=== PATIENT | male | born 1960 | race Hispanic/Latino ===

== ENCOUNTER 2019-07-26 11:45 | Inpatient (IN) | payer OTHER ==
[2019-07-26] MEDS ORDERED: ASPIRIN 81 MG CHEWABLE TABLET ONE (12:29)
[2019-07-26] MEDS ORDERED: LABETALOL 20 MG/4ML SYRINGE IV ONE (12:29)
[2019-07-26] MEDS ORDERED: NITROGLYCERIN 0.4 MG/TAB SL ONE (12:29)
--- NOTE | 2019-07-26 12:37 | EKG ---
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
[2019-07-26] MEDS ORDERED: NA CHLORIDE 0.9% 1,000 ML ONE (12:47)
--- NOTE | 2019-07-26 12:57 | RAD REPORT ---
EXAM DESCRIPTION: RAD - Chest Single View - 07/26/2019 12:47 pm CLINICAL HISTORY: weakness Chest pain. COMPARISON: Chest Single View dated 11/25/2017; Chest Single View dated 11/22/2017; Chest Single View dated 07/31/2017; Chest Single View dated 12/26/2015 FINDINGS: Portable technique limits examination quality. Rounded density is seen in the right lung base medially likely representing a pneumonia. The lungs ar e otherwise clear. The heart is upper limit normal in size. No displaced fractures. IMPRESSION: Right lung base pneumonia suspected. Suggest follow-up imaging until clearance.
[2019-07-26 13:01] LABS: Protime INR 1.49
[2019-07-26 13:02] LABS: Absolute Lymphocytes (CBC) 0.5 K/uL (0.7-4.9); Basophils % 0.1 % (0-1.3); Hematocrit 30.1 % (39.6-49.0); Lymphocytes % 2.5 % (15.3-44.8); MPV 9.2 fL (7.6-11.3); RBC Red Blood Cell Count 3.42 M/uL (4.33-5.43)
[2019-07-26] MEDS ORDERED: NA CHLORIDE 0.9% 250 ML ONE ×2 (13:25→22:00)
[2019-07-26] MEDS ORDERED: NA CHLORIDE 0.9% 100 ML IV ONE (13:25)
[2019-07-26] MEDS ORDERED: AZITHROMYCIN 500 MG INJ IVPB ONE ×2 (13:25→21:47)
[2019-07-26] MEDS ORDERED: CEFTRIAXONE/SWI 1gm 2 GM/20 ML SYR ONE (13:25)
[2019-07-26 13:51] LABS: Albumin 2.5 g/dL (3.4-5.0); Bilirubin Direct 0.3 mg/dL (0-0.2); Bilirubin Total 0.6 mg/dL (0.2-1.0); Magnesium 2.2 mg/dL (1.8-2.4); Protein, Total 10.5 g/dL (6.4-8.2); Troponin (Emerg Dept Use Only) 0.07 ng/mL (0.0-0.045)
[2019-07-26 13:55] LABS: Potassium 5.8 mmol/L (3.5-5.1)
[2019-07-26 14:02] LABS: Blood Morphology Comment NOT SEEN (NOT SEEN); Platelet Estimate INCR; Toxic Granulation 1+; Urine White Blood Cell Casts OK
--- NOTE | 2019-07-26 15:56 | EDPHYS ---
Physician Documentation [facility] Name: Constantino Skelton Jr Age: 58 yrs Sex: Male : 1960 Arrival Date: 07/26/2019 Time: 11:46 Bed 24 Private MD: ED Physician Enrico Castillo HPI: 07/26 13:12 This 58 yrs old Male presents to ER via Wheelchair with complaints of Weakness.wa 13:12 The patient has shortness of breath at rest, that occurred at home, and the patient has wa a history of HTN, DM . The patient has shortness of breath c/o SOB, cough, weakness x 4 days. admits to chest tightness. denies fever. loss of appetite. last meal 2 days ago. . Onset: The symptoms/episode began/occurred 4 day(s) ago. Duration: The symptoms are continuous, and are steadily getting worse. The patient's shortness of breath has no apparent modifying factors. Associated signs and symptoms: Pertinent positives: chest pain, productive cough, dizziness, Pertinent negatives: fever, loss of consciousness, vomiting. Severity of symptoms: At their worst the symptoms were moderate in the emergency department the symptoms are worse moderately. The patient has experienced similar episodes in the past, a few times. The patient has not recently seen a physician. per pt's sister, pt has h/o kidney disease as well. lives by self. . Historical: - Allergies: 16:05 No Known Allergies; mg2 - Home Meds: 13:45 labetalol 200 mg Oral tab 1 tab 2 times per day [Active]; pravastatin 20 mg Oral tab 1 mg2 tab once daily [Active]; 16:05 hydralazine 100 mg Oral tab 1 tab 3 times per day [Active]; amlodipine 10 mg tab 1 tab mg2 once daily [Active]; - PMHx: 11:51 Diabetes - NIDDM; Hyperlipidemia; Hypertension; sv - Immunization history:: Flu vaccine is up to date. - Social history:: Smoking status: Patient/guardian denies using tobacco, never smoked, The patient lives alone. - Family history:: not pertinent. - Ebola Screening: : No symptoms or risks identified at this time. - Hospitalizations: : No recent hospitalization is reported. ROS: 13:20 Eyes: Negative for injury, pain, redness, and discharge, ENT: Negative for injury, wa pain, and discharge, Neck: Negative for injury, pain, and swelling, Abdomen/GI: Negative for abdominal pain, nausea, vomiting, diarrhea, and constipation, Back: Negative for injury and pain, : Negative for injury, bleeding, discharge, and swelling, MS/Extremity: Negative for injury and deformity, Skin: Negative for injury, rash, and discoloration, Neuro: Negative for headache, weakness, numbness, tingling, and seizure, Psych: Negative for depression, anxiety, suicide ideation, homicidal ideation, and hallucinations. 13:20 Constitutional: Positive for fatigue, malaise, poor PO intake, weakness. 13:20 Cardiovascular: Positive for chest pain, with cough, Negative for edema, orthopnea, palpitations. 13:20 Respiratory: Positive for cough, "sounds productive", shortness of breath, on exertion. Negative for hemoptysis. Exam: 13:21 Head/Face: Normocephalic, atraumatic. Eyes: Pupils equal round and reactive to light, wa extra-ocular motions intact. Lids and lashes normal. Conjunctiva and sclera are non-icteric and not injected. Cornea within normal limits. Periorbital areas with no swelling, redness, or edema. Neck: Trachea midline, no thyromegaly or masses palpated, and no cervical lymphadenopathy. Supple, full range of motion without nuchal rigidity, or vertebral point tenderness. No Meningismus. Chest/axilla: Normal chest wall appearance and motion. Nontender with no deformity. No lesions are appreciated. Abdomen/GI: Soft, non-tender, with normal bowel sounds. No distension or tympany. No guarding or rebound. No evidence of tenderness throughout. Back: No spinal tenderness. No costovertebral tenderness. Full range of motion. Skin: Warm, dry with normal turgor. Normal color with no rashes, no lesions, and no evidence of cellulitis. MS/ Extremity: Pulses equal, no cyanosis. Neurovascular intact. Full, normal range of motion. Neuro: Awake and alert, GCS 15, oriented to person, place, time, and situation. Cranial nerves II-XII grossly intact. Motor strength 5/5 in all extremities. Sensory grossly intact. Cerebellar exam normal. Normal gait. Psych: Awake, alert, with orientation to person, place and time. Behavior, mood, and affect are within normal limits. 13:21 Constitutional: The patient appears unkempt, ill-appearing. frail 13:21 Cardiovascular: Rate: tachycardic, Rhythm: regular, Pulses: no pulse deficits are appreciated, Heart sounds: normal, Edema: is not appreciated, JVD: is not appreciated. 13:21 Respiratory: the patient does not display signs of respiratory distress, Respirations: tachypnea, that is moderate, Breath sounds: coarse BS bilaterally. Vital Signs: 11:50 BP 188 / 92; Pulse 113; Resp 28; Temp 97.7; Pulse Ox 99% ; Height 5 ft. 6 in. (167.64 sv cm); 12:45 BP 105 / 67; Pulse 78; Resp 26; Pulse Ox 100% on 2 lpm NC; mg2 13:39 BP 186 / 84; Pulse 86; Resp 22; Temp 97.8; Pulse Ox 99% on 2 lpm NC; mg2 15:18 BP 175 / 84; Pulse 82; Resp 22; Pulse Ox 100% on 2 lpm NC; mg2 17:52 BP 206 / 90; Pulse 80; Resp 18; Pulse Ox 100% on R/A; mg2 18:40 BP 212 / 88; Pulse 90; Resp 20; Pulse Ox 100% on 2 lpm NC; mg2 19:24 BP 195 / 89; Pulse 88; Resp 19; Temp 98.7; Pulse Ox 100% on 2 lpm NC; mg2 MDM: 11:58 Patient medically screened. wa 13:22 Differential diagnosis: CHF exacerbation, Chronic Obstructive Pulmonary Disease wa Myocardial Infarction pneumonia, pulmonary edema, Pulmonary Embolism reactive airway disease, Sepsis Unstable Angina. 15:21 Data reviewed: vital signs, nurses notes, lab test result(s), EKG, radiologic studies. wa Test interpretation: by ED physician or midlevel provider: EKG: HR 106. sinus tach. nml axis. LVH with strain or lateral wall ischemia. noted hyperacute T waves, consider hyperkalemia. 15:26 Test interpretation: by ED physician or midlevel provider: labs: hyperK at 5.8. GFR of wa 4 (BUN/Cr 221/14.1). hyperglycemia at 171. Cl 111. CO2 10. alk phos 152. BNP 9865. troponin 0.07. CXR R lung base pneumonia.. 15:38 Physician consultation: Erma Prasad MD. Admission orders: after a detailed discussion wa of the patient's condition and case, the admit orders are written by me. Other consultation: Dr. Clayton - renal . 15:49 Test interpretation: by ED physician or midlevel provider:. ED course: problem list: wa pna - Rocephin/zithro. IV. renal failure: fluid challenges. avendaño to eval output. consulted renal doc Forrest. bilateral renal US. pt improved for arrival status. will admit. pt very ill at this time. 07/26 11:59 Order name: Basic Metabolic Panel; Complete Time: 15:18 mg2 07/26 11:59 Order name: CBC with Diff; Complete Time: 15:18 mg2 07/26 11:59 Order name: LFT's; Complete Time: 15:19 mg2 07/26 11:59 Order name: Magnesium; Complete Time: 15:20 mg2 07/26 11:59 Order name: NT PRO-BNP; Complete Time: 15:19 mg2 07/26 11:59 Order name: PT-INR; Complete Time: 13:07 mg2 07/26 11:59 Order name: Troponin (emerg Dept Use Only); Complete Time: 15:19 mg2 07/26 11:59 Order name: XRAY Chest (1 view); Complete Time: 13:07 mg2 07/26 12:16 Order name: Urine Microscopic Only oh 07/26 12:16 Order name: Blood Culture Adult (2) oh 07/26 14:03 Order name: CBC Smear Scan; Complete Time: 15:18 EDMS 07/26 15:33 Order name: US Rp Exam Complete oh 07/26 16:00 Order name: Urine Dipstick--Ancillary (enter results) 07/26 11:59 Order name: EKG; Complete Time: 12:01 mg2 07/26 11:59 Order name: Cardiac monitoring; Complete Time: 12:12 mg2 07/26 11:59 Order name: EKG - Nurse/Tech; Complete Time: 12:43 mg2 07/26 11:59 Order name: IV Saline Lock; Complete Time: 12:43 mg2 07/26 16:49 Order name: US; Complete Time: 17:49 EDMS 07/26 11:59 Order name: Labs collected and sent; Complete Time: 12:43 mg2 07/26 11:59 Order name: O2 Per Protocol; Complete Time: 12:12 mg2 07/26 11:59 Order name: O2 Sat Monitoring; Complete Time: 12:12 mg2 07/26 12:16 Order name: Urine Dipstick-Ancillary (obtain specimen); Complete Time: 15:58 wa 07/26 15:21 Order name: Mt; Complete Time: 15:58 oh Administered Medications: 12:42 Drug: Labetalol 20 mg Route: IVP; Infused Over: 2 mins; Site: right antecubital; mg2 16:02 Follow up: Response: No adverse reaction; Marked relief of symptoms mg2 12:42 Drug: Nitroglycerin 0.4 mg Route: Sublingual; mg2 16:01 Follow up: Response: No adverse reaction mg2 12:42 Drug: Aspirin Chewable Tablet 324 mg Route: PO; mg2 16:01 Follow up: Response: No adverse reaction mg2 12:42 Drug: NS 0.9% 500 ml Route: IV; Rate: bolus; Site: right antecubital; mg2 16:01 Follow up: Response: No adverse reaction; IV Status: Completed infusion; IV Intake: mg2 500ml 13:39 Drug: Rocephin - (cefTRIAXone) 2 grams Route: IVPB; Infused Over: 30 mins; Site: right mg2 antecubital; 16:00 Follow up: Response: No adverse reaction; IV Status: Completed infusion; IV Intake: mg2 100ml 13:39 Drug: NS 0.9% 500 ml Route: IV; Rate: bolus; Site: right antecubital; mg2 15:59 Follow up: Response: No adverse reaction; IV Status: Completed infusion; IV Intake: mg2 500ml 13:56 Drug: Zithromax 500 mg Route: IVPB; Infused Over: 1 hrs; Site: right antecubital; mg2 16:00 Follow up: Response: No adverse reaction; IV Status: Completed infusion mg2 17:06 Drug: NS 0.9% 500 ml Route: IV; Rate: bolus; Site: right antecubital; mg2 18:39 Follow up: Response: No adverse reaction; IV Status: Completed infusion; IV Intake: mg2 500ml 17:52 Drug: HydrALAZINE 50 mg Route: PO; mg2 19:32 Follow up: Response: No adverse reaction mg2 17:52 Drug: amLODIPine 10 mg Route: PO; mg2 19:32 Follow up: Response: No adverse reaction mg2 19:26 Drug: hydrALAZINE 10 mg Route: IV; Rate: bolus; Site: right antecubital; mg2 19:32 Follow up: Response: No adverse reaction; IV Status: Completed infusion mg2 Disposition: 15:52 Critical Care:. oh Disposition: 07/26/19 15:55 Hospitalization ordered by Erma Prasad for Inpatient Admission. Preliminary diagnosis are Acute Weakness, acute on chronic renal failure, hyperkalemia, right lower lobe pneumonia, shortness of breath. - Bed requested for Telemetry/MedSurg (Inpatient). - Status is Inpatient Admission. mg2 - Condition is Guarded. - Problem is new. - Symptoms have improved. UTI on Admission? No Critical care time excluding procedures: 15:52 Critical care time: Bedside Care: 20 minutes, Consultation: 10 minutes, Family wa Intervention: 10 minutes. Total time: 40 minutes Signatures: Dispatcher [employer] EDSera Ni RN RN Cherri Cervantes RN RN ss Appiah, William, MD MD wa Gardose, Michele, RN RN mg2 Corrections: (The following items were deleted from the chart) 15:38 15:33 Abdomen Limited+US.RAD.BRZ ordered. EDNV EDMS 16:05 11:51 Allergies: No Known Allergies; mg2 17:23 15:55 Hospitalization Ordered by Erma Prasad MD for Inpatient Admission. Preliminary ss diagnosis is Acute Weakness; acute on chronic renal failure; hyperkalemia; right lower lobe pneumonia; shortness of breath. Bed requested for Telemetry/MedSurg (Inpatient). Status is Inpatient Admission. Condition is Guarded. Problem is new. Symptoms have improved. UTI on Admission? No. oh 19:35 17:23 07/26/2019 15:55 Hospitalization Ordered by Erma Prasad MD for Inpatient mg2 Admission. Preliminary diagnosis is Acute Weakness; acute on chronic renal failure; hyperkalemia; right lower lobe pneumonia; shortness of breath. Bed requested for Telemetry/MedSurg (Inpatient). Status is Inpatient Admission. Condition is Guarded. Problem is new. Symptoms have improved. UTI on Admission? No. ss
--- NOTE | 2019-07-26 15:56 | ER ---
Nurse's Notes [facility] Name: Constantino Skelton Jr Age: 58 yrs Sex: Male : 1960 Arrival Date: 07/26/2019 Time: 11:46 Bed 24 Private MD: Diagnosis: Acute Weakness;acute on chronic renal failure;hyperkalemia;right lower lobe pneumonia;shortness of breath Presentation: 07/26 11:48 Presenting complaint: Patient states: SOB, gen weakness x 3 days, sister states pt is sv normally able to do everything for himself. Transition of care: patient was not received from another setting of care. Risk Assessment: Do you want to hurt yourself or someone else?. Initial Sepsis Screen: Does the patient meet any 2 criteria? RR > 20 per min. HR > 90 bpm. Yes Does the patient have a suspected source of infection? No. Patient's initial sepsis screen is negative. 11:48 Method Of Arrival: Wheelchair sv 11:48 Acuity: LORRAINE 2 sv 11:48 No acute neurological deficit is noted. Onset of symptoms was July 22, 2019. Care sv prior to arrival: None. Triage Assessment: 11:48 The onset of the patients symptoms was more than six hours ago. General: Appears in no sv apparent distress. uncomfortable, ill, slender, malnourished, Behavior is calm, cooperative. Neuro: Level of Consciousness is awake, alert, obeys commands, confused, Oriented to person, place, Speech is normal, Reports dizziness, weakness. Respiratory: Respiratory effort is even, shallow, Respiratory pattern is tachypnea. Stroke Activation: Symptom onset > 6 hours Physician: Stroke Attending; Name: ; Notified At: ; Arrived At: Physician: Chief Stroke Resident; Name: ; Notified At: ; Arrived At: Physician: Stroke Resident; Name: ; Notified At: ; Arrived At: Physician: ED Attending; Name: ; Notified At: ; Arrived At: Physician: ED Resident; Name: ; Notified At: ; Arrived At: Historical: - Allergies: 16:05 No Known Allergies; mg2 - Home Meds: 13:45 labetalol 200 mg Oral tab 1 tab 2 times per day [Active]; pravastatin 20 mg Oral tab 1 mg2 tab once daily [Active]; 16:05 hydralazine 100 mg Oral tab 1 tab 3 times per day [Active]; amlodipine 10 mg tab 1 tab mg2 once daily [Active]; - PMHx: 11:51 Diabetes - NIDDM; Hyperlipidemia; Hypertension; sv - Immunization history:: Flu vaccine is up to date. - Social history:: Smoking status: Patient/guardian denies using tobacco, never smoked, The patient lives alone. - Family history:: not pertinent. - Ebola Screening: : No symptoms or risks identified at this time. - Hospitalizations: : No recent hospitalization is reported. Screenin:50 VAN Screening: Arm Drift: Patient shows no arm weakness. Patient is VAN negative. sv 13:44 Abuse screen: Denies threats or abuse. Denies injuries from another. Nutritional mg2 screening: No deficits noted. Tuberculosis screening: No symptoms or risk factors identified. Fall Risk IV access (20 points). Gait- Weak (10 pts.). Assessment: 12:20 General: Appears comfortable, ill, malnourished, Behavior is calm, cooperative. Pain: mg2 Denies pain. Neuro: Level of Consciousness is awake, alert, obeys commands, Oriented to person, place, time, situation. Cardiovascular: Capillary refill < 3 seconds Patient's skin is warm and dry. Respiratory: Airway is patent Respiratory effort is even, Respiratory pattern is regular, symmetrical, tachypnea Breath sounds are clear bilaterally. in mediastinum, right upper lobe and left upper lobe. GI: No signs and/or symptoms were reported involving the gastrointestinal system. : No signs and/or symptoms were reported regarding the genitourinary system. EENT: tongue is dry. Derm: Skin is intact, is healthy with good turgor, Skin is pink, warm \T\ dry. normal, looks dry. Musculoskeletal: Circulation, motion, and sensation intact. Capillary refill < 3 seconds. 13:30 Reassessment: Patient appears in no apparent distress at this time. Patient and/or mg2 family updated on plan of care and expected duration. Pain level reassessed. Patient is alert, oriented x 3, equal unlabored respirations, skin warm/dry/pink. 15:00 Reassessment: Patient appears in no apparent distress at this time. Patient and/or mg2 family updated on plan of care and expected duration. Pain level reassessed. Patient is alert, oriented x 3, equal unlabored respirations, skin warm/dry/pink. 16:02 Reassessment: Patient appears in no apparent distress at this time. Patient and/or mg2 family updated on plan of care and expected duration. Pain level reassessed. Patient is alert, oriented x 3, equal unlabored respirations, skin warm/dry/pink. patient sent to ultrasound via wheelchair with Oxygen on. 18:50 Reassessment: informed the provider about the blood pressure and he said he needs mg2 dialysis and the janitor and cleaner is coming to see him in ED. Patient and family informed. 19:00 Reassessment: dr Chavarria, janitor and cleaner came and assessed the patient and ordered meds for mg2 blood pressure and instructed the patient to be NPO post MN for possible dialysis tomorrow. Vital Signs: 11:50 BP 188 / 92; Pulse 113; Resp 28; Temp 97.7; Pulse Ox 99% ; Height 5 ft. 6 in. (167.64 sv cm); 12:45 BP 105 / 67; Pulse 78; Resp 26; Pulse Ox 100% on 2 lpm NC; mg2 13:39 BP 186 / 84; Pulse 86; Resp 22; Temp 97.8; Pulse Ox 99% on 2 lpm NC; mg2 15:18 BP 175 / 84; Pulse 82; Resp 22; Pulse Ox 100% on 2 lpm NC; mg2 17:52 BP 206 / 90; Pulse 80; Resp 18; Pulse Ox 100% on R/A; mg2 18:40 BP 212 / 88; Pulse 90; Resp 20; Pulse Ox 100% on 2 lpm NC; mg2 19:24 BP 195 / 89; Pulse 88; Resp 19; Temp 98.7; Pulse Ox 100% on 2 lpm NC; mg2 ED Course: 11:46 Patient arrived in ED. as 11:50 Triage completed. sv 11:51 Arm band placed on. sv 11:58 Enrico Castillo MD is Attending Physician. wa 11:58 Andrés Momin, SRIKANTH is Primary Nurse. mg2 12:02 Patient has correct armband on for positive identification. Bed in low position. Call light in reach. desk monitor on. Pulse ox on. NIBP on. 12:20 First set of blood cultures drawn. First set of blood cultures drawn by me. Inserted mg2 saline lock: 20 gauge in right antecubital area, using aseptic technique. Blood collected. 12:45 XRAY Chest (1 view) In Process Unspecified. EDMS 13:40 No provider procedures requiring assistance completed. mg2 15:40 Urine collected: Amor catheter specimen, clear, estelita colored, Amount Returned: 250mL. jp3 15:40 Wound care: to abrasion, located on base of the head of penis was cleaned with soap and jp3 water, debrided using Betadine scrub, dressed with Neosporin, Patient tolerated well. While inserting Amor cath. Noticed a small abrasion at the base of the head of the penis. Area was clean and Neosporin was applied to the area. 15:50 patient placed in adult Diaper. jp3 15:53 Erma Prasad MD is Hospitalizing Provider. wa 15:58 Urine Microscopic Only Sent. jp3 18:41 Patient admitted, IV remains in place. mg2 Administered Medications: 12:42 Drug: Labetalol 20 mg Route: IVP; Infused Over: 2 mins; Site: right antecubital; mg2 16:02 Follow up: Response: No adverse reaction; Marked relief of symptoms mg2 12:42 Drug: Nitroglycerin 0.4 mg Route: Sublingual; mg2 16:01 Follow up: Response: No adverse reaction mg2 12:42 Drug: Aspirin Chewable Tablet 324 mg Route: PO; mg2 16:01 Follow up: Response: No adverse reaction mg2 12:42 Drug: NS 0.9% 500 ml Route: IV; Rate: bolus; Site: right antecubital; mg2 16:01 Follow up: Response: No adverse reaction; IV Status: Completed infusion; IV Intake: mg2 500ml 13:39 Drug: Rocephin - (cefTRIAXone) 2 grams Route: IVPB; Infused Over: 30 mins; Site: right mg2 antecubital; 16:00 Follow up: Response: No adverse reaction; IV Status: Completed infusion; IV Intake: mg2 100ml 13:39 Drug: NS 0.9% 500 ml Route: IV; Rate: bolus; Site: right antecubital; mg2 15:59 Follow up: Response: No adverse reaction; IV Status: Completed infusion; IV Intake: mg2 500ml 13:56 Drug: Zithromax 500 mg Route: IVPB; Infused Over: 1 hrs; Site: right antecubital; mg2 16:00 Follow up: Response: No adverse reaction; IV Status: Completed infusion mg2 17:06 Drug: NS 0.9% 500 ml Route: IV; Rate: bolus; Site: right antecubital; mg2 18:39 Follow up: Response: No adverse reaction; IV Status: Completed infusion; IV Intake: mg2 500ml 17:52 Drug: HydrALAZINE 50 mg Route: PO; mg2 19:32 Follow up: Response: No adverse reaction mg2 17:52 Drug: amLODIPine 10 mg Route: PO; mg2 19:32 Follow up: Response: No adverse reaction mg2 19:26 Drug: hydrALAZINE 10 mg Route: IV; Rate: bolus; Site: right antecubital; mg2 19:32 Follow up: Response: No adverse reaction; IV Status: Completed infusion mg2 Intake: 15:59 IV: 500ml; Total: 500ml. mg2 16:00 IV: 100ml; Total: 600ml. mg2 16:01 IV: 500ml; Total: 1100ml. mg2 18:39 IV: 500ml; Total: 1600ml. mg2 Outcome: 15:55 Decision to Hospitalize by Provider. wa 18:24 Admitted to Tele accompanied by tech, via wheelchair, room 419, with oxygen, with mg2 chart, Report called to SRIKANTH Mariscal 18:24 Condition: stable 18:24 Instructed on the need for admit, Demonstrated understanding of instructions. mg2 19:35 Patient left the ED. mg2 Signatures: Dispatcher [employer] Sera Anderson RN RN sv Martinez, Amelia as Smirch, Shelby, RN RN Enrico Castillo MD MD wa Gardose, Michele, RN RN mg2 Delon Wan jp3 Corrections: (The following items were deleted from the chart) 12:00 11:48 Initial Sepsis Screen: Does the patient meet any 2 criteria? No. Patient's sv initial sepsis screen is negative. Does the patient have a suspected source of infection? No. Patient's initial sepsis screen is negative. sv 16:05 11:51 Allergies: No Known Allergies; sv mg2 16:07 15:40 Urine collected: Amor catheter specimen, clear, estelita colored, Amount Returned: jp3 250mL jp3
[2019-07-26 16:03] LABS: Urine Blood 3+ (NEG); Urine Glucose TRACE (NEG); Urine Protein 3+ (NEG); Urine Specific Gravity 1.015 (1.005-1.030); Urine pH 5.5 (5.0-7.0)
[2019-07-26 16:07] LABS: Urine RBC >50 /HPF (NONE SEEN)
[2019-07-26 16:08] LABS: Urine Amorphous Sediment 2+ /HPF (NONE SEEN); Urine Bacteria <20 /HPF (NONE SEEN); Urine Culture Reflex Order NOT NEEDED
[2019-07-26] MEDS ORDERED: NA CHLORIDE 0.9% 500 ML ONE (16:38)
--- NOTE | 2019-07-26 16:47 | RAD REPORT ---
EXAM DESCRIPTION: US - Renal Ultrasound-Complete - 07/26/2019 4:36 pm CLINICAL HISTORY: renal failure Flank pain COMPARISON: ABD PELVIC VASCULAR SCAN dated 08/19/2015 FINDINGS: Both kidneys appear mildly echogenic. The right kidney measures 8.4 x 4.8 x 3.7 cm. Mild right hydronephrosis. The left kidney measures 9.4 x 6.0 x 4.0 cm. No hydronephrosis, focal mass or perinephric fluid. The urinary bladder is incompletely distended due to a Amor catheter. IMPRESSION: Echogenic kidneys bilaterally compatible with medical renal disease. Mild right hydronephrosis.
[2019-07-26] MEDS ORDERED: SOD POLYSTYREN SUL 15 GM/60 ML UCUP PO ONE (17:00)
[2019-07-26] MEDS ORDERED: AMLODIPINE 5 MG TAB ONE (17:35)
[2019-07-26] MEDS ORDERED: HYDRALAZINE HCL 25 MG TABLET PO ONE (18:00)
[2019-07-26] MEDS ORDERED: HYDRALAZINE HCL 20 MG/ML VIAL ONE (19:19)
[2019-07-26] MEDS ORDERED: ONDANSETRON 4 MG/2 ML VIAL IV PRN (19:56)
[2019-07-26] MEDS ORDERED: ACETAMINOPHEN 500 MG TAB PO PRN (19:56)
[2019-07-26] MEDS: INSULIN -REGULAR HUMAN 50 UNIT/0.5 ML ML SQ SCH ×2 (19:56→21:00)
[2019-07-26] MEDS ORDERED: D5W 1,000 ML IV ONE (20:46)
[2019-07-26] MEDS ORDERED: SODIUM BICARB 50 MEQ/50ML VIAL ONE (20:47)
[2019-07-26] MEDS ORDERED: CEFTRIAXONE 1 GM/NS 50 ML 1 GM/50 ML BAG IV SCH (21:00)
[2019-07-26] MEDS: D5W 1,000 ML with NA BICARB 8.4% 100 MEQ IV SCH ×2 (21:18)
[2019-07-26] MEDS: NYSTATIN 500,000 UNIT/5 ML UDC PO SCH (21:18)
[2019-07-26] MEDS ORDERED: CEFTRIAXONE/SWI 1gm 1 GM/10 ML SYR ONE (21:23)
[2019-07-26] MEDS: AZITHROMYCIN IV 500 MG in NA CHLORIDE 0.9% 250 ML IVPB SCH (21:30)
--- NOTE | 2019-07-27 03:53 | HP ---
Date of Admission: 07/26/2019 Primary Care Physician: Dr. Wright. County Nurse: Dr. Duff with Nephrology. Chief Complaint: Generalized weakness, generalized malaise. History Of Present Illness: Patient is a 58-year-old male with past medical history of hypertension, congestive heart failure, cardiomyopathy, chronic kidney disease stage 2 with a baseline creatinine of 1.7, and diabetes, which is diet controlled and hyperlipidemia, who was in his usual state of health until the past couple of weeks when the patient has been having worsening generalized weakness, decreased p.o. intake, not taking his medications according to the sister. Patient does live alone. States he just does not feel like taking his medications. Patient's symptoms are constant, moderate, progressively worsening. Does have a dry cough. No fevers. No chest pain. Patient does have some shortness of breath. He also has some nausea, but no vomiting. Patient's workup revealed a potassium of 5.8. Creatinine was severely elevated at 14.1. WBC count is 19,000. His chest x-ray showed a right lower lobe pneumonia. Patient was given IV fluids, IV antibiotics, and then referred for admission. Amor catheter was placed and patient did produce some urine. Patient was very tachycardic and tachypneic in the ER. Past Medical History: Hypertension; congestive heart failure; cardiomyopathy; chronic kidney disease stage 2; diabetes mellitus type 2, diet controlled; hyperlipidemia. Surgical History: None. Allergies: NO KNOWN DRUG ALLERGIES. Medications: Patient is not taking any medications at this time. Social History: Patient denies any tobacco use, alcohol use, or illicit drug use. Lives alone, independent in his activities of daily living, currently is . Family History: Father and brother both have coronary artery disease. Review of Systems: 10-point system reviewed, negative except as per HPI. Physical Examination: Vital Signs: Blood pressure 188/92, pulse 113, respirations 28, temperature 97.7, O2 99% on 2 L via nasal cannula. General: Awake, alert, oriented x3, ill-appearing, older than stated age male. HEENT: Normocephalic, atraumatic. PERRLA. EOMI. Dry mucous membranes. Patient has some thrush on his tongue. Poor dentition. Conjunctivae anicteric. Neck: Supple. Patient has jugular venous distention. Trachea midline. CV: S1, S2. Regular rate and rhythm. Peripheral pulses present. Patient is tachycardic. Respiratory: Patient is tachypneic with use of accessory muscles. Diminished breath sounds, worse on the right. Rales heard. Gastrointestinal: Abdomen is soft, nontender, nondistended. Positive bowel sounds. No guarding or rigidity. Extremities: No clubbing, cyanosis. Patient has pedal edema. Neuro: Cranial nerves 2 through 12 intact grossly. No focal neurological deficit. Speech is normal. Skin: No rashes. Normal skin turgor. PSYCH: Mood is depressed. Affect is flat. Insight and judgment are poor. Laboratory Data: Sodium 141, potassium 5.8, chloride 111, CO2 10, BUN 221, creatinine 14.1, glucose 171, calcium 8.9. Magnesium 2.2. Alkaline phosphatase 152. Troponin 0.07. BNP 9865. Albumin 2.5. INR 1.49. WBC 19.5, H and H 9.9 and 30.1, platelets 490, neutrophils 95%. UA; negative nitrite, negative leukocyte esterase, greater than 50 rbc's, less than 20 bacteria, less than 5 wbc's, 3+ protein. Imaging Studies: Chest x-ray shows right lung base pneumonia suspected. Renal ultrasound shows echogenic kidneys bilaterally compatible with medical renal disease, mild right hydronephrosis. EKG shows sinus tachycardia, rate of 106, possible left atrial enlargement, T-wave abnormality, possible lateral ischemia. Assessment: 58-year-old male with: 1. Acute on chronic kidney injury. Creatinine markedly elevated at 14.1. Baseline was around 1.5 in November 2018. Unclear etiology. May be related to hydronephrosis. Patient denies any NSAID use. Patient is noncompliant with his medications. We will continue on IV fluids and monitor creatinine level. Nephrology has been consulted. Patient may end up needing dialysis. Family was updated. We will place Amor catheter for strict I's and O's and to monitor urinary output closely. 2. Generalized weakness, likely secondary to above. 3. Hyperkalemia. Potassium is at 5.8. We will give Kayexalate and monitor levels. Repeat potassium 4 hours post Kayexalate. 4. Elevated troponin level, likely related to kidney dysfunction and demand mismatch. EKG shows some T-wave abnormality. No ST elevation. We will continue to monitor. Patient denies any chest pain. 5. Right lower lobe pneumonia. We will continue on azithromycin and Rocephin. Blood cultures have been obtained in the ER. We will obtain sputum cultures. We will repeat chest x-ray as clinically indicated. Admission has elevated white blood cell count of 19,000. 6. Moderate protein-calorie malnutrition. Albumin is 2.5. Patient has had decreased p.o. intake, has lost significant amount of weight in these past 6-7 months. 7. Diabetes mellitus type 2, diet controlled, not on any medications. 8. Essential hypertension, not well controlled. We will resume home medications as appropriate. 9. Congestive heart failure, diastolic dysfunction, currently compensated. 10. Cardiomyopathy. 11. Hyperlipidemia. Continue on statin. 12. Deep vein thrombosis prophylaxis with Lovenox. 13. Noncompliance. Plan: Admit patient to Med-Surg, place as inpatient. Length of stay greater than 2 midnights. Overall poor prognosis. PEDRO Voice ID: [id number] [facility] CENTERCesar
[2019-07-27] MEDS: HYDRALAZINE HCL 25 MG TABLET PO SCH ×3 (04:35→21:28)
[2019-07-27] MEDS: AMLODIPINE 10 MG TAB PO SCH (04:35)
[2019-07-27 05:16] LABS: Absolute Lymphocytes (CBC) 0.5 K/uL (0.7-4.9); Basophils % 0.2 % (0-1.3); Hematocrit 24.1 % (39.6-49.0); MPV 9.4 fL (7.6-11.3)
[2019-07-27 05:30] LABS: Albumin 2.1 g/dL (3.4-5.0); Bilirubin Total 0.4 mg/dL (0.2-1.0); Potassium 4.5 mmol/L (3.5-5.1); Protein, Total 8.4 g/dL (6.4-8.2)
[2019-07-27 05:33] LABS: Phosphorus 8.9 mg/dL (2.5-4.9)
[2019-07-27] MEDS: D5W 1,000 ML with NA BICARB 8.4% 100 MEQ IV SCH ×6 (06:56→21:31)
[2019-07-27] MEDS: INSULIN -REGULAR HUMAN 50 UNIT/0.5 ML ML SQ SCH ×4 (07:30→21:27)
[2019-07-27] MEDS: NYSTATIN 500,000 UNIT/5 ML UDC PO SCH ×4 (08:49→21:28)
[2019-07-27] MEDS: CEFTRIAXONE/SWI 1gm 1 GM/10 ML SYR IV SCH ×2 (08:49→21:29)
[2019-07-27] MEDS: LABETALOL HCL 100 MG TAB PO SCH ×2 (08:52→21:28)
[2019-07-27] MEDS ORDERED: DESMOPRESSIN 20 MCG in NA CHLORIDE 0.9% 50 ML IV SCH ×2 (09:00→10:00)
--- NOTE | 2019-07-27 09:04 | RAD REPORT ---
EXAM DESCRIPTION: RAD - Chest Single View - 07/27/2019 8:45 am CLINICAL HISTORY: SOB, PULMONARY EDEMA Chest pain. COMPARISON: Chest Single View dated 07/26/2019; Chest Single View dated 11/25/2017; Chest Single View dated 11/22/2017; Chest Single View dated 07/31/2017 FINDINGS: Portable technique limits examination quality. Medial right basilar lung opacity shows fractional improvement since comparative study. The heart is mildly enlarged in size. No displaced fractures. IMPRESSION: Fractional improvement in medial right lung base opacity since comparative study.
[2019-07-27 09:27] LABS: Urine Appearance CLOUDY; Urine Bilirubin NEGATIVE (NEG); Urine Blood 3+ (NEG); Urine Color YELLOW; Urine Glucose TRACE (NEG); Urine Protein 2+ (NEG); Urine Specific Gravity 1.015 (1.005-1.030); Urine Urobilinogen 0.2 mg/dL (0.2-1.0)
[2019-07-27 09:44] LABS: Urine Amorphous Sediment 1+ /HPF (NONE SEEN); Urine Bacteria <20 /HPF (NONE SEEN); Urine Culture Reflex Order REFLEXED; Urine RBC 20-50 /HPF (NONE SEEN)
[2019-07-27 10:43] LABS: Urine Protein/Creatinine Ratio 4.74 ratio (<0.15)
--- NOTE | 2019-07-27 11:50 | CON ---
Date of Consultation: 07/26/2019 Reason For Consultation: Acute kidney injury. History Of Present Illness: Mr. Skelton is a 58-year-old male with a history of hypertension, diabe tomer, who presented to the hospital with dyspnea and fatigue. The patient lives at home alone. He is accompanied today by his sister. His sister usually check in on him and when they had come to see arnulfo im yesterday, they had seen that he was acutely short of breath and brought him for evaluation. He w as diagnosed with a right lower lobe pneumonia and consultation was requested for acute kidney injury . The patient does have a history of chronic kidney disease on the background of hypertension and di abetes. He has had a creatinine throughout 2018 with a baseline from 1.4 to 1.7. He has seen my par tner, Dr. Mendoza in the past; however, he has not followed up with him formally in some time. He wa s having his outpatient labs monitored by his primary care provider whom he sees every 4-6 months. R ecently, he states that since becoming ill several days ago, he has had decreased p.o. intake, only d rinking water. He denies use of any NSAIDs and there have been no contrast studies. Since admission here in the ED, he has had a ultrasound. He had not yet received IV fluids. He has rece ived antibiotics for his pneumonia. He is currently seen at the bedside. He denies any fevers, chills, chest pain. He does have cough. He has no nausea, vomiting, or diarrhea. Past Medical History: Hypertension and diabetes. Family History: The patient had a sister who was on hemodialysis. Physical Examination: Vital Signs: Blood pressure was 200/90, pulse 97, temperature 97.2. General: Thin, cachetic. Heart: Regular rate and rhythm. No murmurs, rubs, or gallops. Lungs: Decreased breath sounds at the right base. Abdomen: Soft, nontender, nondistended. Extremities: No significant edema. Laboratory Data: Sodium 144, potassium 4.5, chloride 114, CO2 of 12, BUN 229, creatinine 13, glucose 207, calcium 7.9, phosphorus 8.9, magnesium 2. Hepatic panel: AST and ALT within normal limits. A lbumin is 2.1, globulin 6.3. UA, 3+ blood, over 50 rbc's, 2+ amorphous evident, 3+ protein. CBC: W BC 19.5, hemoglobin 9.9, hematocrit 30.1, platelets 490. Diagnostic Imaging: Chest x-ray, right lung base pneumonia suspected, suggest followup imaging until clearance. Renal ultrasound, echogenic kidney bilaterally compatible with medical renal disease. M ild right hydronephrosis. Current Medications: Patient in the ED at the time of my interview had received amlodipine 10 mg, hy dralazine 100 mg, as well as labetalol 200 mg. Impression: 1.Acute kidney injury on chronic kidney disease, possibly from sepsis as well as volume depletion le ading to acute tubular necrosis. Other etiologies glomerulonephritis are considered. 2. in the setting of acute renal failure. 3.Metabolic acidosis in the setting of acute renal failure. 4.Right lower lobe pneumonia. 5.Uncontrolled hypertension. 6.Reported weight loss. Plan: Mr. Skelton has acute kidney injury, which he has several electrolyte abnormalities. His mos t overwhelming concern is his severe azotemia. However, despite the azotemia, the patient is not exh ibiting any uremic symptoms. He is any uremic symptoms, which would include nausea, vomit ing, somnolence, tremors. He also appears nonoliguric with approximately 300 mL of urine output in t he Amor bag. We will initiate a trial of IV fluids and monitor patient's response. If patient alfredo ins nonoliguric and renal parameters continue to improve, then he may not need renal replacement ther apy. I have discussed the option with the patient and his family members at length and had informed them that if renal parameters continue to worsen that we will need to perform dialysis until this acu te episode of illness had resolved. Further workup may be needed. I will order urinalysis as well a s serum studies to further assess the etiology of the renal disease. Patient should have no NSAIDs a nd no contrast. Patient should be n.p.o. after midnight to ensure for a possible dialysis catheter p lacement. Renal dose all medications to creatinine clearance of less than 10. Hydralazine 10 mg IV q.6 p.r.n. will be added for blood pressure control. Dr. Prasad, thank you for the consultation. We will continue to follow. SE/MODL Voice ID: [id number] Report ID: [id number]
--- NOTE | 2019-07-27 14:44 | PN ---
Date of Progress Note: 07/27/2019 Subjective: Patient is seen at the bedside. [facility] Patient has been on IV fluids overnight and has also received his antihypertension regimen. The patient cur rently seen at bedside with his sister. He feels well. He denies any fevers, chills, chest pain, sh ortness of breath, nausea, vomiting, or diarrhea. He does have hiccups. With IV fluids and management of hyperkalemia, potassium is reduced to 4.5. There has been a modest improvement in his acidosis. However, his azotemia has worsened and there has not been a significant improvement in his creatinine level. Physical Examination: Vital Signs: Blood pressure is 173/79, pulse 106, afebrile. General: No acute distress. Heart: Regular rate and rhythm. No murmurs, rubs, or gallops. No friction rub noted. Lungs: Crepitations over the right base. Abdomen: Soft, nontender, nondistended. Extremities: No significant edema. Laboratory Data: Sodium 144, potassium 4.5, chloride 114, CO2 of 12, BUN 229, creatinine 13, glucose 207, calcium 7.9, phosphorus 8.9, albumin 2.1. UA from yesterday was reviewed. Immunology and sero logy panels are pending at this time. Impression: 1.Acute kidney injury of unknown etiology, possibly acute tubular necrosis in the setting of precedi ng sepsis and volume depletion versus underlying glomerulonephritis. 2.Azotemia without uremic symptoms. 3.Hypertension, improving. 4.Anemia. 5.Diabetes mellitus. Plan: At this point, renal function not showing any significant recovery despite IV fluids. This wa rrants renal replacement therapy and we will initiate hemodialysis today. Problem at this point, the patient is end-stage or this is only an acute need for renal replacement therapy. We will assess th is further after the patient's dialysis treatments and response to treatment of his pneumonia. If hi s part of his glomerulonephritis workup, I have ordered hepatitis panels. I have also ordered serolo gies including AZEEM, anti-double stranded DNA, C3, C4, as well as ANCA panels. The patient will have a Edgard catheter placed today by the surgical service. To avoid uremic bleed ing, I will administer DDAVP 15-30 minutes as a 10 minute IV infusion prior to the procedure. This h as been communicated to the bedside nurse. Although the patient's azotemia is worsened, he is still not displaying aurora uremic symptoms. I will order an echocardiogram of the heart to assess whether there is any pericardial/uremic effusions in the pericardial sac. This is more for ongoing dialysis need. If there is an effusion present, which could be presumed from uremia and the patient will need several dialysis sessions in order to resolve it. That has yet to be seen. Blood pressure is improving. Continue hydralazine. The patient is n.p.o. for Edgard catheter, but allow the patient to receive antihypertensive medications to avoid excessive hypertension during his procedure. For the patient's anemia, it is stable at this time. We will transfuse as needed. The p atient will benefit from the JOHNNIE moving forward. We will hold until the patient's blood pressure con trol is improved. The patient does have mild hyperglycemia on the bicarbonate infusion which has D5. The patient is on fingersticks every 4 hours and the patient can be managed on his insulin scale on that regard. Once the patient's n.p.o. was left, the patient can be switched over to a non-dextrose base solution. Av oid all NSAIDs. Avoid all contrast. Ensure that all medications are renally dosed. The patient did give me a history of profound weight loss, and a weight loss workup may need to be un dertaken in the hospital. I will add a hepatitis C panel. Consideration should be given to adding H IV panel based on the patient's. Plan of care communicated to the patient, patient's sister at the bedside as well as bedside nursing staff. I will also communicate the need for dialysis today to the dialysis nurse. /ARLENE Voice ID: [id number] Report ID: [id number]
--- NOTE | 2019-07-27 17:11 | PN ---
Date of Progress Note: 07/27/2019 Subjective: Patient seen and examined. Chart reviewed and case discussed with RN and Dr. Brasher. Basilio ahhn did respond somewhat to fluids, has urinary output. However, kidney function still not improvi ng significantly. Medications: List reviewed. Physical Examination: Vital Signs: Temperature 97.1, heart rate 106, blood pressure 173/79, respirations 16, O2 98% on 2 L via nasal cannula. General: Awake, alert and oriented x3. Ill-appearing male, frail, cachectic, appears older than sta missael age. CV: S1 and S2. Sinus tachycardia. Peripheral pulses weak. Respiratory: Diminished breath sounds. No wheezing. Some crackles present. Gastrointestinal: Abdomen is soft, nontender, nondistended. Positive bowel sounds. Extremities: No clubbing, cyanosis. Trace pedal edema. Neuro: Cranial nerves 2 through 12 intact grossly. No focal neurological deficit. Speech is normal . Laboratory Data: Sodium 144, potassium 4.5, chloride 114, CO2 12, BUN 229, creatinine 13, glucose 20 7, lactate 0.7, calcium 7.9, phosphorus 8.9, magnesium 2, alkaline phosphatase 137, albumin is 2.1. WBC 17.1, hemoglobin and hematocrit 8.2 and 24.1, platelets 379. Neutrophils 93%. Blood cultures, a nd sputum cultures pending. Chest x-ray shows fractional improvement in the medial right lung base o pacities since comparative study, personally reviewed. Assessment And Plan: A 58-year-old male with: 1.Acute on chronic kidney injury, likely due to acute tubular necrosis, volume depletion. The patie nt has multiple electrolyte abnormalities. Potassium has been corrected. Patient is still producing urine, however, creatinine has not responded much. We will need to start on dialysis. Dr. Chew has been consulted for catheter placement. We will continue to monitor. Continue IV fluids. Avoid NSAIDs and other nephrotoxins. We will continue to monitor closely. 2.Generalized weakness secondary to above. 3.Hyperkalemia, corrected. 4.Hyperphosphatemia. We will need dialysis. We will continue to monitor. 5.Elevated troponin level likely due to demand mismatch. Appreciate Cardiology input. 6.Right lower lobe pneumonia. We will continue with IV antibiotics. WBC count is slightly improved . We will continue to monitor cultures. Repeat chest x-ray shows slight improvement. 7.Moderate protein-calorie malnutrition. Albumin is 2.5. Encourage p.o. intake. 8.Diabetes mellitus type 2, diet controlled. Not on any medications. Continue sliding scale insuli n and monitor Accu-Cheks. 9.Thrush. We will continue nystatin swish and swallow. 10.Essential hypertension, not well controlled. Continue medications at p.r.n. 11.Congestive heart failure, diastolic dysfunction, compensated. 12.Cardiomyopathy. 13.Mixed hyperlipidemia. Continue statin. 14.Deep venous thrombosis prophylaxis. Lovenox renally dose. 15.Noncompliance. /ARLENE Voice ID: [id number] Report ID: [id number]
--- NOTE | 2019-07-27 17:29 | CON ---
Reason For Consult: Preop evaluation before going through dialysis access catheter placement. History Of Present Illness: Mr. Skelton has longstanding hypertension. He is known to have renal i nsufficiency, but came to our hospital with pneumonia and creatinine above 10. Apparently, he had no t been seen by any physician for a year. He had been eating poorly and he seems to live a rather rec lusive life and does not have much followup with other people. His sister was visiting him and disco oscar him in severely ill condition with pneumonia, renal failure and sepsis, and brought him to the hospital. He has a history of poor medical compliance. He has never had myocardial infarction or st roke or heart catheterization or stents. He has underlying diabetes, hypertension, and congestive he art failure. He had an echocardiogram here in October 2017. I do not know if he has had any since then. It was a normal echocardiogram showing just a trace amount of tricuspid regurgitation with nor mal right ventricular pressure. Medications: His medications at home were reported to be pravastatin, amlodipine, hydralazine, and l abetalol that we suspect he has not been taking those for some time. Laboratory Data: Reveals a creatinine of 13 today. His potassium is 4.5, it was up to 6.0 recently. Phosphate level is very high at 8.9. He has N-terminal proBNP [place] 9865, a troponin level of 0 .07. The patient does not have any chest pains that sound anything like angina and his electrocardio gram shows sinus tachycardia, left atrial enlargement, T-wave abnormality. Impression: The patient is not in a situation where he could not undergo the dialysis access placeme nt that should be done forthwith and dialysis should be started. I think he probably should have a r epeat echocardiogram and stress test, but I do not consider these necessary to be done or that surgic al clearance is contingent on him. I think, it should be done over the next few days. We will try and relay this to Dr. Chew face-t o-face. KRISTI/ARLENE Voice ID: [id number] Report ID: [id number]
--- NOTE | 2019-07-27 19:50 | CON ---
Date of Consultation: 07/27/2019 Diagnoses: Renal insufficiency, heart disease, need for hemodialysis catheter. History Of Present Illness: This is the case of a 58-year-old patient who came to the hospital compl aining of weakness. During the workup, patient has been found to have renal insufficiency. Today th zoila asked us for evaluation for a hemodialysis catheter. Patient really states that he just live by h imself. He does not take medications as often, he knows he is supposed to. He was advised against t hat. He has been feeling weak for about a week. He denies any dysuria, hematuria, hematochezia, or melena. No fever. He has been in the hospital before with the same complaint, apparently he was adv ised in the past about the need for being compliant with treatment, but he does not have any local do ctor over the area. Allergies: NONE. Medical Problems: Diabetes, non-insulin dependent; hypertension; hyperlipidemia. Medications: Labetalol, hydralazine, amlodipine. Social History: He does not smoke. He does not drink alcohol. Family History: Noncontributory. Review of Systems: Otherwise unremarkable. Physical Examination: GENERAL: The patient is awake and alert. HEENT: Pupils anicteric. NECK: Supple. CHEST: Clear. ABDOMEN: Soft and depressible. No guarding or rebound. EXTREMITIES: Good capillary refill. Laboratory Data: Blood work shows sodium 144, potassium 4.5, creatinine is 12. Phosphorus 8.9. AST 31, ALT 28, alkaline phosphate 137. INR 1.49. UA: Rbc's 20 to 50, wbc's 5 to 10. Imaging Studies: Chest x-ray: Fracture and improvement in medial right lung base opacity per __ . Assessment And Plan: This is a 58-year-old patient with multiple medical problems including heart di sease, kidney disease, noncompliant with treatment, diabetes, hypertension. Hemodialysis . I discussed the case with Anesthesia and they recommended a Cardiology evaluation. Patient will be started to be n.p.o. I discussed the case with the renal doctor and they will require DDAVP before the procedure is done. I explained to him and the family in Syriac and Beninese the risk he has put himself to, even the risk of this procedure which include, but not limited to infection, bleeding, da mage to adjacent structures, and heart attacks, stroke, MD, even . He understands al so the chance of pneumothorax, hemothorax, PE. He understands the importance of keeping this cathete r clean. This have to be done under anesthesia. This will not be done in the floor sedat ion since he is anxious, also will be done under fluoroscopy guidance. ROMINA/ARLENE Voice ID: [id number] Report ID: [id number]
[2019-07-27] MEDS: ENSURE HIGH PROTEIN 237 ML CAN PO SCH (21:00)
[2019-07-27] MEDS: ATORVASTATIN 10 MG TAB PO SCH (21:28)
[2019-07-27] MEDS: LORAZEPAM 0.5 MG TABLET PO PRN (23:00)
[2019-07-28] MEDS: HYDRALAZINE HCL 20 MG/ML VIAL IV PRN (00:30)
[2019-07-28 04:43] LABS: Absolute Lymphocytes (CBC) 0.6 K/uL (0.7-4.9); Basophils % 0.3 % (0-1.3); Hematocrit 24.5 % (39.6-49.0); Lymphocytes % 4.6 % (15.3-44.8); MPV 9.6 fL (7.6-11.3); RBC Red Blood Cell Count 2.88 M/uL (4.33-5.43)
[2019-07-28 05:19] LABS: Albumin 1.8 g/dL (3.4-5.0); Bilirubin Total 0.4 mg/dL (0.2-1.0); Potassium 3.9 mmol/L (3.5-5.1); Protein, Total 7.8 g/dL (6.4-8.2)
[2019-07-28] MEDS: LIDOCAINE 4% PATCH TOP SCH ×2 (05:59→08:40)
[2019-07-28 06:30] LABS: Hematocrit 22.8 % (39.6-49.0)
[2019-07-28] MEDS: D5W 1,000 ML with NA BICARB 8.4% 100 MEQ IV SCH ×4 (08:41→17:00)
[2019-07-28] MEDS: HYDRALAZINE HCL 25 MG TABLET PO SCH ×3 (08:41→21:00)
[2019-07-28] MEDS: LABETALOL HCL 100 MG TAB PO SCH ×2 (08:42→21:40)
[2019-07-28] MEDS: CEFTRIAXONE/SWI 1gm 1 GM/10 ML SYR IV SCH ×2 (08:42→21:41)
[2019-07-28] MEDS: ENSURE HIGH PROTEIN 237 ML CAN PO SCH ×2 (08:44→21:00)
[2019-07-28] MEDS: INSULIN -REGULAR HUMAN 50 UNIT/0.5 ML ML SQ SCH ×4 (08:45→21:00)
[2019-07-28] MEDS: NYSTATIN 500,000 UNIT/5 ML UDC PO SCH ×4 (08:46→21:40)
[2019-07-28] MEDS: AMLODIPINE 10 MG TAB PO SCH (08:48)
--- NOTE | 2019-07-28 09:03 | RAD REPORT ---
EXAM DESCRIPTION: Tabitha Single View07/28/2019 6:39 am CLINICAL HISTORY: Chest pain COMPARISON: July 27 FINDINGS: No significant change in the right lung opacities Left lung appears clear of acute Infiltrate. The heart is normal size IMPRESSION: No significant change in the right pneumonia
[2019-07-28] MEDS ORDERED: NA CHLORIDE 0.9% 500 ML ONE (10:30)
[2019-07-28] MEDS ORDERED: DESMOPRESSIN 20 MCG in NA CHLORIDE 0.9% 50 ML IV ONE (10:30)
[2019-07-28] MEDS ORDERED: NS 0.9% VIAL 10 ML ONE (10:43)
[2019-07-28] MEDS ORDERED: LIDOCAINE 1% MPF 30 ML VIAL ONE (10:43)
[2019-07-28] MEDS ORDERED: PROPOFOL 200 MG/20 ML VIAL IV ONE (10:44)
[2019-07-28] MEDS ORDERED: NA CHLORIDE 0.9% 100 ML IV ONE (10:44)
[2019-07-28] MEDS ORDERED: MIDAZOLAM HCL 2 MG/2 ML INJ ONE (10:44)
[2019-07-28] MEDS ORDERED: LIDOCAINE 2% MPF 5 ML VIAL ONE (10:45)
[2019-07-28] MEDS ORDERED: FENTANYL CITR 100 MCG/2 ML ONE (10:45)
[2019-07-28] MEDS ORDERED: ONDANSETRON 4 MG/2 ML VIAL ONE (10:48)
[2019-07-28] MEDS ORDERED: CALCIUM GLUC 10% INJ 4.65 MEQ in NA CHLORIDE 0.9% 100 ML IV ONE (10:52)
[2019-07-28] MEDS ORDERED: EPHEDRINE SULF 50 MG/ML VIAL ONE (11:26)
[2019-07-28] MEDS: HEPARIN 5000 UNIT/ML 1 ML VIAL ONE ×2 (11:47→11:49)
[2019-07-28] MEDS ORDERED: Phenylephrine HCl 10 MG/ML 1 ML VIAL ONE (11:57)
[2019-07-28] MEDS ORDERED: CODEINE 30MG/APAP 300MG TAB PO PRN (12:15)
--- NOTE | 2019-07-28 12:15 | P.BOP ---
Preoperative diagnosis: acute renal insufficiency Postoperative diagnosis: same Primary procedure: 1. Placement of tunneled cuffed hemodialysis catheter Secondary procedure: 2. Interpretation of fluoroscopy Other procedure(s): 3. Right neck ultrasound Estimated blood loss: <10cc Specimen: none Findings: viable IJV Anesthesia: General Transferred to: Recovery Room Condition: Good
--- NOTE | 2019-07-28 12:24 | RAD REPORT ---
EXAM DESCRIPTION: RAD - Fluoroscopy <1 Hour - 07/28/2019 12:14 pm CLINICAL HISTORY: Device placement central venous catheter placement FINDINGS: A central venous catheter was placed into the superior vena cava. Eight fluoroscopic spot images are submitted. The examination was performed by Dr. Chew Fluoroscopy time 0.6 minutes
--- NOTE | 2019-07-28 12:45 | RAD REPORT ---
EXAM DESCRIPTION: Tabitha Single View07/28/2019 12:38 pm CLINICAL HISTORY: Device placement/central venous catheter placement COMPARISON: July 28, 2019 FINDINGS: The limbs of a central venous catheter lie within the superior vena cava. A pneumothorax i s not present.
[2019-07-28] MEDS ORDERED: NA CHLORIDE 0.9% 250 ML ONE (14:05)
--- NOTE | 2019-07-28 14:59 | ECHO ---
HEIGHT: 5 ft 5 in WEIGHT: 130 lb 4.8 oz DATE OF STUDY: 07/28/[address]: Tone Brasher MD 2-DIMENSIONAL: YES M.MODE: YES DOPPLER: YES COLOR FLOW: YES TDS: NO PORTABLE: NO DEFINITY: NO BUBBLE STUDY: NO DIAGNOSIS: EVALUATE FOR PERICARDIAL EFFUSION CARDIAC HISTORY: CATHERIZATION: NO SURGERY: NO PROSTHETIC VALVE: NO PACEMAKER: NO MEASUREMENTS (cm) DIASTOLIC (NORMALS) SYSTOLIC (NORMALS) IVSd 1.6 (0.6-1.2) LA Diam 3.3 (1.9-4.0) LVEF 63% LVIDd 4.2 (3.5-5.7) LVIDs 2.7 (2.0-3.5) %FS 34% LVPWd 1.7 (0.6-1.2) Ao Diam 2.7 (2.0-3.7) 2 DIMENSIONAL ASSESSMENT: RIGHT ATRIUM: NORMAL LEFT ATRIUM: NORMAL RIGHT VENTRICLE: NORMAL LEFT VENTRICLE: LEFT VENTRICULAR HYPERTROPHY TRICUSPID VALVE: NORMAL MITRAL VALVE: NORMAL PULMONIC VALVE: NORMAL AORTIC VALVE: NORMAL PERICARDIAL EFFUSION: NONE AORTIC ROOT: NORMAL LEFT VENTRICULAR WALL MOTION: NORMAL. DOPPLER/COLOR FLOW: NORMAL. COMMENTS: LEFT VENTRICULAR HYPERTROPHY SEVERE NO GRADIENT. NORMAL EJECTION FRACTION. NO WALL MOTION ABNORMALITY. NO EFFUSION. TECHNOLOGIST: BULMARO TORIBIO
[2019-07-28] MEDS ORDERED: NA CHLORIDE 0.9% 1,000 ML IV PRN (15:26)
[2019-07-28] MEDS ORDERED: ALBUMIN HUMAN 25% 50 ML IV SCH (16:00)
--- NOTE | 2019-07-28 17:36 | PN ---
Date of Progress Note: 07/28/2019 Subjective: Patient seen and examined. Chart reviewed and case discussed with RN. Patient seems to be in good spirits. Despite everything going on, does seem to have some rigidity and tetany. Scheduled for tunneled catheter placement today. Medications: List reviewed. Physical Examination: Vital Signs: Temperature 97, heart rate 79, blood pressure 152/79, respirations 20, O2 99% on 1 L via nasal cannula. General: Awake, alert, oriented x3, in some mild distress, appears older than stated age, ill-appearing frail male. CV: S1, S2. Regular rate and rhythm. Peripheral pulses present. Respiratory: Diminished breath sounds. No wheezing or stridor. Gastrointestinal: Abdomen is soft, nontender, nondistended. Positive bowel sounds. No guarding or rigidity. Extremities: No clubbing, cyanosis. No edema. Neurologic: Nonfocal. Musculoskeletal: Patient seems to have some rigidity and tremor. Laboratory Data: Sodium 140, potassium 3.9, chloride 104, CO2 of 18, BUN 214, creatinine 12.5, glucose 271, calcium 6.9. Iron 28, TIBC 106, transferrin 76, ferritin 1319. AST 44, ALT 33, alkaline phosphatase 129, albumin 1.8, vitamin B12 1322. Immunology panel is pending. WBCs 12.2, H and H 7.8 and 24.5, platelets 311. Repeat H and H are 7.2 and 22.8. Urine culture shows no growth to date. Blood cultures, no growth to date. Sputum cultures pending. Chest x- ray shows no significant change in the right pneumonia. Assessment And Plan: 58-year-old male with; 1. Acute on chronic kidney injury, likely due to acute tubular necrosis and volume depletion. Patient will need dialysis, going for a tunneled catheter placement today. Appreciate Nephrology input. Patient cleared by Cardiology standpoint. Dr. Chew to place the catheter today. We will continue to monitor creatinine closely. Minimal improvement with IV fluids. Patient has multiple electrolyte abnormalities, needs dialysis. 2. Acute on chronic anemia, likely due to chronic disease. We will continue to monitor. Patient will likely need transfusion if falls below 7. We will give with dialysis once the catheter is in. We will continue to monitor H and H. We will obtain stool occult blood. 3. Hypermagnesemia. 4. Hypocalcemia. Corrected calcium is 8.5. We will start on IV calcium and then Rocaltrol. 5. Generalized weakness secondary to above, likely improve once the patient has been dialyzed. 6. Hyperkalemia, corrected. 7. Elevated troponin level likely due to demand mismatch. No further intervention recommended by Cardiology. 8. Right lower lobe pneumonia. We will continue with IV antibiotics. WBC count trending down at 12.2. We will continue to monitor. Blood cultures are negative to date. Sputum cultures are pending. 9. Severe protein-calorie malnutrition. Albumin is less than 2. Encourage p.o. intake. 10. Hyperphosphatemia. 11. Diabetes mellitus type 2, diet controlled. Not on any medications. We will continue sliding scale insulin and monitor Accu-Cheks. 12. Thrush. Continue nystatin. 13. Essential hypertension, poorly controlled. We will continue with medications, hydralazine p.r.n. 14. Congestive heart failure, diastolic dysfunction, compensated. 15. Cardiomyopathy. 16. Mixed hyperlipidemia. We will continue statin. 17. Noncompliance. 18. Deep venous thrombosis prophylaxis, renally dosed. Plan: As above. Likely discharge in the next 48 to 72 hours depending on clinical response. Depending on his kidney function recovery, may need to be set up with dialysis as outpatient. /ARLENE Voice ID: [id number] Report ID: [id number] ANGELA
--- NOTE | 2019-07-28 19:58 | PN ---
Date of Progress Note: 07/28/2019 Subjective: Patient is 58 years old was admitted by Dr. Prasad on 07/26/2019 for renal failure with c reatinine of 12.5. His hemoglobin now is 7.8. He came in with pneumonia, Pepcid, had a normal echoc ardiogram in 2018, has a history of hypertension, diabetes. Has an echocardiogram pending today. He is feeling well overall except for fatigue and slight shortness of breath. A dialysis catheter is p kranthi for today by Dr. Chew. We will continue to follow him. XIANG/ARLENE Voice ID: [id number] Report ID: [id number]
[2019-07-28] MEDS: LORAZEPAM 0.5 MG TABLET PO PRN (21:40)
[2019-07-28] MEDS: ATORVASTATIN 10 MG TAB PO SCH (21:40)
[2019-07-28] MEDS: AZITHROMYCIN IV 500 MG in NA CHLORIDE 0.9% 250 ML IVPB SCH (21:41)
--- NOTE | 2019-07-28 23:53 | OP ---
Date of Procedure: 07/28/2019 Surgeon: Jake Chew MD Preoperative Diagnosis: Acute renal insufficiency. Postoperative Diagnosis: Acute renal insufficiency. Procedures: 1.Placement of hemodialysis catheter in the right internal jugular vein. 2.Interpretation of fluoroscopy. 3.Right neck ultrasound. Estimated Blood Loss: Less than 10 cc. Anesthesia: General plus local. Findings: Viable internal jugular vein on the right side. Indications: This is the case of a male, who comes to us with above diagnosis. Fully explained bene fits and risks of placement of a hemodialysis catheter, which include, but not limited to infection, bleeding, damage to adjacent structures, anesthesia complication, PE, DVT, pneumothorax, hemothorax, sepsis, pericardiac tamponade, pericarditis, MS, even . He also understands this may not reliev e any symptoms. He might need more than one surgical intervention. He was consulted. Once again th e importance of following up instructions by his doctors and being compliant with it. Description Of Procedure: The patient was brought to the operating room, placed in supine position. Anesthesia was done without complication. The right neck was and chest were prepped and draped in a sterile fashion. A time-out was called. Ultrasound of the neck was done, finding a viable internal jugular vein and using that as an junior sales assistant, we proceeded to place an 18-gauge needle in the interna l jugular vein at the first attempt. A guidewire was passed through, got into superior vena cava usi ng fluoroscopy. A small incision was made in the right upper chest and a hemodialysis cuffed cathete r was tunneled underneath the skin to meet the incision on the right neck area. Sequential dilators were placed through the guidewire under fluoroscopy guidance and we have an introducer and the cathet er was placed through and introducer was peeled off. The catheter seems to be in good position using fluoroscopy guidance. Excellent backflow and inflow and the catheter was flushed with a heparinized solution and secured in place with 3-0 nylon. The patient tolerated the procedure well. Patient wa s brought back from Trendelenburg position to normal position. The patient was sent to recovery in s table condition and chest x-ray was ordered stat. Sponge count and instrument counts were correct. ROMINA/ARLENE Voice ID: [id number] Report ID: [id number]
[2019-07-29] MEDS: D5W 1,000 ML with NA BICARB 8.4% 100 MEQ IV SCH ×2 (04:49)
[2019-07-29 05:14] LABS: Absolute Lymphocytes (CBC) 0.6 K/uL (0.7-4.9); Basophils % 0.1 % (0-1.3); Lymphocytes % 5.5 % (15.3-44.8); MPV 9.5 fL (7.6-11.3); RBC Red Blood Cell Count 2.27 M/uL (4.33-5.43)
[2019-07-29 05:20] LABS: Hematocrit 19.3 % (39.6-49.0)
[2019-07-29 05:43] LABS: Albumin 1.6 g/dL (3.4-5.0); Bilirubin Total 0.4 mg/dL (0.2-1.0); Potassium 3.2 mmol/L (3.5-5.1); Protein, Total 6.7 g/dL (6.4-8.2)
[2019-07-29] MEDS ORDERED: NA CHLORIDE 0.9% 250 ML IV SCH (07:00)
[2019-07-29] MEDS: INSULIN -REGULAR HUMAN 50 UNIT/0.5 ML ML SQ SCH ×4 (08:55→21:00)
[2019-07-29] MEDS: HYDRALAZINE HCL 25 MG TABLET PO SCH ×3 (08:56→20:57)
[2019-07-29] MEDS: CEFTRIAXONE/SWI 1gm 1 GM/10 ML SYR IV SCH ×2 (08:56→20:57)
[2019-07-29] MEDS: NYSTATIN 500,000 UNIT/5 ML UDC PO SCH ×4 (08:56→20:58)
[2019-07-29] MEDS: LABETALOL HCL 100 MG TAB PO SCH ×2 (08:57→20:59)
[2019-07-29] MEDS: LIDOCAINE 4% PATCH TOP SCH (08:59)
[2019-07-29] MEDS ORDERED: CALCITROL 0.25 MCG CAP PO SCH ×2 (09:00)
[2019-07-29] MEDS: ENSURE HIGH PROTEIN 237 ML CAN PO SCH (09:03)
[2019-07-29] MEDS: AMLODIPINE 10 MG TAB PO SCH (09:41)
[2019-07-29 11:37] LABS: HIV AG/AB 4TH GEN Non-reactive (Non-reactive)
[2019-07-29] MEDS: HYDRALAZINE HCL 20 MG/ML VIAL IV PRN (15:44)
--- NOTE | 2019-07-29 16:06 | RAD REPORT ---
EXAM DESCRIPTION: RAD - Chest Single View - 07/29/2019 3:57 pm CLINICAL HISTORY: sob Chest pain. COMPARISON: Chest Single View dated 07/28/2019; Chest Single View dated 07/28/2019; Chest Single Vie w dated 07/27/2019; Chest Single View dated 07/26/2019 FINDINGS: Portable technique limits examination quality. The lungs are underinflated with elevated right hemidiaphragm and ill-defined opacity in the right rubens ng base, unchanged. This likely represents a combination of pneumonia and atelectasis. The heart is m ildly enlarged in size. Right-sided venous catheter tip in the SVC. IMPRESSION: Stable chest since 07/28/2019 study.
--- NOTE | 2019-07-29 17:16 | PN ---
Date of Progress Note: 07/29/2019 Subjective: Patient is seen and examined in dialysis unit. He is able to tolerate dialysis okay. Physical Examination: Vital Signs: Have been reviewed and are seems to be stable. General: He appears weak and cachectic. HEENT: Atraumatic head. Lungs: Auscultation of lungs revealed bilateral equal air entry with diminished breath sounds at bas es. Abdomen: Soft and nontender. Auscultation of heart revealed regular rate and rhythm. He has a righ t-sided tunneled dialysis catheter in place in his right chest. Extremities: No evidence of edema. Distal pulses were palpable. Laboratory Data: Have been reviewed. Hemoglobin is down to 6.4, hematocrit of 19.3. Current Medications: Have been reviewed in detail. Impression: 1.End-stage renal disease, on dialysis. 2.Severe anemia. 3.Hypertension. 4.Possible underlying pneumonia, currently started on Epogen and also getting IV fluids. 5.Severe hypocalcemia. Patient is being dialyzed with a 3 calcium bath and also started on calcitri ol. 6.Underlying pneumonia. Patient is on azithromycin. Plan: Patient is overall doing okay at this time. We have requested a social work consult for miguel yao at [facility]. We will continue to monitor closely for anemia and also continue a ntibiotics and monitor his labs closely. We will plan for third dialysis treatment tomorrow. Continue all other medications and plan of care. LINK/ARLENE Voice ID: [id number] Report ID: [id number]
[2019-07-29 18:52] LABS: HBsAG Nonreactive (Nonreactive)
[2019-07-29] MEDS: AZITHROMYCIN IV 500 MG in NA CHLORIDE 0.9% 250 ML IVPB SCH (20:56)
[2019-07-29] MEDS: ATORVASTATIN 10 MG TAB PO SCH (20:57)
[2019-07-29] MEDS: NEPRO SHAKE 237 ML CAN PO SCH (21:01)
--- NOTE | 2019-07-29 22:25 | PN ---
Date of Progress Note: 07/29/2019 Subjective: Patient is seen and examined. Chart reviewed and case discussed with RN and Dr. Christina quinonez. Patient was doing well this morning, however, this afternoon did have some shortness of breath af ter dialysis. Denies any fluid taken off, did receive calcium bath. Medications: List reviewed. Physical Examination: Vital Signs: Temperature 97.2, heart rate 78, blood pressure 134/63, respirations 18, O2 at 96% on r oom air. General: Awake, alert, oriented x3, not in any acute distress, ill-appearing, older than stated age, frail, cachectic male. CV: S1, S2. Regular rate and rhythm. Peripheral pulses present. Respiratory: Diminished breath sounds. Patient is somewhat tachypneic. No use of accessory muscles . Gastrointestinal: Abdomen is soft, nontender, nondistended. Positive bowel sounds. Extremities: No clubbing, cyanosis, or edema. Neurologic: Nonfocal. Laboratory Data: Sodium 140, potassium 3.2, chloride 105, CO2 of 21, BUN 136, creatinine 8.42, gluco se 214, calcium 6.6, albumin 1.6. WBC 11.5, H and H 6.4 and 19.3, platelets 228, neutrophils 89%. H IV is nonreactive. Immune panel is pending. Blood cultures, no growth to date. Urine culture, no g rowth, final. Echocardiogram shows EF of 63%, left ventricular hypertrophy, severe. No gradient. Normal ejection fraction. No wall motion abnormality. No effusion. Assessment And Plan: A 58-year-old male with: 1.Acute on chronic kidney injury secondary to acute tubular necrosis and volume depletion. Continue with dialysis per Nephrology. Appreciate Dr. Duff's input. Tunneled catheter was placed yester day by Surgery. Creatinine is improving. Continue to monitor closely. 2.Hypokalemia. Replace and monitor. 3.Hypocalcemia. Corrected calcium is around 8 with low albumin. Patient is on Rocaltrol. 4.Generalized weakness secondary to above. 5.Elevated troponin level likely due to demand mismatch. Echocardiogram shows EF of 63%, has severe left ventricular hypertrophy, but no gradient. 6.Hypertensive heart disease. 7.Right lower lobe pneumonia. We will continue with antibiotics. WBC count is trending down. We w ill continue to monitor. 8.Acute on chronic anemia, likely anemia of chronic disease. No apparent source of bleeding. Hemog lobin is dropped again today. We will give another unit with dialysis. We will continue to monitor H and H. Stool occult blood is still pending. 9.Diabetes mellitus type 2, diet controlled. Continue sliding scale insulin. Monitor blood glucose levels. 10.Thrush. Continue nystatin. 11.Essential hypertension, not well controlled. We will continue home medications, p.r.n. hydralazi ne. 12.Congestive heart failure diastolic dysfunction, acute on chronic. 13.Cardiomyopathy. 14.Mixed hyperlipidemia. Continue statin. 15.Noncompliance. 16.Deep venous thrombosis prophylaxis, renally dosed. Patient is on heparin. SA/MODL Voice ID: [id number] Report ID: [id number]
--- NOTE | 2019-07-30 07:05 | EKG ---
Test Date: 2019-07-29 Test Time: 15:48:30 Customer Support Technician: BRITNI MEASUREMENT RESULTS: Intervals: Rate: 97 DC: 150 QRSD: 94 QT: 364 QTc: 462 [place]: P: 54 DC: 150 QRS: 19 T: 87 INTERPRETIVE STATEMENTS: Normal sinus rhythm Minimal voltage criteria for LVH, may be normal variant Possible Anterior infarct, cited previously T wave abnormality, non specific Abnormal ECG Compared to ECG 07/26/2019 12:03:59 no significant change from previous ECG Electronically Signed On 07-30-19 07:04:21 CDT by Giuseppe Perry
[2019-07-30 07:07] LABS: Absolute Lymphocytes (CBC) 0.6 K/uL (0.7-4.9); Basophils % 0.1 % (0-1.3); Hematocrit 24.7 % (39.6-49.0); Lymphocytes % 5.3 % (15.3-44.8); MPV 9.3 fL (7.6-11.3); RBC Red Blood Cell Count 2.87 M/uL (4.33-5.43)
[2019-07-30 07:11] LABS: Albumin 1.6 g/dL (3.4-5.0); Bilirubin Total 0.4 mg/dL (0.2-1.0); Potassium 3.3 mmol/L (3.5-5.1); Protein, Total 6.8 g/dL (6.4-8.2)
[2019-07-30] MEDS: INSULIN -REGULAR HUMAN 50 UNIT/0.5 ML ML SQ SCH ×4 (07:30→20:28)
[2019-07-30] MEDS: CEFTRIAXONE/SWI 1gm 1 GM/10 ML SYR IV SCH ×2 (08:05→20:27)
[2019-07-30] MEDS: NYSTATIN 500,000 UNIT/5 ML UDC PO SCH ×4 (08:05→20:27)
[2019-07-30] MEDS: LABETALOL HCL 100 MG TAB PO SCH ×2 (08:05→20:27)
[2019-07-30] MEDS: AMLODIPINE 10 MG TAB PO SCH (08:06)
[2019-07-30] MEDS: HYDRALAZINE HCL 25 MG TABLET PO SCH ×3 (08:06→20:28)
[2019-07-30] MEDS: LIDOCAINE 4% PATCH TOP SCH (08:07)
[2019-07-30] MEDS: NEPRO SHAKE 237 ML CAN PO SCH ×2 (08:08→20:28)
[2019-07-30 10:22] LABS: Platelet Estimate ADEQ; Urine White Blood Cell Casts OK
[2019-07-30 10:23] LABS: Anisocytosis 2+; Blood Morphology Comment NOTED (NOT SEEN); Burr Cells 2+; Hypochromasia 2+; Platelets, Giant FEW
[2019-07-30] MEDS: EPOETIN ALFA 10,000 UNIT/ML VIAL IV SCH (14:12)
--- NOTE | 2019-07-30 16:48 | PN ---
Subjective: Patient is seen and examined. Chart reviewed and case discussed with RN. No further respiratory distress, did have some episodes yesterday. Patient does feel depressed. Medications: List reviewed. Physical Examination: Vital Signs: Temperature 97.6, heart rate 74, blood pressure 133/62, respirations 16, O2 96% on room air. General: Awake, alert, oriented x3. Does not appear to be in any acute distress. Ill-appearing, frail male. CV: S1, S2. Regular rate and rhythm. Respiratory: Diminished breath sounds. No wheezing or stridor. No use of accessory muscles. Gastrointestinal: Abdomen is soft, nontender, nondistended. Positive bowel sounds. Extremities: No clubbing, cyanosis, or edema. Neurologic: Nonfocal. Laboratory Data: Sodium 141, potassium 3.3, chloride 109, CO2 of 21, BUN 73, creatinine 5.32, glucose 135, calcium 7.4, albumin 1.6. WBC 12.1, H and H 8.1, 24.7, platelets 214. Hepatitis B surface antibody is reactive. Antigen is nonreactive. HIV is nonreactive. Hepatitis B surface antibody quantitative test pending. Assessment And Plan: A 58-year-old male with: 1. Acute on chronic kidney injury secondary to acute tubular necrosis, volume depletion, improving with dialysis. Continue as scheduled. Appreciate Nephrology input. 2. Hypokalemia. We will replace and monitor. 3. Hypocalcemia. Corrected calcium is satisfactory, is above 8.5. We will continue with Rocaltrol. 4. Generalized weakness secondary to above. 5. Elevated troponin level due to demand mismatch, stable. No chest pain. No ST-elevation on EKG. Appreciate Cardiology input. Echocardiogram shows a normal ejection fraction. 6. Hypertensive heart disease. 7. Right lower lobe pneumonia. Continue with antibiotics. We will follow up on cultures and blood cultures no growth to date. Sputum culture pending. 8. Acute on chronic anemia, status post 3 units of PRBCs. We will continue to monitor. Stool sample for occult blood is still pending. 9. Diabetes mellitus type 2, diet controlled. Continue sliding scale insulin. Monitor blood glucose levels. 10. Thrush. Continue nystatin. 11. Essential hypertension, better controlled, especially now with dialysis. Continue medications. 12. Congestive heart failure, diastolic dysfunction, acute on chronic. Continue with diuretics. Monitor In's and Out's. Fluid restriction. 13. Cardiomyopathy. 14. Hyperlipidemia. Continue statin. 15. Noncompliance. 16. Deep venous thrombosis prophylaxis, heparin. 17. Adjustment disorder with depressed mood. We will start on Remeron. 18. Severe protein-calorie malnutrition. Albumin is 1.6. Patient is cachectic with significant weight loss. Continue with protein supplementation. Plan: 1. Continue monitoring as above. Set up dialysis outpatient and discharge once clinically stable. /ARLENE Voice ID: [id number] Report ID: [id number] MTDCesar
--- NOTE | 2019-07-30 18:27 | PN ---
Date of Progress Note: 07/30/2019 Subjective: Patient was seen and examined at bedside. He was doing okay. His hemoglobin has improv ed today. Objective: Vital Signs: Have been reviewed and are stable. Laboratory Data: Labs have been reviewed and are stable. Plan: Continue Thursday, , Thursday dialysis. Social Work is pending placement at dialysis [facility]. In the meanwhile, continue all other medications and plan of care. Hypocalcemia is otherwise s table and all the labs are being monitored closely. We will plan for dialysis again on Thursday. VV/MODL Voice ID: [id number] Report ID: [id number]
[2019-07-30] MEDS: AZITHROMYCIN IV 500 MG in NA CHLORIDE 0.9% 250 ML IVPB SCH (20:26)
[2019-07-30] MEDS: MIRTAZAPINE 15 MG TAB PO SCH (20:27)
[2019-07-30] MEDS: ATORVASTATIN 10 MG TAB PO SCH (20:27)
[2019-07-31 06:38] LABS: Absolute Lymphocytes (CBC) 0.7 K/uL (0.7-4.9); Basophils % 0.1 % (0-1.3); Hematocrit 24.7 % (39.6-49.0); Lymphocytes % 5.7 % (15.3-44.8); RBC Red Blood Cell Count 2.85 M/uL (4.33-5.43)
[2019-07-31 06:56] LABS: Albumin 1.6 g/dL (3.4-5.0); Bilirubin Total 0.4 mg/dL (0.2-1.0); Potassium 3.7 mmol/L (3.5-5.1); Protein, Total 6.8 g/dL (6.4-8.2)
[2019-07-31] MEDS: INSULIN -REGULAR HUMAN 50 UNIT/0.5 ML ML SQ SCH ×4 (07:30→20:47)
[2019-07-31] MEDS: CEFTRIAXONE/SWI 1gm 1 GM/10 ML SYR IV SCH ×2 (08:08→20:35)
[2019-07-31] MEDS: LABETALOL HCL 100 MG TAB PO SCH ×2 (08:09→20:35)
[2019-07-31] MEDS: NYSTATIN 500,000 UNIT/5 ML UDC PO SCH ×4 (08:09→20:37)
[2019-07-31] MEDS: LIDOCAINE 4% PATCH TOP SCH (08:09)
[2019-07-31] MEDS: HYDRALAZINE HCL 25 MG TABLET PO SCH ×3 (08:10→20:35)
[2019-07-31] MEDS: AMLODIPINE 10 MG TAB PO SCH (08:10)
[2019-07-31] MEDS: NEPRO SHAKE 237 ML CAN PO SCH ×2 (08:10→20:46)
--- NOTE | 2019-07-31 16:10 | PN ---
Date of Progress Note: 07/31/2019 Subjective: Patient is seen and examined. Chart reviewed and case discussed with RN. The patient seems to be in better spirits today. States his appetite is somewhat improved. Medications: List reviewed. Physical Examination: Vital Signs: Temperature 98.7, heart rate 87, blood pressure 159/71, respirations 20, O2 of 95% on room air. General: Awake, alert, oriented x3, in some mild distress, ill-appearing male. CVS: S1, S2. Regular rate and rhythm. Peripheral pulses present. Respiratory: Diminished breath sounds at the bases. No wheezing or stridor. Gastrointestinal: Abdomen is soft, nontender, nondistended. Positive bowel sounds. Extremities: No clubbing, cyanosis, or edema. Neurologic: Nonfocal. Laboratory Data: WBC 11.7, H and H of 8.2 and 24.7, platelets 247, neutrophils 89%. Sodium 141, potassium 3.7, chloride 110, CO2 of 20, BUN 50, creatinine 3.82, glucose 109, calcium 7.6, albumin 1.6. Blood cultures, no growth to date. Sputum cultures pending. Assessment And Plan: A 58-year-old male with: 1. Acute on chronic kidney injury secondary to acute tubular necrosis and volume depletion, doing well on dialysis. Creatinine is improved. Appreciate Nephrology input. Patient is being set up with outpatient dialysis. 2. Hyperkalemia, replaced. 3. Hypocalcemia. Corrected calcium is normal. Continue with Rocaltrol. 4. Generalized weakness secondary to above. Continue with PT. 5. Elevated troponin level due to demand mismatch. No further cardiac workup. The echo shows normal EF. 6. Hypertensive heart disease. 7. Right lower lobe pneumonia. Continue with antibiotics. Cultures were negative. WBC count is trending down. 8. Acute on chronic anemia, status post 3 units of PRBCs. H and H are now stable. Stool occult is still pending. No signs of bleeding. 9. Diabetes mellitus type 2, diet controlled. Continue sliding scale insulin. Monitor blood glucose levels. 10. Thrush, improved significantly. We will continue nystatin 48 hours after symptoms have resolved. 11. Essential hypertension, improved. We will continue with medications. 12. Congestive heart failure, diastolic dysfunction, acute on chronic. Continue diuretics, fluid restriction. Monitor I's and O's, currently on room air. 13. Cardiomyopathy. 14. Hyperlipidemia. Continue statin. 15. Noncompliance, counseled. 16. Deep venous thrombosis prophylaxis with heparin. 17. Severe protein-calorie malnutrition. Albumin is 1.6. Continue with protein supplementation. 18. Adjustment disorder with depressed mood. Continue Remeron. His appetite seems to have picked up. /ARLENE Voice ID: [id number] Report ID: [id number] ANGELA
[2019-07-31] MEDS: AZITHROMYCIN IV 500 MG in NA CHLORIDE 0.9% 250 ML IVPB SCH (20:34)
[2019-07-31] MEDS: ATORVASTATIN 10 MG TAB PO SCH (20:37)
[2019-07-31] MEDS: MIRTAZAPINE 15 MG TAB PO SCH (20:41)
[2019-07-31] MEDS ORDERED: BISACODYL E.C. 5 MG TAB PO ONE (22:39)
[2019-08-01 04:16] LABS: Absolute Lymphocytes (CBC) 0.6 K/uL (0.7-4.9); Basophils % 0.2 % (0-1.3); Hematocrit 25.3 % (39.6-49.0); Lymphocytes % 4.6 % (15.3-44.8); MPV 8.7 fL (7.6-11.3); RBC Red Blood Cell Count 2.93 M/uL (4.33-5.43)
[2019-08-01 04:42] LABS: Albumin 1.6 g/dL (3.4-5.0); Bilirubin Total 0.4 mg/dL (0.2-1.0); Potassium 3.8 mmol/L (3.5-5.1); Protein, Total 6.9 g/dL (6.4-8.2)
[2019-08-01 06:09] VITALS: BMI 23.8
[2019-08-01] MEDS: INSULIN -REGULAR HUMAN 50 UNIT/0.5 ML ML SQ SCH ×4 (07:30→21:00)
[2019-08-01] MEDS: LIDOCAINE 4% PATCH TOP SCH (09:00)
[2019-08-01] MEDS: HYDRALAZINE HCL 25 MG TABLET PO SCH ×3 (09:52→21:03)
[2019-08-01] MEDS: LABETALOL HCL 100 MG TAB PO SCH ×2 (09:53→21:00)
[2019-08-01] MEDS: CEFTRIAXONE/SWI 1gm 1 GM/10 ML SYR IV SCH ×2 (09:53→21:02)
[2019-08-01] MEDS: NYSTATIN 500,000 UNIT/5 ML UDC PO SCH ×4 (09:53→21:03)
[2019-08-01] MEDS: AMLODIPINE 10 MG TAB PO SCH (09:53)
[2019-08-01] MEDS: NEPRO SHAKE 237 ML CAN PO SCH ×2 (09:54→21:09)
[2019-08-01] MEDS ORDERED: MAGNESIUM CITRATE 300 ML BOT PO SCH (11:00)
[2019-08-01] MEDS ORDERED: POTASSIUM CL SA 10 MEQ TAB PO ONE ×2 (14:27→15:00)
--- NOTE | 2019-08-01 16:39 | PN ---
Date of Progress Note: 08/01/2019 Subjective: Patient is seen and examined. Chart reviewed and case discussed with RN. The patient s till has not have much of an appetite. No bowel movements since he has been here. Family at the bed side. Address concerns regarding setting up dialysis as well as the possibility of fdc plac ement. They are concerned regarding the patient's generalized weakness and inability of him to take care of himself at home. Medications: List reviewed. Physical Examination: Vital Signs: Temperature 97.5, heart rate 86, blood pressure 161/77, respirations 20, O2 of 97% on r oom air. General: Awake, alert, oriented x3. Some mild distress. Ill-appearing cachectic male. CV: S1, S2. Regular rate and rhythm. Respiratory: Moving air well bilaterally. Minimal bleed. Diminished breath sounds at the bases. N o wheezing or stridor. Gastrointestinal: Abdomen is soft, nontender, nondistended. Positive bowel sounds. No guarding or rigidity. Extremities: No clubbing, cyanosis, or edema. Neurologic: Nonfocal. Laboratory Data: Sodium 139, potassium 3.8, chloride 110, CO2 of 19, BUN 71, creatinine 4.99, glucos e 143. Hemoglobin A1c is 5.4%. Calcium 7.4, AST 59, ALT 48, albumin is 1.6. WBC 12.4, H and H 8.5 and 25.3, platelets 255, neutrophils 91%. Blood cultures, no growth to date. Final sputum culture i s pending. Assessment: A 58-year-old male with: 1.Acute on chronic kidney injury secondary to acute tubular necrosis and volume depletion, improved with dialysis. Continue dialysis Thursday, , Thursday. Appreciate Nephrology input. Social workers and case management setting of dialysis as outpatient. 2.Hyperkalemia, replaced. 3.Hypocalcemia. Corrected calcium is normal. Continue Rocaltrol. 4.Generalized weakness secondary to above. Continue with PT. 5.Elevated troponin level due to demand mismatch. Normal ejection fraction. No further workup. 6.Hypertensive heart disease. 7.Right lower lobe pneumonia. Cultures are negative. WBC count slightly elevated today. No signif icant sputum production. Continue with antibiotics. 8.Acute on chronic anemia, anemia of chronic disease due to chronic kidney disease, status post 3 un its of PRBCs. H and H are stable. Continue to monitor. 9.Diabetes mellitus type 2, diet controlled. Continue with sliding scale insulin and monitor blood glucose levels. A1c is 5.4% with the patient has significant weight loss over the past couple of mon ths, likely no longer diabetic. 10.Thrush. We will likely discontinue nystatin in a.m. Symptoms have improved. 11.Essential hypertension, stable. 12.Congestive heart failure, diastolic dysfunction, acute on chronic. Continue with diuretics, flui d restriction, weight daily, not requiring supplemental oxygen. Monitor I's and O's. 13.Cardiomyopathy. 14.Mixed hyperlipidemia. Continue statin. 15.Noncompliance. 16.Severe protein-calorie malnutrition. Albumin is 1.6. Continue with protein supplementation. 17.Adjustment disorder with depressed mood. Continue Remeron. His appetite has still not improved significantly. 18.Deep venous thrombosis prophylaxis. Continue heparin. Plan: Discharge once dialysis has been set up and cleared from nephrology standpoint. /ARLENE Voice ID: [id number] Report ID: [id number]
--- NOTE | 2019-08-01 19:07 | P.PN ---
Date of Service: 08/01/19 Vital Signs Temp Pulse Resp BP Pulse Ox 98.0 F 74 20 134/64 96 08/01/19 16:00 08/01/19 16:00 08/01/19 16:00 08/01/19 16:00 08/01/19 16:00 Medications Acetaminophen (Tylenol -Extra Strength) 500 mg PO Q4HP PRN PRN Reason: TEMP > 100' F Stop: 08/25/19 19:57 Last Admin: 07/28/19 00:02 Dose: 500 mg Acetaminophen/Codeine Phosphate (Tylenol W/Codeine #3 Tab) 1 tab PO Q4H PRN PRN Reason: Pain scale 5-7 (Moderate) Stop: 08/27/19 12:16 Last Admin: 07/29/19 02:24 Dose: 1 tab Amlodipine Besylate (Norvasc) 10 mg PO DAILY [facility] Stop: 08/26/19 09:01 Last Admin: 08/01/19 09:53 Dose: 10 mg Atorvastatin Calcium (Lipitor) 10 mg PO BEDTIME [facility] Stop: 08/26/19 21:01 Last Admin: 07/31/19 20:37 Dose: 10 mg Enteral Nutritional Formula (Nepro Shake) 237 ml PO BID [facility] Stop: 08/28/19 21:01 Last Admin: 08/01/19 09:54 Dose: 237 ml Epoetin Eleazar (Retacrit) 10,000 unit IV EVERY HD [facility] Stop: 08/28/19 07:01 Last Admin: 07/30/19 14:12 Dose: 10,000 unit Heparin Sodium (Porcine) (Heparin 1,000 Units/Ml) 4,000 unit IV EVERY HD PRN PRN Reason: FLUSH AFTER EACH USE Stop: 08/27/19 15:27 Heparin Sodium (Porcine) (Heparin 1,000 Units/Ml) 6,000 unit IV EVERY HD PRN PRN Reason: FLUSH AFTER EACH USE Last Admin: 07/30/19 14:13 Dose: 6,000 unit Hydralazine HCl (Apresoline) 100 mg PO TID [facility] Stop: 08/26/19 09:01 Last Admin: 08/01/19 13:14 Dose: 100 mg Hydralazine HCl (Apresoline) 10 mg IV Q6HP PRN PRN Reason: Titrate to SBP (MUST DEFINE) Stop: 08/26/19 06:33 Last Admin: 07/29/19 15:44 Dose: 10 mg Azithromycin 500 mg/ Sodium (Chloride) 250 mls @ 250 mls/hr IVPB DAILY@2100 [facility] ; Protocol Stop: 08/26/19 21:01 Last Admin: 07/31/19 20:34 Dose: 250 mls Ceftriaxone Sodium/Sodium Chloride (Rocephin 1 Gm/10 Ml Swi Ivp) 1 gm in 10 mls @ 600 mls/hr IV Q12HR [facility]; Protocol Stop: 08/26/19 09:01 Last Admin: 08/01/19 09:53 Dose: 10 mls Albumin Human (Albumin 25%) 50 mls @ 100 mls/hr IV EVERY HD [facility] Stop: 08/27/19 16:01 Sodium Chloride (Sodium Chloride) 250 mls @ 0 mls/hr IV .Q0M [facility] Stop: 08/28/19 07:01 Insulin Human Regular (Novolin -R) 0 unit SQ ACHS [facility]; Protocol Stop: 08/25/19 19:57 Last Admin: 08/01/19 16:30 Dose: Not Given Labetalol HCl (Trandate) 200 mg PO Q12HR [facility] Stop: 08/26/19 09:01 Last Admin: 08/01/19 09:53 Dose: 200 mg Lidocaine (Aspercreme 4% Patch) 1 patch TOP DAILY [facility] Stop: 08/27/19 04:38 Last Admin: 08/01/19 09:00 Dose: Not Given Lorazepam (Ativan) 0.25 mg PO BEDTIME PRN PRN Reason: INSOMNIA Stop: 08/27/19 21:01 Last Admin: 07/28/19 21:40 Dose: 0.25 mg Mirtazapine (Remeron) 15 mg PO BEDTIME [facility] Stop: 08/29/19 21:01 Last Admin: 07/31/19 20:41 Dose: 15 mg Nystatin (Mycostatin Susp) 500,000 unit PO QID [facility] Stop: 08/25/19 21:01 Last Admin: 08/01/19 16:38 Dose: 500,000 unit Ondansetron HCl (Zofran) 4 mg IV Q4H PRN PRN Reason: NAUSEA / VOMITING Stop: 08/25/19 19:57 Sodium Chloride (Normal Saline Flush) 10 ml IV BID [facility] Stop: 08/25/19 21:01 Last Admin: 08/01/19 09:54 Dose: 10 ml Microbiology Results 07/26/19 12:35 Blood - Blood Aerobic Blood Culture - Final No growth in 5 days. 07/26/19 12:35 Blood - Blood Anaerobic Blood Culture - Final No growth in 5 days. 07/26/19 12:20 Blood - Blood Aerobic Blood Culture - Final No growth in 5 days. 07/26/19 12:20 Blood - Blood Anaerobic Blood Culture - Final No growth in 5 days. Assessment/ Plan: Nephrology. CPS stable without CP or SOB. Diffuse weakness. No acute events overnight. Vitals, medications, blood work and imaging reviewed in the chart. NAD. MMM. Neck supple. CTA. RRR. Soft Abd. No C/C/E. AAO. Normal speech. EXAM DESCRIPTION: RAD - Chest Single View - 07/29/2019 3:57 pm CLINICAL HISTORY: sob Chest pain. COMPARISON: Chest Single View dated 07/28/2019; Chest Single View dated 2018; Chest Single View dated 07/27/2019; Chest Single View dated 07/26/2019 FINDINGS: Portable technique limits examination quality. The lungs are underinflated with elevated right hemidiaphragm and ill-defined opacity in the right lung base, unchanged. This likely represents a combination of pneumonia and atelectasis. The heart is mildly enlarged in size. Right-sided venous catheter tip in the SVC. IMPRESSION: Stable chest since 07/28/2019 study EXAM DESCRIPTION: US - Renal Ultrasound-Complete - 07/26/2019 4:36 pm CLINICAL HISTORY: renal failure Flank pain COMPARISON: ABD PELVIC VASCULAR SCAN dated 08/19/2015 FINDINGS: Both kidneys appear mildly echogenic. The right kidney measures 8.4 x 4.8 x 3.7 cm. Mild right hydronephrosis. The left kidney measures 9.4 x 6.0 x 4.0 cm. No hydronephrosis, focal mass or perinephric fluid. The urinary bladder is incompletely distended due to a Amor catheter. IMPRESSION: Echogenic kidneys bilaterally compatible with medical renal disease. Mild right hydronephrosis. A/ ESRD recently initiated on HD. CKD V with proteinuria. Acidosis. Diastolic CHF, chronic. Severe LVH. HTN with CKD/ CHF. Anemia in CKD. Hgb 8.5 HypoAlbuminemia. Alb 1.6 MEDINA/ Secondary HyperPTH. P/ Continue current POC and Medications. Next HD tomorrow. Give Albumin with HD. Give Procrit. Start Renvela and Vitamin D. No NSAIDs. AM labs. Daily weight. Dialysis and SNF placement pending.
[2019-08-01] MEDS ORDERED: EPOETIN ALFA 10,000 UNIT/ML VIAL SQ SCH (20:00)
[2019-08-01] MEDS: AZITHROMYCIN IV 500 MG in NA CHLORIDE 0.9% 250 ML IVPB SCH (21:01)
[2019-08-01] MEDS: MIRTAZAPINE 15 MG TAB PO SCH (21:04)
[2019-08-01] MEDS: ATORVASTATIN 10 MG TAB PO SCH (21:04)
[2019-08-02] MEDS: LORAZEPAM 0.5 MG TABLET PO PRN (00:41)
[2019-08-02 04:34] LABS: Absolute Lymphocytes (CBC) 0.7 K/uL (0.7-4.9); Basophils % 0.3 % (0-1.3); Hematocrit 25.7 % (39.6-49.0); Lymphocytes % 5.4 % (15.3-44.8); MPV 8.5 fL (7.6-11.3); RBC Red Blood Cell Count 2.92 M/uL (4.33-5.43)
[2019-08-02 04:42] LABS: Albumin 1.6 g/dL (3.4-5.0); Bilirubin Total 0.3 mg/dL (0.2-1.0); Potassium 4.6 mmol/L (3.5-5.1); Protein, Total 6.9 g/dL (6.4-8.2)
[2019-08-02] MEDS: INSULIN -REGULAR HUMAN 50 UNIT/0.5 ML ML SQ SCH ×4 (07:30→21:00)
[2019-08-02] MEDS: NEPRO SHAKE 237 ML CAN PO SCH ×2 (07:59→22:29)
[2019-08-02] MEDS: CEFTRIAXONE/SWI 1gm 1 GM/10 ML SYR IV SCH ×2 (08:00→22:25)
[2019-08-02] MEDS: LIDOCAINE 4% PATCH TOP SCH (08:00)
[2019-08-02] MEDS: VITAMIN D 5,000 UNIT CAP PO SCH (08:00)
[2019-08-02] MEDS: HYDRALAZINE HCL 25 MG TABLET PO SCH ×3 (08:01→22:25)
[2019-08-02] MEDS: SEVELAMER CARBONATE 800 MG TABLET PO SCH ×3 (08:01→16:48)
[2019-08-02] MEDS: AMLODIPINE 10 MG TAB PO SCH (08:01)
[2019-08-02] MEDS: CALCITROL 0.25 MCG CAP PO SCH (08:02)
[2019-08-02] MEDS: NYSTATIN 500,000 UNIT/5 ML UDC PO SCH ×4 (08:02→22:25)
[2019-08-02] MEDS: LABETALOL HCL 100 MG TAB PO SCH ×3 (09:00→22:28)
[2019-08-02] MEDS: EPOETIN ALFA 10,000 UNIT/ML VIAL IV SCH (10:27)
--- NOTE | 2019-08-02 15:40 | PN ---
Mr. Skelton has been in the hospital since 07/26/2019. He has hypertension, diastolic congestive he art failure, dyslipidemia, diabetes, and pneumonia. He was cleared for catheter placement for end-st age renal disease and acute kidney injury. He has normal EF, left ventricular hypertrophy, diastolic dysfunction. skilled nursing placement is being arranged. Dialysis is being planned. I will sign off his case. JERMAINE Voice ID: [id number] Report ID: [id number]
--- NOTE | 2019-08-02 18:13 | P.PN ---
Subjective Date of Service: 08/02/19 Patient is complaining of coughing and inability to clear secretions from his throat. Status post hemodialysis today. He has been afebrile. He denies any chest pain. Physical Examination - Vital Signs Temperature: 98.1 F Blood Pressure: 149/73 Pulse: 96 Respirations: 18 Pulse Ox (%): 97 - Physical Exam General: Oriented x3, Cachectic HEENT: Mucous membr. moist/pink Neck: Supple, JVD not distended Respiratory: Other (Bilateral upper airway transmitted sounds) Cardiovascular: No edema, Regular rate/rhythm, Normal S1 S2, No murmurs Gastrointestinal: Normal bowel sounds, Soft and benign, Non-distended, No tenderness Musculoskeletal: No swelling, No erythema Integumentary: No rashes Neurological: Other (Globally weak) Assessment And Plan - Current Problems (Diagnosis) (1) Acute worsening of stage 3 chronic kidney disease Current Visit: Yes Status: Acute (2) Severe protein-calorie malnutrition Current Visit: Yes Status: Acute (3) Right lower lobe pneumonia Current Visit: Yes Status: Acute (4) Acute on chronic anemia Current Visit: Yes Status: Acute (5) Diabetes mellitus Current Visit: Yes Status: Acute (6) Acute on chronic diastolic heart failure Current Visit: Yes Status: Acute - Plan Patient currently receiving dialysis on Thursday, and Saturdays. He is being followed by nephrology. Continue antibiotics for pneumonia. Chest physiotherapy Monitor CBC Diabetes is diet controlled. He is on sliding scale for glucose management. Continue with diuretics and fluid restriction for CHF. PT and OT Protein and calories supplementation. Continue nystatin for oral candidiasis Patient is waiting for placement in a SNF rehab. [employer] farmworker is assisting with disposition.
[2019-08-02] MEDS: MIRTAZAPINE 15 MG TAB PO SCH (22:25)
[2019-08-02] MEDS: ATORVASTATIN 10 MG TAB PO SCH (22:27)
[2019-08-02] MEDS: GUAIFENESIN 600 MG SA TAB PO SCH (22:27)
[2019-08-02] MEDS: AZITHROMYCIN IV 500 MG in NA CHLORIDE 0.9% 250 ML IVPB SCH (22:31)
[2019-08-03 04:22] LABS: Absolute Lymphocytes (CBC) 0.9 K/uL (0.7-4.9); Basophils % 0.4 % (0-1.3); Lymphocytes % 8.1 % (15.3-44.8); MPV 8.7 fL (7.6-11.3); RBC Red Blood Cell Count 2.75 M/uL (4.33-5.43)
[2019-08-03 04:26] LABS: Potassium 3.6 mmol/L (3.5-5.1)
[2019-08-03] MEDS: INSULIN -REGULAR HUMAN 50 UNIT/0.5 ML ML SQ SCH ×4 (07:30→21:00)
[2019-08-03] MEDS: GUAIFENESIN 600 MG SA TAB PO SCH ×2 (08:20→21:44)
[2019-08-03] MEDS: VITAMIN D 5,000 UNIT CAP PO SCH (08:20)
[2019-08-03] MEDS: CEFTRIAXONE/SWI 1gm 1 GM/10 ML SYR IV SCH (08:20)
[2019-08-03] MEDS: LIDOCAINE 4% PATCH TOP SCH (08:20)
[2019-08-03] MEDS: SEVELAMER CARBONATE 800 MG TABLET PO SCH ×3 (08:21→17:13)
[2019-08-03] MEDS: NYSTATIN 500,000 UNIT/5 ML UDC PO SCH ×4 (08:21→21:44)
[2019-08-03] MEDS: HYDRALAZINE HCL 25 MG TABLET PO SCH ×3 (08:21→21:45)
[2019-08-03] MEDS: NEPRO SHAKE 237 ML CAN PO SCH ×2 (08:22→21:46)
[2019-08-03] MEDS: CALCITROL 0.25 MCG CAP PO SCH (08:22)
[2019-08-03] MEDS: AMLODIPINE 10 MG TAB PO SCH (08:23)
[2019-08-03] MEDS: LABETALOL HCL 100 MG TAB PO SCH ×2 (08:24→21:44)
--- NOTE | 2019-08-03 15:39 | P.PN ---
Subjective Date of Service: 08/03/19 Chief Complaint: Generalize weakness and failure to thrive. Patient states he feels much better today. He states the cough has improved. He ambulated with physical therapy today He has been afebrile. Physical Examination - Vital Signs Temperature: 96.9 F Blood Pressure: 96/55 Pulse: 65 Respirations: 18 Pulse Ox (%): 99 - Physical Exam General: Alert, Oriented x3 HEENT: Mucous membr. moist/pink Neck: Supple Respiratory: Clear to auscultation bilaterally, Normal air movement Cardiovascular: No edema, Regular rate/rhythm, Normal S1 S2 Gastrointestinal: Normal bowel sounds, Soft and benign, Non-distended, No ascites, No tenderness Musculoskeletal: No swelling, No erythema Integumentary: No rashes Neurological: Normal speech, Normal strength at 5/5 x4 extr Assessment And Plan - Current Problems (Diagnosis) (1) Acute worsening of stage 3 chronic kidney disease Current Visit: Yes Status: Acute (2) Severe protein-calorie malnutrition Current Visit: Yes Status: Acute (3) Right lower lobe pneumonia Current Visit: Yes Status: Acute (4) Acute on chronic anemia Current Visit: Yes Status: Acute (5) Diabetes mellitus Current Visit: Yes Status: Acute (6) Acute on chronic diastolic heart failure Current Visit: Yes Status: Acute - Plan Patient currently receiving dialysis on Thursday, and Saturdays. Nephrology is following. Continue antibiotics for pneumonia. Transition to IV antibiotic to oral Zithromax and complete 10 days of treatment. Chest physiotherapy. Drop in hemoglobin noted Continue to monitor CBC, transfuse p.r.n. for hemoglobin less than 7. Diabetes is diet controlled. He is on sliding scale for glucose management. Continue with diuretics and fluid restriction for CHF. PT and OT Protein and calories supplementation. Continue nystatin for oral candidiasis Patient is waiting for placement in a SNF rehab. hospital social worker is assisting with disposition.
[2019-08-03] MEDS: ATORVASTATIN 10 MG TAB PO SCH (21:44)
[2019-08-03] MEDS: AZITHROMYCIN 250 MG TAB PO SCH (21:44)
[2019-08-03] MEDS: MIRTAZAPINE 15 MG TAB PO SCH (21:49)
--- NOTE | 2019-08-03 23:09 | P.PN ---
Date of Service: 08/03/19 Vital Signs Temp Pulse Resp BP Pulse Ox 97.1 F 79 18 149/65 H 100 08/03/19 16:00 08/03/19 21:44 08/03/19 16:00 08/03/19 21:44 08/03/19 16:00 Medications Acetaminophen (Tylenol -Extra Strength) 500 mg PO Q4HP PRN PRN Reason: TEMP > 100' F Stop: 08/25/19 19:57 Last Admin: 07/28/19 00:02 Dose: 500 mg Amlodipine Besylate (Norvasc) 10 mg PO DAILY [facility] Stop: 08/26/19 09:01 Last Admin: 08/03/19 08:23 Dose: 10 mg Atorvastatin Calcium (Lipitor) 10 mg PO BEDTIME [facility] Stop: 08/26/19 21:01 Last Admin: 08/03/19 21:44 Dose: 10 mg Azithromycin (Zithromax -Tab) 500 mg PO 2100 [facility] Stop: 08/05/19 21:01 Last Admin: 08/03/19 21:44 Dose: 500 mg Calcitriol (Rocaltrol) 0.5 mcg PO DAILY [facility] Stop: 09/01/19 09:01 Last Admin: 08/03/19 08:22 Dose: 0.5 mcg Cholecalciferol (Vitamin D 5,000 Iu Cap) 5,000 unit PO DAILY [facility] Stop: 09/01/19 09:01 Last Admin: 08/03/19 08:20 Dose: 5,000 unit Enteral Nutritional Formula (Nepro Shake) 237 ml PO BID [facility] Stop: 08/28/19 21:01 Last Admin: 08/03/19 21:46 Dose: 237 ml Epoetin Eleazar (Retacrit) 10,000 unit IV EVERY HD [facility] Stop: 08/28/19 07:01 Last Admin: 08/02/19 10:27 Dose: 10,000 unit Guaifenesin (Mucinex 600mg) 600 mg PO BID [facility] Stop: 09/01/19 21:01 Last Admin: 08/03/19 21:44 Dose: 600 mg Heparin Sodium (Porcine) (Heparin 1,000 Units/Ml) 4,000 unit IV EVERY HD PRN PRN Reason: FLUSH AFTER EACH USE Stop: 08/27/19 15:27 Heparin Sodium (Porcine) (Heparin 1,000 Units/Ml) 6,000 unit IV EVERY HD PRN PRN Reason: FLUSH AFTER EACH USE Last Admin: 08/02/19 10:59 Dose: 6,000 unit Hydralazine HCl (Apresoline) 100 mg PO TID [facility] Stop: 08/26/19 09:01 Last Admin: 08/03/19 21:45 Dose: 100 mg Hydralazine HCl (Apresoline) 10 mg IV Q6HP PRN PRN Reason: Titrate to SBP (MUST DEFINE) Stop: 08/26/19 06:33 Last Admin: 07/29/19 15:44 Dose: 10 mg Albumin Human (Albumin 25%) 50 mls @ 100 mls/hr IV EVERY HD [facility] Stop: 08/27/19 16:01 Last Admin: 08/02/19 10:24 Dose: 50 mls Sodium Chloride (Sodium Chloride) 250 mls @ 0 mls/hr IV .Q0M [facility] Stop: 08/28/19 07:01 Insulin Human Regular (Novolin -R) 0 unit SQ ACHS [facility]; Protocol Stop: 08/25/19 19:57 Last Admin: 08/03/19 21:00 Dose: Not Given Labetalol HCl (Trandate) 200 mg PO Q12HR [facility] Stop: 08/26/19 09:01 Last Admin: 08/03/19 21:44 Dose: 200 mg Lidocaine (Aspercreme 4% Patch) 1 patch TOP DAILY [facility] Stop: 08/27/19 04:38 Last Admin: 08/03/19 08:20 Dose: 1 patch Mirtazapine (Remeron) 15 mg PO BEDTIME [facility] Stop: 08/29/19 21:01 Last Admin: 08/03/19 21:49 Dose: 15 mg Nystatin (Mycostatin Susp) 500,000 unit PO QID [facility] Stop: 08/25/19 21:01 Last Admin: 08/03/19 21:44 Dose: 500,000 unit Ondansetron HCl (Zofran) 4 mg IV Q4H PRN PRN Reason: NAUSEA / VOMITING Stop: 08/25/19 19:57 Sevelamer Carbonate (Renvela) 800 mg PO TIDWM [facility] Stop: 09/01/19 08:01 Last Admin: 08/03/19 17:13 Dose: 800 mg Sodium Chloride (Normal Saline Flush) 10 ml IV BID [facility] Stop: 08/25/19 21:01 Last Admin: 08/03/19 21:46 Dose: 10 ml Microbiology Results 07/26/19 12:35 Blood - Blood Aerobic Blood Culture - Final No growth in 5 days. 07/26/19 12:35 Blood - Blood Anaerobic Blood Culture - Final No growth in 5 days. 07/26/19 12:20 Blood - Blood Aerobic Blood Culture - Final No growth in 5 days. 07/26/19 12:20 Blood - Blood Anaerobic Blood Culture - Final No growth in 5 days. Assessment/ Plan: Nephrology. CPS stable without CP or SOB. Diffuse weakness. No acute events overnight. Vitals, medications, blood work and imaging reviewed in the chart. NAD. MMM. Neck supple. CTA. RRR. Soft Abd. No C/C/E. AAO. Normal speech. EXAM DESCRIPTION: RAD - Chest Single View - 07/29/2019 3:57 pm CLINICAL HISTORY: sob Chest pain. COMPARISON: Chest Single View dated 07/28/2019; Chest Single View dated 2018; Chest Single View dated 07/27/2019; Chest Single View dated 07/26/2019 FINDINGS: Portable technique limits examination quality. The lungs are underinflated with elevated right hemidiaphragm and ill-defined opacity in the right lung base, unchanged. This likely represents a combination of pneumonia and atelectasis. The heart is mildly enlarged in size. Right-sided venous catheter tip in the SVC. IMPRESSION: Stable chest since 07/28/2019 study EXAM DESCRIPTION: US - Renal Ultrasound-Complete - 07/26/2019 4:36 pm CLINICAL HISTORY: renal failure Flank pain COMPARISON: ABD PELVIC VASCULAR SCAN dated 08/19/2015 FINDINGS: Both kidneys appear mildly echogenic. The right kidney measures 8.4 x 4.8 x 3.7 cm. Mild right hydronephrosis. The left kidney measures 9.4 x 6.0 x 4.0 cm. No hydronephrosis, focal mass or perinephric fluid. The urinary bladder is incompletely distended due to a Amor catheter. IMPRESSION: Echogenic kidneys bilaterally compatible with medical renal disease. Mild right hydronephrosis. 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 ESRD recently initiated on HD. CKD V with proteinuria. Acidosis. Diastolic CHF, chronic. Severe LVH. HTN with CKD/ CHF. Anemia in CKD. Hgb 8.5 HypoAlbuminemia. Alb 1.6 MEDINA/ Secondary HyperPTH. P/ Continue current POC and Medications. Next HD Thursday. Consider induction therapy soon. Complete immunology still pending. No NSAIDs. AM labs. Daily weight. Dialysis and SNF placement pending.
[2019-08-04 04:35] LABS: Absolute Lymphocytes (CBC) 0.8 K/uL (0.7-4.9); Basophils % 0.6 % (0-1.3); Hematocrit 25.3 % (39.6-49.0); Lymphocytes % 5.7 % (15.3-44.8); MPV 8.7 fL (7.6-11.3); RBC Red Blood Cell Count 2.85 M/uL (4.33-5.43)
[2019-08-04 04:40] LABS: Phosphorus 3.5 mg/dL (2.5-4.9); Potassium 3.5 mmol/L (3.5-5.1); Uric Acid 5.3 mg/dL (3.5-7.2)
[2019-08-04 05:44] LABS: Blood Morphology Comment NOTED (NOT SEEN); Hypochromasia 1+; Platelet Estimate ADEQ
[2019-08-04 07:29] LABS: Urine Appearance TURBID; Urine Bilirubin NEGATIVE (NEG); Urine Blood 3+ (NEG); Urine Color YELLOW; Urine Glucose TRACE (NEG); Urine Protein 2+ (NEG); Urine Urobilinogen 0.2 mg/dL (0.2-1.0); Urine pH 6.5 (5.0-7.0)
[2019-08-04] MEDS: INSULIN -REGULAR HUMAN 50 UNIT/0.5 ML ML SQ SCH ×4 (07:30→20:40)
[2019-08-04 07:56] LABS: Urine Bacteria 20-50 /HPF (NONE SEEN); Urine Culture Reflex Order REFLEXED; Urine RBC >50 /HPF (NONE SEEN)
[2019-08-04] MEDS: SEVELAMER CARBONATE 800 MG TABLET PO SCH (08:00)
[2019-08-04] MEDS ORDERED: METHYLPREDNISOLONE 125 MG INJ IV ONE (08:13)
[2019-08-04] MEDS ORDERED: METHYLPRED NA SUC 1,000 MG in NA CHLORIDE 0.9% 100 ML IV ONE (08:30)
[2019-08-04] MEDS: LIDOCAINE 4% PATCH TOP SCH (08:58)
[2019-08-04] MEDS: GUAIFENESIN 600 MG SA TAB PO SCH ×2 (08:58→20:39)
[2019-08-04] MEDS: AMLODIPINE 10 MG TAB PO SCH (08:58)
[2019-08-04] MEDS: VITAMIN D 5,000 UNIT CAP PO SCH (08:59)
[2019-08-04] MEDS: CALCITROL 0.25 MCG CAP PO SCH (09:00)
[2019-08-04] MEDS: NYSTATIN 500,000 UNIT/5 ML UDC PO SCH ×4 (09:00→20:39)
[2019-08-04] MEDS: NEPRO SHAKE 237 ML CAN PO SCH ×2 (09:00→21:00)
[2019-08-04] MEDS: LABETALOL HCL 100 MG TAB PO SCH ×2 (09:00→20:40)
[2019-08-04] MEDS: HYDRALAZINE HCL 25 MG TABLET PO SCH ×3 (09:00→20:40)
[2019-08-04] MEDS ORDERED: RITUXIMAB IV ONE (09:00)
--- NOTE | 2019-08-04 11:41 | P.PN ---
Subjective Date of Service: 08/04/19 Chief Complaint: Generalize weakness and failure to thrive. Subjective: No new changes Patient reports intermittent nausea but no vomiting. He states the cough has improved. He has been afebrile. Physical Examination - Vital Signs Temperature: 98.0 F Blood Pressure: 141/65 Pulse: 72 Respirations: 19 Pulse Ox (%): 100 - Physical Exam General: Alert, In no apparent distress, Oriented x3 HEENT: Mucous membr. moist/pink Neck: Supple, JVD not distended Respiratory: Other (Diminished breath sounds bilaterally, mild crackles in the right lower lobe) Cardiovascular: No edema, Regular rate/rhythm, Normal S1 S2 Capillary refill: <2 Seconds Gastrointestinal: Normal bowel sounds, Soft and benign, Non-distended, No tenderness Musculoskeletal: No swelling, No erythema Integumentary: No rashes Neurological: Normal strength at 5/5 x4 extr Assessment And Plan - Current Problems (Diagnosis) (1) Acute worsening of stage 3 chronic kidney disease Current Visit: Yes Status: Acute (2) Severe protein-calorie malnutrition Current Visit: Yes Status: Acute (3) Right lower lobe pneumonia Current Visit: Yes Status: Acute (4) Acute on chronic anemia Current Visit: Yes Status: Acute (5) Diabetes mellitus Current Visit: Yes Status: Acute (6) Acute on chronic diastolic heart failure Current Visit: Yes Status: Acute - Plan Case discussed with Dr. Weems. He recommend high-dose methylprednisolone and Rituximab Patient started on IV methylprednisolone. Continue hemodialysis per nephrology Nephrology is following. Continue oral Zithromax and complete 10 days of treatment. Chest physiotherapy. Drop in hemoglobin noted Continue to monitor CBC, transfuse p.r.n. for hemoglobin less than 7. Diabetes is diet controlled. He is on sliding scale for glucose management. Discontinue Amor catheter. PT and OT Protein and calories supplementation. Continue nystatin for oral candidiasis Patient is waiting for placement in a SNF rehab. connection worker is assisting with disposition.
[2019-08-04] MEDS: EPOETIN ALFA 10,000 UNIT/ML VIAL IV SCH (12:57)
[2019-08-04] MEDS: ATORVASTATIN 10 MG TAB PO SCH (20:39)
[2019-08-04] MEDS: AZITHROMYCIN 250 MG TAB PO SCH (20:39)
[2019-08-04] MEDS: MIRTAZAPINE 15 MG TAB PO SCH (20:40)
--- NOTE | 2019-08-04 20:56 | P.PN ---
Date of Service: 08/04/19 Vital Signs Temp Pulse Resp BP Pulse Ox 99.0 F 85 19 153/74 H 93 08/04/19 19:57 08/04/19 20:40 08/04/19 19:57 08/04/19 20:40 08/04/19 19:57 Medications Acetaminophen (Tylenol -Extra Strength) 500 mg PO Q4HP PRN PRN Reason: TEMP > 100' F Stop: 08/25/19 19:57 Last Admin: 07/28/19 00:02 Dose: 500 mg Amlodipine Besylate (Norvasc) 10 mg PO DAILY [facility] Stop: 08/26/19 09:01 Last Admin: 08/04/19 08:58 Dose: 10 mg Atorvastatin Calcium (Lipitor) 10 mg PO BEDTIME [facility] Stop: 08/26/19 21:01 Last Admin: 08/04/19 20:39 Dose: 10 mg Azithromycin (Zithromax -Tab) 500 mg PO 2100 [facility] Stop: 08/05/19 21:01 Last Admin: 08/04/19 20:39 Dose: 500 mg Calcitriol (Rocaltrol) 0.5 mcg PO DAILY [facility] Stop: 09/01/19 09:01 Last Admin: 08/04/19 09:00 Dose: 0.5 mcg Cholecalciferol (Vitamin D 5,000 Iu Cap) 5,000 unit PO DAILY [facility] Stop: 09/01/19 09:01 Last Admin: 08/04/19 08:59 Dose: 5,000 unit Enteral Nutritional Formula (Nepro Shake) 237 ml PO BID [facility] Stop: 08/28/19 21:01 Last Admin: 08/04/19 09:00 Dose: Not Given Epoetin Eleazar (Retacrit) 10,000 unit IV EVERY HD [facility] Stop: 08/28/19 07:01 Last Admin: 08/04/19 12:57 Dose: 10,000 unit Guaifenesin (Mucinex 600mg) 600 mg PO BID [facility] Stop: 09/01/19 21:01 Last Admin: 08/04/19 20:39 Dose: 600 mg Heparin Sodium (Porcine) (Heparin 1,000 Units/Ml) 4,000 unit IV EVERY HD PRN PRN Reason: FLUSH AFTER EACH USE Stop: 08/27/19 15:27 Heparin Sodium (Porcine) (Heparin 1,000 Units/Ml) 6,000 unit IV EVERY HD PRN PRN Reason: FLUSH AFTER EACH USE Last Admin: 08/04/19 12:56 Dose: 6,000 unit Home Med (Rituximab) 1 g IV ONCE ONE Stop: 08/04/19 09:01 Hydralazine HCl (Apresoline) 100 mg PO TID [facility] Stop: 08/26/19 09:01 Last Admin: 08/04/19 20:40 Dose: 100 mg Hydralazine HCl (Apresoline) 10 mg IV Q6HP PRN PRN Reason: Titrate to SBP (MUST DEFINE) Stop: 08/26/19 06:33 Last Admin: 07/29/19 15:44 Dose: 10 mg Albumin Human (Albumin 25%) 50 mls @ 100 mls/hr IV EVERY HD [facility] Stop: 08/27/19 16:01 Last Admin: 08/02/19 10:24 Dose: 50 mls Insulin Human Regular (Novolin -R) 0 unit SQ ACHS [facility]; Protocol Stop: 08/25/19 19:57 Last Admin: 08/04/19 20:40 Dose: 6 unit Labetalol HCl (Trandate) 200 mg PO Q12HR [facility] Stop: 08/26/19 09:01 Last Admin: 08/04/19 20:40 Dose: 200 mg Lidocaine (Aspercreme 4% Patch) 1 patch TOP DAILY [facility] Stop: 08/27/19 04:38 Last Admin: 08/04/19 08:58 Dose: 1 patch Mirtazapine (Remeron) 15 mg PO BEDTIME [facility] Stop: 08/29/19 21:01 Last Admin: 08/04/19 20:40 Dose: 15 mg Nystatin (Mycostatin Susp) 500,000 unit PO QID [facility] Stop: 08/25/19 21:01 Last Admin: 08/04/19 20:39 Dose: 500,000 unit Ondansetron HCl (Zofran) 4 mg IV Q4H PRN PRN Reason: NAUSEA / VOMITING Stop: 08/25/19 19:57 Sodium Chloride (Normal Saline Flush) 10 ml IV BID [facility] Stop: 08/25/19 21:01 Last Admin: 08/04/19 08:58 Dose: 10 ml Microbiology Results 07/26/19 12:35 Blood - Blood Aerobic Blood Culture - Final No growth in 5 days. 07/26/19 12:35 Blood - Blood Anaerobic Blood Culture - Final No growth in 5 days. 07/26/19 12:20 Blood - Blood Aerobic Blood Culture - Final No growth in 5 days. 07/26/19 12:20 Blood - Blood Anaerobic Blood Culture - Final No growth in 5 days. Assessment/ Plan: Nephrology. CPS stable without CP or SOB. Diffuse weakness. Appetite fair. No acute events overnight. Vitals, medications, blood work and imaging reviewed in the chart. NAD. MMM. Neck supple. CTA. RRR. Soft Abd. No C/C/E. AAO. Normal speech. EXAM DESCRIPTION: RAD - Chest Single View - 07/29/2019 3:57 pm CLINICAL HISTORY: sob Chest pain. COMPARISON: Chest Single View dated 07/28/2019; Chest Single View dated 2018; Chest Single View dated 07/27/2019; Chest Single View dated 07/26/2019 FINDINGS: Portable technique limits examination quality. The lungs are underinflated with elevated right hemidiaphragm and ill-defined opacity in the right lung base, unchanged. This likely represents a combination of pneumonia and atelectasis. The heart is mildly enlarged in size. Right-sided venous catheter tip in the SVC. IMPRESSION: Stable chest since 07/28/2019 study EXAM DESCRIPTION: US - Renal Ultrasound-Complete - 07/26/2019 4:36 pm CLINICAL HISTORY: renal failure Flank pain COMPARISON: ABD PELVIC VASCULAR SCAN dated 08/19/2015 FINDINGS: Both kidneys appear mildly echogenic. The right kidney measures 8.4 x 4.8 x 3.7 cm. Mild right hydronephrosis. The left kidney measures 9.4 x 6.0 x 4.0 cm. No hydronephrosis, focal mass or perinephric fluid. The urinary bladder is incompletely distended due to a Amor catheter. IMPRESSION: Echogenic kidneys bilaterally compatible with medical renal disease. Mild right hydronephrosis. 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 Proteinuria and Hematuria. ESRD recently initiated on HD. Acidosis. Diastolic CHF, chronic. Severe LVH. HTN with CKD/ CHF. Anemia in CKD. Hgb 8.5 HypoAlbuminemia. Alb 1.6 MEDINA/ Secondary HyperPTH. P/ Continue current POC and Medications. Start Solumedrol 1000mg IV Daily X3 and then start high dose prednisone. Give Rituximab 1g IV X1 dose and then a second dose in 14 days. Next HD Thursday. No NSAIDs. AM labs. Daily weight. Dialysis and SNF placement pending. Case reviewed with Dr. Saldana and Dr. Vincent.
[2019-08-05 04:25] LABS: Absolute Lymphocytes (CBC) 0.6 K/uL (0.7-4.9); Basophils % 0.2 % (0-1.3); Hematocrit 27.3 % (39.6-49.0); Lymphocytes % 5.6 % (15.3-44.8)
[2019-08-05 04:33] LABS: Potassium 4.7 mmol/L (3.5-5.1)
[2019-08-05] MEDS: NYSTATIN 500,000 UNIT/5 ML UDC PO SCH ×4 (08:33→21:53)
[2019-08-05] MEDS: INSULIN -REGULAR HUMAN 50 UNIT/0.5 ML ML SQ SCH ×4 (08:34→21:52)
[2019-08-05] MEDS: HYDRALAZINE HCL 25 MG TABLET PO SCH ×3 (08:34→21:53)
[2019-08-05] MEDS: LABETALOL HCL 100 MG TAB PO SCH ×2 (08:34→21:53)
[2019-08-05] MEDS: VITAMIN D 5,000 UNIT CAP PO SCH (08:35)
[2019-08-05] MEDS: AMLODIPINE 10 MG TAB PO SCH (08:35)
[2019-08-05] MEDS: CALCITROL 0.25 MCG CAP PO SCH (08:35)
[2019-08-05] MEDS: GUAIFENESIN 600 MG SA TAB PO SCH ×2 (08:35→21:53)
[2019-08-05] MEDS: LIDOCAINE 4% PATCH TOP SCH (08:35)
[2019-08-05] MEDS: NEPRO SHAKE 237 ML CAN PO SCH ×2 (08:36→21:52)
[2019-08-05] MEDS ORDERED: METHYLPREDNISOLONE 125 MG INJ IV SCH (09:00)
[2019-08-05] MEDS: METHYLPRED NA SUC 1,000 MG in NA CHLORIDE 0.9% 100 ML IV SCH (09:44)
[2019-08-05] MEDS ORDERED: RITUXIMAB IV ONE (12:00)
[2019-08-05] MEDS ORDERED: NA CHLORIDE 0.9% IV ONE (12:00)
--- NOTE | 2019-08-05 13:21 | P.PN ---
Subjective Date of Service: 08/05/19 Chief Complaint: Generalize weakness and failure to thrive. Subjective: No new changes Patient reports improved appetite. States he is eating more. He is afebrile. No issues overnight. Physical Examination - Vital Signs Temperature: 97.6 F Blood Pressure: 179/85 Pulse: 75 Respirations: 18 Pulse Ox (%): 96 - Physical Exam General: Alert, In no apparent distress, Oriented x3 HEENT: Mucous membr. moist/pink Neck: Supple Respiratory: Clear to auscultation bilaterally, Normal air movement Cardiovascular: No edema, Regular rate/rhythm, Normal S1 S2 Gastrointestinal: Normal bowel sounds, Soft and benign, Non-distended, No tenderness Musculoskeletal: No swelling Integumentary: No rashes Neurological: Normal speech, Normal strength at 5/5 x4 extr Assessment And Plan - Current Problems (Diagnosis) (1) Acute worsening of stage 3 chronic kidney disease Current Visit: Yes Status: Acute (2) Severe protein-calorie malnutrition Current Visit: Yes Status: Acute (3) Right lower lobe pneumonia Current Visit: Yes Status: Acute (4) Acute on chronic anemia Current Visit: Yes Status: Acute (5) Diabetes mellitus Current Visit: Yes Status: Acute (6) Acute on chronic diastolic heart failure Current Visit: Yes Status: Acute - Plan Case discussed with Dr. Weems. He recommend high-dose methylprednisolone and Rituximab Patient started on IV methylprednisolone. Supposed to get a dose of Rituximab today and another dose within 2 weeks. Continue hemodialysis per nephrology. His serum creatinine level has overall significantly improved. Nephrology is following. Continue oral Zithromax and complete 10 days of treatment. Chest physiotherapy. Continue to monitor CBC, transfuse p.r.n. for hemoglobin less than 7. Diabetes is diet controlled. He is on sliding scale for glucose management. Discontinue Amor catheter. PT and OT Protein and calories supplementation. Continue nystatin for oral candidiasis Patient is waiting for placement in a SNF rehab. antichecking iron worker is assisting with disposition.
--- NOTE | 2019-08-05 21:50 | P.PN ---
Date of Service: 08/05/19 Vital Signs Temp Pulse Resp BP Pulse Ox 98.5 F 76 19 144/67 H 94 08/05/19 20:00 08/05/19 20:00 08/05/19 20:00 08/05/19 20:00 08/05/19 20:00 Medications Acetaminophen (Tylenol -Extra Strength) 500 mg PO Q4HP PRN PRN Reason: TEMP > 100' F Stop: 08/25/19 19:57 Last Admin: 07/28/19 00:02 Dose: 500 mg Amlodipine Besylate (Norvasc) 10 mg PO DAILY [facility] Stop: 08/26/19 09:01 Last Admin: 08/05/19 08:35 Dose: 10 mg Atorvastatin Calcium (Lipitor) 10 mg PO BEDTIME [facility] Stop: 08/26/19 21:01 Last Admin: 08/04/19 20:39 Dose: 10 mg Calcitriol (Rocaltrol) 0.5 mcg PO DAILY [facility] Stop: 09/01/19 09:01 Last Admin: 08/05/19 08:35 Dose: 0.5 mcg Cholecalciferol (Vitamin D 5,000 Iu Cap) 5,000 unit PO DAILY [facility] Stop: 09/01/19 09:01 Last Admin: 08/05/19 08:35 Dose: 5,000 unit Enteral Nutritional Formula (Nepro Shake) 237 ml PO BID [facility] Stop: 08/28/19 21:01 Last Admin: 08/05/19 08:36 Dose: Not Given Epoetin Eleazar (Retacrit) 10,000 unit IV EVERY HD [facility] Stop: 08/28/19 07:01 Last Admin: 08/04/19 12:57 Dose: 10,000 unit Guaifenesin (Mucinex 600mg) 600 mg PO BID [facility] Stop: 09/01/19 21:01 Last Admin: 08/05/19 08:35 Dose: 600 mg Heparin Sodium (Porcine) (Heparin 1,000 Units/Ml) 4,000 unit IV EVERY HD PRN PRN Reason: FLUSH AFTER EACH USE Stop: 08/27/19 15:27 Heparin Sodium (Porcine) (Heparin 1,000 Units/Ml) 6,000 unit IV EVERY HD PRN PRN Reason: FLUSH AFTER EACH USE Last Admin: 08/04/19 12:56 Dose: 6,000 unit Hydralazine HCl (Apresoline) 100 mg PO TID [facility] Stop: 08/26/19 09:01 Last Admin: 08/05/19 13:54 Dose: 100 mg Hydralazine HCl (Apresoline) 10 mg IV Q6HP PRN PRN Reason: Titrate to SBP (MUST DEFINE) Stop: 08/26/19 06:33 Last Admin: 07/29/19 15:44 Dose: 10 mg Albumin Human (Albumin 25%) 50 mls @ 100 mls/hr IV EVERY HD [facility] Stop: 08/27/19 16:01 Last Admin: 08/02/19 10:24 Dose: 50 mls Methylprednisolone Sodium Succinate 1,000 mg/ Sodium Chloride 100 mls @ 100 mls /hr IV DAILY [facility] Stop: 08/06/19 09:59 Last Admin: 08/05/19 09:44 Dose: 100 mls Rituximab 1,000 mg/ Sodium (Chloride) 1,000 mls @ 100 mls/hr IV 1X ONE Stop: 08/05/19 21:59 Last Admin: 08/05/19 11:52 Dose: 1,000 mls Insulin Human Regular (Novolin -R) 0 unit SQ ACHS [facility]; Protocol Stop: 08/25/19 19:57 Last Admin: 08/05/19 16:19 Dose: 6 unit Labetalol HCl (Trandate) 200 mg PO Q12HR [facility] Stop: 08/26/19 09:01 Last Admin: 08/05/19 08:34 Dose: 200 mg Lidocaine (Aspercreme 4% Patch) 1 patch TOP DAILY [facility] Stop: 08/27/19 04:38 Last Admin: 08/05/19 08:35 Dose: 1 patch Mirtazapine (Remeron) 15 mg PO BEDTIME [facility] Stop: 08/29/19 21:01 Last Admin: 08/04/19 20:40 Dose: 15 mg Nystatin (Mycostatin Susp) 500,000 unit PO QID [facility] Stop: 08/25/19 21:01 Last Admin: 08/05/19 16:08 Dose: 500,000 unit Ondansetron HCl (Zofran) 4 mg IV Q4H PRN PRN Reason: NAUSEA / VOMITING Stop: 08/25/19 19:57 Sodium Chloride (Normal Saline Flush) 10 ml IV BID [facility] Stop: 08/25/19 21:01 Last Admin: 08/05/19 08:36 Dose: 10 ml Microbiology Results 07/26/19 12:35 Blood - Blood Aerobic Blood Culture - Final No growth in 5 days. 07/26/19 12:35 Blood - Blood Anaerobic Blood Culture - Final No growth in 5 days. 07/26/19 12:20 Blood - Blood Aerobic Blood Culture - Final No growth in 5 days. 07/26/19 12:20 Blood - Blood Anaerobic Blood Culture - Final No growth in 5 days. Assessment/ Plan: Nephrology. CPS stable without CP or SOB. Diffuse weakness. Appetite fair. No acute events overnight. Vitals, medications, blood work and imaging reviewed in the chart. NAD. MMM. Neck supple. CTA. RRR. Soft Abd. No C/C/E. AAO. Normal speech. EXAM DESCRIPTION: RAD - Chest Single View - 07/29/2019 3:57 pm CLINICAL HISTORY: sob Chest pain. COMPARISON: Chest Single View dated 07/28/2019; Chest Single View dated 2018; Chest Single View dated 07/27/2019; Chest Single View dated 07/26/2019 FINDINGS: Portable technique limits examination quality. The lungs are underinflated with elevated right hemidiaphragm and ill-defined opacity in the right lung base, unchanged. This likely represents a combination of pneumonia and atelectasis. The heart is mildly enlarged in size. Right-sided venous catheter tip in the SVC. IMPRESSION: Stable chest since 07/28/2019 study EXAM DESCRIPTION: US - Renal Ultrasound-Complete - 07/26/2019 4:36 pm CLINICAL HISTORY: renal failure Flank pain COMPARISON: ABD PELVIC VASCULAR SCAN dated 08/19/2015 FINDINGS: Both kidneys appear mildly echogenic. The right kidney measures 8.4 x 4.8 x 3.7 cm. Mild right hydronephrosis. The left kidney measures 9.4 x 6.0 x 4.0 cm. No hydronephrosis, focal mass or perinephric fluid. The urinary bladder is incompletely distended due to a Amor catheter. IMPRESSION: Echogenic kidneys bilaterally compatible with medical renal disease. Mild right hydronephrosis. 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 Proteinuria and Hematuria. ESRD recently initiated on HD. Acidosis. Diastolic CHF, chronic. Severe LVH. HTN with CKD/ CHF. Anemia in CKD. Hgb 8.5 HypoAlbuminemia. Alb 1.6 MEDINA/ Secondary HyperPTH. P/ Continue current POC and Medications. Solumedrol 1000mg IV Daily X3 and then start high dose prednisone. Give Rituximab 1g IV X1 dose and then a second dose in 14 days. Next HD Thursday. No NSAIDs. AM labs. Daily weight. Dialysis and SNF placement pending.
[2019-08-05] MEDS: MIRTAZAPINE 15 MG TAB PO SCH (21:53)
[2019-08-05] MEDS: ATORVASTATIN 10 MG TAB PO SCH (21:53)
[2019-08-05] MEDS: AZITHROMYCIN 250 MG TAB PO SCH (21:54)
[2019-08-06 05:52] LABS: Absolute Lymphocytes (CBC) 0.3 K/uL (0.7-4.9); Basophils % 0.1 % (0-1.3); Hematocrit 26.9 % (39.6-49.0); Lymphocytes % 2.2 % (15.3-44.8); RBC Red Blood Cell Count 3.04 M/uL (4.33-5.43)
[2019-08-06 06:03] LABS: Potassium 4.7 mmol/L (3.5-5.1)
[2019-08-06] MEDS: METHYLPRED NA SUC 1,000 MG in NA CHLORIDE 0.9% 100 ML IV SCH (08:24)
[2019-08-06] MEDS: INSULIN -REGULAR HUMAN 50 UNIT/0.5 ML ML SQ SCH ×4 (08:25→20:58)
[2019-08-06] MEDS: LIDOCAINE 4% PATCH TOP SCH (08:25)
[2019-08-06] MEDS: VITAMIN D 5,000 UNIT CAP PO SCH (08:26)
[2019-08-06] MEDS: CALCITROL 0.25 MCG CAP PO SCH (08:26)
[2019-08-06] MEDS: NYSTATIN 500,000 UNIT/5 ML UDC PO SCH ×4 (08:26→20:56)
[2019-08-06] MEDS: HYDRALAZINE HCL 25 MG TABLET PO SCH ×3 (08:26→20:57)
[2019-08-06] MEDS: AMLODIPINE 10 MG TAB PO SCH (08:26)
[2019-08-06] MEDS: GUAIFENESIN 600 MG SA TAB PO SCH ×2 (08:26→20:57)
[2019-08-06] MEDS: NEPRO SHAKE 237 ML CAN PO SCH ×2 (08:27→20:59)
[2019-08-06] MEDS: LABETALOL HCL 100 MG TAB PO SCH ×2 (08:27→20:56)
[2019-08-06] MEDS ORDERED: GLUCAGON 1 MG/VIAL IM PRN ×2 (08:46→12:24)
[2019-08-06] MEDS ORDERED: D50W 25 GM/50 ML SYRINGE IV PRN ×2 (08:46→12:24)
[2019-08-06] MEDS: INSULIN GLARGINE 100 UNITS/ML SQ SCH (10:28)
--- NOTE | 2019-08-06 11:26 | P.PN ---
Subjective Date of Service: 08/06/19 Chief Complaint: Generalize weakness and failure to thrive. Patient reports improved appetite. He finished his breakfast. He is afebrile. No issues overnight. Physical Examination - Vital Signs Temperature: 97 F Blood Pressure: 140/67 Pulse: 73 Respirations: 20 Pulse Ox (%): 97 - Physical Exam General: Alert, In no apparent distress, Oriented x3 HEENT: Mucous membr. moist/pink Respiratory: Clear to auscultation bilaterally, Normal air movement Cardiovascular: No edema, Regular rate/rhythm, Normal S1 S2 Gastrointestinal: Normal bowel sounds, Soft and benign, Non-distended, No tenderness Musculoskeletal: No swelling Integumentary: No rashes Assessment And Plan - Current Problems (Diagnosis) (1) Acute worsening of stage 3 chronic kidney disease Current Visit: Yes Status: Acute (2) Severe protein-calorie malnutrition Current Visit: Yes Status: Chronic (3) Right lower lobe pneumonia Current Visit: Yes Status: Acute (4) Acute on chronic anemia Current Visit: Yes Status: Acute (5) Diabetes mellitus Current Visit: Yes Status: Chronic (6) Acute on chronic diastolic heart failure Current Visit: Yes Status: Acute - Plan Patient started on high-dose methylprednisolone to transition to oral prednisone , and Rituximab for vasculitic kidney injury Supposed to get another dose of Rituximab dose within 2 weeks. Continue hemodialysis per nephrology. Nephrology is following. Discontinue Azithromycin. Patient completed antibiotic therapy His hemoglobin has been stable. Diabetes is diet controlled. He is on sliding scale for glucose management. PT and OT Protein and calories supplementation. Continue nystatin for oral candidiasis Patient is waiting for placement in a SNF rehab. cloth printing utility worker is assisting with disposition.
[2019-08-06] MEDS ORDERED: INSULIN GLARGINE 100 UNITS/ML SQ ONE (13:00)
[2019-08-06] MEDS: EPOETIN ALFA 10,000 UNIT/ML VIAL IV SCH (17:00)
[2019-08-06] MEDS: MIRTAZAPINE 15 MG TAB PO SCH (20:57)
[2019-08-06] MEDS: ATORVASTATIN 10 MG TAB PO SCH (20:57)
[2019-08-07] MEDS: LIDOCAINE 4% PATCH TOP SCH (08:07)
[2019-08-07] MEDS: HYDRALAZINE HCL 25 MG TABLET PO SCH ×3 (08:07→21:07)
[2019-08-07] MEDS: LABETALOL HCL 100 MG TAB PO SCH ×2 (08:08→21:07)
[2019-08-07] MEDS: AMLODIPINE 10 MG TAB PO SCH (08:08)
[2019-08-07] MEDS: GUAIFENESIN 600 MG SA TAB PO SCH ×2 (08:08→21:07)
[2019-08-07] MEDS: CALCITROL 0.25 MCG CAP PO SCH (08:08)
[2019-08-07] MEDS: VITAMIN D 5,000 UNIT CAP PO SCH (08:08)
[2019-08-07] MEDS: INSULIN -REGULAR HUMAN 50 UNIT/0.5 ML ML SQ SCH ×4 (08:09→21:08)
[2019-08-07] MEDS: INSULIN GLARGINE 100 UNITS/ML SQ SCH ×2 (08:09→21:08)
[2019-08-07] MEDS: NEPRO SHAKE 237 ML CAN PO SCH ×2 (08:10→21:10)
--- NOTE | 2019-08-07 12:26 | P.PN ---
Subjective Date of Service: 08/07/19 Chief Complaint: Generalize weakness and failure to thrive. Subjective: No new changes Patient is eating well He is afebrile. No issues overnight. Noted his blood sugars readings are severely elevated Physical Examination - Vital Signs Temperature: 97.2 F Blood Pressure: 142/68 Pulse: 72 Respirations: 18 Pulse Ox (%): 96 - Physical Exam General: Alert, In no apparent distress, Oriented x3 HEENT: Mucous membr. moist/pink Neck: Supple, JVD not distended Respiratory: Clear to auscultation bilaterally, Normal air movement Cardiovascular: No edema, Regular rate/rhythm, Normal S1 S2 Gastrointestinal: Normal bowel sounds, Soft and benign, Non-distended, No tenderness Musculoskeletal: No swelling Integumentary: No rashes Assessment And Plan - Current Problems (Diagnosis) (1) Acute worsening of stage 3 chronic kidney disease Current Visit: Yes Status: Acute (2) Severe protein-calorie malnutrition Current Visit: Yes Status: Chronic (3) Right lower lobe pneumonia Current Visit: Yes Status: Acute (4) Acute on chronic anemia Current Visit: Yes Status: Acute (5) Diabetes mellitus Current Visit: Yes Status: Chronic (6) Acute on chronic diastolic heart failure Current Visit: Yes Status: Acute - Plan Continue methylprednisolone. She also received Rituximab. He is supposed to get another dose of Rituximab dose within 2 weeks. Continue hemodialysis per nephrology. Nephrology is following. Patient completed antibiotic therapy for pneumonia His hemoglobin has been stable. Blood sugar readings are severely elevated. This is likely steroid induced. Blood sugars being managed with Lantus insulin and insulin sliding scale. Lantus insulin increased to 10 units today. Continue PT and OT Protein and calories supplementation. Patient is waiting for placement in a SNF rehab. call worker is assisting with disposition.
--- OUTSIDE RECORDS SUMMARY | 2019-08-07 15:14 | XMS REPORT | Summary of Care ---
:1960 Author Organization [facility] - Health Address [address] [place] [id number] Care Team Providers Name Role Phone Justin Wright Primary Care Provider Encounter Details Date Type Department Care Team Description 06/01/2019 Orders Only [facility] Doctor Unassigned, No [address] [facility] [place] [address] [address] [place] [address] Allergies No Known Allergiesdocumented as of this encounter (statuses as of 06/17/2019) Medications Medication Sig Dispensed Refills Start Date End Date Status pravastatin 20 mg Take 20 mg by 0 Active tablet mouth at bedtime. pantoprazole 40 mg EC Take 40 mg by 0 Active tablet mouth daily. IRON FUM/FOLIC Take by mouth 0 Active ACID/MV,MIN 15 daily. (HEMOCYTE-PLUS ORAL) hydralAZINE 100 mg Take 1 tablet by 270 tablet 1 10/25/2018 Active tabletIndications: mouth 3 (three) Essential hypertension times daily. labetalol 200 mg Take 1 tablet by 180 tablet 1 10/25/2018 Active tabletIndications: mouth every 12 Essential hypertension (twelve) hours. amLODIPine 10 mg Take 1 tablet by 30 tablet 3 10/25/2018 Active tabletIndications: mouth daily. Essential hypertension documented as of this encounter (statuses as of 06/17/2019) Active Problems Not on filedocumented as of this encounter (statuses as of 06/17/2019) Social History Tobacco Use Types Packs/Day Years Used Date Never Smoker Smokeless Tobacco: Never Used Alcohol Use Drinks/Week oz/Week Comments No 0 Standard drinks or equivalent 0.0 Sex Assigned at Date Recorded Not on file Job Start Date Occupation Industry Not on file Not on file Not on file Travel History Travel Start Travel End No recent travel history available. documented as of this encounter Last Filed Vital Signs Not on filedocumented in this encounter Plan of Treatment Health Maintenance Due Date Last Done Comments HEPATITIS C (HCV) SCREEN 1960 HgA1C 1961 PNEUMOCOCCAL 0-64 YEARS COMBINED SERIES (1 of 1 - 1966 PPSV23) CREATININE (SERUM) 1970 EYE EXAM 1970 LDL-C 1970 URINE MICROALBUMIN 1970 FOOT EXAM 1978 DTaP,Tdap,and Td Vaccines (1 - Tdap) 1979 COLONOSCOPY 2010 Zoster Recombinant Vaccine (SHINGRIX) (1 of 2) 2010 INFLUENZA VACCINE (Retired version) 05/29/2019 documented as of this encounter Procedures Procedure Name Priority Date/Time Associated Diagnosis Comments AUTHORIZATION FOR RELEASE Routine 06/01/2019 12:01 AM OF PHI CDT documented in this encounter Results Not on filedocumented in this encounter Insurance Payer Benefit Plan / Subscriber ID Effective Dates Phone Address Type Group HIM [id number] 2018-Present PPO [id number] ACTED RACTED documented as of this encounter
--- OUTSIDE RECORDS SUMMARY | 2019-08-07 15:14 | XMS REPORT ---
:1960 [facility] Address [facility] [place] [address] Care Team Providers Name Role Phone Unavailable Unavailable Unavailable Problems This patient has no known problems. Allergies, Adverse Reactions, Alerts This patient has no known allergies or adverse reactions. Medications This patient has no known medications.
[2019-08-07] MEDS: ATORVASTATIN 10 MG TAB PO SCH (21:07)
[2019-08-07] MEDS: MIRTAZAPINE 15 MG TAB PO SCH (21:07)
--- NOTE | 2019-08-08 01:13 | PN ---
Subjective: or diarrhea. Objective: Vital Signs: Blood pressure 142/68, pulse 72, afebrile. Input and output, 1600 mL in, o utput inadequately measured. General: No acute distress. Heart: Regular rate and rhythm. No murmurs, rubs, gallops. Lungs: Grossly clear to auscultation. Abdomen: Soft, nontender, nondistended. Extremities: No significant edema. Laboratory Data: Serum chemistry from 11/07 showed BUN and creatinine of 82/4.82, calcium 7.6. Viviana ent has developed hyperglycemia. Current Medications: Reviewed. Impression: 1.Acute kidney injury secondary to presumed ANCA vasculitis. 2.Renal insufficiency requiring dependence on hemodialysis, acute versus chronic. 3.Acidosis. 4.Hypertension. Plan: Patient did receive Solu-Medrol 1 g IV daily as well as rituximab. The patient will need to c ontinue with high-dose steroids. Patient will be started on prednisone 60 mg p.o. daily. Patient wi ll also be initiated on PPI for ulcer prophylaxis. Patient will need vitamin D. We will continue vitamin D for osteoporosis prophylaxis or prevention. Patient will need PJP prophylaxis as well. /ARLENE Voice ID: [id number] Report ID: [id number]
[2019-08-08 03:45] LABS: HBsAG Nonreactive (Nonreactive)
[2019-08-08 04:33] LABS: Absolute Lymphocytes (CBC) 0.6 K/uL (0.7-4.9); Basophils % 0.1 % (0-1.3); Hematocrit 26.8 % (39.6-49.0); Lymphocytes % 5.7 % (15.3-44.8); RBC Red Blood Cell Count 2.92 M/uL (4.33-5.43)
[2019-08-08 04:39] LABS: Potassium 4.3 mmol/L (3.5-5.1)
[2019-08-08 05:20] LABS: Blood Morphology Comment NOT SEEN (NOT SEEN); Platelet Estimate ADEQ
[2019-08-08] MEDS: PANTOPRAZOLE 40MG TABLET PO SCH (06:02)
[2019-08-08] MEDS: INSULIN -REGULAR HUMAN 50 UNIT/0.5 ML ML SQ SCH ×4 (07:30→21:00)
[2019-08-08] MEDS: LIDOCAINE 4% PATCH TOP SCH (08:05)
[2019-08-08] MEDS: VITAMIN D 5,000 UNIT CAP PO SCH (08:05)
[2019-08-08] MEDS: LABETALOL HCL 100 MG TAB PO SCH (08:05)
[2019-08-08] MEDS: CALCITROL 0.25 MCG CAP PO SCH (08:06)
[2019-08-08] MEDS: AMLODIPINE 10 MG TAB PO SCH (08:06)
[2019-08-08] MEDS: GUAIFENESIN 600 MG SA TAB PO SCH ×2 (08:06→20:59)
[2019-08-08] MEDS: HYDRALAZINE HCL 25 MG TABLET PO SCH ×3 (08:06→20:52)
[2019-08-08] MEDS: NEPRO SHAKE 237 ML CAN PO SCH ×2 (08:07→21:00)
[2019-08-08] MEDS: predniSONE 20 MG TAB PO SCH (08:09)
[2019-08-08] MEDS: EPOETIN ALFA 10,000 UNIT/ML VIAL IV SCH (11:23)
--- NOTE | 2019-08-08 20:29 | P.PN ---
Date of Service: 08/08/19 Vital Signs Temp Pulse Resp BP Pulse Ox 98.3 F 68 16 155/73 H 97 08/08/19 16:00 08/08/19 16:00 08/08/19 16:00 08/08/19 16:00 08/08/19 16:00 Medications Acetaminophen (Tylenol -Extra Strength) 500 mg PO Q4HP PRN PRN Reason: TEMP > 100' F Stop: 08/25/19 19:57 Last Admin: 07/28/19 00:02 Dose: 500 mg Amlodipine Besylate (Norvasc) 10 mg PO DAILY [facility] Stop: 08/26/19 09:01 Last Admin: 08/08/19 08:06 Dose: 10 mg Atorvastatin Calcium (Lipitor) 10 mg PO BEDTIME [facility] Stop: 08/26/19 21:01 Last Admin: 08/07/19 21:07 Dose: 10 mg Calcitriol (Rocaltrol) 0.5 mcg PO DAILY [facility] Stop: 09/01/19 09:01 Last Admin: 08/08/19 08:06 Dose: 0.5 mcg Cholecalciferol (Vitamin D 5,000 Iu Cap) 5,000 unit PO DAILY [facility] Stop: 09/01/19 09:01 Last Admin: 08/08/19 08:05 Dose: 5,000 unit Dextrose (Dextrose 50% Syringe) 12.5 gm IV PRN PRN; Protocol PRN Reason: HYPOGLYCEMIA Stop: 09/05/19 12:25 Enteral Nutritional Formula (Nepro Shake) 237 ml PO BID [facility] Stop: 08/28/19 21:01 Last Admin: 08/08/19 08:07 Dose: 237 ml Epoetin Eleazar (Retacrit) 10,000 unit IV EVERY HD [facility]U Stop: 08/28/19 07:01 Last Admin: 08/08/19 11:23 Dose: 10,000 unit Glucagon (Glucagen) 1 mg IM 1X PRN; Protocol PRN Reason: HYPOGLYCEMIA Stop: 09/05/19 12:25 Guaifenesin (Mucinex 600mg) 600 mg PO BID [facility] Stop: 09/01/19 21:01 Last Admin: 08/08/19 08:06 Dose: 600 mg Heparin Sodium (Porcine) (Heparin 1,000 Units/Ml) 4,000 unit IV EVERY HD PRN PRN Reason: FLUSH AFTER EACH USE Stop: 08/27/19 15:27 Heparin Sodium (Porcine) (Heparin 1,000 Units/Ml) 6,000 unit IV EVERY HD PRN PRN Reason: FLUSH AFTER EACH USE Last Admin: 08/08/19 11:23 Dose: 6,000 unit Hydralazine HCl (Apresoline) 100 mg PO TID [facility] Stop: 08/26/19 09:01 Last Admin: 08/08/19 13:48 Dose: 100 mg Hydralazine HCl (Apresoline) 10 mg IV Q6HP PRN PRN Reason: Titrate to SBP (MUST DEFINE) Stop: 08/26/19 06:33 Last Admin: 07/29/19 15:44 Dose: 10 mg Albumin Human (Albumin 25%) 50 mls @ 100 mls/hr IV EVERY HD [facility] Stop: 08/27/19 16:01 Last Admin: 08/02/19 10:24 Dose: 50 mls Insulin Glargine (Lantus) 10 units SQ BEDTIME [facility] Stop: 09/06/19 21:01 Last Admin: 08/07/19 21:08 Dose: 10 units Insulin Human Regular (Novolin -R) 0 unit SQ ACHS [facility]; Protocol Stop: 08/25/19 19:57 Last Admin: 08/08/19 16:49 Dose: 6 unit Labetalol HCl (Trandate) 200 mg PO Q12HR [facility] Stop: 08/26/19 09:01 Last Admin: 08/08/19 08:05 Dose: 200 mg Lidocaine (Aspercreme 4% Patch) 1 patch TOP DAILY [facility] Stop: 08/27/19 04:38 Last Admin: 08/08/19 08:05 Dose: 1 patch Mirtazapine (Remeron) 15 mg PO BEDTIME [facility] Stop: 08/29/19 21:01 Last Admin: 08/07/19 21:07 Dose: 15 mg Ondansetron HCl (Zofran) 4 mg IV Q4H PRN PRN Reason: NAUSEA / VOMITING Stop: 08/25/19 19:57 Pantoprazole Sodium (Protonix Tab) 40 mg PO DAILYAC [facility]; Protocol Stop: 09/07/19 06:31 Last Admin: 08/08/19 06:02 Dose: 40 mg Prednisone (Deltasone) 60 mg PO DAILY [facility] Stop: 09/07/19 09:01 Last Admin: 08/08/19 08:09 Dose: 60 mg Sodium Chloride (Normal Saline Flush) 10 ml IV BID [facility] Stop: 08/25/19 21:01 Last Admin: 08/08/19 08:06 Dose: 10 ml Trimethoprim/Sulfamethoxazole (Bactrim Ds 800 Mg/160 Mg) 1 tab PO M,W,F [facility]; Protocol Stop: 09/09/19 17:01 Microbiology Results 07/26/19 12:35 Blood - Blood Aerobic Blood Culture - Final No growth in 5 days. 07/26/19 12:35 Blood - Blood Anaerobic Blood Culture - Final No growth in 5 days. 07/26/19 12:20 Blood - Blood Aerobic Blood Culture - Final No growth in 5 days. 07/26/19 12:20 Blood - Blood Anaerobic Blood Culture - Final No growth in 5 days. Assessment/ Plan: Nephrology. CPS stable without CP or SOB. Diffuse weakness. Appetite fair. No acute events overnight. Vitals, medications, blood work and imaging reviewed in the chart. NAD. MMM. Neck supple. CTA. RRR. Soft Abd. No C/C/E. AAO. Normal speech. EXAM DESCRIPTION: RAD - Chest Single View - 07/29/2019 3:57 pm CLINICAL HISTORY: sob Chest pain. COMPARISON: Chest Single View dated 07/28/2019; Chest Single View dated 2018; Chest Single View dated 07/27/2019; Chest Single View dated 07/26/2019 FINDINGS: Portable technique limits examination quality. The lungs are underinflated with elevated right hemidiaphragm and ill-defined opacity in the right lung base, unchanged. This likely represents a combination of pneumonia and atelectasis. The heart is mildly enlarged in size. Right-sided venous catheter tip in the SVC. IMPRESSION: Stable chest since 07/28/2019 study EXAM DESCRIPTION: US - Renal Ultrasound-Complete - 07/26/2019 4:36 pm CLINICAL HISTORY: renal failure Flank pain COMPARISON: ABD PELVIC VASCULAR SCAN dated 08/19/2015 FINDINGS: Both kidneys appear mildly echogenic. The right kidney measures 8.4 x 4.8 x 3.7 cm. Mild right hydronephrosis. The left kidney measures 9.4 x 6.0 x 4.0 cm. No hydronephrosis, focal mass or perinephric fluid. The urinary bladder is incompletely distended due to a Amor catheter. IMPRESSION: Echogenic kidneys bilaterally compatible with medical renal disease. Mild right hydronephrosis. 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 Proteinuria and Hematuria. ESRD recently initiated on HD. Acidosis. Diastolic CHF, chronic. Severe LVH. HTN with CKD/ CHF. Anemia in CKD. Hgb 8.5 HypoAlbuminemia. Alb 1.6 MEDINA/ Secondary HyperPTH. P/ Continue current POC and Medications. Acute HD today. Prednisone 60mg daily. Will change to EOD at discharge. Rituximab 1g IV X1 dose given and then a second dose in 14 days. Start Bactrim SS MWF for prophylaxis. No NSAIDs. AM labs. Daily weight. Dialysis and SNF placement pending.
--- NOTE | 2019-08-08 20:46 | PN ---
Date of Progress Note: 08/08/2019 Subjective: Patient seen and examined. Chart reviewed and case discussed with RN. Sister at the be ide. Treatment plan explained. All questions answered. No significant events overnight. No comp laints from the patient. Medications reviewed. Objective: Vital Signs: Temperature 97.7, heart rate 64, blood pressure 140/67, respirations 16, O2 of 97% on room air. GENERAL: Awake, alert, oriented x3, in some mild distress, ill-appearing male, frail, cachectic. CV: S1, S2. Regular rate and rhythm. Peripheral pulses present. RESPIRATORY: Diminished breath sounds at the bases. No wheezing or stridor. GASTROINTESTINAL: Abdomen is soft, nontender, nondistended. Positive bowel sounds. EXTREMITIES: No clubbing, cyanosis, or edema. NEUROLOGIC: Nonfocal. Laboratory Data: Sodium 137, potassium 4.3, chloride 103, CO2 of 24, BUN 93, creatinine 4.22, glucos e 227, calcium 7.5. WBC 11.2, H and H 8.7 and 26.8, platelets 267, neutrophils 86%. Blood cultures, no growth to date. Urine culture, no growth. Assessment: A 58-year-old male with. 1.Ubhtk-ea-doiempt kidney injury secondary to ANCA vasculitis. Patient is on dialysis. Appreciate Nephrology input. Patient received first dose of rituximab on high-dose steroids. Still awaiting di alysis setup as an outpatient in [place]. 2.Right lower lobe pneumonia. Cultures negative. Patient has completed IV antibiotic course. 3.Acidosis secondary to above. 4.Essential hypertension. We will continue medications. 5.Acute on chronic anemia due to anemia of chronic disease, status post 3 units of PRBCs. Continue to monitor H and H. 6.Hypertensive heart disease. 7.Elevated troponin level likely due to demand mismatch. 8.Diabetes mellitus type 2, diet controlled. Blood glucose levels elevated due to steroids. We jennifer l adjust sliding scale insulin. Continue Lantus. 9.Thrush, resolved. 10.Congestive heart failure, diastolic dysfunction, acute on chronic. We will continue with fluid r estriction and monitor I's and O's. 11.Cardiomyopathy. 12.Mixed hyperlipidemia. We will continue with statin. 13.Severe protein-calorie malnutrition. 14.Adjustment disorder with depressed mood. Patient continues to have a flat affect, was started on Remeron. 15.Deep venous thrombosis prophylaxis with heparin. Plan: Patient will need to be set up with dialysis and with second dose of rituximab back at this fa cility. Continue with oral antibiotics. Patient is started on GI prophylaxis. /ARLENE Voice ID: [id number] Report ID: [id number]
[2019-08-08] MEDS: MIRTAZAPINE 15 MG TAB PO SCH (20:59)
[2019-08-08] MEDS: ATORVASTATIN 10 MG TAB PO SCH (20:59)
[2019-08-08] MEDS: INSULIN GLARGINE 100 UNITS/ML SQ SCH (21:00)
[2019-08-08] MEDS: carvediloL 12.5 MG TAB PO SCH (22:27)
[2019-08-08] MEDS: RAMIPRIL 2.5 MG CAP PO SCH (22:28)
[2019-08-09] MEDS: PANTOPRAZOLE 40MG TABLET PO SCH (05:39)
[2019-08-09 05:43] LABS: Absolute Lymphocytes (CBC) 0.6 K/uL (0.7-4.9); Basophils % 0.2 % (0-1.3); Hematocrit 28.1 % (39.6-49.0); Lymphocytes % 5.2 % (15.3-44.8); MPV 9.1 fL (7.6-11.3); RBC Red Blood Cell Count 3.09 M/uL (4.33-5.43)
[2019-08-09 06:03] LABS: Bilirubin Total 0.5 mg/dL (0.2-1.0); Phosphorus 3.4 mg/dL (2.5-4.9); Potassium 4.3 mmol/L (3.5-5.1); Protein, Total 6.1 g/dL (6.4-8.2)
[2019-08-09 08:14] LABS: Platelet Estimate ADEQ
[2019-08-09 08:15] LABS: Blood Morphology Comment NOT SEEN (NOT SEEN)
[2019-08-09] MEDS: INSULIN -REGULAR HUMAN 50 UNIT/0.5 ML ML SQ SCH ×3 (08:49→20:11)
[2019-08-09] MEDS: VITAMIN D 5,000 UNIT CAP PO SCH (08:50)
[2019-08-09] MEDS: CALCITROL 0.25 MCG CAP PO SCH (08:50)
[2019-08-09] MEDS: predniSONE 20 MG TAB PO SCH (08:50)
[2019-08-09] MEDS: carvediloL 12.5 MG TAB PO SCH ×3 (08:51→21:00)
[2019-08-09] MEDS: HYDRALAZINE HCL 25 MG TABLET PO SCH ×3 (08:51→20:20)
[2019-08-09] MEDS: AMLODIPINE 10 MG TAB PO SCH (08:52)
[2019-08-09] MEDS: GUAIFENESIN 600 MG SA TAB PO SCH ×2 (09:34→20:12)
[2019-08-09] MEDS: LIDOCAINE 4% PATCH TOP SCH (09:34)
[2019-08-09] MEDS: NEPRO SHAKE 237 ML CAN PO SCH ×2 (09:35→20:13)
[2019-08-09] MEDS ORDERED: INSULIN -REGULAR HUMAN 50 UNIT/0.5 ML ML SQ SCH (12:36)
--- NOTE | 2019-08-09 17:29 | PN ---
Date of Progress Note: 08/09/2019 Subjective: Patient seen and examined. Chart reviewed and case discussed with RN. Family at the [facility], treatment plan explained, all questions answered. Patient still awaiting chair time at [place]. Medications: List reviewed. Physical Examination: Vital Signs: Temperature 97.1, heart rate 71, blood pressure 181/81, respirations 17, O2 95% on room air. General: Awake, alert, oriented x3, not in any acute distress. CV: S1, S2. Regular rate and rhythm. Peripheral pulses present. Respiratory: Moving air well bilaterally. No wheezing or stridor at the apices. Some diminished br eath sounds at the bases. Gastrointestinal: Abdomen is soft, nontender, nondistended. Positive bowel sounds. No guarding or rigidity. Extremities: No clubbing, cyanosis, or edema. Neurologic: Nonfocal. Laboratory Data: Sodium 138, potassium 4.3, chloride 104, CO2 of 26, BUN 74, creatinine 3.9, glucose 283, calcium 7.6, phosphorus 3.4, albumin 2. WBC 11.3, H and H 9 and 28.1, platelets 255, neutrophi ls 72%. 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 Kidney functi ons improved. Patient is now on high-dose steroids, status post 1 dose of rituximab, will receive se cond dose as an outpatient in couple of weeks. Awaiting dialysis chair time at [place]. 2.Right lower lobe pneumonia. Patient completed IV antibiotic course. Cultures are negative. Anti biotics have been discontinued. 3.Acidosis, improving. 4.Essential hypertension, not well optimized. We will adjust medications as necessary. 5.Acute on chronic anemia due to anemia of chronic disease, status post 3 units of PRBCs. We will c ontinue to monitor H and H and transfuse as needed. 6.Hypertensive heart disease. 7.Elevated troponin level, likely due to demand mismatch. No intervention from Cardiology. 8.Diabetes mellitus type 2, diet controlled, is on sliding scale insulin due to steroids. We will a djust sliding scale insulin due to elevated blood sugar levels from high-dose steroids necessary due to his vasculitis. 9.Congestive heart failure, diastolic dysfunction, acute on chronic, improved. Continue monitoring I's and O's. Fluid restriction. 10.Cardiomyopathy. 11.Mixed hyperlipidemia. Continue statin. 12.Severe protein-calorie malnutrition. Albumin is 2. 13.Adjustment disorder with depressed mood. Continue Remeron. 14.Deep venous thrombosis prophylaxis with heparin. Plan: Discharge once cleared by Nephrology and chair time set up. /ARLENE Voice ID: [id number] Report ID: [id number]
[2019-08-09] MEDS ORDERED: INSULIN -REGULAR HUMAN 50 UNIT/0.5 ML ML SQ ONE (17:35)
[2019-08-09] MEDS: INSULIN GLARGINE 100 UNITS/ML SQ SCH (20:11)
[2019-08-09] MEDS: MIRTAZAPINE 15 MG TAB PO SCH (20:12)
[2019-08-09] MEDS: ATORVASTATIN 10 MG TAB PO SCH (20:12)
[2019-08-09] MEDS: RAMIPRIL 2.5 MG CAP PO SCH ×2 (20:20→21:00)
--- NOTE | 2019-08-09 20:59 | P.PN ---
Date of Service: 08/09/19 Vital Signs Temp Pulse Resp BP Pulse Ox 97.0 F 77 17 163/76 H 100 08/09/19 16:00 08/09/19 20:20 08/09/19 16:00 08/09/19 20:20 08/09/19 16:00 Medications Acetaminophen (Tylenol -Extra Strength) 500 mg PO Q4HP PRN PRN Reason: TEMP > 100' F Stop: 08/25/19 19:57 Last Admin: 07/28/19 00:02 Dose: 500 mg Amlodipine Besylate (Norvasc) 10 mg PO DAILY RADU Stop: 08/26/19 09:01 Last Admin: 08/09/19 08:52 Dose: 10 mg Atorvastatin Calcium (Lipitor) 10 mg PO BEDTIME RADU Stop: 08/26/19 21:01 Last Admin: 08/09/19 20:12 Dose: 10 mg Calcitriol (Rocaltrol) 0.5 mcg PO DAILY RADU Stop: 09/01/19 09:01 Last Admin: 08/09/19 08:50 Dose: 0.5 mcg Carvedilol (Coreg) 12.5 mg PO BID RADU Stop: 09/08/19 21:01 Cholecalciferol (Vitamin D 5,000 Iu Cap) 5,000 unit PO DAILY RADU Stop: 09/01/19 09:01 Last Admin: 08/09/19 08:50 Dose: 5,000 unit Dextrose (Dextrose 50% Syringe) 12.5 gm IV PRN PRN; Protocol PRN Reason: HYPOGLYCEMIA Stop: 09/05/19 12:25 Enteral Nutritional Formula (Nepro Shake) 237 ml PO BID RADU Stop: 08/28/19 21:01 Last Admin: 08/09/19 20:13 Dose: 237 ml Epoetin Eleazar (Retacrit) 10,000 unit IV EVERY HD RADU Stop: 08/28/19 07:01 Last Admin: 08/08/19 11:23 Dose: 10,000 unit Glucagon (Glucagen) 1 mg IM 1X PRN; Protocol PRN Reason: HYPOGLYCEMIA Stop: 09/05/19 12:25 Guaifenesin (Mucinex 600mg) 600 mg PO BID RADU Stop: 09/01/19 21:01 Last Admin: 08/09/19 20:12 Dose: 600 mg Heparin Sodium (Porcine) (Heparin 1,000 Units/Ml) 4,000 unit IV EVERY HD PRN PRN Reason: FLUSH AFTER EACH USE Stop: 08/27/19 15:27 Heparin Sodium (Porcine) (Heparin 1,000 Units/Ml) 6,000 unit IV EVERY HD PRN PRN Reason: FLUSH AFTER EACH USE Last Admin: 08/08/19 11:23 Dose: 6,000 unit Home Med (Rituximab) 1 g IV ONCE ONE Stop: 08/22/19 07:01 Hydralazine HCl (Apresoline) 100 mg PO TID RADU Stop: 08/26/19 09:01 Last Admin: 08/09/19 20:20 Dose: 100 mg Hydralazine HCl (Apresoline) 10 mg IV Q6HP PRN PRN Reason: Titrate to SBP (MUST DEFINE) Stop: 08/26/19 06:33 Last Admin: 07/29/19 15:44 Dose: 10 mg Albumin Human (Albumin 25%) 50 mls @ 100 mls/hr IV EVERY HD RADU Stop: 08/27/19 16:01 Last Admin: 08/02/19 10:24 Dose: 50 mls Insulin Glargine (Lantus) 20 units SQ BEDTIME RADU Stop: 09/08/19 21:01 Last Admin: 08/09/19 20:11 Dose: 20 units Insulin Human Regular (Novolin -R) 0 unit SQ ACHS RADU; Protocol Stop: 08/25/19 19:57 Last Admin: 08/09/19 20:11 Dose: 12 unit Lidocaine (Aspercreme 4% Patch) 1 patch TOP DAILY RADU Stop: 08/27/19 04:38 Last Admin: 08/09/19 09:34 Dose: 1 patch Mirtazapine (Remeron) 15 mg PO BEDTIME RADU Stop: 08/29/19 21:01 Last Admin: 08/09/19 20:12 Dose: 15 mg Ondansetron HCl (Zofran) 4 mg IV Q4H PRN PRN Reason: NAUSEA / VOMITING Stop: 08/25/19 19:57 Pantoprazole Sodium (Protonix Tab) 40 mg PO DAILYAC RADU; Protocol Stop: 09/07/19 06:31 Last Admin: 08/09/19 05:39 Dose: 40 mg Prednisone (Deltasone) 60 mg PO DAILY RADU Stop: 09/07/19 09:01 Last Admin: 08/09/19 08:50 Dose: 60 mg Ramipril (Altace) 5 mg PO BEDTIME [facility] Stop: 09/08/19 21:01 Sodium Chloride (Normal Saline Flush) 10 ml IV BID [facility] Stop: 08/25/19 21:01 Last Admin: 08/09/19 20:12 Dose: 10 ml Trimethoprim/Sulfamethoxazole (Bactrim Ds 800 Mg/160 Mg) 1 tab PO MoWeFr@0900 [facility]; Protocol Stop: 09/09/19 09:01 Microbiology Results 07/26/19 12:35 Blood - Blood Aerobic Blood Culture - Final No growth in 5 days. 07/26/19 12:35 Blood - Blood Anaerobic Blood Culture - Final No growth in 5 days. 07/26/19 12:20 Blood - Blood Aerobic Blood Culture - Final No growth in 5 days. 07/26/19 12:20 Blood - Blood Anaerobic Blood Culture - Final No growth in 5 days. Assessment/ Plan: Nephrology. CPS stable without CP or SOB. Diffuse weakness, improving. Appetite good. No acute events overnight. Vitals, medications, blood work and imaging reviewed in the chart. NAD. MMM. Neck supple. CTA. RRR. Soft Abd. No C/C/E. AAO. Normal speech. EXAM DESCRIPTION: RAD - Chest Single View - 07/29/2019 3:57 pm CLINICAL HISTORY: sob Chest pain. COMPARISON: Chest Single View dated 07/28/2019; Chest Single View dated 2018; Chest Single View dated 07/27/2019; Chest Single View dated 07/26/2019 FINDINGS: Portable technique limits examination quality. The lungs are underinflated with elevated right hemidiaphragm and ill-defined opacity in the right lung base, unchanged. This likely represents a combination of pneumonia and atelectasis. The heart is mildly enlarged in size. Right-sided venous catheter tip in the SVC. IMPRESSION: Stable chest since 07/28/2019 study EXAM DESCRIPTION: US - Renal Ultrasound-Complete - 07/26/2019 4:36 pm CLINICAL HISTORY: renal failure Flank pain COMPARISON: ABD PELVIC VASCULAR SCAN dated 08/19/2015 FINDINGS: Both kidneys appear mildly echogenic. The right kidney measures 8.4 x 4.8 x 3.7 cm. Mild right hydronephrosis. The left kidney measures 9.4 x 6.0 x 4.0 cm. No hydronephrosis, focal mass or perinephric fluid. The urinary bladder is incompletely distended due to a Amor catheter. IMPRESSION: Echogenic kidneys bilaterally compatible with medical renal disease. Mild right hydronephrosis. 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 Proteinuria and Hematuria. ESRD recently initiated on HD. Acidosis. Diastolic CHF, chronic. Severe LVH. HTN with CKD/ CHF. Anemia in CKD. Hgb 8.5 HypoAlbuminemia. Alb 1.6 MEDINA/ Secondary HyperPTH. P/ Continue current POC and Medications. Acute HD tomorrow. Prednisone 60mg daily. Will change to EOD at discharge. Rituximab 1g IV X1 dose given and then a second dose in 14 days. Continue Bactrim SS MWF for prophylaxis. Increase Ramipril 5mg qhs. No NSAIDs. AM labs. Daily weight. Dialysis and SNF placement pending.
[2019-08-09] MEDS ORDERED: RAMIPRIL 2.5 MG CAP PO ONE (21:51)
[2019-08-10] MEDS: PANTOPRAZOLE 40MG TABLET PO SCH (05:13)
[2019-08-10] MEDS: predniSONE 20 MG TAB PO SCH (08:16)
[2019-08-10] MEDS: CALCITROL 0.25 MCG CAP PO SCH (08:16)
[2019-08-10] MEDS: VITAMIN D 5,000 UNIT CAP PO SCH (08:16)
[2019-08-10] MEDS: GUAIFENESIN 600 MG SA TAB PO SCH ×2 (08:17→20:51)
[2019-08-10] MEDS: LIDOCAINE 4% PATCH TOP SCH (08:17)
[2019-08-10] MEDS: INSULIN -REGULAR HUMAN 50 UNIT/0.5 ML ML SQ SCH ×4 (08:17→20:52)
[2019-08-10] MEDS: HYDRALAZINE HCL 25 MG TABLET PO SCH ×3 (08:20→20:51)
[2019-08-10] MEDS: AMLODIPINE 10 MG TAB PO SCH (08:20)
[2019-08-10] MEDS: NEPRO SHAKE 237 ML CAN PO SCH ×2 (08:21→20:53)
[2019-08-10] MEDS: carvediloL 12.5 MG TAB PO SCH ×2 (08:21→20:52)
[2019-08-10] MEDS ORDERED: SMZ./TMP. 800/160 MG TABLET PO SCH (09:00)
[2019-08-10] MEDS: EPOETIN ALFA 10,000 UNIT/ML VIAL IV SCH (11:42)
--- NOTE | 2019-08-10 14:00 | PN ---
Date of Progress Note: 08/10/2019 Subjective: Patient seen and examined. Chart reviewed and case discussed with RN and Dr. Mendoza. Patient apparently has dialysis set up at [place], however, was declined by the nursing facility [facility] per Social Work. Medications: List reviewed. Physical Examination: Vital Signs: Temperature 98.2, heart rate 68, blood pressure 184/83, respirations 18, O2 96% on room air. General: Awake, alert, oriented x3, not in any acute distress. CV: S1, S2. No murmurs. Peripheral pulses present. Respiratory: Moving air well bilateral apices. Some diminished breath sounds at the bases. No whee zing or stridor. No use of accessory muscles. Gastrointestinal: Abdomen is soft, nontender, nondistended. Positive bowel sounds. Extremities: No clubbing, cyanosis, or edema. Neurologic: Nonfocal. Laboratory Data: Blood glucose level is 259. Blood cultures and urine cultures negative to date. 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 Kidney functi on has somewhat improved. We will continue on steroids. Patient received one out of 2 doses of andres ximab. Arrangements to be made for rituximab dose as an outpatient in 14 days. Dialysis now set up at [place]. 2.Right lower lobe pneumonia, resolved. Cultures negative. IV antibiotic course completed. 3.Acidosis, improving. 4.Essential hypertension, ramipril adjusted. We will continue to monitor. 5.Acute on chronic anemia secondary to anemia of chronic disease, status post 3 units of PRBCs. Mon itor H and H and transfuse as needed. 6.Hypertensive heart disease. 7.Elevated troponin level likely due to demand mismatch, stable. Appreciate Cardiology evaluation. 8.Diabetes mellitus type 2, diet controlled. Sliding scale insulin. Lantus was increased to 20 uni ts last night, was switched to aggressive scale, likely due to steroids. 9.Congestive heart failure, diastolic dysfunction, acute on chronic, improved. Continue with fluid restriction and monitor I's and O's. 10.Cardiomyopathy. 11.Mixed hyperlipidemia. Continue statin. 12.Severe protein-calorie malnutrition. Albumin is 2. 13.Adjustment disorder with depressed mood. We will continue Remeron. Appetite is improved as well . 14.Deep venous thrombosis prophylaxis with heparin. Plan: Patient was scheduled to be discharged today to nursing facility, however, now they have decli sofía. We will need to speak with family, possible home with home health versus set up at a different facility, which would also mean setting up dialysis wherever the facility is. PEDRO Voice ID: [id number] Report ID: [id number]
--- NOTE | 2019-08-10 20:48 | PN ---
Date of Progress Note: 08/10/2019 Subjective: Patient is seen and examined at bedside. He is doing okay. Strength is improving. Blo od sugars have been running high, but otherwise, no other issues were noted. Laboratory Data: None obtained from today. Current Medications: Have been reviewed in detail. He remains on prednisone for ANCA vasculitis. Objective: General: He appears in no acute distress. Lungs: Clear. Abdomen: Soft. Right-sided tunneled dialysis catheter is in place. Extremities: Show no evidence of edema. Impression: 1.Acute renal failure, requiring dialysis. Patient has ANCA vasculitis. He has received a dose of Rituxan and he remains on prednisone. We are watching for renal recovery. 2.Proteinuria and hematuria. 3.Acidosis. 4.Diastolic heart failure, chronic, stable. 5.Anemia secondary to chronic kidney disease. 6.Hypoalbuminemia. Plan: Patient is overall doing okay. Continue prednisone. Adjust insulin to manage blood sugars. Blood pressure is doing okay. He remains on Bactrim for prophylaxis. Plan for Thursday, Thursday, dialysis and monitor renal function closely. Social issues with placement at dialysis facility. We will continue to monitor and we will assess. VV/MODL Voice ID: [id number] Report ID: [id number]
[2019-08-10] MEDS: RAMIPRIL 2.5 MG CAP PO SCH (20:51)
[2019-08-10] MEDS: ATORVASTATIN 10 MG TAB PO SCH (20:51)
[2019-08-10] MEDS: MIRTAZAPINE 15 MG TAB PO SCH (20:52)
[2019-08-10] MEDS: INSULIN GLARGINE 100 UNITS/ML SQ SCH (20:52)
[2019-08-10] MEDS ORDERED: RAMIPRIL 2.5 MG CAP PO ONE (21:48)
[2019-08-11 04:39] LABS: Absolute Lymphocytes (CBC) 0.6 K/uL (0.7-4.9); Basophils % 0.1 % (0-1.3); Hematocrit 28.8 % (39.6-49.0); Lymphocytes % 4.6 % (15.3-44.8); MPV 9.5 fL (7.6-11.3); RBC Red Blood Cell Count 3.17 M/uL (4.33-5.43)
[2019-08-11 04:46] LABS: Albumin 2.2 g/dL (3.4-5.0); Bilirubin Total 0.5 mg/dL (0.2-1.0); Potassium 4.5 mmol/L (3.5-5.1)
[2019-08-11] MEDS: PANTOPRAZOLE 40MG TABLET PO SCH (06:30)
[2019-08-11 08:10] VITALS: TEMP 98.5
[2019-08-11 08:45] VITALS: O2SAT 95
[2019-08-11] MEDS ORDERED: SMZ./TMP. 800/160 MG TABLET PO SCH (09:00)
[2019-08-11] MEDS: INSULIN -REGULAR HUMAN 50 UNIT/0.5 ML ML SQ SCH (09:15)
[2019-08-11] MEDS: HYDRALAZINE HCL 25 MG TABLET PO SCH (09:16)
[2019-08-11] MEDS: AMLODIPINE 10 MG TAB PO SCH (09:16)
[2019-08-11] MEDS: VITAMIN D 5,000 UNIT CAP PO SCH (09:16)
[2019-08-11] MEDS: predniSONE 20 MG TAB PO SCH (09:16)
[2019-08-11] MEDS: CALCITROL 0.25 MCG CAP PO SCH (09:16)
[2019-08-11] MEDS: LIDOCAINE 4% PATCH TOP SCH (09:17)
[2019-08-11] MEDS: GUAIFENESIN 600 MG SA TAB PO SCH (09:17)
[2019-08-11] MEDS: NEPRO SHAKE 237 ML CAN PO SCH (09:17)
[2019-08-11] MEDS: carvediloL 12.5 MG TAB PO SCH (09:17)
[2019-08-11 12:07] VITALS: BP 175/77
--- NOTE | 2019-08-12 00:07 | DS ---
Date of Discharge: 08/11/2019 Consultants: Dr. Duff, Dr. Mendoza, and Dr. Brasher with Nephrology, Dr. Bull with Cardiology, Dr. Perry with Cardiology, Dr. Chew with General Surgery. Procedures: Dr. Chew, 07/28/2019, placement of hemodialysis catheter, right internal jugular vein. Admitting Diagnoses: 1. Acute on chronic kidney injury. 2. Generalized weakness. 3. Hyperkalemia. 4. Elevated troponin level. 5. Right lower lobe pneumonia. 6. Moderate protein-calorie malnutrition. 7. Diabetes mellitus type 2, diet controlled. 8. Essential hypertension. 9. Congestive heart failure, diastolic dysfunction. 10. Cardiomyopathy. 11. Mixed hyperlipidemia. Discharge Diagnoses: 1. 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 2. Generalized weakness. 3. Hyperkalemia, corrected. 4. Elevated troponin level due to demand mismatch. 5. Right lower lobe pneumonia, treated with IV antibiotics. 6. Moderate protein-calorie malnutrition. 7. Diabetes mellitus type 2, diet controlled. 8. Essential hypertension. 9. Acute on chronic congestive heart failure, diastolic dysfunction. 10. Cardiomyopathy. 11. Mixed hyperlipidemia. 12. Noncompliance. Hospital Course: The patient had a prolonged hospital course due to his medical condition. Patient is a 58-year-old male who came in with generalized weakness and generalized malaise, found to have elevated kidney function of 14.1. He does have history of diastolic heart failure, cardiomyopathy, chronic kidney disease stage 2 with a baseline creatinine of 1.7, diabetes which is diet controlled, and hyperlipidemia. The patient also had hyperkalemia. He was initially found to have elevated troponin levels. Echocardiogram was also done. Cardiology was consulted. No further intervention was recommended. Patient also had Nephrology evaluate the patient. He was then taken for placement of hemodialysis catheter by Dr. Chew and was started on hemodialysis. The patient's kidney function improved. Workup was sent out for his acute kidney injury on top of his chronic kidney disease. He was found to be positive for ANCA vasculitis. He was started on steroids and rituximab. Patient did well with treatment. His symptoms and condition improved. He was also started on depression medications and his appetite improved as well. His mood also improved. Patient did have negative cultures, did not have any growth. Dialysis was then set up. Patient was also needing to be placed in a senior care due to his disuse myopathy and deconditioning. Patient was then set up at [facility] with hemodialysis and nursing facility with Medicaid pending. However, then senior care facility declined to accept the patient and the patient was then set up with dialysis and was sent home under the care of his sister. Patient was cleared for discharge from bridal consultant's standpoint. Medications: As per medication reconciliation list. Followup: Follow up with primary care physician in 2-3 days. Follow up with delivery manager, Dr. Mendoza in 2 weeks. Follow up with assistance representative, Dr. Perry in 2 weeks. Case Management made arrangements for rituximab infusion as outpatient and the patient to return to ER for worsening condition. Diet: Renal. Activity: As tolerated. Physical Examination: General: Awake, alert, and oriented x3. CV: S1, S2. Respiratory: Moving air well bilaterally. Abdomen: Abdomen is soft, nontender, nondistended. Positive bowel sounds. Extremities: No clubbing, cyanosis, edema. Neurologic: Nonfocal. Total time spent discharging the patient was 47 minutes. PEDRO Voice ID: [id number] Report ID: [id number] ANGELA
[2019-08-22] MEDS ORDERED: RITUXIMAB IV ONE (07:00)
== END 2019-08-11 13:30 | disposition home health service (06) | DRG 545 ==
LOC: ER 11:45 → ERHOLD 16:09 → 4TH 19:19
PROVIDERS: ADMIT Family Medicine; ATTEND Family Medicine
PROC: 5A1D70Z Performance of Urinary Filtration, Intermittent, Less than 6 Hours Per Day (ICD-10-PCS; 2019-07-28)
PROC: 30233N1 Transfusion of Nonautologous Red Blood Cells into Peripheral Vein, Percutaneous Approach (ICD-10-PCS; 2019-07-28)
PROC: 0JH63XZ Insertion of Tunneled Vascular Access Device into Chest Subcutaneous Tissue and Fascia, Percutaneous Approach (ICD-10-PCS; principal; 2019-07-28 11:00)
PROC: 5A1D70Z Performance of Urinary Filtration, Intermittent, Less than 6 Hours Per Day (ICD-10-PCS; 2019-07-29)
PROC: 30233N1 Transfusion of Nonautologous Red Blood Cells into Peripheral Vein, Percutaneous Approach (ICD-10-PCS; 2019-07-29)
PROC: 5A1D70Z Performance of Urinary Filtration, Intermittent, Less than 6 Hours Per Day (ICD-10-PCS; 2019-07-30)
PROC: 5A1D70Z Performance of Urinary Filtration, Intermittent, Less than 6 Hours Per Day (ICD-10-PCS; 2019-08-02)
PROC: 5A1D70Z Performance of Urinary Filtration, Intermittent, Less than 6 Hours Per Day (ICD-10-PCS; 2019-08-04)
PROC: 5A1D70Z Performance of Urinary Filtration, Intermittent, Less than 6 Hours Per Day (ICD-10-PCS; 2019-08-06)
PROC: 5A1D70Z Performance of Urinary Filtration, Intermittent, Less than 6 Hours Per Day (ICD-10-PCS; 2019-08-08)
PROC: 5A1D70Z Performance of Urinary Filtration, Intermittent, Less than 6 Hours Per Day (ICD-10-PCS; 2019-08-10)
DX: I77.6 Arteritis, unspecified (principal); N17.0 Acute kidney failure with tubular necrosis; J18.9 Pneumonia, unspecified organism; E43 Unspecified severe protein-calorie malnutrition; I50.33 Acute on chronic diastolic (congestive) heart failure; I13.0 Hypertensive heart and chronic kidney disease with heart failure and stage 1 through stage 4 chronic kidney disease, or unspecified chronic kidney disease; B37.0 Candidal stomatitis; R64 Cachexia; E11.22 Type 2 diabetes mellitus with diabetic chronic kidney disease; E11.65 Type 2 diabetes mellitus with hyperglycemia; N18.3 Chronic kidney disease, stage 3 (moderate); E78.5 Hyperlipidemia, unspecified; D63.1 Anemia in chronic kidney disease; E78.2 Mixed hyperlipidemia; R00.0 Tachycardia, unspecified; R79.89 Other specified abnormal findings of blood chemistry; E83.39 Other disorders of phosphorus metabolism; E83.41 Hypermagnesemia; E83.51 Hypocalcemia; F43.20 Adjustment disorder, unspecified; Z68.27 Body mass index [BMI] 27.0-27.9, adult; Z91.14 Patient's other noncompliance with medication regimen
CPT/HCPCS: 36415; 36430; 71045; 76000; 76770; 80048; 80053; 80074; 80076; 81001; 81003; 81015; 82043; 82570; 82607; 82728; 82947; 83036; 83540; 83605; 83735; 83880; 84100; 84132; 84156; 84466; 84484; 84550; 85014; 85018; 85025; 85610; 86021; 86038; 86160; 86225; 86317; 86706; 86803; 86850; 86900; 86901; 87040; 87086; 87088; 87340; 87389; 90935; 93005; 93306; 94760; 96361; 96365; 96368; 96375; 97110; 97112; 97116; 97161; 97530; 97542; 99285; C1752; J0360; J0456; J0610; J0696; J1644; J1815; J2250; J2370; J2405; J2597; J2704; J2930; J3010; J7030; J7040; J7512; J9312; P9016; P9047

== ENCOUNTER 2019-08-24 07:28 | Day surgery (SDC) | payer OTHER ==
--- OUTSIDE RECORDS SUMMARY | 2019-08-24 07:33 | XMS REPORT ---
:1960 Author Organization [facility] Address [facility] [place] [address] Care Team Providers Name Role Phone Unavailable Unavailable Unavailable Problems This patient has no known problems. Allergies, Adverse Reactions, Alerts This patient has no known allergies or adverse reactions. Medications This patient has no known medications.
[2019-08-24] MEDS ORDERED: DIPHENHYDRAMINE 25 MG TAB/CAP PO ONE (07:45)
[2019-08-24] MEDS ORDERED: ACETAMINOPHEN 325 MG TABLET PO ONE (07:45)
[2019-08-24] MEDS ORDERED: ACETAMINOPHEN 325 MG TABLET ONE (07:45)
[2019-08-24] MEDS ORDERED: DIPHENHYDRAMINE 25 MG TAB/CAP ONE (07:46)
[2019-08-24] MEDS ORDERED: NA CHLORIDE 0.9% IV ONE (08:15)
[2019-08-24] MEDS ORDERED: RITUXIMAB IV ONE (08:15)
[2019-08-24 08:38] VITALS: BMI 21.9
[2019-08-24 12:30] VITALS: BP 165/69; TEMP 99.4; O2SAT 98
== END 2019-08-24 11:58 | disposition home or self-care (01) ==
LOC: DS 07:28
PROVIDERS: ATTEND Internal Medicine Nephrology
DX: L95.8 Other vasculitis limited to the skin (principal)
CPT/HCPCS: 96365; 96366; J7030; J9312

== ENCOUNTER 2019-09-03 08:15 | Inpatient (IN) | payer OTHER, SELFPAY ==
--- OUTSIDE RECORDS SUMMARY | 2019-09-03 08:17 | XMS REPORT ---
:1960 [facility] Address [facility] [place] [address] Care Team Providers Name Role Phone Unavailable Unavailable Unavailable Problems This patient has no known problems. Allergies, Adverse Reactions, Alerts This patient has no known allergies or adverse reactions. Medications This patient has no known medications.
[2019-09-03 09:04] LABS: Absolute Lymphocytes (CBC) 0.3 K/uL (0.7-4.9); Basophils % 0.1 % (0-1.3); Hematocrit 38.5 % (39.6-49.0); Lymphocytes % 5.4 % (15.3-44.8); MPV 10.1 fL (7.6-11.3); RBC Red Blood Cell Count 4.24 M/uL (4.33-5.43)
[2019-09-03 09:25] LABS: Albumin 3.2 g/dL (3.4-5.0); Bilirubin Direct 0.2 mg/dL (0-0.2); Bilirubin Total 0.4 mg/dL (0.2-1.0); CKMB Creatine Kinase MB 5.3 ng/mL (0.3-3.6); Potassium 4.9 mmol/L (3.5-5.1); Protein, Total 6.8 g/dL (6.4-8.2); Protime INR 0.89; Troponin (Emerg Dept Use Only) 0.03 ng/mL (0.0-0.045)
--- NOTE | 2019-09-03 09:49 | RAD REPORT ---
EXAM DESCRIPTION: Tabitha Single View09/03/2019 9:05 am CLINICAL HISTORY: Hypoglycemia COMPARISON: July 2019 FINDINGS: The lungs appear clear of acute infiltrate. The heart is normal size Central venous catheter remains in place IMPRESSION: No acute abnormalities displayed
[2019-09-03 10:23] LABS: Blood Morphology Comment NOT SEEN (NOT SEEN); Platelet Estimate ADEQ; Urine White Blood Cell Casts OK
--- NOTE | 2019-09-03 11:13 | EDPHYS ---
Physician Documentation [facility] Name: Constantino Skelton Jr Age: 59 yrs Sex: Male : 1960 Arrival Date: 09/03/2019 Time: 08:18 Bed 3 Private MD: ED Physician Eric Munoz HPI: 09/03 08:50 This 59 yrs old Male presents to ER via EMS with complaints of Low Blood Sugar.kdr 08:50 The patient or guardian reports hypoglycemia, that was potentially precipitated by no kdr particular event. Onset: The symptoms/episode began/occurred this morning. Associated signs and symptoms: Pertinent positives: None. Pertinent negatives: anorexia, constipation, decreased urine output, diaphoresis, diarrhea, dry skin, hair loss, ketones in urine, nausea, polydipsia, polyphagia, polyuria, seizure activity, skin flushing, urinary incontinence, vomiting. The patient has had a close relative recently and the fever was today. He is under a lot of stress. His sister checked his sugar this morning and noted it to be 47. EMS was called and he was given several rounds of oral glucose. His BS was then 80. On arrival to the ED, this BS was 90. He denies any symptoms related to hypoglycemia and states that he feels that he is at his baseline. He has not had any recent illness or changes in his medications or health. Onset: The symptoms/episode began/occurred suddenly, this morning. Current symptoms: In the emergency department the patient's symptoms are unchanged from the initial presentation, have improved. Severity of symptoms: At their worst the symptoms were very mild in the emergency department the symptoms have resolved. The patient has not experienced similar symptoms in the past. The patient has not recently seen a physician. Historical: - Allergies: 08:26 No Known Allergies; hb - Home Meds: 08:26 amlodipine 10 mg tab 1 tab once daily [Active]; hydralazine 100 mg Oral tab 1 tab 3 hb times per day [Active]; labetalol 200 mg Oral tab 1 tab 2 times per day [Active]; pravastatin 20 mg Oral tab 1 tab once daily [Active]; Glimepiride Oral [Active]; - PMHx: 08:26 Diabetes - NIDDM; Hyperlipidemia; Hypertension; HD - -Sat; hb - Immunization history:: Adult Immunizations up to date. - Social history:: Smoking status: Patient/guardian denies using tobacco. - Ebola Screening: : No symptoms or risks identified at this time. ROS: 08:50 Constitutional: Negative for fever, chills, and weight loss, Eyes: Negative for injury, kdr pain, redness, and discharge, ENT: Negative for injury, pain, and discharge, Neck: Negative for injury, pain, and swelling, Cardiovascular: Negative for chest pain, palpitations, and edema, Respiratory: Negative for shortness of breath, cough, wheezing, and pleuritic chest pain, Abdomen/GI: Negative for abdominal pain, nausea, vomiting, diarrhea, and constipation, Back: Negative for injury and pain, : Negative for injury, bleeding, discharge, and swelling, MS/Extremity: Negative for injury and deformity, Skin: Negative for injury, rash, and discoloration, Neuro: Negative for headache, weakness, numbness, tingling, and seizure activity. Psych: Negative for depression, anxiety, suicide ideation, homicidal ideation, and hallucinations, Allergy/Immunology: Negative for hives, rash, and allergies, Endocrine: Negative for neck swelling, polydipsia, polyuria, polyphagia, and marked weight changes, Hematologic/Lymphatic: Negative for swollen nodes, abnormal bleeding, and unusual bruising. Exam: 08:50 Constitutional: This is a well developed, well nourished patient who is awake, alert, kdr and in no acute distress. he is shaking but states that he is cold Head/Face: Normocephalic, atraumatic. Eyes: Pupils equal round and reactive to light, extra-ocular motions intact. Lids and lashes normal. Conjunctiva and sclera are non-icteric and not injected. Cornea within normal limits. Periorbital areas with no swelling, redness, or edema. Neck: Trachea midline, no thyromegaly or masses palpated, and no cervical lymphadenopathy. Supple, full range of motion without nuchal rigidity, or vertebral point tenderness. No Meningismus. Chest/axilla: Normal chest wall appearance and motion. Nontender with no deformity. No lesions are appreciated. Cardiovascular: Regular rate and rhythm with a normal S1 and S2. No gallops, murmurs, or rubs. Normal PMI, no JVD. No pulse deficits. Respiratory: Lungs have equal breath sounds bilaterally, clear to auscultation and percussion. No rales, rhonchi or wheezes noted. No increased work of breathing, no retractions or nasal flaring. Abdomen/GI: Soft, non-tender, with normal bowel sounds. No distension or tympany. No guarding or rebound. No evidence of tenderness throughout. Back: No spinal tenderness. No costovertebral tenderness. Full range of motion. Skin: Warm, dry with normal turgor. Normal color with no rashes, no lesions, and no evidence of cellulitis. MS/ Extremity: Pulses equal, no cyanosis. Neurovascular intact. Full, normal range of motion. Neuro: Awake and alert, GCS 15, oriented to person, place, time, and situation. Cranial nerves II-XII grossly intact. Motor strength 5/5 in all extremities. Sensory grossly intact. Cerebellar exam normal. Normal gait. Psych: Awake, alert, with orientation to person, place and time. Behavior, mood, and affect are within normal limits. Vital Signs: 08:19 BP 171 / 89; Pulse 81; Resp 16; Temp 97.9; Pulse Ox 100% on R/A; Weight 63.5 kg; Height hb 5 ft. 8 in. (172.72 cm); Pain 0/10; 09:47 BP 141 / 76; Pulse 64; Resp 15; Pulse Ox 100% on R/A; Pain 0/10; hb 11:05 BP 152 / 84; Pulse 60; Resp 14; Pulse Ox 100% on R/A; Pain 0/10; hb 12:00 BP 156 / 76; Pulse 70; Resp 15; Pulse Ox 100% on R/A; Pain 0/10; hb 13:30 BP 162 / 77; Pulse 77; Resp 15; Pulse Ox 100% on R/A; hb 15:00 BP 156 / 76; Pulse 75; Resp 15; Pulse Ox 100% on R/A; Pain 0/10; hb 16:30 BP 150 / 70; Pulse 74; Resp 14; Temp 97.9; Pulse Ox 100% on R/A; Pain 0/10; hb 08:19 Body Mass Index 21.29 (63.50 kg, 172.72 cm) hb MDM: 11:12 Patient medically screened. kdr 11:27 Data reviewed: vital signs, nurses notes, lab test result(s), radiologic studies. kdr Counseling: I had a detailed discussion with the patient and/or guardian regarding: the historical points, exam findings, and any diagnostic results supporting the discharge/admit diagnosis, lab results, radiology results, the need for outpatient follow up. 09/03 08:28 Order name: Basic Metabolic Panel kdr 09/03 08:28 Order name: Blood Culture Adult (2) kdr 09/03 08:28 Order name: CBC with Diff kdr 09/03 08:28 Order name: Ckmb kdr 09/03 08:28 Order name: CPK kdr 09/03 08:28 Order name: Lactate kdr 09/03 08:28 Order name: LFT's; Complete Time: 10:39 kdr 09/03 08:28 Order name: Lipase; Complete Time: 10:39 kdr 09/03 08:28 Order name: Procalcitonin; Complete Time: 10:39 kdr 09/03 08:28 Order name: Protime (+inr); Complete Time: 10:39 kdr 09/03 08:28 Order name: Ptt, Activated; Complete Time: 10:39 kdr 09/03 08:28 Order name: Troponin (emerg Dept Use Only); Complete Time: 10:39 kdr 09/03 08:29 Order name: Basic Metabolic Panel; Complete Time: 10:39 EDMS 09/03 08:28 Order name: Chest Single View XRAY; Complete Time: 10:39 kdr 09/03 08:28 Order name: Accucheck; Complete Time: 08:52 kdr 09/03 08:28 Order name: Cardiac monitoring; Complete Time: 08:52 kdr 09/03 08:28 Order name: EKG - Nurse/Tech; Complete Time: 08:53 kdr 09/03 08:28 Order name: IV Saline Lock - Large Bore; Complete Time: 08:53 kdr 09/03 08:28 Order name: Labs collected and sent; Complete Time: 08:53 kdr 09/03 08:29 Order name: Blood Culture EDMS 09/03 08:29 Order name: CBC with Automated Diff; Complete Time: 10:39 EDMS 09/03 08:29 Order name: CKMB Creatine Kinase MB; Complete Time: 10:39 EDMS 09/03 08:29 Order name: Creatine Phosphokinase; Complete Time: 10:39 EDMS 09/03 08:29 Order name: Lactate; Complete Time: 09:24 EDMS 09/03 08:35 Order name: Glucose, Ancillary Testing; Complete Time: 09:24 EDMS 09/03 10:24 Order name: CBC Smear Scan; Complete Time: 10:39 EDAR 09/03 10:27 Order name: Diet Renal; Complete Time: 10:28 dh3 09/03 10:36 Order name: Glucose, Ancillary Testing; Complete Time: 10:39 EDMS 09/03 13:37 Order name: Diet Renal; Complete Time: 13:37 hb 09/03 08:28 Order name: O2 Per Protocol; Complete Time: 08:53 kdr 09/03 08:28 Order name: O2 Sat Monitoring; Complete Time: 08:53 kdr Administered Medications: No medications were administered Point of Care Testing: Blood Glucose: 08:25 Blood Glucose: 95 mg/dL; hb Ranges: Critical Glucose Levels:Adult <50 mg/dl or >400 mg/dl <40 mg/dl or >180 mg/dl Disposition: 09/03/19 14:31 Hospitalization ordered by David Saldana for Inpatient Admission. Preliminary diagnosis are Hypoglycemia, unspecified, Acute on Chronic Renal Failure. - Bed requested for Telemetry/MedSurg (Inpatient). - Status is Inpatient Admission. eb - Condition is Stable. - Problem is an acute exacerbation. - Symptoms have improved. UTI on Admission? No Signatures: Dispatcher [employer] [facility] Tiffany Duffy RN RN Eric Munoz MD MD [facility] Sindy Rhodes RN RN Samantha Deleon Corrections: (The following items were deleted from the chart) 13:26 08:29 UA MICROSCOPIC+U.LAB.BRZ ordered. [facility] 14:28 11:12 09/03/2019 11:12 Discharged to Home. Impression: Hypoglycemia, unspecified. kdr Condition is Stable. Forms are Medication Reconciliation Form, Thank You Letter, Antibiotic Education, Prescription Opioid Use. Follow up: Private Physician; When: 2 - 3 days; Reason: If symptoms return, Further diagnostic work-up, Recheck today's complaints, Continuance of care, Re-evaluation by your physician. Problem is an acute exacerbation. Symptoms are resolved. kdr 16:23 14:31 Hospitalization Ordered by David Saldana for Inpatient Admission. Preliminary dw diagnosis is Hypoglycemia, unspecified; Acute on Chronic Renal Failure. Bed requested for Telemetry/MedSurg (Inpatient). Status is Inpatient Admission. Condition is Stable. Problem is an acute exacerbation. Symptoms have improved. UTI on Admission? No. kdr 17:00 16:23 09/03/2019 14:31 Hospitalization Ordered by David Saldana for Inpatient eb Admission. Preliminary diagnosis is Hypoglycemia, unspecified; Acute on Chronic Renal Failure. Bed requested for Telemetry/MedSurg (Inpatient). Status is Inpatient Admission. Condition is Stable. Problem is an acute exacerbation. Symptoms have improved. UTI on Admission? No. dw
--- NOTE | 2019-09-03 11:13 | ER ---
Nurse's Notes [facility] Name: Constantino Skelton Jr Age: 59 yrs Sex: Male : 1960 Arrival Date: 09/03/2019 Time: 08:18 Bed 3 Private MD: Diagnosis: Hypoglycemia, unspecified;Acute on Chronic Renal Failure Presentation: 09/03 08:19 Presenting complaint: EMS states: Called out for AMS, upon arrival pt was AOx2, hb diaphoretic, BGL 47. BGL improved to 80 after oral glucose x 2, AOx4. Pt is new HD pt, last HD was , recent diet change + of immediate family member. Transition of care: patient was not received from another setting of care. Onset of symptoms was September 03, 2019. Risk Assessment: Do you want to hurt yourself or someone else? Patient reports no desire to harm self or others. Initial Sepsis Screen: Does the patient meet any 2 criteria? No. Patient's initial sepsis screen is negative. Does the patient have a suspected source of infection? No. Patient's initial sepsis screen is negative. Care prior to arrival: Medication(s) given: Glucose x 2 Glucose check 47, 80. 08:19 Method Of Arrival: EMS: [facility] hb 08:19 Acuity: LORRAINE 3 hb Historical: - Allergies: 08:26 No Known Allergies; hb - Home Meds: 08:26 amlodipine 10 mg tab 1 tab once daily [Active]; hydralazine 100 mg Oral tab 1 tab 3 hb times per day [Active]; labetalol 200 mg Oral tab 1 tab 2 times per day [Active]; pravastatin 20 mg Oral tab 1 tab once daily [Active]; Glimepiride Oral [Active]; - PMHx: 08:26 Diabetes - NIDDM; Hyperlipidemia; Hypertension; HD - --Thu; hb - Immunization history:: Adult Immunizations up to date. - Social history:: Smoking status: Patient/guardian denies using tobacco. - Ebola Screening: : No symptoms or risks identified at this time. Screenin:26 Abuse screen: Denies threats or abuse. Denies injuries from another. Nutritional hb screening: No deficits noted. Tuberculosis screening: No symptoms or risk factors identified. Fall Risk Total Canas Fall Scale indicates Low Risk Score (25-44 pts). Fall prevention measures have been instituted. Side Rails Up X 2 Frequent Obs/Assesments occuring As available Patient and Family Educated on Fall Prevention Program and strategies. Assessment: 08:27 General: Appears in no apparent distress. Behavior is calm, cooperative. Pain: Denies hb pain. Neuro: Level of Consciousness is awake, alert, obeys commands, Oriented to person, place, time, situation. Cardiovascular: Heart tones S1 S2 present Capillary refill < 3 seconds Patient's skin is warm and dry. Respiratory: Airway is patent Respiratory effort is even, unlabored, Respiratory pattern is regular, symmetrical, Breath sounds are clear bilaterally. GI: No signs and/or symptoms were reported involving the gastrointestinal system. : No signs and/or symptoms were reported regarding the genitourinary system. EENT: No signs and/or symptoms were reported regarding the EENT system. Derm: Skin is pink, warm \T\ dry. Musculoskeletal: No signs and/or symptoms reported regarding the musculoskeletal system. 09:46 Reassessment: Patient appears in no apparent distress at this time. Patient and/or hb family updated on plan of care and expected duration. Pain level reassessed. Patient is alert, oriented x 3, equal unlabored respirations, skin warm/dry/pink. 10:30 Reassessment: Patient appears in no apparent distress at this time. Patient and/or hb family updated on plan of care and expected duration. Pain level reassessed. Patient is alert, oriented x 3, equal unlabored respirations, skin warm/dry/pink. 11:22 Reassessment: Discharge ordered, awaiting transportation at this time. hb 11:30 Reassessment: Patient appears in no apparent distress at this time. Patient and/or hb family updated on plan of care and expected duration. Pain level reassessed. Patient is alert, oriented x 3, equal unlabored respirations, skin warm/dry/pink. 12:30 Reassessment: Patient appears in no apparent distress at this time. Patient and/or hb family updated on plan of care and expected duration. Pain level reassessed. Patient is alert, oriented x 3, equal unlabored respirations, skin warm/dry/pink. 13:30 Reassessment: Patient appears in no apparent distress at this time. No changes from hb previously documented assessment. Patient and/or family updated on plan of care and expected duration. Pain level reassessed. 15:00 Reassessment: Patient appears in no apparent distress at this time. Patient and/or hb family updated on plan of care and expected duration. Pain level reassessed. Patient is alert, oriented x 3, equal unlabored respirations, skin warm/dry/pink. General: Appears Behavior is. 16:00 Reassessment: Patient appears in no apparent distress at this time. No changes from previously documented assessment. Patient and/or family updated on plan of care and expected duration. Pain level reassessed. Patient is alert, oriented x 3, equal unlabored respirations, skin warm/dry/pink. Vital Signs: 08:19 BP 171 / 89; Pulse 81; Resp 16; Temp 97.9; Pulse Ox 100% on R/A; Weight 63.5 kg; Height hb 5 ft. 8 in. (172.72 cm); Pain 0/10; 09:47 BP 141 / 76; Pulse 64; Resp 15; Pulse Ox 100% on R/A; Pain 0/10; hb 11:05 BP 152 / 84; Pulse 60; Resp 14; Pulse Ox 100% on R/A; Pain 0/10; hb 12:00 BP 156 / 76; Pulse 70; Resp 15; Pulse Ox 100% on R/A; Pain 0/10; hb 13:30 BP 162 / 77; Pulse 77; Resp 15; Pulse Ox 100% on R/A; hb 15:00 BP 156 / 76; Pulse 75; Resp 15; Pulse Ox 100% on R/A; Pain 0/10; hb 16:30 BP 150 / 70; Pulse 74; Resp 14; Temp 97.9; Pulse Ox 100% on R/A; Pain 0/10; hb 08:19 Body Mass Index 21.29 (63.50 kg, 172.72 cm) ED Course: 08:18 Patient arrived in ED. hb 08:18 Eric Munoz MD is Attending Physician. kdr 08:19 Arm band placed on. hb 08:24 Triage completed. hb 08:26 EKG done, by ED staff, reviewed by Eric Munoz MD. dh3 08:27 Patient has correct armband on for positive identification. Bed in low position. Call light in reach. Side rails up X 1. 08:46 Initial lab(s) drawn, by me, sent to lab. First set of blood cultures drawn by me. 3 Inserted saline lock: 22 gauge in left antecubital area, using aseptic technique. Blood collected. 09:07 Chest Single View XRAY In Process Unspecified. EDMS 09:46 Sindy Rhodes, RN is Primary Nurse. hb 10:27 Blood glucose 101mg/dL. dh3 14:25 No provider procedures requiring assistance completed. Patient admitted, IV remains in sg place. intact, No redness/swelling at site. Pressure dressing applied. 14:28 David Saldana is Hospitalizing Provider. kdr Administered Medications: No medications were administered Point of Care Testing: Blood Glucose: 08:25 Blood Glucose: 95 mg/dL; hb Ranges: Outcome: 11:12 Discharge ordered by . kdr 14:25 Admitted to Tele accompanied by [facility], via stretcher, room 205, with chart, Report sg called to Reta DUKE 14:25 Condition: good 14:25 Instructed on the need for admit, medication usage, safety practices, Demonstrated understanding of instructions. 14:31 Decision to Hospitalize by Provider. kdr 17:00 Patient left the ED. eb Signatures: Dispatcher [employer] EDMS Tho Webb RN RN Eric Yoon MD MD [facility] Sindy Rhodes RN RN Vanessa Avalos replaced by [facility] Samantha Deleon Corrections: (The following items were deleted from the chart) 08:48 08:19 Presenting complaint: EMS states: Called out for AMS, upon arrival pt was AOx4, hb diaphoretic, BGL 47. BGL improved to 80 after oral glucose x 2, AOx4. Pt is new HD pt, last HD was , recent diet change + of immediate family member. hb
--- NOTE | 2019-09-03 15:46 | P.HP ---
Certification for Inpatient Patient admitted to: Observation With expected LOS: <2 Midnights Practitioner: I am a practitioner with admitting privileges, knowledge of patient current condition, hospital course, and medical plan of care. 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 The patient was discharged from hospitalization to home about 3 weeks ago. He was declined transfer to skilled rehab. According to the family patient's functional status improved to the point He was ambulating with a walker and was transfering without support. They noted he could not get out of bed this morning, checked his blood sugar was noted to be low. The patient was then brought to the emergency department for evaluation. He has diabetes which was previously diet controlled but was placed on steroids for the vasculitis. The steroid caused his blood sugar to be elevated and was therefore placed on Lantus insulin. He completed a steroid therapy at home but was still taking the Lantus insulin. The patient had no complain during my examination in the ED. He missed dialysis today. His technical inspector Dr. Mendoza was informed who recommended hospitalization for hemodialysis tomorrow. Given the patient has end-stage renal disease, he also need to be monitored for further hypoglycemic episodes as a inpatient. Allergies No Known Allergies Allergy (Verified 08/17/15 23:02) Home Medications: Amlodipine [Norvasc*] 10 mg PO DAILY 07/26/19 Hydralazine HCl [Apresoline] 100 mg PO TID 07/26/19 Pravastatin Sodium 20 mg PO DAILY 07/26/19 Calcitrol [Rocaltrol*] 0.5 mcg PO DAILY #30 cap 08/11/19 Cholecalciferol (Vitamin D3) [Vitamin D 5,000 IU Cap*] 5,000 unit PO DAILY cap 08/11/19 Insulin Glargine,Hum.rec.anlog [Basaglar Kwikpen U-100] 10 unit SQ DAILY #1 insuln.pen 08/11/19 Mirtazapine [Remeron*] 15 mg PO BEDTIME #30 tab 08/11/19 Nepro Shake [Nepro*] 237 ml PO BID can 08/11/19 Pantoprazole [Protonix Tab*] 40 mg PO DAILYAC #30 tab 08/11/19 Ramipril [Altace*] 5 mg PO BEDTIME #60 cap 08/11/19 Smz./Tmp. [Bactrim Ds 800 MG/160 MG*] 0.5 tab PO DAILY #10 tab 08/11/19 carvediloL [Coreg*] 12.5 mg PO BID #60 tab 08/11/19 predniSONE [Prednisone*] 60 mg PO DAILY #60 tab 08/11/19 - Past Medical/Surgical History Diabetic: Yes -: HTN -: DM - Family History Sister -: Hypertension Mother -: Heart disease - Social History Alcohol use: No CD- Drugs: No Caffeine use: No Review of Systems Other: General: No fever, no malaise, no unintentional weight loss. Eyes: No eye discharge, Respiratory: No cough, no shortness of breath. CVS: No chest pain, no palpitation, no lightheadedness. GI: No abdominal pain, no nausea no vomit, no constipation, no diarrhea. Genitourinary: No dysuria, no urinary frequency, no incontinence, no hematuria. Musculoskeletal: No joint pains, or joint swelling, no gait instability. Neurology: No headache, no asymmetric, weakness, no problem with swallowing. Except as documented, all other systems reviewed and negative. Physical Examination - Physical Exam General: Alert, In no apparent distress, Oriented x3 HEENT: Mucous membr. moist/pink Neck: Supple, JVD not distended Respiratory: Clear to auscultation bilaterally, Normal air movement Cardiovascular: Normal pulses, Regular rate/rhythm, Normal S1 S2, Edema (2+ bilateral lower extremity pitting edema) Capillary refill: <2 Seconds Gastrointestinal: Normal bowel sounds, Soft and benign, Non-distended, No tenderness Musculoskeletal: No erythema Integumentary: No rashes Neurological: Normal speech, Normal strength at 5/5 x4 extr - Studies Laboratory Data (last 24 hrs) 09/03/19 08:46: PT 10.6, INR 0.89, APTT 32.7 09/03/19 08:46: WBC 4.8, Hgb 12.7 L, Hct 38.5 L, Plt Count 137 L 09/03/19 08:46: Sodium 139, Potassium 4.9, BUN 89 H, Creatinine 5.50 H*, Glucose 98, Total Bilirubin 0.4, AST 24, ALT 44, Alkaline Phosphatase 137 H, Lipase 347 Assessment and Plan - Problems (Diagnosis) (1) Hypoglycemia Current Visit: Yes Status: Acute (2) End stage renal disease Current Visit: Yes Status: Acute (3) CHF (congestive heart failure) Onset Date: 08/20/15 Current Visit: No Status: Chronic Qualifiers: Heart failure type: combined systolic and diastolic (4) Diabetes mellitus Current Visit: No Status: Chronic (5) Hypertension Current Visit: Yes Status: Acute - Plan Place under observation Fingerstick glucose monitoring, hypoglycemia protocol. Discontinue Lantus insulin Patient will be placed on insulin sliding scale. Consulting nephrology-Dr. Mendoza for hemodialysis. Continue other home medications for hypertension - Advance Directives Does patient have a Living Will: No Does patient have a Durable POA for Healthcare: No
[2019-09-03] MEDS ORDERED: NA CHLORIDE 0.9% 1,000 ML IV PRN (17:34)
[2019-09-03] MEDS ORDERED: ONDANSETRON 4 MG/2 ML VIAL IV PRN (17:34)
[2019-09-03] MEDS: INSULIN -REGULAR HUMAN 50 UNIT/0.5 ML ML SQ SCH ×2 (17:34→21:40)
[2019-09-03] MEDS ORDERED: ALBUMIN HUMAN 25% 50 ML IV SCH (18:00)
[2019-09-03] MEDS: HEPARIN 5000 UNIT/ML 1 ML VIAL SQ SCH (21:00)
[2019-09-04 04:58] LABS: Absolute Lymphocytes (CBC) 0.6 K/uL (0.7-4.9); Basophils % 0.2 % (0-1.3); Hematocrit 25.9 % (39.6-49.0); Lymphocytes % 17.8 % (15.3-44.8); RBC Red Blood Cell Count 2.83 M/uL (4.33-5.43)
[2019-09-04 05:06] LABS: Magnesium 1.8 mg/dL (1.8-2.4); Phosphorus 1.9 mg/dL (2.5-4.9); Potassium 3.8 mmol/L (3.5-5.1)
[2019-09-04] MEDS: INSULIN -REGULAR HUMAN 50 UNIT/0.5 ML ML SQ SCH ×4 (07:30→20:15)
[2019-09-04] MEDS ORDERED: MAGNESIUM SULFATE 1 gm IVPB 1 GM/100 ML BAG IV ONE (09:00)
[2019-09-04] MEDS: HEPARIN 5000 UNIT/ML 1 ML VIAL SQ SCH ×2 (09:06→20:16)
[2019-09-04] MEDS: POTASS/SODIUM PHOSPHATE 1 PKT POWD.PACK PO SCH (09:07)
--- NOTE | 2019-09-04 09:41 | P.DS ---
Admission Date: 09/03/19 Discharge Date: 09/04/19 Primary Care Provider: Dr. Rashid; Nephrology-Dr. Mendoza Disposition: ROUTINE DISCHARGE Discharge Condition: GOOD Reason for Admission: Hypoglycemia Consultations: Nephrology-Dr. Mendoza Procedures: Chest x-ray: COMPARISON: July 2019 FINDINGS: The lungs appear clear of acute infiltrate. The heart is normal size Central venous catheter remains in place IMPRESSION: No acute abnormalities displayed Medical problem list: Hypoglycemia likely related to insulin therapy Diabetes mellitus type 2 previously diet controlled Chronic systolic/diastolic CHF End-stage renal disease on hemodialysis with recent vasculitis Hypertension Hyperlipidemia GERD Anemia of chronic disease Brief History of Present Illness: 59-year-old male with history of hypertension, CHF, cardiomyopathy, and diabetes mellitus type 2. 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 Patient was discharged from the hospital to home several weeks ago. Patient was previously diabetic diet controlled. For his vasculitis he had been placed on steroids and treated with Lantus due to hyperglycemia. When his steroid treatment was completed he was still taking Lantus. This caused hypoglycemia. Patient presented with low blood sugar and decrease activity. Patient was admitted for further evaluation. Hospital Course: Patient presented with hypoglycemia likely related to recent treatment of Lantus. Patient with diabetes mellitus type 2 prior diet controlled. Patient was recently diagnosis with vasculitis. He was treated with a course of steroids. This required insulin therapy. When his steroid treatment was discontinued he developed decrease activity. He was found to be hypoglycemic. Patient was admitted for further evaluation. Lantus was discontinued. Patient remains on diet controlled diabetes. At discharge will discontinue Lantus entirely. Patient may continue with 2000 ADA diet for diabetic control. Recommend to maintain blood sugars less 140 fasting and less than 200 after meals. If blood sugar remains elevated. This can be further addressed by his PCP or nephrology. Will recommend not to use insulin as this may increase risk of hypoglycemia. Patient will continue with Nepro supplementation 237 mL twice daily. Patient with end-stage renal disease on hemodialysis related to vasculitis. Patient received dialysis during the course of his stay. Patient was seen and evaluated by nephrology. At discharge he will continue with dialysis as directed. Patient will continue with calcitriol 0.25 mcg daily and Phoslo 667 mg 3 times a day. Patient had slight elevation in pro calcitonin. This is likely related to his recent vasculitis. No evidence of infection noted at this time. Chest x-ray unremarkable. White count within normal range. Patient with history of chronic systolic/diastolic CHF. This has remained stable. Patient will continue with a 1500 cc per day fluid restriction. Patient will continue with his home medications. Patient with hypertension. At discharge he will continue with his medications- carvedilol 12.5 mg 1 pill twice daily, labetalol 20 mg 1 pill twice daily, and Norvasc 10 mg daily. Patient with hyperlipidemia. At discharge he will continue with Lipitor 20 mg daily Patient with GERD. Patient will continue with Protonix 40 mg daily. Patient with anemia of chronic disease. Recommend to recheck lab-CBC in 1-2 weeks to monitor his progress. Vital Signs/Physical Exam: Temp Pulse Resp BP Pulse Ox 99.1 F 71 18 164/77 H 96 09/04/19 04:00 09/04/19 04:00 09/04/19 04:00 09/04/19 04:00 09/04/19 04:00 General: Alert, In no apparent distress, Cooperative HEENT: Atraumatic Neck: Supple Respiratory: Clear to auscultation bilaterally, Normal air movement Cardiovascular: Normal pulses, Regular rate/rhythm Gastrointestinal: Normal bowel sounds, Soft and benign, Non-distended Musculoskeletal: No erythema, No tenderness, No warmth Neurological: Normal speech, Normal strength at 5/5 x4 extr, Normal tone, Normal affect Laboratory Data at Discharge: WBC 3.5 K/uL (4.3-10.9) L D 09/04/19 04:13 Hgb 8.8 g/dL (13.6-17.9) L D 09/04/19 04:13 Hct 25.9 % (39.6-49.0) L D 09/04/19 04:13 Plt Count 101 K/uL (152-406) L D 09/04/19 04:13 PT 10.6 SECONDS (9.5-12.5) 09/03/19 08:46 INR 0.89 09/03/19 08:46 APTT 32.7 SECONDS (24.3-36.9) 09/03/19 08:46 Sodium 137 mmol/L (136-145) 09/04/19 04:13 Potassium 3.8 mmol/L (3.5-5.1) 09/04/19 04:13 BUN 44 mg/dL (7-18) H D 09/04/19 04:13 Creatinine 3.26 mg/dL (0.55-1.3) H D 09/04/19 04:13 Glucose 122 mg/dL (74-106) H 09/04/19 04:13 Phosphorus 1.9 mg/dL (2.5-4.9) L 09/04/19 04:13 Magnesium 1.8 mg/dL (1.8-2.4) 09/04/19 04:13 Total Bilirubin 0.4 mg/dL (0.2-1.0) 09/03/19 08:46 AST 24 U/L (15-37) 09/03/19 08:46 ALT 44 U/L (12-78) 09/03/19 08:46 Alkaline Phosphatase 137 U/L (45-117) H 09/03/19 08:46 Lipase 347 U/L (73-393) 09/03/19 08:46 Home Medications: Amlodipine Besylate [Norvasc] 10 mg PO DAILY 09/04/19 Atorvastatin Calcium 20 mg PO DAILY 09/04/19 Calcitriol [Rocaltrol] 0.25 mg PO DAILY 09/04/19 Calcium Acetate [Phoslo] 667 mg PO TID 09/04/19 Labetalol HCl 20 mg PO BID 09/04/19 Mirtazapine [Remeron] 15 mg PO DAILY 09/04/19 Pantoprazole Sodium [Protonix] 40 mg PO DAILY 09/04/19 carvediloL [Coreg*] 12.5 mg PO BID 09/04/19 Patient Discharge Instructions: 1. Follow up with his PCP in 1 week to follow up this hospitalization. 2. Patient presented with hypoglycemia likely related to recent treatment of Lantus. Patient with diabetes mellitus type 2 prior diet controlled. Patient was recently diagnosis with vasculitis. He was treated with a course of steroids. This required insulin therapy. When his steroid treatment was discontinued he developed decrease activity. He was found to be hypoglycemic. Patient was admitted for further evaluation. Lantus was discontinued. Patient remains on diet controlled diabetes. At discharge will discontinue Lantus entirely. Patient may continue with 2000 ADA diet for diabetic control. Recommend to maintain blood sugars less 140 fasting and less than 200 after meals. If blood sugar remains elevated. This can be further addressed by his PCP or nephrology. Will recommend not to use insulin as this may increase risk of hypoglycemia. Patient will continue with Nepro supplementation 237 mL twice daily. 3. Patient with end-stage renal disease on hemodialysis related to vasculitis. Patient received dialysis during the course of his stay. Patient was seen and evaluated by nephrology. At discharge he will continue with dialysis as directed. Patient will continue with calcitriol 0.25 mcg daily and Phoslo 667 mg 3 times a day. Patient had slight elevation in pro calcitonin. This is likely related to his recent vasculitis. No evidence of infection noted at this time. Chest x-ray unremarkable. White count within normal range. 4. Patient with history of chronic systolic/diastolic CHF. This has remained stable. Patient will continue with a 1500 cc per day fluid restriction. Patient will continue with his home medications. 5. Patient with hypertension. At discharge he will continue with his medications-carvedilol 12.5 mg 1 pill twice daily, labetalol 20 mg 1 pill twice daily, and Norvasc 10 mg daily. 6. Patient with hyperlipidemia. At discharge he will continue with Lipitor 20 mg daily. 7. Patient with GERD. Patient will continue with Protonix 40 mg daily. 8. Patient with anemia of chronic disease. Recommend to recheck lab-CBC in 1-2 weeks to monitor his progress. Diet: Renal Activity: Fall precautions Time spent managing pt's care (in minutes): 55
--- NOTE | 2019-09-04 10:13 | EKG ---
Test Date: 2019-09-03 Test Time: 08:26:12 Cake Wrapper: CARL MEASUREMENT RESULTS: Intervals: Rate: 77 NH: 146 QRSD: 86 QT: 390 QTc: 441 [place]: P: 40 NH: 146 QRS: -34 T: 40 INTERPRETIVE STATEMENTS: Normal sinus rhythm Left axis deviation Inferior infarct, age undetermined Anterior infarct, age undetermined Abnormal ECG Compared to ECG 07/29/2019 15:48:30 Left-axis deviation now present Left ventricular hypertrophy no longer present T-wave abnormality no longer present Myocardial infarct finding still present Electronically Signed On 09-04-19 10:12:11 MANAGER [employer]ATE[employer] DEVELOPMENT by Giuseppe Perry
[2019-09-04] MEDS: HYDRALAZINE HCL 25 MG TABLET PO SCH ×2 (13:43→20:19)
[2019-09-04] MEDS ORDERED: HOME MED 1 EA UNK (Hydralazine Hcl [Apresoline] 100 MG) PO SCH (14:00)
--- NOTE | 2019-09-04 19:28 | CON ---
Date of Consultation: 09/04/2019 Requesting Provider: Daryl Glass DO. Reason For Consultation: End-stage renal disease. History Of Present Illness: Mr. 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 The patient presented to the hospital with hypoglycemia. The recent history includes reduction of steroid dose and continuation of the same dose of diabetic medications, which led to a hypoglycemic episode. Patient recently has also suffered the loss of one of his sibl ings and he has been hospitalized for further placement related issues. He underwent dialysis yester day and tolerated treatment well. He is currently comfortable seen at the bedside. He denies any fe vers, chills, chest pain, shortness of breath, nausea, vomiting, or diarrhea. Past Medical History: Significant for ANCA vasculitis, which failed treatment, which led to end-stag e renal disease, also hypertension, diabetes, congestive heart failure. Family History: End-stage renal disease. Physical Examination: Vital Signs: Blood pressure is 158/79, pulse 72, temperature 97.6. General: No acute distress. Heart: Regular rate and rhythm. No murmurs, rubs, gallops. LUNGS: Grossly clear to auscultation bilaterally. Abdomen: Soft, nontender, nondistended. Positive bowel sounds x4. Extremities: No significant edema. Laboratory Data: CBC: Hemoglobin 8.8, hematocrit 25.9. Serum chemistry: Potassium 3.8, BUN 44, cr eatinine 3.26, phosphorus 1.9. Magnesium 1.8. Impression: 1.End-stage renal disease, on hemodialysis. 2.Hypertension. 3.Electrolyte abnormalities. 4.Anemia. 5.Congestive heart failure. 6.Diabetes mellitus. 7.Hypertension. 8.Cognitive deficits. Plan: The patient appears to be at approximate baseline in terms of volume status. Electrolytes are also stable. We will continue patient on Thursday, , Thursday schedule of dialysis. Last di alysis stated was undertaken yesterday, which the patient tolerated well. We would recommend continu e the patient's current antihypertensive regimen. Continue patient on a low-sodium/renal diet. The patient does have anemia with a significant drop from yesterday to today. Would rule out any evidenc e of GI bleed. We will start JOHNNIE for anemia management and will continue to follow. SE/MODL Voice ID: [id number] Report ID: [id number]
[2019-09-04] MEDS: NEPRO SHAKE 237 ML CAN PO SCH (20:14)
[2019-09-04] MEDS: carvediloL 12.5 MG TAB PO SCH (20:18)
[2019-09-04] MEDS: ramipriL 5 MG CAP PO SCH (20:18)
[2019-09-04] MEDS: MIRTAZAPINE 15 MG TAB PO SCH (20:19)
[2019-09-05 06:05] LABS: Magnesium 2.1 mg/dL (1.8-2.4); Phosphorus 2.7 mg/dL (2.5-4.9)
[2019-09-05 06:51] VITALS: BMI 21.9
[2019-09-05] MEDS ORDERED: CALCIUM GLUC 10% INJ 4.65 MEQ in NA CHLORIDE 0.9% 100 ML IV ONE (06:55)
[2019-09-05] MEDS: INSULIN -REGULAR HUMAN 50 UNIT/0.5 ML ML SQ SCH ×4 (07:30→21:00)
[2019-09-05] MEDS: HYDRALAZINE HCL 25 MG TABLET PO SCH ×3 (08:45→21:09)
[2019-09-05] MEDS: PANTOPRAZOLE 40MG TABLET PO SCH (08:46)
[2019-09-05] MEDS: AMLODIPINE 10 MG TAB PO SCH (08:46)
[2019-09-05] MEDS: carvediloL 12.5 MG TAB PO SCH ×2 (08:46→21:10)
[2019-09-05] MEDS: NEPRO SHAKE 237 ML CAN PO SCH ×2 (08:47→21:11)
[2019-09-05] MEDS: HEPARIN 5000 UNIT/ML 1 ML VIAL SQ SCH ×2 (08:47→21:11)
[2019-09-05] MEDS: ramipriL 5 MG CAP PO SCH (21:09)
[2019-09-05] MEDS: MIRTAZAPINE 15 MG TAB PO SCH (21:10)
--- NOTE | 2019-09-05 22:04 | P.PN ---
Date of Service: 09/05/19 Vital Signs Temp Pulse Resp BP Pulse Ox 99.7 F 76 17 146/64 H 95 09/05/19 20:00 09/05/19 21:10 09/05/19 20:00 09/05/19 21:10 09/05/19 20:00 Medications Amlodipine Besylate (Norvasc) 10 mg PO DAILY [facility] Stop: 10/05/19 09:01 Last Admin: 09/05/19 08:46 Dose: 10 mg Calcitriol (Rocaltrol) 0.5 mcg PO DAILY [facility] Stop: 10/06/19 09:01 Carvedilol (Coreg) 12.5 mg PO BID [facility] Stop: 10/04/19 21:01 Last Admin: 09/05/19 21:10 Dose: 12.5 mg Cholecalciferol (Vitamin D 5,000 Iu Cap) 5,000 unit PO DAILY [facility] Stop: 10/06/19 09:01 Enteral Nutritional Formula (Nepro Shake) 237 ml PO BID [facility] Stop: 10/04/19 21:01 Last Admin: 09/05/19 21:11 Dose: 237 ml Epoetin Eleazar (Retacrit) 10,000 unit IV EVERY HD [facility] Stop: 10/04/19 14:16 Heparin Sodium (Porcine) (Heparin 5,000 Units/Ml) 5,000 unit SQ Q12HR [facility] Stop: 10/03/19 21:01 Last Admin: 09/05/19 21:11 Dose: 5,000 unit Heparin Sodium (Porcine) (Heparin 1,000 Units/Ml) 4,000 unit IV EVERY HD PRN PRN Reason: FLUSH AFTER EACH USE Stop: 10/03/19 17:35 Last Admin: 09/03/19 18:42 Dose: 4,000 unit Hydralazine HCl (Apresoline) 100 mg PO TID [facility] Stop: 10/04/19 14:01 Last Admin: 09/05/19 21:09 Dose: 100 mg Albumin Human (Albumin 25%) 50 mls @ 100 mls/hr IV EVERY HD [facility] Stop: 10/03/19 18:01 Insulin Human Regular (Novolin -R) 0 unit SQ ACHS [facility]; Protocol Stop: 10/03/19 17:35 Last Admin: 09/05/19 21:00 Dose: Not Given Mirtazapine (Remeron) 15 mg PO BEDTIME [facility] Stop: 10/04/19 21:01 Last Admin: 09/05/19 21:10 Dose: 15 mg Ondansetron HCl (Zofran) 4 mg IV Q6HP PRN PRN Reason: NAUSEA / VOMITING Stop: 10/03/19 17:35 Pantoprazole Sodium (Protonix Tab) 40 mg PO ACB [facility]; Protocol Stop: 10/05/19 07:31 Last Admin: 09/05/19 08:46 Dose: 40 mg Ramipril (Altace) 5 mg PO BEDTIME [facility] Stop: 10/04/19 21:01 Last Admin: 09/05/19 21:09 Dose: 5 mg Sodium Chloride (Normal Saline Flush) 10 ml IV BID [facility] Stop: 10/03/19 21:01 Last Admin: 09/05/19 21:10 Dose: 10 ml Microbiology Results 09/03/19 09:01 Blood - Blood Aerobic Blood Culture - Preliminary No growth in 24 hours. 09/03/19 09:01 Blood - Blood Anaerobic Blood Culture - Preliminary No growth in 24 hours. 09/03/19 08:46 Blood - Blood Aerobic Blood Culture - Preliminary No growth in 24 hours. 09/03/19 08:46 Blood - Blood Anaerobic Blood Culture - Preliminary No growth in 24 hours. Assessment/ Plan: Nephrology CPS stable without CP or SOB. No acute events overnight. Feeling better today. Vitals, medications, blood work and imaging reviewed in the chart. NAD. MMM. Neck supple. CTA. RRR. Soft Abd. No C/C/E. No rash. AAO. Normal Speech. A/ ESRD on HD. Vasculitis with renal involvement. Diastolic CHF, chronic. HTN with CKD/ CHF. DM II with CKD. Anemia in CKD. MEDINA/ Secondary HyperPTH. Hypocalcemia. P/ Continue current POC and Medications. Arrange for acute HD tomorrow. Start Vitamin D. Give Epo. AM labs. Daily weight. No NSAIDs. Case reviewed with Dr. Glass.
[2019-09-06] MEDS: INSULIN -REGULAR HUMAN 50 UNIT/0.5 ML ML SQ SCH ×4 (07:30→21:21)
[2019-09-06] MEDS: CALCITROL 0.25 MCG CAP PO SCH (08:29)
[2019-09-06] MEDS: HYDRALAZINE HCL 25 MG TABLET PO SCH ×3 (08:29→21:20)
[2019-09-06] MEDS: HEPARIN 5000 UNIT/ML 1 ML VIAL SQ SCH ×2 (08:30→21:22)
[2019-09-06] MEDS: AMLODIPINE 10 MG TAB PO SCH (08:30)
[2019-09-06] MEDS: VITAMIN D 5,000 UNIT CAP PO SCH (08:30)
[2019-09-06] MEDS: carvediloL 12.5 MG TAB PO SCH ×2 (08:30→21:21)
[2019-09-06] MEDS: PANTOPRAZOLE 40MG TABLET PO SCH (08:30)
[2019-09-06] MEDS: NEPRO SHAKE 237 ML CAN PO SCH ×2 (08:30→21:22)
[2019-09-06] MEDS: EPOETIN ALFA 10,000 UNIT/ML VIAL IV SCH (15:38)
[2019-09-06] MEDS: MIRTAZAPINE 15 MG TAB PO SCH (21:19)
[2019-09-06] MEDS: ramipriL 5 MG CAP PO SCH (21:20)
--- NOTE | 2019-09-06 23:19 | P.PN ---
Date of Service: 09/06/19 Vital Signs Temp Pulse Resp BP Pulse Ox 98.4 F 86 18 195/83 H 96 09/06/19 20:00 09/06/19 21:21 09/06/19 20:00 09/06/19 21:21 09/06/19 20:00 Medications Amlodipine Besylate (Norvasc) 10 mg PO DAILY [facility] Stop: 10/05/19 09:01 Last Admin: 09/06/19 08:30 Dose: 10 mg Calcitriol (Rocaltrol) 0.5 mcg PO DAILY [facility] Stop: 10/06/19 09:01 Last Admin: 09/06/19 08:29 Dose: 0.5 mcg Cholecalciferol (Vitamin D 5,000 Iu Cap) 5,000 unit PO DAILY [facility] Stop: 10/06/19 09:01 Last Admin: 09/06/19 08:30 Dose: 5,000 unit Enteral Nutritional Formula (Nepro Shake) 237 ml PO BID [facility] Stop: 10/04/19 21:01 Last Admin: 09/06/19 21:22 Dose: 237 ml Epoetin Eleazar (Retacrit) 10,000 unit IV EVERY HD [facility] Stop: 10/04/19 14:16 Last Admin: 09/06/19 15:38 Dose: 10,000 unit Heparin Sodium (Porcine) (Heparin 5,000 Units/Ml) 5,000 unit SQ Q12HR [facility] Stop: 10/03/19 21:01 Last Admin: 09/06/19 21:22 Dose: 5,000 unit Heparin Sodium (Porcine) (Heparin 1,000 Units/Ml) 4,000 unit IV EVERY HD PRN PRN Reason: FLUSH AFTER EACH USE Stop: 10/03/19 17:35 Last Admin: 09/06/19 15:38 Dose: 4,000 unit Hydralazine HCl (Apresoline) 100 mg PO TID [facility] Stop: 10/04/19 14:01 Last Admin: 09/06/19 21:20 Dose: 100 mg Albumin Human (Albumin 25%) 50 mls @ 100 mls/hr IV EVERY HD [facility] Stop: 10/03/19 18:01 Insulin Human Regular (Novolin -R) 0 unit SQ ACHS [facility]; Protocol Stop: 10/03/19 17:35 Last Admin: 09/06/19 21:21 Dose: 2 unit Mirtazapine (Remeron) 15 mg PO BEDTIME [facility] Stop: 10/04/19 21:01 Last Admin: 09/06/19 21:19 Dose: 15 mg Ondansetron HCl (Zofran) 4 mg IV Q6HP PRN PRN Reason: NAUSEA / VOMITING Stop: 10/03/19 17:35 Pantoprazole Sodium (Protonix Tab) 40 mg PO ACB [facility]; Protocol Stop: 10/05/19 07:31 Last Admin: 09/06/19 08:30 Dose: 40 mg Sodium Chloride (Normal Saline Flush) 10 ml IV BID [facility] Stop: 10/03/19 21:01 Last Admin: 09/06/19 21:00 Dose: Not Given Microbiology Results 09/03/19 09:01 Blood - Blood Aerobic Blood Culture - Preliminary No growth in 24 hours. 09/03/19 09:01 Blood - Blood Anaerobic Blood Culture - Preliminary No growth in 24 hours. 09/03/19 08:46 Blood - Blood Aerobic Blood Culture - Preliminary No growth in 24 hours. 09/03/19 08:46 Blood - Blood Anaerobic Blood Culture - Preliminary No growth in 24 hours. Assessment/ Plan: Nephrology CPS stable without CP or SOB. No acute events overnight. Doing well. Vitals, medications, blood work and imaging reviewed in the chart. NAD. MMM. Neck supple. CTA. RRR. Soft Abd. No C/C/E. No rash. AAO. Normal Speech. A/ ESRD on HD. Vasculitis with renal involvement. Diastolic CHF, chronic. HTN with CKD/ CHF. DM II with CKD. Anemia in CKD. MEDINA/ Secondary HyperPTH. Hypocalcemia. P/ Continue current POC and Medications. Seen and examined on HD. Increase Coreg and Ramipril. AM labs. Daily weight. No NSAIDs.
[2019-09-07] MEDS: ACETAMINOPHEN 500 MG TAB PO PRN (06:01)
[2019-09-07] MEDS: INSULIN -REGULAR HUMAN 50 UNIT/0.5 ML ML SQ SCH ×4 (07:30→20:37)
[2019-09-07] MEDS: HYDRALAZINE HCL 25 MG TABLET PO SCH ×3 (08:50→20:35)
[2019-09-07] MEDS: HEPARIN 5000 UNIT/ML 1 ML VIAL SQ SCH ×2 (08:51→20:37)
[2019-09-07] MEDS: PANTOPRAZOLE 40MG TABLET PO SCH (08:51)
[2019-09-07] MEDS: CALCITROL 0.25 MCG CAP PO SCH (08:51)
[2019-09-07] MEDS: VITAMIN D 5,000 UNIT CAP PO SCH (08:51)
[2019-09-07] MEDS: carvediloL 12.5 MG TAB PO SCH ×2 (08:51→20:36)
[2019-09-07] MEDS: AMLODIPINE 10 MG TAB PO SCH (08:52)
[2019-09-07] MEDS: NEPRO SHAKE 237 ML CAN PO SCH ×2 (08:52→20:37)
--- NOTE | 2019-09-07 10:26 | RAD REPORT ---
EXAM DESCRIPTION: RAD - Chest Single View - 09/07/2019 9:56 am CLINICAL HISTORY: fever Chest pain. COMPARISON: Chest Single View dated 09/03/2019; Chest Single View dated 07/29/2019; Chest Single View dated 07/28/2019; Chest Single View dated 07/28/2019 FINDINGS: Portable technique limits examination quality. Elevated right hemidiaphragm is noted. Right-sided venous catheter its tip in the SVC. The heart is m ildly enlarged size. No displaced fractures.
[2019-09-07 10:28] LABS: Absolute Lymphocytes (CBC) 0.7 K/uL (0.7-4.9); Basophils % 0.2 % (0-1.3); Lymphocytes % 41.4 % (15.3-44.8); MPV 8.8 fL (7.6-11.3); RBC Red Blood Cell Count 2.79 M/uL (4.33-5.43)
--- NOTE | 2019-09-07 14:22 | P.PN ---
Subjective Date of Service: 09/07/19 Primary Care Provider: Dr. Rashid; Nephrology-Dr. Mendoza Subjective: Improving Patient seen and examined at bedside. He had a low-grade fever yesterday. He has nonproductive cough. 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 Case Management unable to get in touch with family. Review of Systems General: Fever ENT: Unremarkable Respiratory: Cough, Dry Physical Examination - Vital Signs Temperature: 98.7 F Blood Pressure: 128/65 Pulse: 61 Respirations: 18 Pulse Ox (%): 99 - Physical Exam General: Alert, In no apparent distress HEENT: Atraumatic, Normocephalic, PERRLA Neck: Supple, 2+ carotid pulse no bruit Respiratory: Diminished, Crackles/rales Cardiovascular: No edema, Normal pulses, Regular rate/rhythm Gastrointestinal: Normal bowel sounds, Hypoactive, Soft and benign Musculoskeletal: No clubbing, No swelling Integumentary: No breakdown, No significant lesion, Rash(es) Neurological: Abnormal gait, Abnormal tone External genitalia: No edema - Studies Laboratory Tests 09/07/19 09/07/19 09/07/19 10:11 10:11 14:54 WBC 1.7 L* D 1.9 L* RBC 2.79 L 2.83 L Hgb 8.5 L 8.6 L Hct 25.0 L 25.2 L Plt Count 133 L D 136 L Procalcitonin 1.79 H Medications List Reviewed: Yes Assessment And Plan - Plan #Fever- with leukopenia. CXR with elevated hemidiaphragm. Check CT chest. - CBC with Leukopenia and decreased abs neutrophil - monitor fever overnight - repeat CBC in a.m #Diabetes mellitus type 2: Hemoglobin A1c check. -monitor for hypoglycemia. -BG AC & HS, cover with insulin sliding scale. #End-stage renal disease on hemodialysis-continue hemodialysis per hand box coverer. #Anemia of chronic disease-placed the patient closely. No evidence of acute bleeding. -check H&H. # diastolic heart failure- compensated. # gait instability - patient mobilizes with a walker. -PT/OT # Social issues-patient was discharged from the hospital however family declined to pick patient from the hospital. Adult protective services is now involved. Case management make an arrangement. DVT ppx- SCD Patient is full code.
[2019-09-07 15:08] LABS: Absolute Lymphocytes (CBC) 0.9 K/uL (0.7-4.9); Basophils % 0.2 % (0-1.3); Hematocrit 25.2 % (39.6-49.0); Lymphocytes % 45.8 % (15.3-44.8); MPV 9.3 fL (7.6-11.3); RBC Red Blood Cell Count 2.83 M/uL (4.33-5.43)
[2019-09-07 15:35] LABS: Anisocytosis 1+; Blood Morphology Comment NOTED (NOT SEEN); Platelet Estimate DECR; Poikilocytosis 1+
--- NOTE | 2019-09-07 17:14 | RAD REPORT ---
EXAM DESCRIPTION: CT - Thorax Wo Con CLINICAL HISTORY: Chest pain R hemidiaphragm, fever. CT chest wo contrast only COMPARISON: Thorax Wo Con dated 11/22/2017; Chest Single View dated 09/07/2019 FINDINGS: Small bilateral pleural effusions are present, slightly greater on the right. Ill-defined opacity is present in the right lung base suggesting pneumonia. A rounded area fluid containing lesio n measuring 29 x 34 mm in the medial left lung base within the consolidated may represent an intrapul monary abscess versus infected pneumatocele. No pneumothorax. No axillary, mediastinal or hilar adenopathy. No concerning bony finding. No gross upper abdominal finding. All CT scans are performed using dose optimization technique as appropriate and may include automated exposure control or mA/KV adjustment according to patient size. IMPRESSION: Right lung base infiltrate seen right and likely represents pneumonia.Small 29 x 34 mm a ir and fluid containing lesion in the medial right lung base probably intrapulmonary abscess or infec missael pneumatocele.
[2019-09-07] MEDS: ramipriL 5 MG CAP PO SCH (20:36)
[2019-09-07] MEDS: MIRTAZAPINE 15 MG TAB PO SCH (20:37)
[2019-09-08] MEDS: ACETAMINOPHEN 500 MG TAB PO PRN ×2 (01:04→20:41)
[2019-09-08] MEDS: INSULIN -REGULAR HUMAN 50 UNIT/0.5 ML ML SQ SCH ×4 (07:30→20:41)
[2019-09-08] MEDS: PANTOPRAZOLE 40MG TABLET PO SCH (08:45)
[2019-09-08] MEDS: HYDRALAZINE HCL 25 MG TABLET PO SCH ×3 (08:45→20:41)
[2019-09-08] MEDS: VITAMIN D 5,000 UNIT CAP PO SCH (08:45)
[2019-09-08] MEDS: CALCITROL 0.25 MCG CAP PO SCH (08:45)
[2019-09-08] MEDS: carvediloL 12.5 MG TAB PO SCH ×2 (08:45→20:41)
[2019-09-08] MEDS: HEPARIN 5000 UNIT/ML 1 ML VIAL SQ SCH ×2 (08:46→20:42)
[2019-09-08] MEDS: AMLODIPINE 10 MG TAB PO SCH (08:46)
[2019-09-08] MEDS: NEPRO SHAKE 237 ML CAN PO SCH ×2 (08:46→20:42)
[2019-09-08] MEDS ORDERED: Pharmacy Consult 1 EA XX PRN (09:21)
--- NOTE | 2019-09-08 09:26 | P.PN ---
Subjective Date of Service: 09/08/19 Primary Care Provider: Dr. Rashid; Nephrology-Dr. Mendoza Chief Complaint: Hypoglycemia Patient seen and examined at bedside. Continues to have low-grade fever and nonproductive cough. 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 Review of Systems General: Fever Respiratory: Cough Physical Examination - Vital Signs Temperature: 98.4 F Blood Pressure: 138/70 Pulse: 61 Respirations: 15 Pulse Ox (%): 95 - Physical Exam General: Alert, In no apparent distress, Oriented x3 HEENT: Atraumatic, Normocephalic Neck: Supple, 2+ carotid pulse no bruit Respiratory: Diminished, Crackles/rales (bases) Cardiovascular: No edema, Normal pulses, Regular rate/rhythm Gastrointestinal: Normal bowel sounds, Soft and benign, No tenderness, No masses Neurological: Abnormal gait (ambulates with walker) - Studies Laboratory Tests 09/07/19 09/08/19 09/08/19 10:11 09:32 09:32 WBC 1.6 L* D RBC 2.78 L Hgb 8.5 L Hct 25.2 L RDW 17.3 H Neutrophils % 38.3 L Band Neutrophils 1 Absolute Eosinophils 0.1 Sodium 138 Potassium 4.0 BUN 62 H Creatinine 4.80 H Procalcitonin 1.79 H Microbiology Data (last 24 hrs): 09/03/19 09:01 Blood - Blood Aerobic Blood Culture - Final No growth in 5 days. 09/03/19 09:01 Blood - Blood Anaerobic Blood Culture - Final No growth in 5 days. 09/03/19 08:46 Blood - Blood Aerobic Blood Culture - Final No growth in 5 days. 09/03/19 08:46 Blood - Blood Anaerobic Blood Culture - Final No growth in 5 days. Medications List Reviewed: Yes Assessment & Plan Physician Review: Patient Assessed, Agree with Above Assessment and Plan Physician Review Additional Text: Mr. Skelton is a 59-year-old male presented to the hospital with generalized weakness and hypoglycemia # Healthcare associated pneumonia-Fever and leukopenia. CXR with elevated hemidiaphragm. CT chest consistent with infiltrates. - CBC with Leukopenia and decreased abs neutrophil. Bandemia - monitor fever overnight -repeat blood cultures Height: Initiate on antibiotics. #Diabetes mellitus type 2: Hemoglobin A1c check. -monitor for hypoglycemia. -BG AC & HS, cover with insulin sliding scale. #End-stage renal disease on hemodialysis-continue hemodialysis per promotions assistant. #Anemia of chronic disease- No evidence of acute bleeding. -check H&H. # Diastolic heart failure- compensated. # Gait instability - patient mobilizes with a walker. -PT/OT # social issues-patient was discharged from the hospital however family declined to pick patient from the hospital. Adult protective services is now involved. Case management make an arrangement. Patient has developed pneumonia while awaiting disposition/safe discharge DVT ppx- SCD Patient is full code.
[2019-09-08] MEDS ORDERED: VANCOMYCIN 500 MG in NA CHLORIDE 0.9% 100 ML IVPB SCH (09:45)
[2019-09-08 09:58] LABS: Absolute Lymphocytes (CBC) 0.6 K/uL (0.7-4.9); Basophils % 0.1 % (0-1.3); Hematocrit 25.2 % (39.6-49.0); MPV 9.6 fL (7.6-11.3); RBC Red Blood Cell Count 2.78 M/uL (4.33-5.43)
[2019-09-08] MEDS ORDERED: VANCOMYCIN 1.25 GM in NA CHLORIDE 0.9% 250 ML IVPB ONE (10:00)
[2019-09-08 10:03] LABS: Albumin 2.1 g/dL (3.4-5.0); Bilirubin Total 0.3 mg/dL (0.2-1.0); Protein, Total 5.3 g/dL (6.4-8.2)
[2019-09-08] MEDS ORDERED: NA CHLORIDE 0.9% 250 ML ONE (11:11)
[2019-09-08] MEDS: PIPER/TAZO/NS 2.25gm 2.25 GM/50 ML BAG IV SCH ×2 (11:12→17:26)
[2019-09-08 12:04] LABS: Blood Morphology Comment NOT SEEN (NOT SEEN); Platelet Estimate ADEQ
[2019-09-08 13:18] LABS: Absolute Lymphocytes (CBC) 0.6 K/uL (0.7-4.9); Basophils % 0.4 % (0-1.3); Hematocrit 24.8 % (39.6-49.0); MPV 9.6 fL (7.6-11.3); RBC Red Blood Cell Count 2.76 M/uL (4.33-5.43)
[2019-09-08] MEDS: EPOETIN ALFA 10,000 UNIT/ML VIAL IV SCH (13:24)
[2019-09-08] MEDS: ramipriL 5 MG CAP PO SCH (20:40)
[2019-09-08] MEDS: MIRTAZAPINE 15 MG TAB PO SCH (20:41)
--- NOTE | 2019-09-08 23:18 | P.PN ---
Date of Service: 09/08/19 Vital Signs Temp Pulse Resp BP Pulse Ox 101.1 F H 78 16 167/77 H 95 09/08/19 20:41 09/08/19 20:41 09/08/19 20:00 09/08/19 20:41 09/08/19 20:00 Medications Acetaminophen (Tylenol -Extra Strength) 500 mg PO Q6H PRN PRN Reason: Fever Stop: 10/07/19 05:22 Last Admin: 09/08/19 20:41 Dose: 500 mg Amlodipine Besylate (Norvasc) 10 mg PO DAILY [facility] Stop: 10/05/19 09:01 Last Admin: 09/08/19 08:46 Dose: 10 mg Calcitriol (Rocaltrol) 0.5 mcg PO DAILY [facility] Stop: 10/06/19 09:01 Last Admin: 09/08/19 08:45 Dose: 0.5 mcg Carvedilol (Coreg) 25 mg PO BID [facility] Stop: 10/07/19 09:01 Last Admin: 09/08/19 20:41 Dose: 25 mg Cholecalciferol (Vitamin D 5,000 Iu Cap) 5,000 unit PO DAILY [facility] Stop: 10/06/19 09:01 Last Admin: 09/08/19 08:45 Dose: 5,000 unit Enteral Nutritional Formula (Nepro Shake) 237 ml PO BID [facility] Stop: 10/04/19 21:01 Last Admin: 09/08/19 20:42 Dose: 237 ml Epoetin Eleazar (Retacrit) 10,000 unit IV EVERY HD [facility] Stop: 10/04/19 14:16 Last Admin: 09/08/19 13:24 Dose: 10,000 unit Heparin Sodium (Porcine) (Heparin 5,000 Units/Ml) 5,000 unit SQ Q12HR [facility] Stop: 10/03/19 21:01 Last Admin: 09/08/19 20:42 Dose: 5,000 unit Heparin Sodium (Porcine) (Heparin 1,000 Units/Ml) 4,000 unit IV EVERY HD PRN PRN Reason: FLUSH AFTER EACH USE Stop: 10/03/19 17:35 Last Admin: 09/08/19 13:23 Dose: 4,000 unit Hydralazine HCl (Apresoline) 100 mg PO TID [facility] Stop: 10/04/19 14:01 Last Admin: 09/08/19 20:41 Dose: 100 mg Albumin Human (Albumin 25%) 50 mls @ 100 mls/hr IV EVERY HD [facility] Stop: 10/03/19 18:01 Pharmacy Consult (Pharmacy Consult) 1 mls @ 1 mls/hr XX DAILYPRN PRN; Protocol PRN Reason: Vancomycin dose by pharmacy Stop: 10/08/19 09:22 Piperacillin/Tazobactam/Sod Chloride (Zosyn 2.25 Gm/50 Ml Ivpb) 2.25 gm in 50 mls @ 50 mls/hr IV Q8HR [facility]; Protocol Stop: 10/08/19 10:31 Last Admin: 09/08/19 17:26 Dose: 50 mls Vancomycin HCl 500 mg/ Sodium (Chloride) 100 mls @ 100 mls/hr IVPB AFTER EACH DIALYSIS [facility] Stop: 10/08/19 09:46 Insulin Human Regular (Novolin -R) 0 unit SQ ACHS [facility]; Protocol Stop: 10/03/19 17:35 Last Admin: 09/08/19 20:41 Dose: 2 unit Mirtazapine (Remeron) 15 mg PO BEDTIME [facility] Stop: 10/04/19 21:01 Last Admin: 09/08/19 20:41 Dose: 15 mg Ondansetron HCl (Zofran) 4 mg IV Q6HP PRN PRN Reason: NAUSEA / VOMITING Stop: 10/03/19 17:35 Pantoprazole Sodium (Protonix Tab) 40 mg PO ACB [facility]; Protocol Stop: 10/05/19 07:31 Last Admin: 09/08/19 08:45 Dose: 40 mg Ramipril (Altace) 10 mg PO BEDTIME [facility] Stop: 10/07/19 21:01 Last Admin: 09/08/19 20:40 Dose: 10 mg Sodium Chloride (Normal Saline Flush) 10 ml IV BID [facility] Stop: 10/03/19 21:01 Last Admin: 09/08/19 20:42 Dose: 10 ml Lab Results (last 24 hrs) 09/08/19 09:32: WBC 1.6 L* D, RBC 2.78 L, Hgb 8.5 L, Hct 25.2 L, MCV 90.7, MCH 30.5, MCHC 33.6, RDW 17.3 H, Plt Count 158, MPV 9.6, Neutrophils % 38.3 L, Lymphocytes % 39.0, Monocytes % 15.1 H, Eosinophils % 7.5 H, Basophils % 0.1, Absolute Neutrophils 0.6 L, Segmented Neutrophils 35 L, Band Neutrophils 1, Absolute Lymphocytes 0.6 L, Lymphocytes 45 H, Monocytes 11 H, Absolute Monocytes 0.2, Eosinophils 6 H, Absolute Eosinophils 0.1, Absolute Basophils 0.0 , Atypical Lymphocytes 2, Morphology Comment Not seen 09/08/19 09:32: Sodium 138, Potassium 4.0, Chloride 106, Carbon Dioxide 27, BUN 62 H, Creatinine 4.80 H, Estimated GFR 13 L, Glucose 131 H, Calcium 7.4 L, Total Bilirubin 0.3, AST 20, ALT 31, Alkaline Phosphatase 108, Serum Total Protein 5.3 L, Albumin 2.1 L D, Globulin 3.2, Albumin/Globulin Ratio 0.7 L 09/08/19 07:14: POC Glucose 89 Microbiology Results 09/03/19 09:01 Blood - Blood Aerobic Blood Culture - Final No growth in 5 days. 09/03/19 09:01 Blood - Blood Anaerobic Blood Culture - Final No growth in 5 days. 09/03/19 08:46 Blood - Blood Aerobic Blood Culture - Final No growth in 5 days. 09/03/19 08:46 Blood - Blood Anaerobic Blood Culture - Final No growth in 5 days. Assessment/ Plan: Nephrology CPS stable without CP or SOB. No acute events overnight. Doing well. Vitals, medications, blood work and imaging reviewed in the chart. NAD. MMM. Neck supple. CTA. RRR. Soft Abd. No C/C/E. No rash. AAO. Normal Speech. A/ ESRD on HD. Vasculitis with renal involvement. Diastolic CHF, chronic. HTN with CKD/ CHF. DM II with CKD. Anemia in CKD. MEDINA/ Secondary HyperPTH. Hypocalcemia. P/ Continue current POC and Medications. Seen and examined on HD. AM labs. Daily weight. No NSAIDs.
[2019-09-09] MEDS: PIPER/TAZO/NS 2.25gm 2.25 GM/50 ML BAG IV SCH ×3 (01:19→17:21)
[2019-09-09] MEDS: INSULIN -REGULAR HUMAN 50 UNIT/0.5 ML ML SQ SCH ×4 (07:30→21:00)
[2019-09-09] MEDS: PANTOPRAZOLE 40MG TABLET PO SCH (08:32)
[2019-09-09] MEDS: CALCITROL 0.25 MCG CAP PO SCH (08:33)
[2019-09-09] MEDS: VITAMIN D 5,000 UNIT CAP PO SCH (08:33)
[2019-09-09] MEDS: HEPARIN 5000 UNIT/ML 1 ML VIAL SQ SCH ×2 (08:33→21:13)
[2019-09-09] MEDS: carvediloL 12.5 MG TAB PO SCH ×2 (08:34→21:11)
[2019-09-09] MEDS: HYDRALAZINE HCL 25 MG TABLET PO SCH ×3 (08:34→21:11)
[2019-09-09] MEDS: AMLODIPINE 10 MG TAB PO SCH (08:35)
[2019-09-09] MEDS: NEPRO SHAKE 237 ML CAN PO SCH ×2 (08:36→21:13)
--- NOTE | 2019-09-09 10:53 | CON ---
History Of Present Illness: Patient is a 59-year-old male with end-stage renal disease, on hemodialysis. I was consulted for pneumonia. Patient is feeling better since he has been admitted to the hospital. Also, has significant history of hypertension, congestive heart failure kidney failure, on dialysis for last 4 weeks. Patient was brought into the emergency department for evaluation. He was found to have healthcare associated pneumonia with fever and leukopenia. Past Medical History: As per HPI. Social History: Nonsmoker, nondrinker. Family History: Noncontributory. Medications: Lopid and vancomycin. See MAR for other medications. Allergies: NO KNOWN DRUG ALLERGIES. Review of Systems: A 10-point review was performed. Physical Examination: Vital Signs: Temperature 99, pulse 61, respirations 15, blood pressure . HEENT: Unremarkable. Neck: Supple. Lungs: Basal crackles. Heart: S1, S2. Regular. Abdomen: Soft, nontender. Bowel sounds present. Extremities: No edema. Laboratory Data: WBC 11.6, hemoglobin 8.6, platelets 157. Chemistry shows sodium 138, potassium is 4, chloride 106, bicarb 37, BUN is 52, creatinine is 4.8, glucose 139. Hemoglobin A1c of 7.4. blood cultures are negative. Chest x-ray and CT chest were done yesterday showed that the patient has a right lung base infiltrate in the right was also noted. Assessment/plan: A 59-year-old male with multiple medical problem with recent history of renal disease on dialysis, anemia, pancytopenia, fevers, and right lung abscess. We will continue empiric antibiotics with pending culture results. We will follow the patient closely. Thank you for consult. TIMBO/ARLENE Voice ID: [id number] Report ID: [id number] ANGELA
--- NOTE | 2019-09-09 17:57 | PN ---
Subjective: Patient is sitting in easy chair. Denies any headache, nausea, vomiting, chest pain, ab dominal pain, constipation, or diarrhea. Objective: Vital Signs: Temperature 98, pulse 62, respirations 16, blood pressure 143/67. Lungs: Basal crackles. Heart: S1, S2. Regular. Abdomen: Soft, nontender. Bowel sounds present. Extremities: No edema. Laboratory Data: Reviewed. Micro Data: Blood cultures are negative on 09/03. On 09/08, blood cultures are pending. Medications: Patient is currently on Zosyn and vancomycin. Assessment And Plan: End-stage renal disease. Patient with pancytopenia, fever, and possible right lung abscess. Continue antibiotics and supportive care. We will follow patient as needed. The mark ent might need further investigation of his lung abscess and pneumonia. We will continue empiric vitor atment for now. NF/MODL Voice ID: [id number] Report ID: [id number]
[2019-09-09] MEDS: ACETAMINOPHEN 500 MG TAB PO PRN (21:12)
[2019-09-09] MEDS: MIRTAZAPINE 15 MG TAB PO SCH (21:12)
[2019-09-09] MEDS: ramipriL 5 MG CAP PO SCH (21:12)
--- NOTE | 2019-09-09 21:21 | PN ---
Date of Progress Note: 09/09/2019 Subjective: Patient is seen and examined. Chart reviewed and case discussed with RN. Patient is do ing well. Cough has improved. Medications: Reviewed. Physical Examination: Vital Signs: Temperature 98.5, heart rate 62, blood pressure 142/67, respirations 16, O2 of 97% on r oom air. General: Awake, alert, and oriented x3, not in any acute distress, slightly ill-appearing male. CVS: S1, S2. Regular rate and rhythm. Peripheral pulses are present. Respiratory: Somewhat diminished breath sounds at the bases, otherwise moving air well. No wheezing or stridor. Gastrointestinal: Abdomen is soft, nontender, nondistended. Positive bowel sounds. No guarding or rigidity. Extremities: No clubbing, cyanosis, or edema. Neurologic: Nonfocal. Laboratory Data: Glucose is 124. CBC is pending. Blood cultures, no growth to date. Assessment: A 59-year-old male with: 1.Generalized weakness. Continue with PT. 2.Healthcare-associated pneumonia. Patient had fever, leukopenia. We will repeat CBC in a.m. Repe at blood cultures. Initial blood cultures are negative. Appreciate ID consultation. 3.Diabetes mellitus type 2. Hemoglobin A1c at 7.4%. We will continue sliding scale insulin and mon itor blood glucose levels. 4.End-stage renal disease, on hemodialysis. Appreciate Nephrology input. We will continue to monit or creatinine. 5.Anemia of chronic disease. Hemoglobin is stable. We will continue to monitor. 6.Chronic diastolic heart failure, currently compensated. We will continue with fluid restriction a nd monitor I's and O's. 7.Gait instability. Patient uses walker. Continue with physical therapy. 8.Deep vein thrombosis prophylaxis, SCDs. Disposition: Family has denied picking the patient up from the hospital, adult services are involved . Patient apparently lives in a house, which has no electricity. SA/MODL Voice ID: [id number] Report ID: [id number]
--- NOTE | 2019-09-09 21:25 | P.PN ---
Date of Service: 09/09/19 Vital Signs Temp Pulse Resp BP Pulse Ox 99.4 F 73 16 138/63 96 09/09/19 20:00 09/09/19 21:12 09/09/19 20:00 09/09/19 21:12 09/09/19 20:00 Medications Acetaminophen (Tylenol -Extra Strength) 500 mg PO Q6H PRN PRN Reason: Fever Stop: 10/07/19 05:22 Last Admin: 09/09/19 21:12 Dose: 500 mg Amlodipine Besylate (Norvasc) 10 mg PO DAILY RADU Stop: 10/05/19 09:01 Last Admin: 09/09/19 08:35 Dose: 10 mg Calcitriol (Rocaltrol) 0.5 mcg PO DAILY [facility] Stop: 10/06/19 09:01 Last Admin: 09/09/19 08:33 Dose: 0.5 mcg Carvedilol (Coreg) 25 mg PO BID [facility] Stop: 10/07/19 09:01 Last Admin: 09/09/19 21:11 Dose: 25 mg Cholecalciferol (Vitamin D 5,000 Iu Cap) 5,000 unit PO DAILY [facility] Stop: 10/06/19 09:01 Last Admin: 09/09/19 08:33 Dose: 5,000 unit Enteral Nutritional Formula (Nepro Shake) 237 ml PO BID [facility] Stop: 10/04/19 21:01 Last Admin: 09/09/19 21:13 Dose: 237 ml Epoetin Eleazar (Retacrit) 10,000 unit IV EVERY HD RADU Stop: 10/04/19 14:16 Last Admin: 09/08/19 13:24 Dose: 10,000 unit Hydralazine HCl (Apresoline) 100 mg PO TID [facility] Stop: 10/04/19 14:01 Last Admin: 09/09/19 21:11 Dose: 100 mg Albumin Human (Albumin 25%) 50 mls @ 100 mls/hr IV EVERY HD [facility] Stop: 10/03/19 18:01 Pharmacy Consult (Pharmacy Consult) 1 mls @ 1 mls/hr XX DAILYPRN PRN; Protocol PRN Reason: Vancomycin dose by pharmacy Stop: 10/08/19 09:22 Piperacillin/Tazobactam/Sod Chloride (Zosyn 2.25 Gm/50 Ml Ivpb) 2.25 gm in 50 mls @ 50 mls/hr IV Q8HR [facility]; Protocol Stop: 10/08/19 10:31 Last Admin: 09/09/19 17:21 Dose: 50 mls Vancomycin HCl 500 mg/ Sodium (Chloride) 100 mls @ 100 mls/hr IVPB AFTER EACH DIALYSIS [facility] Stop: 10/08/19 09:46 Insulin Human Regular (Novolin -R) 0 unit SQ ACHS [facility]; Protocol Stop: 10/03/19 17:35 Last Admin: 09/09/19 21:00 Dose: Not Given Mirtazapine (Remeron) 15 mg PO BEDTIME [facility] Stop: 10/04/19 21:01 Last Admin: 09/09/19 21:12 Dose: 15 mg Ondansetron HCl (Zofran) 4 mg IV Q6HP PRN PRN Reason: NAUSEA / VOMITING Stop: 10/03/19 17:35 Pantoprazole Sodium (Protonix Tab) 40 mg PO ACB [facility]; Protocol Stop: 10/05/19 07:31 Last Admin: 09/09/19 08:32 Dose: 40 mg Ramipril (Altace) 10 mg PO BEDTIME [facility] Stop: 10/07/19 21:01 Last Admin: 09/09/19 21:12 Dose: 10 mg Sodium Chloride (Normal Saline Flush) 10 ml IV BID [facility] Stop: 10/03/19 21:01 Last Admin: 09/09/19 21:13 Dose: 10 ml Microbiology Results 09/03/19 09:01 Blood - Blood Aerobic Blood Culture - Final No growth in 5 days. 09/03/19 09:01 Blood - Blood Anaerobic Blood Culture - Final No growth in 5 days. 09/03/19 08:46 Blood - Blood Aerobic Blood Culture - Final No growth in 5 days. 09/03/19 08:46 Blood - Blood Anaerobic Blood Culture - Final No growth in 5 days. Assessment/ Plan: Nephrology CPS stable without CP or SOB. No acute events overnight. Doing well. Vitals, medications, blood work and imaging reviewed in the chart. NAD. MMM. Neck supple. CTA. RRR. Soft Abd. No C/C/E. No rash. AAO. Normal Speech. A/ ESRD on HD. Vasculitis with renal involvement. Leukocytopenia. Diastolic CHF, chronic. HTN with CKD/ CHF. DM II with CKD. Anemia in CKD. MEDINA/ Secondary HyperPTH. Hypocalcemia. P/ Continue current POC and Medications. Next HD tomorrow. AM labs. Daily weight. No NSAIDs.
[2019-09-09] MEDS ORDERED: HEPARIN 5000 UNIT/ML 1 ML VIAL ONE (23:24)
[2019-09-10] MEDS: PIPER/TAZO/NS 2.25gm 2.25 GM/50 ML BAG IV SCH ×3 (01:07→18:41)
[2019-09-10 06:40] LABS: Basophils % 0.1 % (0-1.3); MPV 8.9 fL (7.6-11.3); RBC Red Blood Cell Count 2.62 M/uL (4.33-5.43)
[2019-09-10 06:56] LABS: Potassium 4.1 mmol/L (3.5-5.1)
[2019-09-10] MEDS: INSULIN -REGULAR HUMAN 50 UNIT/0.5 ML ML SQ SCH ×4 (07:30→21:00)
[2019-09-10] MEDS: VITAMIN D 5,000 UNIT CAP PO SCH (08:41)
[2019-09-10] MEDS: CALCITROL 0.25 MCG CAP PO SCH (08:42)
[2019-09-10] MEDS: carvediloL 12.5 MG TAB PO SCH ×2 (08:42→21:16)
[2019-09-10] MEDS: HYDRALAZINE HCL 25 MG TABLET PO SCH ×3 (08:42→21:15)
[2019-09-10] MEDS: PANTOPRAZOLE 40MG TABLET PO SCH (08:42)
[2019-09-10] MEDS: AMLODIPINE 10 MG TAB PO SCH (08:43)
[2019-09-10] MEDS: NEPRO SHAKE 237 ML CAN PO SCH ×3 (08:43→21:17)
[2019-09-10 09:33] LABS: Platelet Estimate ADEQ; Platelets, Giant FEW; Urine White Blood Cell Casts OK
[2019-09-10 09:34] LABS: Anisocytosis 2+; Basophilic Stippling 1+; Blood Morphology Comment NOTED (NOT SEEN)
--- NOTE | 2019-09-10 12:55 | P.PN ---
Date of Service: 09/10/19 Vital Signs Temp Pulse Resp BP Pulse Ox 98.9 F 72 20 141/63 H 95 09/10/19 12:00 09/10/19 12:00 09/10/19 12:00 09/10/19 12:00 09/10/19 12:00 Medications Acetaminophen (Tylenol -Extra Strength) 500 mg PO Q6H PRN PRN Reason: Fever Stop: 10/07/19 05:22 Last Admin: 09/09/19 21:12 Dose: 500 mg Amlodipine Besylate (Norvasc) 10 mg PO DAILY [facility] Stop: 10/05/19 09:01 Last Admin: 09/10/19 08:43 Dose: 10 mg Calcitriol (Rocaltrol) 0.5 mcg PO DAILY [facility] Stop: 10/06/19 09:01 Last Admin: 09/10/19 08:42 Dose: 0.5 mcg Carvedilol (Coreg) 25 mg PO BID [facility] Stop: 10/07/19 09:01 Last Admin: 09/10/19 08:42 Dose: 25 mg Cholecalciferol (Vitamin D 5,000 Iu Cap) 5,000 unit PO DAILY [facility] Stop: 10/06/19 09:01 Last Admin: 09/10/19 08:41 Dose: 5,000 unit Enteral Nutritional Formula (Nepro Shake) 237 ml PO BID [facility] Stop: 10/04/19 21:01 Last Admin: 09/10/19 08:43 Dose: 237 ml Epoetin Eleazar (Retacrit) 10,000 unit IV EVERY HD [facility] Stop: 10/04/19 14:16 Last Admin: 09/08/19 13:24 Dose: 10,000 unit Epoetin Eleazar (Procrit) 20,000 unit SQ 1X [facility] Stop: 10/10/19 13:01 Heparin Sodium (Porcine) (Heparin 5,000 Units/Ml) 5,000 unit SQ Q12HR [facility] Stop: 10/10/19 21:01 Hydralazine HCl (Apresoline) 100 mg PO TID [facility] Stop: 10/04/19 14:01 Last Admin: 09/10/19 08:42 Dose: 100 mg Albumin Human (Albumin 25%) 50 mls @ 100 mls/hr IV EVERY HD [facility] Stop: 10/03/19 18:01 Pharmacy Consult (Pharmacy Consult) 1 mls @ 1 mls/hr XX DAILYPRN PRN; Protocol PRN Reason: Vancomycin dose by pharmacy Stop: 10/08/19 09:22 Piperacillin/Tazobactam/Sod Chloride (Zosyn 2.25 Gm/50 Ml Ivpb) 2.25 gm in 50 mls @ 50 mls/hr IV Q8HR [facility]; Protocol Stop: 10/08/19 10:31 Last Admin: 09/10/19 08:41 Dose: 50 mls Vancomycin HCl 500 mg/ Sodium (Chloride) 100 mls @ 100 mls/hr IVPB AFTER EACH DIALYSIS [facility] Stop: 10/08/19 09:46 Insulin Human Regular (Novolin -R) 0 unit SQ ACHS [facility]; Protocol Stop: 10/03/19 17:35 Last Admin: 09/10/19 07:30 Dose: Not Given Mirtazapine (Remeron) 15 mg PO BEDTIME [facility] Stop: 10/04/19 21:01 Last Admin: 09/09/19 21:12 Dose: 15 mg Ondansetron HCl (Zofran) 4 mg IV Q6HP PRN PRN Reason: NAUSEA / VOMITING Stop: 10/03/19 17:35 Pantoprazole Sodium (Protonix Tab) 40 mg PO ACB [facility]; Protocol Stop: 10/05/19 07:31 Last Admin: 09/10/19 08:42 Dose: 40 mg Ramipril (Altace) 10 mg PO BEDTIME [facility] Stop: 10/07/19 21:01 Last Admin: 09/09/19 21:12 Dose: 10 mg Sodium Chloride (Normal Saline Flush) 10 ml IV BID [facility] Stop: 10/03/19 21:01 Last Admin: 09/10/19 08:43 Dose: 10 ml Microbiology Results 09/03/19 09:01 Blood - Blood Aerobic Blood Culture - Final No growth in 5 days. 09/03/19 09:01 Blood - Blood Anaerobic Blood Culture - Final No growth in 5 days. 09/03/19 08:46 Blood - Blood Aerobic Blood Culture - Final No growth in 5 days. 09/03/19 08:46 Blood - Blood Anaerobic Blood Culture - Final No growth in 5 days. Assessment/ Plan: Nephrology CPS stable without CP or SOB. No acute events overnight. Doing well. Vitals, medications, blood work and imaging reviewed in the chart. NAD. MMM. Neck supple. CTA. RRR. Soft Abd. No C/C/E. No rash. AAO. Normal Speech. A/ ESRD on HD. Vasculitis with renal involvement. Leukocytopenia. Diastolic CHF, chronic. HTN with CKD/ CHF. DM II with CKD. Anemia in CKD. MEDINA/ Secondary HyperPTH. Hypocalcemia. HypoPO4. P/ Continue current POC and Medications. HD today. Give Retacrit. Encourage nutrition. No PO4 binders at this time. Increase Nepro TID. AM labs. Daily weight. No NSAIDs.
[2019-09-10] MEDS ORDERED: EPOETIN ALFA 20,000 UNIT/1 ML VIAL SQ ONE (13:00)
[2019-09-10] MEDS: EPOETIN ALFA 10,000 UNIT/ML VIAL IV SCH (16:20)
--- NOTE | 2019-09-10 17:04 | PN ---
Date of Progress Note: 09/10/2019 Subjective: Patient seen and examined, chart reviewed and case discussed with RN. Patient is doing well. No new acute complaints overnight. Medications: Reviewed. Physical Examination: Vital Signs: Temperature 98.2, heart rate 66, blood pressure 143/67, respirations 20, O2 of 96% on r oom air. General: Awake, alert, oriented x3, not in any acute distress. CV: S1, S2. Regular rate and rhythm. Peripheral pulses present. Respiratory: Moving air well bilaterally. No wheezing or stridor. Gastrointestinal: Abdomen is soft, nontender, nondistended. Positive bowel sounds. Extremities: No clubbing, cyanosis, or edema. Neuro: Nonfocal. Laboratory Data: Sodium 145, potassium 4.1, chloride 111, CO2 of 29, BUN 44, creatinine 4.14, glucos e 90, calcium 8, phosphorus 2. WBC 2.7, H and H 7.9 and 24, platelets 181, neutrophils 46%. Blood c ultures, no growth to date including repeat blood cultures. Assessment And Plan: A 59-year-old male with. 1.Generalized weakness. Continue with physical therapy. 2.Healthcare-associated pneumonia. No further fevers. Patient's white blood cell count is trending up. Still slightly leukopenic. Blood cultures are negative including repeat blood cultures. ID on board. 3.Diabetes mellitus type 2. Hemoglobin A1c 7.4%. Continue sliding scale insulin. Monitor blood gl ucose levels. 4.End-stage renal disease, on hemodialysis. Continue as scheduled, Nephrology on board. Continue t o monitor creatinine and avoid NSAIDs. 5.Anemia of chronic disease. Hemoglobin dropped to 7.9. We will monitor H and H, transfuse for hem oglobin less than 7. 6.Chronic diastolic heart failure, compensated. We will continue with fluid restriction and monitor I's and O's. 7.Gait instability. Continue with PT. 8.Deep venous thrombosis prophylaxis addressed. 9.Disposition. Patient currently having APS involved. Does not have any safe discharge at this [facility]. We will continue to work on discharge planning with Case Management and Social Work. /ARLENE Voice ID: [id number] Report ID: [id number]
[2019-09-10] MEDS: POTASS/SODIUM PHOSPHATE 1 PKT POWD.PACK PO SCH ×3 (21:00→22:56)
[2019-09-10] MEDS: HEPARIN 5000 UNIT/ML 1 ML VIAL SQ SCH (21:15)
[2019-09-10] MEDS: ramipriL 5 MG CAP PO SCH (21:16)
[2019-09-10] MEDS: MIRTAZAPINE 15 MG TAB PO SCH (21:17)
[2019-09-10] MEDS: ACETAMINOPHEN 500 MG TAB PO PRN (21:23)
[2019-09-11] MEDS ORDERED: POTASS/SODIUM PHOSPHATE 1 PKT POWD.PACK ONE (00:17)
[2019-09-11] MEDS: PIPER/TAZO/NS 2.25gm 2.25 GM/50 ML BAG IV SCH ×3 (00:18→16:44)
[2019-09-11 06:31] LABS: Basophils % 0.1 % (0-1.3); Lymphocytes % 29.9 % (15.3-44.8); MPV 9.6 fL (7.6-11.3)
[2019-09-11] MEDS: INSULIN -REGULAR HUMAN 50 UNIT/0.5 ML ML SQ SCH ×4 (07:30→21:00)
[2019-09-11] MEDS: AMLODIPINE 10 MG TAB PO SCH (09:00)
[2019-09-11] MEDS: HYDRALAZINE HCL 25 MG TABLET PO SCH ×3 (09:11→21:16)
[2019-09-11] MEDS: CALCITROL 0.25 MCG CAP PO SCH (09:11)
[2019-09-11] MEDS: VITAMIN D 5,000 UNIT CAP PO SCH (09:11)
[2019-09-11] MEDS: PANTOPRAZOLE 40MG TABLET PO SCH (09:11)
[2019-09-11] MEDS: carvediloL 12.5 MG TAB PO SCH ×2 (09:12→21:15)
[2019-09-11] MEDS: HEPARIN 5000 UNIT/ML 1 ML VIAL SQ SCH ×2 (09:13→21:16)
[2019-09-11] MEDS: NEPRO SHAKE 237 ML CAN PO SCH ×3 (09:13→21:16)
[2019-09-11 11:13] LABS: Anisocytosis 1+; Blood Morphology Comment NOTED (NOT SEEN); Platelet Estimate ADEQ; Polychromasia 1+; Rouleau SLIGHT
--- NOTE | 2019-09-11 14:02 | PN ---
Date of Progress Note: 09/11/2019 Subjective: Patient seen and examined. Chart reviewed and case discussed with RN. Patient did have bowel incontinence this morning. Denies diarrhea. Medications: List reviewed. Physical Examination: Vital Signs: Temperature 98.6, heart rate 73, blood pressure 160/80, respirations 18, O2 95% on room air. General: Awake, alert, oriented x3, not in any acute distress. CV: S1, S2. Regular rate and rhythm. Peripheral pulses present. Respiratory: Moving air well bilaterally. No wheezing or stridor. Gastrointestinal: Abdomen is soft, nontender, nondistended. Positive bowel sounds. Extremities: No clubbing, cyanosis, or edema. Neurologic: Nonfocal. Laboratory Data: WBC 3.4, H and H 8 and 24, platelets 191, neutrophils 55%. Blood cultures, no grow th to date including repeat cultures. Assessment And Plan: 59-year-old male with; 1.Generalized weakness, improving. Patient is doing well with physical therapy. 2.Healthcare-associated pneumonia. We will discontinue IV vancomycin. Repeat blood cultures are al so negative. No further fevers. Appreciate ID input. Patient is starting to have some loose bowels . 3.Diabetes mellitus type 2. Hemoglobin A1c is 7.4%. We will continue to monitor Accu-Cheks and sli ding scale insulin. 4.End-stage renal disease, on hemodialysis. We will continue as scheduled. Appreciate Nephrology i nput. Monitor creatinine and avoid NSAIDs. 5.Anemia of chronic disease. Hemoglobin improved at 8 today. We will continue to monitor and trans fuse for H and H less than 7. 6.Chronic diastolic heart failure, stable. We will continue with fluid restriction and monitor I's and O's. 7.Gait instability. Fall precautions. Continue with PT. 8.Deep vein thrombosis prophylaxis, addressed. 9.Vasculitis affecting the kidneys. Patient received monoclonal antibody x2. 10.Disposition. Social work and case management working on placement. APS also involved. /ARLENE Voice ID: [id number] Report ID: [id number]
--- NOTE | 2019-09-11 21:06 | P.PN ---
Date of Service: 09/11/19 Vital Signs Temp Pulse Resp BP Pulse Ox 97.4 F 74 18 164/76 H 97 09/11/19 16:00 09/11/19 16:00 09/11/19 16:00 09/11/19 16:00 09/11/19 16:00 Medications Acetaminophen (Tylenol -Extra Strength) 500 mg PO Q6H PRN PRN Reason: Fever Stop: 10/07/19 05:22 Last Admin: 09/10/19 21:23 Dose: 500 mg Amlodipine Besylate (Norvasc) 10 mg PO DAILY [facility] Stop: 10/05/19 09:01 Last Admin: 09/11/19 09:00 Dose: 10 mg Calcitriol (Rocaltrol) 0.5 mcg PO DAILY [facility] Stop: 10/06/19 09:01 Last Admin: 09/11/19 09:11 Dose: 0.5 mcg Carvedilol (Coreg) 25 mg PO BID [facility] Stop: 10/07/19 09:01 Last Admin: 09/11/19 09:12 Dose: 25 mg Cholecalciferol (Vitamin D 5,000 Iu Cap) 5,000 unit PO DAILY [facility] Stop: 10/06/19 09:01 Last Admin: 09/11/19 09:11 Dose: 5,000 unit Enteral Nutritional Formula (Nepro Shake) 237 ml PO TID [facility] Stop: 10/10/19 14:01 Last Admin: 09/11/19 15:22 Dose: 237 ml Epoetin Eleazar (Retacrit) 10,000 unit IV EVERY HD [facility] Stop: 10/04/19 14:16 Last Admin: 09/10/19 16:20 Dose: 10,000 unit Heparin Sodium (Porcine) (Heparin 5,000 Units/Ml) 5,000 unit SQ Q12HR [facility] Stop: 10/10/19 21:01 Last Admin: 09/11/19 09:13 Dose: 5,000 unit Heparin Sodium (Porcine) (Heparin 1,000 Units/Ml) 6,000 unit IV EVERY HD PRN PRN Reason: FLUSH AFTER EACH USE Stop: 10/10/19 14:17 Last Admin: 09/10/19 16:20 Dose: 6,000 unit Hydralazine HCl (Apresoline) 100 mg PO TID [facility] Stop: 10/04/19 14:01 Last Admin: 09/11/19 14:36 Dose: 100 mg Albumin Human (Albumin 25%) 50 mls @ 100 mls/hr IV EVERY HD [facility] Stop: 10/03/19 18:01 Pharmacy Consult (Pharmacy Consult) 1 mls @ 1 mls/hr XX DAILYPRN PRN; Protocol PRN Reason: Vancomycin dose by pharmacy Stop: 10/08/19 09:22 Piperacillin/Tazobactam/Sod Chloride (Zosyn 2.25 Gm/50 Ml Ivpb) 2.25 gm in 50 mls @ 50 mls/hr IV Q8HR [facility]; Protocol Stop: 10/08/19 10:31 Last Admin: 09/11/19 16:44 Dose: 50 mls Insulin Human Regular (Novolin -R) 0 unit SQ ACHS [facility]; Protocol Stop: 10/03/19 17:35 Last Admin: 09/11/19 16:30 Dose: Not Given Mirtazapine (Remeron) 15 mg PO BEDTIME [facility] Stop: 10/04/19 21:01 Last Admin: 09/10/19 21:17 Dose: 15 mg Ondansetron HCl (Zofran) 4 mg IV Q6HP PRN PRN Reason: NAUSEA / VOMITING Stop: 10/03/19 17:35 Pantoprazole Sodium (Protonix Tab) 40 mg PO ACB [facility]; Protocol Stop: 10/05/19 07:31 Last Admin: 09/11/19 09:11 Dose: 40 mg Ramipril (Altace) 10 mg PO BEDTIME [facility] Stop: 10/07/19 21:01 Last Admin: 09/10/19 21:16 Dose: 10 mg Sodium Chloride (Normal Saline Flush) 10 ml IV BID [facility] Stop: 10/03/19 21:01 Last Admin: 09/11/19 09:13 Dose: 10 ml Microbiology Results 09/03/19 09:01 Blood - Blood Aerobic Blood Culture - Final No growth in 5 days. 09/03/19 09:01 Blood - Blood Anaerobic Blood Culture - Final No growth in 5 days. 09/03/19 08:46 Blood - Blood Aerobic Blood Culture - Final No growth in 5 days. 09/03/19 08:46 Blood - Blood Anaerobic Blood Culture - Final No growth in 5 days. Assessment/ Plan: Nephrology CPS stable without CP or SOB. No acute events overnight. Doing well. Vitals, medications, blood work and imaging reviewed in the chart. NAD. MMM. Neck supple. CTA. RRR. Soft Abd. No C/C/E. No rash. AAO. Normal Speech. A/ ESRD on HD. Vasculitis with renal involvement. Leukocytopenia. Diastolic CHF, chronic. HTN with CKD/ CHF. DM II with CKD. Anemia in CKD. MEDINA/ Secondary HyperPTH. Hypocalcemia. HypoPO4. P/ Continue current POC and Medications. Next HD Thursday. Encourage nutrition. No PO4 binders at this time. AM labs. Daily weight. No NSAIDs.
[2019-09-11] MEDS: ramipriL 5 MG CAP PO SCH (21:15)
[2019-09-11] MEDS: MIRTAZAPINE 15 MG TAB PO SCH (21:16)
[2019-09-12] MEDS: PIPER/TAZO/NS 2.25gm 2.25 GM/50 ML BAG IV SCH ×3 (00:14→17:07)
[2019-09-12 06:30] LABS: Basophils % 0.2 % (0-1.3); Hematocrit 25.4 % (39.6-49.0); Lymphocytes % 22.5 % (15.3-44.8); MPV 9.1 fL (7.6-11.3); RBC Red Blood Cell Count 2.76 M/uL (4.33-5.43)
[2019-09-12 06:59] LABS: Blood Morphology Comment NOT SEEN (NOT SEEN); Platelet Estimate ADEQ; Urine White Blood Cell Casts OK
[2019-09-12] MEDS: INSULIN -REGULAR HUMAN 50 UNIT/0.5 ML ML SQ SCH ×4 (07:30→20:47)
[2019-09-12] MEDS: carvediloL 12.5 MG TAB PO SCH ×2 (08:13→20:45)
[2019-09-12] MEDS: VITAMIN D 5,000 UNIT CAP PO SCH (08:14)
[2019-09-12] MEDS: PANTOPRAZOLE 40MG TABLET PO SCH (08:15)
[2019-09-12] MEDS: AMLODIPINE 10 MG TAB PO SCH (08:15)
[2019-09-12] MEDS: CALCITROL 0.25 MCG CAP PO SCH (08:16)
[2019-09-12] MEDS: HEPARIN 5000 UNIT/ML 1 ML VIAL SQ SCH ×2 (08:16→20:46)
[2019-09-12] MEDS: HYDRALAZINE HCL 25 MG TABLET PO SCH ×3 (08:21→20:46)
[2019-09-12] MEDS: NEPRO SHAKE 237 ML CAN PO SCH ×3 (08:28→20:46)
--- NOTE | 2019-09-12 09:34 | RAD REPORT ---
EXAM DESCRIPTION: RAD - Chest Pa And Lat (2 Views) - 09/12/2019 9:13 am CLINICAL HISTORY: Pna, elevated R hemidiaphragm Chest pain. COMPARISON: Chest Single View dated 09/07/2019; Chest Single View dated 09/03/2019; Chest Single View dated 07/29/2019; Chest Single View dated 07/28/2019; Thorax Wo Con dated 09/07/2019 FINDINGS: Chronically elevated right hemidiaphragmatic leaflet noted, unchanged. Vague right lung ba se opacity persists with small right pleural effusion. The heart is moderately enlarged. Right-sided venous catheter its tip in the SVC. IMPRESSION: Stable chest since 09/07/2019.
--- NOTE | 2019-09-12 14:54 | PN ---
Date of Progress Note: 09/12/2019 Patient seen and examined. Chart reviewed and case discussed with RN and Dr. Clark. Patient seem s to be doing better. No significant amount of cough. No shortness of breath with exertion. Medications: List reviewed. Physical Examination: Vital Signs: Temperature 98.8, heart rate 71, blood pressure 173/79, respirations 18, O2 at 98% on r oom air. General: Awake, alert, oriented x3. Mildly ill-appearing male. CV: S1, S2. Regular rate and rhythm. Respiratory: Diminished breath sounds at the right base. No wheezing or stridor. No use of accesso ry muscles. Apices are clear. Gastrointestinal: Abdomen is soft, nontender, nondistended. Positive bowel sounds. Extremities: No clubbing, cyanosis, or edema. Neurologic: Nonfocal. Laboratory Data: Sodium 143, potassium 4, chloride 110, CO2 of 27, BUN 38, creatinine 3.95, glucose 129, calcium 7.8. WBC 4.6, H and H 8.4, 25.4, platelets 211, neutrophils 65%. Blood cultures, no gr owth to date. Chest x-ray, 2 view, personally reviewed, shows chronically elevated right hemidiaphra gm, leaflet noted unchanged. Vague right lung base opacity persists with small right pleural effusio n, stable chest. Assessment And Plan: 59-year-old male with: 1.Generalized weakness, improving. We will continue with physical therapy. 2.Healthcare-associated pneumonia. IV antibiotics have been adjusted. Repeat chest x-ray shows eff usion. CT scan did show lung abscess. Appreciate Pulmonology input. Dr. Clark recommends Augmen tin on discharge and repeat imaging in a couple of weeks. 3.Diabetes mellitus type 2. Hemoglobin A1c is 7.4%, stable. We will continue to monitor blood gluc ose levels. Continue with sliding scale insulin. 4.End-stage renal disease, on hemodialysis. We will continue dialysis per schedule. Nephrology is on board. We will continue to monitor creatinine and avoid any NSAIDs. 5.Anemia of chronic disease. Hemoglobin has improved to 8.4. We will continue to monitor, transfus e for hemoglobin of less than 7. 6.Chronic diastolic heart failure, stable, compensated. Continue with fluid restriction. 7.Gait instability. 8.Fall precautions. PT eval. 9.Vasculitis affecting the kidneys. Patient has received monoclonal antibody treatment as an outpat ient. 10.Deep vein thrombosis prophylaxis addressed. Plan: Patient apparently does have correction facility benefits. We will refer patient to SNF as he does not have any family help and is not safe for discharge. His house does not have any elect ricity, is unfunded largely. /ARLENE Voice ID: [id number] Report ID: [id number]
--- NOTE | 2019-09-12 16:28 | P.PN ---
Date of Service: 09/12/19 Vital Signs Temp Pulse Resp BP Pulse Ox 98.9 F 74 17 167/73 H 96 09/12/19 12:00 09/12/19 12:00 09/12/19 12:00 09/12/19 12:00 09/12/19 12:00 Medications Acetaminophen (Tylenol -Extra Strength) 500 mg PO Q6H PRN PRN Reason: Fever Stop: 10/07/19 05:22 Last Admin: 09/10/19 21:23 Dose: 500 mg Amlodipine Besylate (Norvasc) 10 mg PO DAILY [facility] Stop: 10/05/19 09:01 Last Admin: 09/12/19 08:15 Dose: 10 mg Calcitriol (Rocaltrol) 0.5 mcg PO DAILY [facility] Stop: 10/06/19 09:01 Last Admin: 09/12/19 08:16 Dose: 0.5 mcg Carvedilol (Coreg) 25 mg PO BID [facility] Stop: 10/07/19 09:01 Last Admin: 09/12/19 08:13 Dose: 25 mg Cholecalciferol (Vitamin D 5,000 Iu Cap) 5,000 unit PO DAILY [facility] Stop: 10/06/19 09:01 Last Admin: 09/12/19 08:14 Dose: 5,000 unit Enteral Nutritional Formula (Nepro Shake) 237 ml PO TID [facility] Stop: 10/10/19 14:01 Last Admin: 09/12/19 13:33 Dose: 237 ml Epoetin Eleazar (Retacrit) 10,000 unit IV EVERY HD [facility] Stop: 10/04/19 14:16 Last Admin: 09/10/19 16:20 Dose: 10,000 unit Heparin Sodium (Porcine) (Heparin 5,000 Units/Ml) 5,000 unit SQ Q12HR [facility] Stop: 10/10/19 21:01 Last Admin: 09/12/19 08:16 Dose: 5,000 unit Heparin Sodium (Porcine) (Heparin 1,000 Units/Ml) 6,000 unit IV EVERY HD PRN PRN Reason: FLUSH AFTER EACH USE Stop: 10/10/19 14:17 Last Admin: 09/10/19 16:20 Dose: 6,000 unit Hydralazine HCl (Apresoline) 100 mg PO TID [facility] Stop: 10/04/19 14:01 Last Admin: 09/12/19 13:32 Dose: 100 mg Albumin Human (Albumin 25%) 50 mls @ 100 mls/hr IV EVERY HD [facility] Stop: 10/03/19 18:01 Pharmacy Consult (Pharmacy Consult) 1 mls @ 1 mls/hr XX DAILYPRN PRN; Protocol PRN Reason: Vancomycin dose by pharmacy Stop: 10/08/19 09:22 Piperacillin/Tazobactam/Sod Chloride (Zosyn 2.25 Gm/50 Ml Ivpb) 2.25 gm in 50 mls @ 50 mls/hr IV Q8HR [facility]; Protocol Stop: 10/08/19 10:31 Last Admin: 09/12/19 08:17 Dose: 50 mls Insulin Human Regular (Novolin -R) 0 unit SQ ACHS [facility]; Protocol Stop: 10/03/19 17:35 Last Admin: 09/12/19 11:30 Dose: Not Given Mirtazapine (Remeron) 15 mg PO BEDTIME [facility] Stop: 10/04/19 21:01 Last Admin: 09/11/19 21:16 Dose: 15 mg Ondansetron HCl (Zofran) 4 mg IV Q6HP PRN PRN Reason: NAUSEA / VOMITING Stop: 10/03/19 17:35 Pantoprazole Sodium (Protonix Tab) 40 mg PO ACB [facility]; Protocol Stop: 10/05/19 07:31 Last Admin: 09/12/19 08:15 Dose: 40 mg Ramipril (Altace) 10 mg PO BEDTIME [facility] Stop: 10/07/19 21:01 Last Admin: 09/11/19 21:15 Dose: 10 mg Sodium Chloride (Normal Saline Flush) 10 ml IV BID [facility] Stop: 10/03/19 21:01 Last Admin: 09/12/19 08:24 Dose: 10 ml Microbiology Results 09/03/19 09:01 Blood - Blood Aerobic Blood Culture - Final No growth in 5 days. 09/03/19 09:01 Blood - Blood Anaerobic Blood Culture - Final No growth in 5 days. 09/03/19 08:46 Blood - Blood Aerobic Blood Culture - Final No growth in 5 days. 09/03/19 08:46 Blood - Blood Anaerobic Blood Culture - Final No growth in 5 days. Assessment/ Plan: Nephrology CPS stable without CP or SOB. No acute events overnight. Doing well. Vitals, medications, blood work and imaging reviewed in the chart. NAD. MMM. Neck supple. CTA. RRR. Soft Abd. No C/C/E. No rash. AAO. Normal Speech. A/ ESRD on HD. Vasculitis with renal involvement. Leukocytopenia. Diastolic CHF, chronic. HTN with CKD/ CHF. DM II with CKD. Anemia in CKD. MEDINA/ Secondary HyperPTH. Hypocalcemia. HypoPO4. P/ Continue current POC and Medications. Next HD Thursday. Encourage nutrition. No PO4 binders at this time. AM labs. Daily weight. No NSAIDs.
[2019-09-12] MEDS: ramipriL 5 MG CAP PO SCH (20:45)
[2019-09-12] MEDS: MIRTAZAPINE 15 MG TAB PO SCH (20:46)
[2019-09-13] MEDS: PIPER/TAZO/NS 2.25gm 2.25 GM/50 ML BAG IV SCH ×3 (00:11→16:48)
[2019-09-13 06:16] LABS: Absolute Lymphocytes (CBC) 1.2 K/uL (0.7-4.9); Basophils % 0.2 % (0-1.3); Lymphocytes % 20.9 % (15.3-44.8); MPV 9.5 fL (7.6-11.3); RBC Red Blood Cell Count 3.01 M/uL (4.33-5.43)
[2019-09-13 06:45] LABS: Magnesium 1.9 mg/dL (1.8-2.4); Phosphorus 3.6 mg/dL (2.5-4.9)
[2019-09-13] MEDS: INSULIN -REGULAR HUMAN 50 UNIT/0.5 ML ML SQ SCH ×4 (07:30→20:24)
[2019-09-13] MEDS: VITAMIN D 5,000 UNIT CAP PO SCH (08:37)
--- NOTE | 2019-09-13 08:37 | PN ---
Subjective: The patient is lying in bed, not in any acute distress. Objective: Vital Signs: Temperature 98, pulse 74, respirations 17, blood pressure 167/73. Lungs: Basal crackles. Heart: S1 and S2 are regular. Abdomen: Soft, nontender. Bowel sounds present. E xtremities: No edema. Lab Data: WBC 4.6, hemoglobin 8.4, platelets are 211. Micro Data: Blood cultures are negative. Chest x-ray done today, shows no new acute finding. Assessment And Plan: 1.Pancytopenia, resolved. 2.Leukocytosis. White blood cell count is coming to normal. 3.Possible right lower lobe pneumonia, stable. Patient with no cough. Has 29 x 34 mm air and fluid containing lesion on CT scan with the possible lung abscess. Continue antibiotic, total course of 2 weeks, can be switched to antibiotic with dialysis. We will follow the patient as needed. NF/MODL Voice ID: [id number] Report ID: [id number]
[2019-09-13] MEDS: CALCITROL 0.25 MCG CAP PO SCH (08:38)
[2019-09-13] MEDS: AMLODIPINE 10 MG TAB PO SCH (08:38)
[2019-09-13] MEDS: HYDRALAZINE HCL 25 MG TABLET PO SCH ×3 (08:39→20:23)
[2019-09-13] MEDS: HEPARIN 5000 UNIT/ML 1 ML VIAL SQ SCH ×2 (08:39→20:19)
[2019-09-13] MEDS: carvediloL 12.5 MG TAB PO SCH ×2 (08:39→20:23)
[2019-09-13] MEDS: PANTOPRAZOLE 40MG TABLET PO SCH (08:39)
[2019-09-13] MEDS: NEPRO SHAKE 237 ML CAN PO SCH ×3 (08:40→20:24)
--- NOTE | 2019-09-13 16:22 | PN ---
Date of Progress Note: 09/13/2019 Subjective: Patient seen and examined. Chart reviewed and case discussed with RN. Patient is doing better. Has been referred to senior care facility. Medications: List reviewed. Physical Examination: Vital Signs: Temperature 97.8, heart rate 74, blood pressure 171/78, respirations 16, O2 of 97% on r oom air. General: Awake, alert, oriented x3, slightly ill-appearing male. CV: S1, S2. Regular rate and rhythm. Peripheral pulses present. Respiratory: Diminished breath sounds on the right side. No wheezing or crackles. Gastrointestinal: Abdomen is soft, nontender, nondistended. Positive bowel sounds. No guarding or rigidity. Extremities: No clubbing, cyanosis, or edema. Neurologic: Nonfocal. Laboratory Data: Sodium 145, potassium 4, chloride 112, CO2 of 25, BUN 47, creatinine 5.23, glucose 109, calcium 8.1. Phosphorus 3.6, magnesium 1.9. WBC 5.6, H and H 9.3 and 28, platelets 230, neutro phils 67%. Blood cultures, no growth to date. Assessment: A 59-year-old male with: 1.Generalized weakness, improving, doing well with physical therapy. 2.Healthcare-associated pneumonia and lung abscess on the right. Continue with antibiotics for tota l of 2 weeks. We will switch to Augmentin upon discharge. Appreciate Pulmonology input and Dr. Bing miranda's input. 3.Diabetes mellitus type 2. Hemoglobin A1c is 7.4%. We will continue to monitor Accu-Cheks. Lizbeth nue sliding scale insulin. 4.End-stage renal disease, on dialysis. We will continue dialyzing patient as per his schedule. Ap preciate Nephrology input. Monitor creatinine and electrolytes. Avoid NSAIDs. 5.Anemia of chronic disease. Hemoglobin is improving. Continue to monitor. Transfuse for hemoglob in less than 7. 6.Chronic diastolic heart failure, stable, compensated. Continue with monitoring I's and O's, fluid restriction. 7.Gait instability. Continue with fall precautions and PT eval. 8.Vasculitis affecting the kidneys, status post treatment with monoclonal antibody. 9.Deep venous thrombosis prophylaxis. Addressed. Plan: Discharge to senior care facility once accepted. PEDRO Voice ID: [id number] Report ID: [id number]
--- NOTE | 2019-09-13 18:37 | PN ---
Subjective: The patient lying in bed. No new acute event. Chart reviewed. Objective: Vital Signs: Temperature 97, pulse 75, respirations 16, blood pressure 174/80. Lungs: Basal crackles. Heart: S1 and S2 are regular. Abdomen: Soft, nontender. Bowel sounds present. Extremities: No edema. Laboratory Data: WBC of 5.6, hemoglobin 9.3, platelets 230. Chemistry shows sodium 145, potassium 4 , chloride 112, bicarb 25, BUN 47, creatinine 5.2, glucose 109. Micro Data: Blood cultures, no growth for 5 days. Medications: Currently on Zosyn. Chest x-ray done yesterday shows the patient has chronically elevated right hemidiaphragm leaflet. V ague right lung base opacity, persistent with small pleural effusions. Assessment And Plan: Right lower lobe pneumonia, improving. Can be switched to oral on discharge. Total course of 14 days. We will follow the patient as needed. NF/MODL Voice ID: [id number] Report ID: [id number]
[2019-09-13] MEDS: ramipriL 5 MG CAP PO SCH (20:22)
[2019-09-13] MEDS: MIRTAZAPINE 15 MG TAB PO SCH (20:22)
[2019-09-14] MEDS: PIPER/TAZO/NS 2.25gm 2.25 GM/50 ML BAG IV SCH ×2 (00:32→08:51)
[2019-09-14] MEDS: ACETAMINOPHEN 500 MG TAB PO PRN ×2 (00:55→20:18)
[2019-09-14 06:19] LABS: Potassium 4.1 mmol/L (3.5-5.1)
[2019-09-14] MEDS: INSULIN -REGULAR HUMAN 50 UNIT/0.5 ML ML SQ SCH ×4 (07:30→20:19)
[2019-09-14] MEDS: VITAMIN D 5,000 UNIT CAP PO SCH (08:51)
[2019-09-14] MEDS: PANTOPRAZOLE 40MG TABLET PO SCH (08:51)
[2019-09-14] MEDS: CALCITROL 0.25 MCG CAP PO SCH (08:52)
[2019-09-14] MEDS: HEPARIN 5000 UNIT/ML 1 ML VIAL SQ SCH ×2 (08:52→20:16)
[2019-09-14] MEDS: HYDRALAZINE HCL 25 MG TABLET PO SCH ×3 (08:52→20:18)
[2019-09-14] MEDS: AMLODIPINE 10 MG TAB PO SCH (08:53)
[2019-09-14] MEDS: carvediloL 12.5 MG TAB PO SCH ×2 (08:54→20:17)
[2019-09-14] MEDS: NEPRO SHAKE 237 ML CAN PO SCH ×3 (08:54→20:19)
--- NOTE | 2019-09-14 12:31 | P.PN ---
Subjective Date of Service: 09/14/19 Primary Care Provider: Dr. Rashid; Nephrology-Dr. Mendoza Chief Complaint: Hypoglycemia Subjective: Other (Patient remains stable at this time. No complaints noted.) Physical Examination - Vital Signs Temperature: 98.0 F Blood Pressure: 183/85 Pulse: 65 Respirations: 16 Pulse Ox (%): 97 - Physical Exam General: Alert, In no apparent distress, Cooperative HEENT: Atraumatic Neck: Supple Respiratory: Clear to auscultation bilaterally, Normal air movement Cardiovascular: Normal pulses, Regular rate/rhythm Gastrointestinal: Normal bowel sounds, Soft and benign, No masses, No rebound, No guarding Neurological: Normal speech, Normal strength at 5/5 x4 extr, Normal tone, Normal affect - Studies Medications List Reviewed: Yes Assessment & Plan Discharge Plan: Other (Skilled placement facility) Plan to discharge in: 24 Hours Physician Review Additional Text: Impression: Healthcare associated right lower lobe pneumonia with loculation Diabetes mellitus type 2 End-stage renal disease on hemodialysis Hypertension Anemia of chronic disease Chronic diastolic CHF History of vasculitis affecting kidneys status post treatment with monoclonal antibody Plan: Healthcare associated right lower lobe pneumonia with loculation: Repeat pro calcitonin improved. Case discussed with pulmonology. Will recheck chest x- ray. Will also obtain echocardiogram due to recurrent fever. Will transition IV antibiotics to oral-Augmentin and doxycycline as recommended by pulmonology. Will continue with physical therapy and occupational therapy. Awaiting acceptance to skilled facility. Will try to reach out to family who has abandoned patient. They no longer want to take care the patient. Due to the circumstances will have Psychiatry evaluate for mental competency. I was able to speak to Psychiatry after evaluation. Psychiatry reports that the patient does not have the mental capacity or competency to take care of himself medically. Psychiatry was going to reach out to family to further obtain medical history. It appears that the patient will require continued assistance for his multiple medical problems. Await full psychiatry recommendation. Best case scenario patient is accepted to skilled placement then can transition to long-term placement. Diabetes mellitus type 2: Continue monitor Accu-Cheks and provide sliding scale. End-stage renal disease on hemodialysis: Continue with dialysis. Will discuss with nephrology. Hypertension: Continue with medication. Anemia of chronic disease: Overall stable, will continue to monitor closely. Chronic diastolic CHF: Continue with diuresis and hemodialysis. 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 Time Spent Managing Pts Care (In Minutes): 55
--- NOTE | 2019-09-14 13:33 | RAD REPORT ---
EXAM DESCRIPTION: RAD - Chest Pa And Lat (2 Views) - 09/14/2019 1:26 pm CLINICAL HISTORY: follow up pneumonia Chest pain. COMPARISON: Chest Pa And Lat (2 Views) dated 09/12/2019; Chest Single View dated 09/07/2019; Chest S ino View dated 09/03/2019; Chest Single View dated 07/29/2019; Thorax Wo Con dated 09/07/2019 FINDINGS: Elevation of the right hemidiaphragm is noted, unchanged. Mild interstitial prominence per sists, unchanged. The heart is mildly enlarged in size. Right-sided venous catheter tip in the SVC. IMPRESSION: Stable chest since 09/12/2019 study.
--- NOTE | 2019-09-14 16:14 | PN ---
Subjective: Patient lying in bed, sitting in easy chair, not in any acute distress. No fevers. No other problems. Objective: Vital Signs: Temperature 98, pulse 65, respirations 16, blood pressure 183/85. Lungs: Basal crackles. Heart: S1 and S2 are regular. Abdomen: Soft, nontender. Bowel sounds present. Extremities: No edema. No new labs available today. Currently, on Augmentin. Blood cultures are negative. Assessment And Plan: Right lower lobe pneumonia. End-stage renal disease, on hemodialysis. Continu e antibiotic and supportive care. We will follow the patient as needed. NF/MODL Voice ID: [id number] Report ID: [id number]
[2019-09-14] MEDS: AMOX/K CLAV 500 MG TAB PO SCH (20:16)
[2019-09-14] MEDS: ramipriL 5 MG CAP PO SCH (20:16)
[2019-09-14] MEDS: MIRTAZAPINE 15 MG TAB PO SCH (20:18)
[2019-09-14] MEDS: DOXYCYCLINE 100 MG CAP PO SCH (20:18)
--- NOTE | 2019-09-14 22:52 | P.PN ---
Date of Service: 09/14/19 Vital Signs Temp Pulse Resp BP Pulse Ox 99 F 74 20 154/70 H 95 09/14/19 21:18 09/14/19 20:17 09/14/19 20:05 09/14/19 20:17 09/14/19 20:05 Medications Acetaminophen (Tylenol -Extra Strength) 500 mg PO Q6H PRN PRN Reason: Fever Stop: 10/07/19 05:22 Last Admin: 09/14/19 20:18 Dose: 500 mg Amlodipine Besylate (Norvasc) 10 mg PO DAILY [facility] Stop: 10/05/19 09:01 Last Admin: 09/14/19 08:53 Dose: 10 mg Amoxicillin/Clavulanate Potassium (Augmentin 500-125 Mg Tab) 250 mg PO BID [facility] ; Protocol Stop: 10/14/19 21:01 Last Admin: 09/14/19 20:16 Dose: 250 mg Calcitriol (Rocaltrol) 0.5 mcg PO DAILY [facility] Stop: 10/06/19 09:01 Last Admin: 09/14/19 08:52 Dose: 0.5 mcg Carvedilol (Coreg) 25 mg PO BID [facility] Stop: 10/07/19 09:01 Last Admin: 09/14/19 20:17 Dose: 25 mg Cholecalciferol (Vitamin D 5,000 Iu Cap) 5,000 unit PO DAILY [facility] Stop: 10/06/19 09:01 Last Admin: 09/14/19 08:51 Dose: 5,000 unit Doxycycline Monohydrate (Vibramycin) 100 mg PO BID [facility]; Protocol Stop: 10/14/19 21:01 Last Admin: 09/14/19 20:18 Dose: 100 mg Enteral Nutritional Formula (Nepro Shake) 237 ml PO TID [facility] Stop: 10/10/19 14:01 Last Admin: 09/14/19 20:19 Dose: 237 ml Epoetin Eleazar (Retacrit) 10,000 unit IV EVERY HD [facility] Stop: 10/04/19 14:16 Last Admin: 09/10/19 16:20 Dose: 10,000 unit Heparin Sodium (Porcine) (Heparin 5,000 Units/Ml) 5,000 unit SQ Q12HR [facility] Stop: 10/10/19 21:01 Last Admin: 09/14/19 20:16 Dose: 5,000 unit Heparin Sodium (Porcine) (Heparin 1,000 Units/Ml) 6,000 unit IV EVERY HD PRN PRN Reason: FLUSH AFTER EACH USE Stop: 10/10/19 14:17 Last Admin: 09/10/19 16:20 Dose: 6,000 unit Hydralazine HCl (Apresoline) 100 mg PO TID [facility] Stop: 10/04/19 14:01 Last Admin: 09/14/19 20:18 Dose: 100 mg Albumin Human (Albumin 25%) 50 mls @ 100 mls/hr IV EVERY HD [facility] Stop: 10/03/19 18:01 Insulin Human Regular (Novolin -R) 0 unit SQ ACHS [facility]; Protocol Stop: 10/03/19 17:35 Last Admin: 09/14/19 20:19 Dose: Not Given Mirtazapine (Remeron) 15 mg PO BEDTIME [facility] Stop: 10/04/19 21:01 Last Admin: 09/14/19 20:18 Dose: 15 mg Ondansetron HCl (Zofran) 4 mg IV Q6HP PRN PRN Reason: NAUSEA / VOMITING Stop: 10/03/19 17:35 Pantoprazole Sodium (Protonix Tab) 40 mg PO ACB [facility]; Protocol Stop: 10/05/19 07:31 Last Admin: 09/14/19 08:51 Dose: 40 mg Ramipril (Altace) 10 mg PO BEDTIME [facility] Stop: 10/07/19 21:01 Last Admin: 09/14/19 20:16 Dose: 10 mg Sodium Chloride (Normal Saline Flush) 10 ml IV BID [facility] Stop: 10/03/19 21:01 Last Admin: 09/14/19 20:20 Dose: 10 ml Microbiology Results 09/03/19 09:01 Blood - Blood Aerobic Blood Culture - Final No growth in 5 days. 09/03/19 09:01 Blood - Blood Anaerobic Blood Culture - Final No growth in 5 days. 09/03/19 08:46 Blood - Blood Aerobic Blood Culture - Final No growth in 5 days. 09/03/19 08:46 Blood - Blood Anaerobic Blood Culture - Final No growth in 5 days. Assessment/ Plan: Nephrology CPS stable without CP or SOB. No acute events overnight. Doing well. Vitals, medications, blood work and imaging reviewed in the chart. NAD. MMM. Neck supple. CTA. RRR. Soft Abd. No C/C. LE Edema trace. No rash. AAO. Normal Speech. A/ ESRD on HD. Vasculitis with renal involvement. Leukocytopenia. Diastolic CHF, chronic. HTN with CKD/ CHF. DM II with CKD. Anemia in CKD. MEDINA/ Secondary HyperPTH. Hypocalcemia. HypoPO4. P/ Continue current POC and Medications. Next HD tomorrow. Encourage nutrition. AM labs. Daily weight. No NSAIDs. Case reviewed with Dr. Glass.
[2019-09-15] MEDS: INSULIN -REGULAR HUMAN 50 UNIT/0.5 ML ML SQ SCH ×4 (07:30→20:12)
[2019-09-15] MEDS: AMLODIPINE 10 MG TAB PO SCH (09:00)
[2019-09-15] MEDS: HEPARIN 5000 UNIT/ML 1 ML VIAL SQ SCH ×2 (09:00→20:29)
--- NOTE | 2019-09-15 09:26 | P.PN ---
Subjective Date of Service: 09/15/19 Primary Care Provider: Dr. Rashid; Nephrology-Dr. Mendoza Chief Complaint: Hypoglycemia Subjective: Doing well Physical Examination - Vital Signs Temperature: 98.9 F Blood Pressure: 151/69 Pulse: 74 Respirations: 18 Pulse Ox (%): 94 - Physical Exam General: Alert, In no apparent distress, Oriented x3, Cooperative HEENT: Atraumatic Neck: Supple Respiratory: Clear to auscultation bilaterally, Normal air movement Cardiovascular: Normal pulses, Regular rate/rhythm Gastrointestinal: Normal bowel sounds, Soft and benign, Non-distended Neurological: Normal speech, Normal strength at 5/5 x4 extr, Normal tone, Normal affect - Studies Medications List Reviewed: Yes Assessment & Plan Discharge Plan: Other (Home versus shelter) Physician Review Additional Text: Impression: Healthcare associated right lower lobe pneumonia with right elevated hemidiaphragm Diabetes mellitus type 2 End-stage renal disease on hemodialysis Hypertension Anemia of chronic disease Chronic diastolic CHF History of vasculitis affecting kidneys status post treatment with monoclonal antibody Mild mental retardation with history of anoxic brain injury at Plan: Healthcare associated right lower lobe pneumonia with right elevated hemidiaphragm: Repeat pro calcitonin improved. Chest x-ray shows no further loculation. Right elevated hemidiaphragm noted. Case discussed with pulmonology. Will continue with oral antibiotic therapy-Augmentin and doxycycline. Continue with physical therapy and occupational therapy. Spoke to family at length yesterday concerning plan of care and discharge. Family plans to discuss with other family members about the possibility of having the patient return back to 1 of the family member's home, so that he can be taking care of. They will make a decision here soon. They understand that the patient will likely get qualified for disability next year. This will enable him to get disability insurance and coverage for long-term care. Social work mentioned that skilled facility maybe agreeable to take care of patient at this time but transportation to dialysis will need to be addressed by family. Will discuss with family later. Spoke with psychiatry who evaluated patient for mental capacity and competency. Patient has mild mental retardation with history of anoxic brain injury at . At this time. Patient not mentally competent to take care of himself on his own. If all other discharge plans of care not successful then patient may be able to be sent to a shelter due to his mental retardation and lack of competency to take care himself. This will allow him possibly to transition from a shelter to long-term care. Transportation will likely need to be arranged with family. Will discuss with community mental health social worker about options. Diabetes mellitus type 2: Continue monitor Accu-Cheks and provide sliding scale. End-stage renal disease on hemodialysis: Continue with dialysis. Will discuss with nephrology. Hypertension: Continue with medication. Anemia of chronic disease: Overall stable, will continue to monitor closely. Chronic diastolic CHF: Continue with diuresis and hemodialysis. 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 Time Spent Managing Pts Care (In Minutes): 55
--- NOTE | 2019-09-15 10:09 | CON ---
Reason For Consultation: Capacity to make medical decisions. Subjective: Mr. Constantino Skelton is 59-year-old male with significant medical comorbidities such as end-stage renal disease, on hemodialysis, anemia of chronic disease, diastolic heart failure and gait instability. 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 Psychiatry is consulted to evaluate patient, for capacity to make decision e his own medical decision. On evaluation, patient denied ever being to psychiatrist stating that he does not have any psychiatrist issues. He denies history of neurovegetative symptoms of depression, says his mood is fine, despite current medical challenges. No history of anxiety and no history of panic attacks. Patient does not have a history of psychotic process. However, per patient's sister who is the next of kin. Patient did suffer anoxic brain injury at was "Slow", he was special education program and require to be care for as he grew older, due to his level of cognitive functioning. Patient relied on their mother as well as his sisters to care for him. She also states that he was once and the took over the responsibility of caring for him until she . Patient has no children. Sisters has been has taking care of him even as he has not been a cooperative patient. She states that about 4 months ago he decided to quit taking all his medications despite many pleads not to. 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 Since then, patient's condition deteriorated leading to chronic renal failure, requiring periodic hemodialysis. Mr. Meeks was seen at the ER on account of hypoglycemic crisis and during the visit to the ED he it was observed that he had missed his dialysis, hence was admitted for hemodialysis. He was subsequently discharged on the 04 of September, but patient's sister refuse to take him home stating she is not able to care for him. She states they just lost their older sister Carly who has been assisting to care him and she has not fully recovered from there mom's 2 months ago and now her sister. She states she is devastated and has no reserve of good will for him and she also have medical issues to deal with. She states patient has never managed his medications or cared for himself at anytime. Objective: Vital Signs: Blood pressure 135/66, pulse rate is 63, respiratory rate is 18, temperature is 98.9. Pain intensity is 0. Mental Status Examination: Patient is clinically ill-looking male dressed in hospital gown, not in any acute distress. Has fair grooming and hygiene. Made attempt to eye contact. No stereotypic movements observed, especially cooperative with interview. Concentration is fair. Memory is fair, able to recall 2 items out of 3. He is alert, oriented to person and place only , not to date. Mild psychomotor retardation noted. Thought process is linear- Circumstantial, Thought content: no delusional thinking. Denies suicidal or homicidal ideation. No auditory or visual hallucination. Insight, judgment, impulse: Impaired Fund of knowledge average. Language skills fair. Summary: Mr. Constantino Skelton is 59-year-old male with history of asphyxia with subsequent sequela of intellectual disability and mood disorder, admitted for hemodialysis for end stage renal failure. Currently, having placement difficulties as next of kin who happens to be his sister is unwilling to provide care for him due to her physical, emotional and medical challenges. Patient demonstrated lack of understanding of his medical conditions, nor the medications he is taking. His impulsive decision to stop all of his medications demonstrate a lack of understanding of his medical conditions and the consequences. Diagnoses: Intellectual disability disorder mild to moderate Mood disorder unspecified Disappearance and of a family member Recommendations: 1. It is my opinion that patient lacks capacity to make medical decision regarding his care/placement, hence defer to next of kin 2. Recommend patient be transfer to a care home or a skilled facility where his medication will be primarily managed by a caregiver on discharge from the medical floor Thank you for consulting Psychiatry, recommendations were discussed with patient 's primary care. JAI Voice ID: [id number] Report ID: [id number] ANGELA
[2019-09-15] MEDS: EPOETIN ALFA 10,000 UNIT/ML VIAL IV SCH (10:13)
[2019-09-15] MEDS: HYDRALAZINE HCL 25 MG TABLET PO SCH ×4 (10:16→20:27)
[2019-09-15] MEDS: carvediloL 12.5 MG TAB PO SCH ×2 (10:17→20:29)
[2019-09-15] MEDS: PANTOPRAZOLE 40MG TABLET PO SCH (10:17)
[2019-09-15] MEDS: CALCITROL 0.25 MCG CAP PO SCH (10:18)
[2019-09-15] MEDS: AMOX/K CLAV 500 MG TAB PO SCH ×2 (10:18→20:27)
[2019-09-15] MEDS: DOXYCYCLINE 100 MG CAP PO SCH ×2 (10:19→20:27)
[2019-09-15] MEDS: VITAMIN D 5,000 UNIT CAP PO SCH (10:19)
[2019-09-15] MEDS: NEPRO SHAKE 237 ML CAN PO SCH ×3 (10:21→20:30)
--- NOTE | 2019-09-15 12:29 | P.CNS ---
Date of Consult: 09/08/19 Primary Care Provider: Dr. Rashid; Nephrology-Dr. Mendoza Chief Complaint: Possible abscess History of Present Illness: Patient is 59 years of age with chronic renal failure evaluated by me for a possible right lower lobe abscess he currently denies any pulmonary complaints.Of breadth cost hemoptysis chest pain, fever or chills. Multiple medical problems on dialysis age is recently discharged immediately lobe large sugar apparently missed dialysis Having some fever neutropenic Allergies No Known Allergies Allergy (Verified 09/03/19 17:11) Home Medications: Amlodipine Besylate [Norvasc] 10 mg PO DAILY 09/04/19 Atorvastatin Calcium 20 mg PO DAILY 09/04/19 Calcitriol [Rocaltrol] 0.25 mg PO DAILY 09/04/19 Calcium Acetate [Phoslo] 667 mg PO TID 09/04/19 Labetalol HCl 20 mg PO BID 09/04/19 Mirtazapine [Remeron] 15 mg PO DAILY 09/04/19 Pantoprazole Sodium [Protonix] 40 mg PO DAILY 09/04/19 carvediloL [Coreg*] 12.5 mg PO BID 09/04/19 Amox/Clavulanate [Augmentin 500-125 mg Tab] 500 mg PO SEECOM #7 tab 09/12/19 Ramipril [Altace*] 10 mg PO BEDTIME #30 cap 09/12/19 - Past Medical/Surgical History Diabetic: Yes -: HTN -: DM -: ARF - Family History Sister Medical History: Hypertension Mother Medical History: Heart disease - Social History Smoking Status: Never smoker Alcohol use: No CD- Drugs: No Caffeine use: No Place of Residence: Home Review of Systems 10-point ROS is otherwise unremarkable General: Weakness Physical Examination Temp Pulse Resp BP Pulse Ox 98.9 F 74 18 151/69 H 94 09/15/19 09:26 09/15/19 10:17 09/15/19 09:26 09/15/19 10:17 09/15/19 09:26 General: Alert, Oriented x3 HEENT: Atraumatic Neck: Supple Respiratory: Clear to auscultation bilaterally, Diminished Cardiovascular: No edema, Regular rate/rhythm, Normal S1 S2 - Problems (1) Abnormal CT of the chest Current Visit: Yes Status: Acute Plan: The patient is 59 years of age evaluated by me for a possible abscess patient is an elevated right hemidiaphragm possible loculated effusion or an abscess there is no pulmonary symptoms I suggest treatment with Augmentin for 2 weeks then add doxycycline at risk for resistant infections cultures are negative procalcitonin level is mildly elevated
--- NOTE | 2019-09-15 15:13 | ECHO ---
HEIGHT: 5 ft 6 in WEIGHT: 137 lb 0 oz DATE OF STUDY: 09/15/[address]: Daryl Glass DO 2-DIMENSIONAL: YES M.MODE: YES DOPPLER: YES COLOR FLOW: YES TDS: NO PORTABLE: NO DEFINITY: NO BUBBLE STUDY: NO DIAGNOSIS: PNEUMONIA CARDIAC HISTORY: CATHERIZATION: NO SURGERY: NO PROSTHETIC VALVE: NO PACEMAKER: NO MEASUREMENTS (cm) DIASTOLIC (NORMALS) SYSTOLIC (NORMALS) IVSd 1.3 (0.6-1.2) LA Diam 3.5 (1.9-4.0) LVEF 56% LVIDd 4.4 (3.5-5.7) LVIDs 3.1 (2.0-3.5) %FS 29% LVPWd 1.4 (0.6-1.2) Ao Diam 2.7 (2.0-3.7) 2 DIMENSIONAL ASSESSMENT: RIGHT ATRIUM: NORMAL LEFT ATRIUM: NORMAL RIGHT VENTRICLE: NORMAL LEFT VENTRICLE: LEFT VENTRICULAR HYPERTROPHY TRICUSPID VALVE: NORMAL MITRAL VALVE: NORMAL PULMONIC VALVE: NORMAL AORTIC VALVE: NORMAL PERICARDIAL EFFUSION: NONE AORTIC ROOT: NORMAL LEFT VENTRICULAR WALL MOTION: NORMAL. DOPPLER/COLOR FLOW: NORMAL. COMMENTS: LEFT VENTRICULAR HYPERTROPHY. NORMAL EJECTION FRACTION. NO EFFUSION. NO WALL MOTION ABNORMALITY. TECHNOLOGIST: BULMARO TORIBIO
[2019-09-15] MEDS: ramipriL 5 MG CAP PO SCH (20:22)
[2019-09-15] MEDS: MIRTAZAPINE 15 MG TAB PO SCH (20:28)
--- NOTE | 2019-09-15 22:15 | P.PN ---
Date of Service: 09/15/19 Vital Signs Temp Pulse Resp BP Pulse Ox 100.1 F 71 16 149/69 H 96 09/15/19 20:00 09/15/19 20:29 09/15/19 20:00 09/15/19 20:29 09/15/19 20:00 Medications Acetaminophen (Tylenol -Extra Strength) 500 mg PO Q6H PRN PRN Reason: Fever Stop: 10/07/19 05:22 Last Admin: 09/14/19 20:18 Dose: 500 mg Amlodipine Besylate (Norvasc) 10 mg PO DAILY [facility] Stop: 10/05/19 09:01 Last Admin: 09/15/19 09:00 Dose: 10 mg Amoxicillin/Clavulanate Potassium (Augmentin 500-125 Mg Tab) 250 mg PO BID [facility] ; Protocol Stop: 10/14/19 21:01 Last Admin: 09/15/19 20:27 Dose: 250 mg Calcitriol (Rocaltrol) 0.5 mcg PO DAILY [facility] Stop: 10/06/19 09:01 Last Admin: 09/15/19 10:18 Dose: 0.5 mcg Carvedilol (Coreg) 25 mg PO BID [facility] Stop: 10/07/19 09:01 Last Admin: 09/15/19 20:29 Dose: 25 mg Cholecalciferol (Vitamin D 5,000 Iu Cap) 5,000 unit PO DAILY [facility] [place] Stop: 10/06/19 09:01 Last Admin: 09/15/19 10:19 Dose: 5,000 unit Doxycycline Monohydrate (Vibramycin) 100 mg PO BID [facility]; Protocol Stop: 10/14/19 21:01 Last Admin: 09/15/19 20:27 Dose: 100 mg Enteral Nutritional Formula (Nepro Shake) 237 ml PO TID [facility] [place] Stop: 10/10/19 14:01 Last Admin: 09/15/19 20:30 Dose: 237 ml Epoetin Eleazar (Retacrit) 10,000 unit IV EVERY HD [facility] Stop: 10/04/19 14:16 Last Admin: 09/15/19 10:13 Dose: 10,000 unit Heparin Sodium (Porcine) (Heparin 5,000 Units/Ml) 5,000 unit SQ Q12HR [facility] Stop: 10/10/19 21:01 Last Admin: 09/15/19 20:29 Dose: 5,000 unit Heparin Sodium (Porcine) (Heparin 1,000 Units/Ml) 6,000 unit IV EVERY HD PRN PRN Reason: FLUSH AFTER EACH USE Stop: 10/10/19 14:17 Last Admin: 09/15/19 10:13 Dose: 6,000 unit Hydralazine HCl (Apresoline) 100 mg PO TID [facility] Stop: 10/04/19 14:01 Last Admin: 09/15/19 20:27 Dose: 100 mg Albumin Human (Albumin 25%) 50 mls @ 100 mls/hr IV EVERY HD [facility] Stop: 10/03/19 18:01 Insulin Human Regular (Novolin -R) 0 unit SQ ACHS [facility] [place]; Protocol Stop: 10/03/19 17:35 Last Admin: 09/15/19 20:12 Dose: Not Given Mirtazapine (Remeron) 15 mg PO BEDTIME [facility] Stop: 10/04/19 21:01 Last Admin: 09/15/19 20:28 Dose: 15 mg Ondansetron HCl (Zofran) 4 mg IV Q6HP PRN PRN Reason: NAUSEA / VOMITING Stop: 10/03/19 17:35 Pantoprazole Sodium (Protonix Tab) 40 mg PO ACB [facility]; Protocol Stop: 10/05/19 07:31 Last Admin: 09/15/19 10:17 Dose: 40 mg Ramipril (Altace) 10 mg PO BEDTIME [facility] Stop: 10/07/19 21:01 Last Admin: 09/15/19 20:22 Dose: 10 mg Sodium Chloride (Normal Saline Flush) 10 ml IV BID [facility] Stop: 10/03/19 21:01 Last Admin: 09/15/19 20:30 Dose: 10 ml Microbiology Results 09/03/19 09:01 Blood - Blood Aerobic Blood Culture - Final No growth in 5 days. 09/03/19 09:01 Blood - Blood Anaerobic Blood Culture - Final No growth in 5 days. 09/03/19 08:46 Blood - Blood Aerobic Blood Culture - Final No growth in 5 days. 09/03/19 08:46 Blood - Blood Anaerobic Blood Culture - Final No growth in 5 days. Assessment/ Plan: Nephrology CPS stable without CP or SOB. No acute events overnight. Doing well. Vitals, medications, blood work and imaging reviewed in the chart. NAD. MMM. Neck supple. CTA. RRR. Soft Abd. No C/C. LE Edema trace. No rash. AAO. Normal Speech. A/ ESRD on HD. Vasculitis with renal involvement. Leukocytopenia. Diastolic CHF, chronic. HTN with CKD/ CHF. DM II with CKD. Anemia in CKD. MEDINA/ Secondary HyperPTH. Hypocalcemia. HypoPO4. P/ Continue current POC and Medications. Next HD Thursday. Encourage nutrition. AM labs. Daily weight. No NSAIDs.
[2019-09-16] MEDS: INSULIN -REGULAR HUMAN 50 UNIT/0.5 ML ML SQ SCH ×4 (07:30→21:00)
--- NOTE | 2019-09-16 07:38 | P.PN ---
Date of Service: 09/16/19 Vital Signs Temp Pulse Resp BP Pulse Ox 99.2 F 67 17 158/70 H 96 09/16/19 04:00 09/16/19 04:00 09/16/19 04:00 09/16/19 04:00 09/16/19 04:00 Medications Acetaminophen (Tylenol -Extra Strength) 500 mg PO Q6H PRN PRN Reason: Fever Stop: 10/07/19 05:22 Last Admin: 09/14/19 20:18 Dose: 500 mg Amlodipine Besylate (Norvasc) 10 mg PO DAILY [facility] Stop: 10/05/19 09:01 Last Admin: 09/15/19 09:00 Dose: 10 mg Amoxicillin/Clavulanate Potassium (Augmentin 500-125 Mg Tab) 250 mg PO BID [facility] ; Protocol Stop: 10/14/19 21:01 Last Admin: 09/15/19 20:27 Dose: 250 mg Calcitriol (Rocaltrol) 0.5 mcg PO DAILY [facility] Stop: 10/06/19 09:01 Last Admin: 09/15/19 10:18 Dose: 0.5 mcg Carvedilol (Coreg) 25 mg PO BID [facility] Stop: 10/07/19 09:01 Last Admin: 09/15/19 20:29 Dose: 25 mg Cholecalciferol (Vitamin D 5,000 Iu Cap) 5,000 unit PO DAILY [facility] Stop: 10/06/19 09:01 Last Admin: 09/15/19 10:19 Dose: 5,000 unit Doxycycline Monohydrate (Vibramycin) 100 mg PO BID [facility]; Protocol Stop: 10/14/19 21:01 Last Admin: 09/15/19 20:27 Dose: 100 mg Enteral Nutritional Formula (Nepro Shake) 237 ml PO TID [facility] Stop: 10/10/19 14:01 Last Admin: 09/15/19 20:30 Dose: 237 ml Epoetin Eleazar (Retacrit) 10,000 unit IV EVERY HD [facility] Stop: 10/04/19 14:16 Last Admin: 09/15/19 10:13 Dose: 10,000 unit Heparin Sodium (Porcine) (Heparin 5,000 Units/Ml) 5,000 unit SQ Q12HR [facility] Stop: 10/10/19 21:01 Last Admin: 09/15/19 20:29 Dose: 5,000 unit Heparin Sodium (Porcine) (Heparin 1,000 Units/Ml) 6,000 unit IV EVERY HD PRN PRN Reason: FLUSH AFTER EACH USE Stop: 10/10/19 14:17 Last Admin: 09/15/19 10:13 Dose: 6,000 unit Hydralazine HCl (Apresoline) 100 mg PO TID [facility] Stop: 10/04/19 14:01 Last Admin: 09/15/19 20:27 Dose: 100 mg Albumin Human (Albumin 25%) 50 mls @ 100 mls/hr IV EVERY HD [facility] Stop: 10/03/19 18:01 Insulin Human Regular (Novolin -R) 0 unit SQ ACHS [facility]; Protocol Stop: 10/03/19 17:35 Last Admin: 09/15/19 20:12 Dose: Not Given Mirtazapine (Remeron) 15 mg PO BEDTIME [facility] Stop: 10/04/19 21:01 Last Admin: 09/15/19 20:28 Dose: 15 mg Ondansetron HCl (Zofran) 4 mg IV Q6HP PRN PRN Reason: NAUSEA / VOMITING Stop: 10/03/19 17:35 Pantoprazole Sodium (Protonix Tab) 40 mg PO ACB [facility]; Protocol Stop: 10/05/19 07:31 Last Admin: 09/15/19 10:17 Dose: 40 mg Ramipril (Altace) 10 mg PO BEDTIME [facility] Stop: 10/07/19 21:01 Last Admin: 09/15/19 20:22 Dose: 10 mg Sodium Chloride (Normal Saline Flush) 10 ml IV BID [facility] Stop: 10/03/19 21:01 Last Admin: 09/15/19 20:30 Dose: 10 ml Microbiology Results 09/03/19 09:01 Blood - Blood Aerobic Blood Culture - Final No growth in 5 days. 09/03/19 09:01 Blood - Blood Anaerobic Blood Culture - Final No growth in 5 days. 09/03/19 08:46 Blood - Blood Aerobic Blood Culture - Final No growth in 5 days. 09/03/19 08:46 Blood - Blood Anaerobic Blood Culture - Final No growth in 5 days. Assessment/ Plan: Nephrology CPS stable without CP or SOB. No acute events overnight. Doing well. Vitals, medications, blood work and imaging reviewed in the chart. NAD. MMM. Neck supple. CTA. RRR. Soft Abd. No C/C. LE Edema trace. No rash. AAO. Normal Speech. A/ ESRD on HD. Vasculitis with renal involvement. Leukocytopenia. Diastolic CHF, chronic. HTN with CKD/ CHF. DM II with CKD. Anemia in CKD. MEDINA/ Secondary HyperPTH. Hypocalcemia. HypoPO4. P/ Continue current POC and Medications. Next HD Thursday. Start Doxazosin to improve BP control. Continue Retacrit. Encourage nutrition. AM labs. Daily weight. No NSAIDs.
[2019-09-16] MEDS: AMLODIPINE 10 MG TAB PO SCH (09:00)
[2019-09-16] MEDS: CALCITROL 0.25 MCG CAP PO SCH (09:59)
[2019-09-16] MEDS: HEPARIN 5000 UNIT/ML 1 ML VIAL SQ SCH ×2 (09:59→21:55)
[2019-09-16] MEDS: DOXAZOSIN 2 MG TAB PO SCH ×2 (09:59→21:55)
[2019-09-16] MEDS: DOXYCYCLINE 100 MG CAP PO SCH ×2 (09:59→21:54)
[2019-09-16] MEDS: PANTOPRAZOLE 40MG TABLET PO SCH (10:00)
[2019-09-16] MEDS: VITAMIN D 5,000 UNIT CAP PO SCH (10:00)
[2019-09-16] MEDS: AMOX/K CLAV 500 MG TAB PO SCH ×2 (10:00→21:53)
[2019-09-16] MEDS: HYDRALAZINE HCL 25 MG TABLET PO SCH ×3 (10:00→21:53)
[2019-09-16] MEDS: carvediloL 12.5 MG TAB PO SCH ×2 (10:01→21:54)
[2019-09-16] MEDS: NEPRO SHAKE 237 ML CAN PO SCH ×3 (10:02→21:55)
--- NOTE | 2019-09-16 11:10 | P.PN ---
Subjective Date of Service: 09/16/19 Primary Care Provider: Dr. Rashid; Nephrology-Dr. Mendoza Chief Complaint: Possible abscess Subjective: Doing well Physical Examination - Vital Signs Temperature: 98.8 F Blood Pressure: 161/78 Pulse: 69 Respirations: 17 Pulse Ox (%): 98 - Physical Exam General: Alert, In no apparent distress, Oriented x3 HEENT: Atraumatic Neck: Supple Respiratory: Clear to auscultation bilaterally, Normal air movement Cardiovascular: Normal pulses, Regular rate/rhythm Gastrointestinal: Normal bowel sounds, Soft and benign, Non-distended - Studies Medications List Reviewed: Yes Assessment & Plan Discharge Plan: Other (See progress note for details) Plan to discharge in: 24 Hours Physician Review Additional Text: Impression: Healthcare associated right lower lobe pneumonia with right elevated hemidiaphragm Diabetes mellitus type 2 End-stage renal disease on hemodialysis Hypertension Anemia of chronic disease Chronic diastolic CHF History of vasculitis affecting kidneys status post treatment with monoclonal antibody Mild mental retardation with history of anoxic brain injury at Plan: Healthcare associated right lower lobe pneumonia with right elevated hemidiaphragm: Repeat pro calcitonin improved. Chest x-ray shows no further loculation. Right elevated hemidiaphragm noted. Case discussed with pulmonology yesterday. Will continue with oral antibiotic therapy-Augmentin and doxycycline. Continue with physical therapy and occupational therapy. Spoke to family at length the other day concerning plan of care and discharge. Left a message again today. Family plans to discuss with other family members about the possibility of having the patient return back to 1 of the family member's home, so that he can be taking care of. They will make a decision here soon. They understand that the patient will likely get qualified for disability next year. This will enable him to get disability insurance and coverage for long-term care. If they agree to take back the patient discharge will likely occur tomorrow after dialysis. Will confirm with family. Social work mentioned that skilled facility maybe agreeable to take care of patient at this time as well but transportation to dialysis will need to be addressed by family. Social work discuss with family. They were to discuss further. Will confirm with family on possible decisions of discharge. Spoke with psychiatry who evaluated patient for mental capacity and competency. Patient has mild mental retardation with history of anoxic brain injury at . At this time, patient not mentally competent to take care of himself on his own. If all other discharge plans of care not successful then patient may be able to be sent to a prison due to his mental retardation and lack of competency to take care himself. This will allow him possibly to transition from a prison to long-term care. Transportation will likely need to be arranged with family. Will discuss with social service director about options. Diabetes mellitus type 2: Continue monitor Accu-Cheks and provide sliding scale. End-stage renal disease on hemodialysis: Continue with dialysis. Will discuss with nephrology. Hypertension: Continue with medication. Anemia of chronic disease: Overall stable, will continue to monitor closely. Chronic diastolic CHF: Continue with diuresis and hemodialysis. 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 Time Spent Managing Pts Care (In Minutes): 55
--- NOTE | 2019-09-16 15:56 | PN ---
Subjective: Patient is sitting in the easy chair. Denies any headache, nausea, vomiting, chest pain , abdominal pain, constipation, or diarrhea. Objective: VITAL SIGNS: Temperature 98.8, pulse 69, respirations 17, blood pressure 161/78. LUNGS: Basal crackles. HEART: S1, S2. Regular. ABDOMEN: Soft, nontender. Bowel sounds present. EXTREMITIES: No edema. Laboratory Data: No new labs available at this time. Assessment And Plan: Right lower lobe pneumonia. End-stage renal disease. Continue Augmentin. Pat ient awaiting placement. We will follow the patient as needed. NF/MODL Voice ID: [id number] Report ID: [id number]
[2019-09-16] MEDS: ramipriL 5 MG CAP PO SCH (21:54)
[2019-09-16] MEDS: MIRTAZAPINE 15 MG TAB PO SCH (21:54)
[2019-09-17] MEDS: INSULIN -REGULAR HUMAN 50 UNIT/0.5 ML ML SQ SCH ×4 (07:30→20:26)
[2019-09-17] MEDS: AMLODIPINE 10 MG TAB PO SCH (09:00)
[2019-09-17] MEDS: carvediloL 12.5 MG TAB PO SCH ×2 (09:21→20:22)
[2019-09-17] MEDS: HYDRALAZINE HCL 25 MG TABLET PO SCH ×3 (09:21→20:26)
[2019-09-17] MEDS: CALCITROL 0.25 MCG CAP PO SCH (09:21)
[2019-09-17] MEDS: DOXYCYCLINE 100 MG CAP PO SCH ×2 (09:21→20:21)
[2019-09-17] MEDS: VITAMIN D 5,000 UNIT CAP PO SCH (09:21)
[2019-09-17] MEDS: AMOX/K CLAV 500 MG TAB PO SCH ×2 (09:22→20:22)
[2019-09-17] MEDS: HEPARIN 5000 UNIT/ML 1 ML VIAL SQ SCH ×2 (09:22→20:23)
[2019-09-17] MEDS: PANTOPRAZOLE 40MG TABLET PO SCH (09:22)
[2019-09-17] MEDS: NEPRO SHAKE 237 ML CAN PO SCH ×3 (09:23→20:24)
[2019-09-17] MEDS: DOXAZOSIN 2 MG TAB PO SCH ×2 (09:27→20:22)
[2019-09-17] MEDS: EPOETIN ALFA 10,000 UNIT/ML VIAL IV SCH (10:37)
--- NOTE | 2019-09-17 19:56 | PN ---
Error Report Please delete from the chart MTDD
[2019-09-17] MEDS: ramipriL 5 MG CAP PO SCH (20:21)
[2019-09-17] MEDS: MIRTAZAPINE 15 MG TAB PO SCH (20:22)
--- NOTE | 2019-09-17 20:32 | PN ---
Subjective: Currently, patient is sitting in the chair. He is ready to go back to his room. He jus t finished his dialysis. He has no chest pain, no abdominal pain. No fever or chills overnight. Objective: Vital Signs: Currently, blood pressure is 155/59, respiratory rate 17, pulse 73, tempera ture 97.6, saturating 98% on room air. General: He is alert. Does not look in any distress. Oriented x2. HEENT: Atraumatic, normocephalic. PERRLA. Oral mucosa is moist. Neck: Supple. No JVD. No carotid bruits. Chest: Clear to auscultation. Good air entry. Heart: Regular rate and rhythm. S1, S2 normal. No gallop or murmur. Abdomen: Soft, nontender. No masses. No hepatomegaly. Positive bowel sounds. Extremities: No clubbing, cyanosis, or edema. No calf tenderness. Neurologic: Grossly intact. Laboratory Data: Labs today showed CBC is normal except for hemoglobin 9.3, white cells of 5.6. Angelica rocio not done today. Glucose was between 93 and 137. Assessment And Plan: 1.Healthcare-associated right lower lobe pneumonia with elevated hemidiaphragm. No evidence of seps is. No fever or chills. According to Dr. Glass, case was discussed with Dr. Clark, who advised to continue oral antibiotic with Augmentin and doxycycline. 2.Type 2 diabetes mellitus, well controlled. Continue insulin sliding scale. 3.End-stage renal disease, on hemodialysis Thursday, , and Thursday. 4.Hypertension, well controlled. Continue Norvasc, Coreg, Cardura, ramipril. 5.Chronic diastolic congestive heart failure history. Better with hemodialysis. Patient is on Core g, continue. 6.History of vasculitis affecting the kidneys, status post treated with monoclonal antibody. Wanda t will be followed up with his displayer merchandise as outpatient. 7.Social issue, seems like patient needs placement, but the family is not willing to take care of hi m. There is issue with his hemodialysis location and the need for transportation. Charge nurse gillian benavides called family to see if they are willing to do the transportation to the hemodialysis facility and family was very upset and they said they will not show up to the hospital and they will not make an a rrangement and they would like to meet the Design Technology Teacher and Health Evaluator on Thursday. So, we will hol d discharge at this point, until then. 8.Anemia, multifactorial, renal insufficiency. We will continue patient on Epoetin. 9.Deep vein thrombosis prophylaxis, on heparin. JOSE ENRIQUE/ARLENE Voice ID: [id number] Report ID: [id number]
[2019-09-18 04:59] LABS: Absolute Lymphocytes (CBC) 1.8 K/uL (0.7-4.9); Basophils % 0.4 % (0-1.3); Hematocrit 27.9 % (39.6-49.0); MPV 9.4 fL (7.6-11.3); RBC Red Blood Cell Count 2.97 M/uL (4.33-5.43)
[2019-09-18 05:14] LABS: Albumin 2.3 g/dL (3.4-5.0); Bilirubin Total 0.2 mg/dL (0.2-1.0); Magnesium 1.8 mg/dL (1.8-2.4); Phosphorus 3.4 mg/dL (2.5-4.9); Potassium 4.5 mmol/L (3.5-5.1); Protein, Total 5.9 g/dL (6.4-8.2)
[2019-09-18 05:25] LABS: Blood Morphology Comment NOTED (NOT SEEN); Platelet Estimate ADEQ; Polychromasia 2+
[2019-09-18] MEDS: INSULIN -REGULAR HUMAN 50 UNIT/0.5 ML ML SQ SCH ×4 (07:30→20:30)
[2019-09-18] MEDS: HEPARIN 5000 UNIT/ML 1 ML VIAL SQ SCH ×2 (08:34→20:30)
[2019-09-18] MEDS: AMOX/K CLAV 500 MG TAB PO SCH ×2 (08:34→20:28)
[2019-09-18] MEDS: VITAMIN D 5,000 UNIT CAP PO SCH (08:34)
[2019-09-18] MEDS: DOXYCYCLINE 100 MG CAP PO SCH ×2 (08:34→20:26)
[2019-09-18] MEDS: AMLODIPINE 10 MG TAB PO SCH (08:35)
[2019-09-18] MEDS: HYDRALAZINE HCL 25 MG TABLET PO SCH ×3 (08:35→20:29)
[2019-09-18] MEDS: PANTOPRAZOLE 40MG TABLET PO SCH (08:35)
[2019-09-18] MEDS: carvediloL 12.5 MG TAB PO SCH ×2 (08:36→20:27)
[2019-09-18] MEDS: DOXAZOSIN 2 MG TAB PO SCH ×2 (08:36→20:26)
[2019-09-18] MEDS: CALCITROL 0.25 MCG CAP PO SCH (08:36)
[2019-09-18] MEDS: NEPRO SHAKE 237 ML CAN PO SCH ×3 (08:52→20:31)
[2019-09-18] MEDS ORDERED: MAGNESIUM SULFATE 1 gm IVPB 1 GM/100 ML BAG IV ONE (09:00)
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
[2019-09-18] MEDS: ramipriL 5 MG CAP PO SCH (20:29)
[2019-09-18] MEDS: MIRTAZAPINE 15 MG TAB PO SCH (20:30)
[2019-09-19 05:14] LABS: Potassium 4.7 mmol/L (3.5-5.1)
[2019-09-19 05:15] LABS: Magnesium 1.9 mg/dL (1.8-2.4)
[2019-09-19] MEDS: INSULIN -REGULAR HUMAN 50 UNIT/0.5 ML ML SQ SCH ×4 (07:30→20:50)
[2019-09-19] MEDS: PANTOPRAZOLE 40MG TABLET PO SCH (08:36)
[2019-09-19] MEDS: AMOX/K CLAV 500 MG TAB PO SCH ×2 (08:36→20:49)
[2019-09-19] MEDS: DOXAZOSIN 2 MG TAB PO SCH ×2 (08:37→20:48)
[2019-09-19] MEDS: DOXYCYCLINE 100 MG CAP PO SCH ×2 (08:37→20:48)
[2019-09-19] MEDS: VITAMIN D 5,000 UNIT CAP PO SCH (08:37)
[2019-09-19] MEDS: CALCITROL 0.25 MCG CAP PO SCH (08:37)
[2019-09-19] MEDS: carvediloL 12.5 MG TAB PO SCH (08:38)
[2019-09-19] MEDS: HYDRALAZINE HCL 25 MG TABLET PO SCH ×3 (08:39→20:47)
[2019-09-19] MEDS: NEPRO SHAKE 237 ML CAN PO SCH ×3 (08:39→20:50)
[2019-09-19] MEDS: HEPARIN 5000 UNIT/ML 1 ML VIAL SQ SCH ×2 (08:39→20:49)
[2019-09-19] MEDS: AMLODIPINE 10 MG TAB PO SCH (08:46)
--- NOTE | 2019-09-19 18:03 | PN ---
Subjective: The patient is lying in bed. No new acute event. Chart reviewed. Denies any headache, nausea, vomiting, chest pain, abdominal pain, constipation, or diarrhea. Objective: Vital Signs: Temperature 99, pulse 78, respirations 18, blood pressure 138/66. Lungs: Basal crackles. Heart: S1, S2. Regular. Abdomen: Soft, nontender. Bowel sounds present. Extremities: No edema. Laboratory Data: WBC 8.2, hemoglobin 9.1, platelets are 287. Chemistry shows sodium 143, potassium 4.7, chloride 111, bicarb 25, BUN 43, creatinine 5, glucose is 108. Assessment And Plan: Healthcare-associated pneumonia, end-stage renal disease, diabetes mellitus. C ontinue with Augmentin. The patient is tolerating Lovenox and doxycycline. We will follow the patie nt as needed. NF/MODL Voice ID: [id number] Report ID: [id number]
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
[2019-09-19] MEDS: ACETAMINOPHEN 500 MG TAB PO PRN (20:46)
[2019-09-19] MEDS: ramipriL 5 MG CAP PO SCH (20:47)
[2019-09-19] MEDS: carvediloL 25 MG TAB PO SCH (20:48)
[2019-09-19] MEDS: MIRTAZAPINE 15 MG TAB PO SCH (20:49)
[2019-09-20] MEDS: INSULIN -REGULAR HUMAN 50 UNIT/0.5 ML ML SQ SCH ×4 (07:30→20:22)
[2019-09-20] MEDS: PANTOPRAZOLE 40MG TABLET PO SCH (10:45)
[2019-09-20] MEDS: HYDRALAZINE HCL 25 MG TABLET PO SCH ×3 (10:45→20:22)
[2019-09-20] MEDS: AMOX/K CLAV 500 MG TAB PO SCH ×2 (10:45→20:21)
[2019-09-20] MEDS: carvediloL 25 MG TAB PO SCH ×2 (10:45→20:22)
[2019-09-20] MEDS: NEPRO SHAKE 237 ML CAN PO SCH ×3 (10:45→20:23)
[2019-09-20] MEDS: CALCITROL 0.25 MCG CAP PO SCH (10:45)
[2019-09-20] MEDS: DOXYCYCLINE 100 MG CAP PO SCH ×2 (10:45→20:21)
[2019-09-20] MEDS: AMLODIPINE 10 MG TAB PO SCH (10:45)
[2019-09-20] MEDS: DOXAZOSIN 2 MG TAB PO SCH ×2 (10:45→20:22)
[2019-09-20] MEDS: VITAMIN D 5,000 UNIT CAP PO SCH (10:45)
[2019-09-20] MEDS: HEPARIN 5000 UNIT/ML 1 ML VIAL SQ SCH (10:45)
--- NOTE | 2019-09-20 15:34 | PN ---
Date of Progress Note: 09/20/2019 The servers are down. Unable to obtain the patient's chart including labs, imaging studies. Subjective: Patient is seen and examined. Paper chart reviewed and case discussed with RN. Patient went for dialysis today, tolerated well. Case discussed with pillowcase cutter and social services counselor. Per family, they are setting up for private pay to [facility]. Medication List: Reviewed. Physical Examination: Vital Signs: Temperature 97.9, pulse 69, respirations 16, blood pressure 154/ 70, O2 95% on room air. General: Awake, alert, oriented x3, not in any acute distress. CV: S1, S2. Regular rate and rhythm. Respiratory: Moving air well bilaterally. No wheezing or stridor. Gastrointestinal: Abdomen is soft, nontender, nondistended. Positive bowel sounds. Extremities: No clubbing, cyanosis, or edema. Neuro: Nonfocal. Laboratory Data: Unavailable at this time due to [facility] medical observer being down. Assessment And Plan: 59-year-old male with: 1. Health-care associated pneumonia. We will continue with Augmentin and doxycycline. Patient does have abscess. We will need to continue Augmentin for a total of 2 weeks, significantly improved, clinically better. 2. End-stage renal disease, on hemodialysis Thursday, , Thursday. Did receive dialysis today. We will continue with monitoring creatinine level. Appreciate nephrology's input. 3. Diabetes mellitus type 2 with incision disease. Kca-mhnvwyw-exsmotzeg. Continue to monitor blood glucose levels and sliding scale insulin. 4. Essential hypertension. We will continue home medications as appropriate. 5. Chronic diastolic heart failure stable. Monitor fluid balance. free fluid restriction 6. Vasculitis affect the kidneys stable 7. Anemia of chronic disease. Continue Neupogen monitor H&H and transfuse as needed for hemoglobin less than 7. Disposition. Patient to be discharged to [facility] via private pay once accepted. ADDENDUM: Labs reviewed blood glucose level between 123 and 244 SA/MODL Voice ID: [id number] Report ID: [id number]
[2019-09-20] MEDS: ramipriL 5 MG CAP PO SCH (20:21)
[2019-09-20] MEDS: MIRTAZAPINE 15 MG TAB PO SCH (20:22)
[2019-09-21] MEDS: INSULIN -REGULAR HUMAN 50 UNIT/0.5 ML ML SQ SCH ×4 (07:30→21:00)
[2019-09-21] MEDS: CALCITROL 0.25 MCG CAP PO SCH (08:20)
[2019-09-21] MEDS: DOXYCYCLINE 100 MG CAP PO SCH ×2 (08:20→20:43)
[2019-09-21] MEDS: AMOX/K CLAV 500 MG TAB PO SCH ×2 (08:20→20:44)
[2019-09-21] MEDS: VITAMIN D 5,000 UNIT CAP PO SCH (08:20)
[2019-09-21] MEDS: HYDRALAZINE HCL 25 MG TABLET PO SCH ×3 (08:21→20:45)
[2019-09-21] MEDS: carvediloL 25 MG TAB PO SCH ×2 (08:21→20:44)
[2019-09-21] MEDS: DOXAZOSIN 2 MG TAB PO SCH ×2 (08:22→20:44)
[2019-09-21] MEDS: PANTOPRAZOLE 40MG TABLET PO SCH (08:22)
[2019-09-21] MEDS: NEPRO SHAKE 237 ML CAN PO SCH ×3 (08:23→20:47)
[2019-09-21] MEDS: AMLODIPINE 10 MG TAB PO SCH (08:25)
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
[2019-09-21] MEDS: ramipriL 5 MG CAP PO SCH (20:43)
[2019-09-21] MEDS: MIRTAZAPINE 15 MG TAB PO SCH (20:44)
[2019-09-22 06:17] LABS: Potassium 5.1 mmol/L (3.5-5.1)
[2019-09-22] MEDS: INSULIN -REGULAR HUMAN 50 UNIT/0.5 ML ML SQ SCH ×4 (07:30→20:33)
[2019-09-22] MEDS: NEPRO SHAKE 237 ML CAN PO SCH ×3 (09:00→20:33)
[2019-09-22] MEDS: PANTOPRAZOLE 40MG TABLET PO SCH (09:14)
[2019-09-22] MEDS: AMOX/K CLAV 500 MG TAB PO SCH ×2 (09:15→20:32)
[2019-09-22] MEDS: HYDRALAZINE HCL 25 MG TABLET PO SCH ×3 (09:15→20:33)
[2019-09-22] MEDS: VITAMIN D 5,000 UNIT CAP PO SCH (09:15)
[2019-09-22] MEDS: DOXYCYCLINE 100 MG CAP PO SCH ×2 (09:15→20:32)
[2019-09-22] MEDS: DOXAZOSIN 2 MG TAB PO SCH ×2 (09:15→20:32)
[2019-09-22] MEDS: CALCITROL 0.25 MCG CAP PO SCH (09:15)
[2019-09-22] MEDS: carvediloL 25 MG TAB PO SCH ×2 (09:16→20:32)
[2019-09-22] MEDS: AMLODIPINE 10 MG TAB PO SCH (09:16)
--- NOTE | 2019-09-22 12:16 | PN ---
Subjective: Patient lying in bed. No new acute event. Chart reviewed. Denies any headache, nausea , vomiting, chest pain, abdominal pain, constipation, or diarrhea. Objective: Vital Signs: Temperature 98, pulse 72, respirations 16, blood pressure 143/74. Lungs: Basal crackles. Heart: S1, S2. Regular. Abdomen: Soft, nontender. Bowel sounds present. Extremities: No edema. Laboratory Data: No new labs available today. Assessment And Plan: Mr. Brown is doing well. No new acute event. Currently on Augmentin for his healthcare-associated pneumonia. End-stage renal disease. Diabetes mellitus. Continue antibiotic and supportive care. We will follow patient as needed. Awaiting placement. NF/MODL Voice ID: [id number] Report ID: [id number]
--- NOTE | 2019-09-22 16:43 | PN ---
Date of Progress Note: 09/22/2019 Subjective: Patient seen and examined. Chart reviewed and case discussed with carlos Plummer stating that they have written a promissory e for the nursing facility. We will continue to work with Case Management. Patient is doing well with ambulating the hallways today. Scheduled for dialy sis on Thursday, , Thursday basis. Medications List: Reviewed. Physical Examination: Vital Signs: Temperature 97.7, heart rate 65, blood pressure 152/70, respirations 20, O2 96% on room air. General: Awake, alert, oriented x3. No acute distress. CV: S1, S2. No murmurs. Regular rate and rhythm. Peripheral pulses present. Respiratory: Moving air well bilaterally. No wheezing. Gastrointestinal: Abdomen is soft, nontender, nondistended. Positive bowel sounds. Extremities: No clubbing, cyanosis, or edema. Neurologic: Nonfocal. Laboratory Data: Sodium 144, potassium 5.1, chloride 112, CO2 of 23, BUN 74, creatinine 6.05, glucos e 104, calcium 8.3. Assessment And Plan: A 59-year-old male with: 1.Hospital-acquired pneumonia. We will continue with Augmentin and doxycycline. Patient will need repeat imaging. He did have abscess on CT scan. We will need to be treated for a total of 2 weeks, clinically improved. 2.End-stage renal disease, on hemodialysis. Continue with dialysis as scheduled. Nephrology on . 3.Essential hypertension, stable. 4.Diabetes mellitus type 2 with end-stage renal disease, stable. We will continue with Accu-Cheks a nd sliding scale insulin. 5.Chronic diastolic heart failure, stable. Continue fluid restriction and monitor fluid balance. 6.History of vasculitis, affecting the kidneys, stable. 7.Anemia of chronic disease. Continue with Neupogen with dialysis. Monitor H and H. 8.Deep venous thrombosis prophylaxis, SCDs. Continue ambulation. 9.Plan, still pending transfer to assisted via private pay. Discussed with Case Management. /ARLENE Voice ID: [id number] Report ID: [id number]
[2019-09-22] MEDS: EPOETIN ALFA 10,000 UNIT/ML VIAL IV SCH (17:22)
--- NOTE | 2019-09-22 18:22 | PN ---
Date of Progress Note: 09/22/2019 Subjective: Patient was seen and examined at bedside. He is doing much better. Denies any complain ts at this time. He states that his breathing is doing okay. No overnight events were noted. Objective: Vital Signs: Have been reviewed and are stable. General: He appears in no acute distress. HEENT: Atraumatic head. Lungs: Clear to auscultation. Diminished breath sounds at bases. Abdomen: Soft and nontender. Extremities: Without any evidence of edema. He has a right-sided tunneled dialysis catheter in plac e. Laboratory Data: Has been reviewed, consistent with ESRD and CBC showing improved WBC count. Hemogl obin, hematocrit and platelet count are also stable. Current Medications: Have been reviewed in detail. He is on albumin as needed through dialysis, aml odipine 10 mg a day, Augmentin 250 mg b.i.d., calcitriol, carvedilol, doxazosin, doxycycline 100 mg b .i.d., Retacrit with dialysis every HD, Remeron, Nepro shake, pantoprazole, ramipril, and Zofran as n eeded. Impression: 1.End-stage renal disease, on dialysis. 2.Pneumonia with abscess. Patient remains on antibiotics at this time. 3.Vasculitis with renal involvement and leukopenia, which is improving. 4.Diastolic heart failure, stable. 5.Anemia secondary to chronic kidney disease. Plan: Patient is overall doing okay at this time. Blood pressure is stable. Patient is getting carie lysis on Thursday, , Thursday schedule. He is able to tolerate dialysis well at this time. Continue all other medications and blood pressure seems to be stable as well. We will follow up maryellen cruz. LINK/ARLENE Voice ID: [id number] Report ID: [id number]
--- NOTE | 2019-09-22 20:07 | PN ---
Subjective: Patient lying in bed. No new acute event. Chart reviewed. Objective: Vital Signs: Temperature 98, pulse 63, respirations 18, blood pressure 119/66. Lungs: Basal crackles. Heart: S1, S2. Regular. Abdomen: Soft, nontender. Bowel sounds present. Extremity: No edema. Laboratory Data: No new labs available at this time. Assessment And Plan: Pneumonia, improving. End stage renal disease, continue Augmentin. Continue s upportive care. Continue respiratory care. We will follow the patient as needed. NF/MODL Voice ID: [id number] Report ID: [id number]
[2019-09-22] MEDS: ramipriL 5 MG CAP PO SCH (20:32)
[2019-09-22] MEDS: MIRTAZAPINE 15 MG TAB PO SCH (20:32)
[2019-09-23] MEDS: INSULIN -REGULAR HUMAN 50 UNIT/0.5 ML ML SQ SCH ×4 (07:30→21:00)
[2019-09-23] MEDS: VITAMIN D 5,000 UNIT CAP PO SCH (08:57)
[2019-09-23] MEDS: PANTOPRAZOLE 40MG TABLET PO SCH (08:57)
[2019-09-23] MEDS: CALCITROL 0.25 MCG CAP PO SCH (08:57)
[2019-09-23] MEDS: DOXAZOSIN 2 MG TAB PO SCH ×2 (08:57→21:05)
[2019-09-23] MEDS: DOXYCYCLINE 100 MG CAP PO SCH ×2 (08:57→21:05)
[2019-09-23] MEDS: AMLODIPINE 10 MG TAB PO SCH (08:58)
[2019-09-23] MEDS: AMOX/K CLAV 500 MG TAB PO SCH ×2 (08:58→21:05)
[2019-09-23] MEDS: carvediloL 25 MG TAB PO SCH ×2 (08:58→21:05)
[2019-09-23] MEDS: NEPRO SHAKE 237 ML CAN PO SCH ×3 (08:59→21:00)
[2019-09-23] MEDS: HYDRALAZINE HCL 25 MG TABLET PO SCH ×3 (08:59→21:06)
--- NOTE | 2019-09-23 13:10 | PN ---
Date of Progress Note: 09/23/2019 History Of Present Illness: Patient seen and examined. Chart reviewed and case discussed with RN. No acute events overnight. Doing well with physical therapy. Medications: List reviewed. Physical Examination: Vital Signs: Temperature 98.2, heart rate 65, blood pressure 130/62, respirations 17, O2 sat 97% on room air. General: Awake, alert, oriented x3, not in any acute distress. CV: S1, S2. Regular rate and rhythm. Respiratory: Moving air well bilaterally. No wheezing or stridor. Gastrointestinal: Abdomen is soft, nontender, nondistended. Positive bowel sounds. Extremities: No clubbing, cyanosis, or edema. Neurologic: Nonfocal. Laboratory Data: Blood glucose levels 85. Assessment And Plan: A 59-year-old male with: 1.Hospital-acquired pneumonia. Continue with Augmentin and doxycycline for a total of [address] scan in 1 month to ensure resolution of abscess. Follow up with Pulmonology as outpatient. 2.End-stage renal disease, on hemodialysis Thursday, , Thursday. Appreciate Nephrology input . 3.Essential hypertension, stable. 4.Diabetes mellitus type 2 with end-stage renal disease, stable. Continue monitoring Accu-Cheks and continue with sliding scale insulin. 5.Chronic diastolic heart failure, stable. Continue with monitoring I's and O's and fluid restricti on. 6.History vasculitis affecting the kidneys, stable. 7.Anemia of chronic disease. Monitor H and H. Patient is on Neupogen with dialysis. 8.Deep venous thrombosis prophylaxis. Continue ambulation. 9.Plan, the patient is still unsafe to be discharged. Awaiting placement to nursing facility via private pay. Discussed with social Work and Case Management. SA/MODL Voice ID: [id number] Report ID: [id number]
--- NOTE | 2019-09-23 20:34 | PN ---
Date of Progress Note: 09/23/2019 Subjective: Patient seen and examined at bedside. Denies any new complaints. No overnight events w ere noted. Physical Examination: Vital Signs: Have been reviewed and are stable. General: He appears in no acute distress. Lungs: Clear to auscultation. Abdomen: Soft and nontender. Extremities: Without any evidence of edema. Laboratory Data: Has been reviewed in detail. Current Medications: Have been reviewed as well. Impression: 1.End-stage renal disease, on dialysis. 2.Lung abscess, receiving antibiotics. 3.History of ANCA vasculitis, stable. 4.Type 2 diabetes. 5.Chronic diastolic heart failure, compensated. Plan: Patient is overall doing okay. We will plan for dialysis tomorrow per his regular schedule. Continue to monitor closely. Monitor labs intermittently and we will follow up on the patient closel yJeannie MAZA/MODL Voice ID: [id number] Report ID: [id number]
[2019-09-23] MEDS: ramipriL 5 MG CAP PO SCH (21:04)
[2019-09-23] MEDS: MIRTAZAPINE 15 MG TAB PO SCH (21:06)
[2019-09-24 06:36] LABS: Absolute Lymphocytes (CBC) 2.7 K/uL (0.7-4.9); Basophils % 0.5 % (0-1.3); Hematocrit 27.6 % (39.6-49.0); Lymphocytes % 24.1 % (15.3-44.8); MPV 9.8 fL (7.6-11.3); RBC Red Blood Cell Count 2.89 M/uL (4.33-5.43)
[2019-09-24] MEDS: INSULIN -REGULAR HUMAN 50 UNIT/0.5 ML ML SQ SCH ×4 (07:30→21:00)
[2019-09-24] MEDS: carvediloL 25 MG TAB PO SCH ×2 (09:00→21:57)
[2019-09-24] MEDS: HYDRALAZINE HCL 25 MG TABLET PO SCH ×3 (09:00→21:56)
[2019-09-24] MEDS: DOXAZOSIN 2 MG TAB PO SCH ×2 (09:00→21:58)
[2019-09-24] MEDS: AMLODIPINE 10 MG TAB PO SCH (09:00)
[2019-09-24 09:06] LABS: Blood Morphology Comment NOT SEEN (NOT SEEN); Platelet Estimate ADEQ
[2019-09-24] MEDS: AMOX/K CLAV 500 MG TAB PO SCH ×2 (09:44→21:56)
[2019-09-24] MEDS: DOXYCYCLINE 100 MG CAP PO SCH ×2 (09:44→21:56)
[2019-09-24] MEDS: VITAMIN D 5,000 UNIT CAP PO SCH (09:44)
[2019-09-24] MEDS: CALCITROL 0.25 MCG CAP PO SCH (09:44)
[2019-09-24] MEDS: NEPRO SHAKE 237 ML CAN PO SCH ×3 (09:44→21:58)
[2019-09-24] MEDS: PANTOPRAZOLE 40MG TABLET PO SCH (09:44)
[2019-09-24] MEDS: EPOETIN ALFA 10,000 UNIT/ML VIAL IV SCH (10:26)
--- NOTE | 2019-09-24 18:24 | PN ---
Subjective: Currently, patient is sitting in the chair. He is doing well. He has no chest pain. N o abdominal pain. No fever, no chills. He is receiving dialysis. Objective: Vital Signs: Blood pressure 131/60, respiratory rate 18, pulse 59, temperature 98.4. General: Patient is alert and oriented x3. Does not look in any distress. HEENT: Atraumatic, normocephalic. PERRLA. Oral mucosa is moist. Neck: Supple. No JVD. No carotid bruits. Chest: Clear to auscultation. Good air entry. Heart: Regular rate and rhythm. S1, S2 normal. No gallop or murmur. Abdomen: Soft, nontender. No masses. No hepatosplenomegaly. Positive bowel sounds. Extremities: No clubbing, cyanosis, or edema. No calf tenderness. Neurologic: Grossly intact. Cranial nerves exam 2 through 12 intact. Normal sensation. Normal ref lexes. Normal muscle strength. Laboratory Data: Today, there is CBC with hemoglobin of 9.2, white blood cells 11.2, platelets 349. There is no chemistry done. Glucose in the range of 82-138. Assessment And Plan: 1.Hospital-acquired pneumonia. Patient is on antibiotic with doxycycline, Augmentin for total of 2 weeks. He should have scan 1 month after completing his antibiotic course to make sure resolution of the abscess. He needs to follow up with Pulmonary as outpatient. 2.End-stage renal disease; on hemodialysis Thursday, , Thursday. He is receiving hemodialysi s now. Appreciate Nephrology followup. 3.Hypertension, well controlled. 4.Diabetes mellitus, type 2 with end-stage renal disease. Continue monitoring Accu-Chek. Continue insulin sliding scale. 5.Chronic diastolic heart failure, stable. Continue monitoring I and O and fluid restriction as bef ore. 6.History of vasculitis of the kidney, stable. Nephrology is following. 7.Anemia of chronic disease secondary to renal insufficiency as well. Follow H and H. The patient is receiving Epogen with every dialysis. 8.Insomnia. Continue Remeron as needed at bedtime. 9.Gastrointestinal prophylaxis, on Protonix. 10.Hypertension, well controlled on ramipril, Norvasc, Coreg. 11.Deep vein thrombosis prophylaxis. Patient is ambulatory. 12.Discharge plan depends on replacement and the patient need nursing facility via private pay and t his has been challenging, so high risk case manager working on that. JOSE ENRIQUE/ARLENE Voice ID: [id number] Report ID: [id number]
[2019-09-24] MEDS: ramipriL 5 MG CAP PO SCH (21:57)
[2019-09-24] MEDS: MIRTAZAPINE 15 MG TAB PO SCH (21:58)
[2019-09-25 05:46] LABS: Absolute Lymphocytes (CBC) 2.6 K/uL (0.7-4.9); Basophils % 1.1 % (0-1.3); Hematocrit 29.7 % (39.6-49.0); Lymphocytes % 20.4 % (15.3-44.8); MPV 9.6 fL (7.6-11.3); RBC Red Blood Cell Count 3.13 M/uL (4.33-5.43)
[2019-09-25 06:04] LABS: Albumin 2.4 g/dL (3.4-5.0); Bilirubin Total 0.3 mg/dL (0.2-1.0); Potassium 4.3 mmol/L (3.5-5.1); Protein, Total 5.9 g/dL (6.4-8.2)
[2019-09-25] MEDS: INSULIN -REGULAR HUMAN 50 UNIT/0.5 ML ML SQ SCH ×4 (07:30→20:30)
[2019-09-25] MEDS: AMOX/K CLAV 500 MG TAB PO SCH ×2 (08:42→20:36)
[2019-09-25] MEDS: PANTOPRAZOLE 40MG TABLET PO SCH (08:43)
[2019-09-25] MEDS: AMLODIPINE 10 MG TAB PO SCH (08:43)
[2019-09-25] MEDS: DOXYCYCLINE 100 MG CAP PO SCH ×2 (08:43→20:31)
[2019-09-25] MEDS: CALCITROL 0.25 MCG CAP PO SCH (08:43)
[2019-09-25] MEDS: carvediloL 25 MG TAB PO SCH ×2 (08:43→20:32)
[2019-09-25] MEDS: NEPRO SHAKE 237 ML CAN PO SCH ×3 (08:43→20:33)
[2019-09-25] MEDS: HYDRALAZINE HCL 25 MG TABLET PO SCH ×3 (08:43→20:32)
[2019-09-25] MEDS: VITAMIN D 5,000 UNIT CAP PO SCH (08:43)
[2019-09-25] MEDS: DOXAZOSIN 2 MG TAB PO SCH ×2 (08:43→20:31)
--- NOTE | 2019-09-25 17:19 | PN ---
Subjective: Patient lying in bed. No new acute event. Chart reviewed. Objective: Vital Signs: Temperature 98.3, pulse 75, respirations 18, blood pressure 118/66. Lungs: Basal crackles. Heart: S1, S2. Regular. Abdomen: Soft, nontender. Bowel sounds present. Extremities: No edema. Laboratory Data: Shows WBC 12.9, hemoglobin 9.7, platelets are 364. Chemistry shows sodium 142, pot assium 4.3, chloride 111, bicarb 24, BUN 45, creatinine 4.41, glucose is 115. Assessment And Plan: Pneumonia, leukocytosis, end-stage renal disease. Repeat chest x-ray. Continu e Augmentin. We will follow the patient as needed. NF/MODL Voice ID: [id number] Report ID: [id number]
[2019-09-25] MEDS: MIRTAZAPINE 15 MG TAB PO SCH (20:32)
[2019-09-25] MEDS: ramipriL 5 MG CAP PO SCH (20:32)
[2019-09-26] MEDS: INSULIN -REGULAR HUMAN 50 UNIT/0.5 ML ML SQ SCH ×4 (07:30→21:00)
[2019-09-26] MEDS: DOXYCYCLINE 100 MG CAP PO SCH ×2 (08:59→20:46)
[2019-09-26] MEDS: AMOX/K CLAV 500 MG TAB PO SCH ×2 (08:59→20:46)
[2019-09-26] MEDS: CALCITROL 0.25 MCG CAP PO SCH (08:59)
[2019-09-26] MEDS: VITAMIN D 5,000 UNIT CAP PO SCH (08:59)
[2019-09-26] MEDS: HYDRALAZINE HCL 25 MG TABLET PO SCH ×3 (09:00→20:48)
[2019-09-26] MEDS: PANTOPRAZOLE 40MG TABLET PO SCH (09:00)
[2019-09-26] MEDS: carvediloL 25 MG TAB PO SCH ×2 (09:00→20:48)
[2019-09-26] MEDS: DOXAZOSIN 2 MG TAB PO SCH ×2 (09:00→20:47)
[2019-09-26] MEDS: NEPRO SHAKE 237 ML CAN PO SCH ×3 (09:01→20:54)
--- NOTE | 2019-09-26 09:41 | PN ---
Subjective: Patient currently lying in bed, looks comfortable. He has no issues overnight. No ches t pain. No abdominal pain. No fever, no chills. He looks comfortable. Case discussed with the mk matthews. Objective: Vital Signs: Blood pressure , respiratory rate 18, pulse 64, temperature 97.7. General: Patient is alert and oriented x3. Does not look in any distress. HEENT: Atraumatic, normocephalic. PERRLA. Oral mucosa moist. Neck: Supple. No JVD. No bruits. Chest: Clear to auscultation. Good air entry. Heart: Regular rate and rhythm. S1 and S2 are normal. No gallop or murmur. Abdomen: Soft, nontender. No masses. No hepatosplenomegaly. Positive bowel sounds. Extremities: No clubbing, cyanosis, or edema. No calf tenderness. Neuro: Cranial nerve exam 2 through 12 intact. Normal sensation. Normal reflexes. Normal muscle s trength. Laboratory Data: Today, CBC showed white blood cells 4.5, hemoglobin 9.7, platelets 364. Chemistry within normal limits, except for chloride of 111, BUN of 45, creatinine 4.15, GFR of 15, glucose 115, with a range of , calcium 7.9, albumin 2.4. Assessment/plan: 1.Hospital-acquired pneumonia. Patient still on antibiotic with doxycycline and Augmentin. He will need a total of [address] Clark's recommendation. The patient was started on September 14, so he will need probably to continue antibiotic through September 28. We will also ne ed CT scan after completing his antibiotic to ensure his abscess resolved. 2.End-stage renal disease, on hemodialysis Thursday, , Thursday. yesterday. He w ould do again following. Appreciate recommendation. 3.Hypertension, well controlled today. 4.Diabetes mellitus type 2. Continue insulin sliding scale. 5.Chronic diastolic heart failure, stable. Monitor in and out, and continue fluid restriction as we ll as dialysis as before. 6.History of vasculitis, contracted knee, stable following. 7.Anemia of chronic disease as well as renal insufficiency. No transfusion needed. H and H are ___ . 8.Insomnia. We will control on Remeron p.r.n. 9.Gastrointestinal prophylaxis with Protonix. 10.Hypertension well controlled today on Norvasc, Coreg, and ramipril. 11.Deep vein thrombosis prophylaxis. No need as patient is ambulatory. 12.Discharge plan will depend on the social work, and case management agreed to place patient in a [facility] facility still somewhat challenging. JOSE ENRIQUE/ARLENE Voice ID: [id number] Report ID: [id number]
[2019-09-26] MEDS: AMLODIPINE 10 MG TAB PO SCH (10:20)
--- NOTE | 2019-09-26 16:37 | PN ---
Date of Progress Note: 09/26/2019 Subjective: Patient was seen and examined. Chart reviewed and case discussed with RN and Case Manag ement. Medications: List reviewed. Physical Examination: Vital Signs: Temperature 97.6, heart rate 71, blood pressure 121/59, respirations 18, O2 99% on room air. General: Awake, alert, oriented x3. Does not appear to be in any acute distress. CV: S1, S2. Regular rate and rhythm. Peripheral pulses present. Respiratory: Moving air well bilaterally. No wheezing or stridor. Gastrointestinal: Abdomen is soft, nontender, nondistended. Positive bowel sounds. No guarding or rigidity. Extremities: No clubbing, cyanosis, edema. Neurologic: Nonfocal. Laboratory Data: Blood glucose levels between 98 and 81. Assessment: 1.Hospital-acquired pneumonia with abscess on imaging study. Continue with Augmentin and doxycyclin e for 2 weeks total. Patient has seen Pulmonology. Repeat chest x-ray in a.m. Antibiotics were sta rted on September 14, will continue through September 28. 2.End-stage renal disease, on hemodialysis Thursday, , Thursday. Continue dialysis as recomm ended. Appreciate Nephrology input. 3.Essential hypertension. Well controlled. 4.Diabetes mellitus type 2, non-insulin requiring. Continue with sliding scale insulin. Monitor bl ood glucose levels. 5.Chronic diastolic heart failure, stable. Continue fluid restriction. 6.History of vasculitis affecting the kidneys, stable. 7.Anemia of chronic disease. We will continue to monitor H and H, transfuse as needed. 8.Insomnia. Patient was placed on Remeron p.r.n. 9.Essential hypertension, stable. Continue Norvasc, Coreg and ramipril. 10.Deep vein thrombosis prophylaxis. Continue early persistent ambulation. No chemical anticoagula tion necessary. 11.Gastrointestinal prophylaxis. Protonix. Plan: Patient's Medicaid will initiate on September 28. forestry workers to call family meeting to disc uss further options for the patient. We will need to discuss discharge planning issues with michael toussaint. Patient's dialysis was set up in [place]. Due to his limited insurance policy, we will n eed to discuss further with insurance company and possible appeal, and peer to peer to have his dialy sis moved closer or once patient switches to medicate to switch to a facility closer to avoid transpo rtation issues. At this point it is unsafe to discharge, has no place to live, unable to discharge t o [facility] due to his transfer issues for dialysis. /ARLENE Voice ID: [id number] Report ID: [id number]
[2019-09-26] MEDS: MIRTAZAPINE 15 MG TAB PO SCH (20:47)
[2019-09-26] MEDS: ramipriL 5 MG CAP PO SCH (20:48)
--- NOTE | 2019-09-27 05:00 | PN ---
Date of Progress Note: 09/26/2019 Subjective: Patient is seen at the bedside. No overnight events reported. The patient feels well. He denies any fevers, chills, chest pain, shortness of breath, nausea, vomiting, or diarrhea. Objective: Vital Signs: Blood pressure 121/59, pulse 71, temperature 97.6. General: No acute distress. Heart: Regular rate and rhythm. No murmurs, rubs, gallops. Lungs: Clear to auscultation bilaterally. Abdomen: Soft, nontender, nondistended. Positive bowel sounds x4. Extremities: No significant edema. Laboratory Data: Chemistry from 29 was reviewed, potassium is 4.3, BUN and creatinine were 45 and 4. 15. Current medications were reviewed. Impression: 1.End-stage renal disease, on hemodialysis. 2.Hospital-acquired pneumonia. 3.Hypertension. 4.Diabetes mellitus type 2. 5.Chronic diastolic congestive heart failure. Plan: Patient will continue on Thursday, scheduled dialysis. Continue current antihypertens andrew regimen. Continue the patient on a renal diet. We will continue to follow. /ARLENE Voice ID: [id number] Report ID: [id number]
[2019-09-27] MEDS: INSULIN -REGULAR HUMAN 50 UNIT/0.5 ML ML SQ SCH ×4 (07:30→20:43)
[2019-09-27] MEDS: PANTOPRAZOLE 40MG TABLET PO SCH (08:06)
[2019-09-27] MEDS: AMOX/K CLAV 500 MG TAB PO SCH ×2 (08:06→20:41)
[2019-09-27] MEDS: DOXAZOSIN 2 MG TAB PO SCH ×2 (08:06→20:42)
[2019-09-27] MEDS: VITAMIN D 5,000 UNIT CAP PO SCH (08:07)
[2019-09-27] MEDS: DOXYCYCLINE 100 MG CAP PO SCH ×2 (08:07→20:42)
[2019-09-27] MEDS: carvediloL 25 MG TAB PO SCH ×2 (08:07→20:42)
[2019-09-27] MEDS: AMLODIPINE 10 MG TAB PO SCH (08:07)
[2019-09-27] MEDS: CALCITROL 0.25 MCG CAP PO SCH (08:08)
[2019-09-27] MEDS: HYDRALAZINE HCL 25 MG TABLET PO SCH ×3 (08:08→20:42)
[2019-09-27] MEDS: NEPRO SHAKE 237 ML CAN PO SCH ×3 (08:08→20:43)
--- NOTE | 2019-09-27 12:29 | P.PN ---
Subjective Date of Service: 09/27/19 Primary Care Provider: Dr. Rashid; Nephrology-Dr. Mendoza Chief Complaint: Possible abscess Subjective: Doing well Physical Examination - Vital Signs Temperature: 98.9 F Blood Pressure: 145/64 Pulse: 74 Respirations: 18 Pulse Ox (%): 96 - Physical Exam General: Alert, In no apparent distress, Oriented x3, Cooperative HEENT: Atraumatic Neck: Supple Respiratory: Clear to auscultation bilaterally Cardiovascular: Normal pulses, Regular rate/rhythm Neurological: Normal speech, Normal strength at 5/5 x4 extr, Normal tone - Studies Medications List Reviewed: Yes Assessment & Plan Discharge Plan: Home Plan to discharge in: Greater than 2 days Physician Review Additional Text: Impression: Healthcare associated right lower lobe pneumonia with right elevated hemidiaphragm Diabetes mellitus type 2 End-stage renal disease on hemodialysis Hypertension Anemia of chronic disease Chronic diastolic CHF 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 Continue Augmentin and doxycycline for total of 2 weeks. Antibiotic in date will be September 28. Diabetes mellitus type 2: Continue monitor Accu-Cheks and provide sliding scale. End-stage renal disease on hemodialysis: Continue with dialysis. Will discuss with nephrology. Hypertension: Continue with medication. Anemia of chronic disease: Overall stable, will continue to monitor closely. Chronic diastolic CHF: Continue with diuresis and hemodialysis. 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 Disposition: Had family meeting with medical power of workers compensation attorney along with charge nurse and social work. Patient to have Medicare insurance on September 28. After multiple options address about disposition, family desires patient to be sent to a nursing home. Social work to help arrange for nursing home and dialysis closer to the area with transportation. Family does not want to continued to take care of the patient. senior living will continue his care and [place]. Will continue to follow along with social work. Time Spent Managing Pts Care (In Minutes): 55
[2019-09-27 13:00] LABS: Absolute Lymphocytes (CBC) 2.1 K/uL (0.7-4.9); Basophils % 0.8 % (0-1.3); Hematocrit 31.9 % (39.6-49.0); Lymphocytes % 16.6 % (15.3-44.8); MPV 8.9 fL (7.6-11.3); RBC Red Blood Cell Count 3.43 M/uL (4.33-5.43)
[2019-09-27 13:16] LABS: Potassium 5.1 mmol/L (3.5-5.1)
[2019-09-27] MEDS: EPOETIN ALFA 10,000 UNIT/ML VIAL IV SCH (16:57)
--- NOTE | 2019-09-27 17:12 | PN ---
Subjective: Patient is lying in bed. No new acute event. Chart reviewed. Denies any headache, brenda sea, vomiting, chest pain, abdominal pain, constipation, or diarrhea. Objective: Vital Signs: Temperature 98, pulse 74, respirations 16, blood pressure 124/64. Lungs: Basal crackles. Heart: S1, S2. Regular. Abdomen: Soft, nontender. Bowel sounds present. Extremities: No edema. Laboratory Data: WBC 12.9, hemoglobin 9.7, platelets are 364. Chemistry shows sodium 142, potassium 4.3, chloride 111, bicarb 24, BUN 45, creatinine 4.15, glucose 115. Assessment And Plan: Pneumonia with leukocytosis. Patient is currently being treated with Augmentin . End-stage renal disease. We will repeat CBC and BMP to monitor for an increase in WBC count. We will follow the patient closely. NF/MODL Voice ID: [id number] Report ID: [id number]
[2019-09-27] MEDS: ramipriL 5 MG CAP PO SCH (20:42)
[2019-09-27] MEDS: MIRTAZAPINE 15 MG TAB PO SCH (20:43)
[2019-09-28] MEDS: INSULIN -REGULAR HUMAN 50 UNIT/0.5 ML ML SQ SCH ×4 (07:30→21:00)
[2019-09-28] MEDS: CALCITROL 0.25 MCG CAP PO SCH (08:13)
[2019-09-28] MEDS: DOXYCYCLINE 100 MG CAP PO SCH (08:13)
[2019-09-28] MEDS: VITAMIN D 5,000 UNIT CAP PO SCH (08:13)
[2019-09-28] MEDS: HYDRALAZINE HCL 25 MG TABLET PO SCH ×3 (08:13→21:44)
[2019-09-28] MEDS: DOXAZOSIN 2 MG TAB PO SCH ×2 (08:14→21:44)
[2019-09-28] MEDS: AMLODIPINE 10 MG TAB PO SCH (08:14)
[2019-09-28] MEDS: carvediloL 25 MG TAB PO SCH ×2 (08:14→21:44)
[2019-09-28] MEDS: PANTOPRAZOLE 40MG TABLET PO SCH (08:14)
[2019-09-28] MEDS: NEPRO SHAKE 237 ML CAN PO SCH ×3 (08:15→21:00)
[2019-09-28] MEDS: AMOX/K CLAV 500 MG TAB PO SCH (08:15)
--- NOTE | 2019-09-28 13:22 | P.PN ---
Subjective Date of Service: 09/28/19 Primary Care Provider: Dr. Rashid; Nephrology-Dr. Mendoza Chief Complaint: Possible abscess Subjective: Improving, Doing well Physical Examination - Vital Signs Temperature: 98.1 F Blood Pressure: 131/61 Pulse: 65 Respirations: 20 Pulse Ox (%): 98 - Physical Exam General: Alert, In no apparent distress HEENT: Atraumatic Neck: Supple Respiratory: Clear to auscultation bilaterally, Normal air movement Cardiovascular: Normal pulses, Regular rate/rhythm Gastrointestinal: Normal bowel sounds, Soft and benign, Non-distended - Studies Medications List Reviewed: Yes Assessment & Plan Discharge Plan: Home Plan to discharge in: Greater than 2 days Physician Review Additional Text: Impression: Healthcare associated right lower lobe pneumonia with right elevated hemidiaphragm Diabetes mellitus type 2 End-stage renal disease on hemodialysis Hypertension Anemia of chronic disease Chronic diastolic CHF 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 Patient has completed course of 2 weeks of antibiotics. Diabetes mellitus type 2: Continue monitor Accu-Cheks and provide sliding scale. End-stage renal disease on hemodialysis: Continue with dialysis. Will discuss with nephrology. Hypertension: Continue with medication. Anemia of chronic disease: Overall stable, will continue to monitor closely. Chronic diastolic CHF: Continue with diuresis and hemodialysis. 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 Disposition: Had family meeting with medical power of hide stretcher hand along with charge nurse and social work yesterday. After much discussion, family does not want a continue to take care with the patient. Therefore will proceed with halfway placement. Social work to help in this process. Patient will require transportation from halfway to dialysis. Anticipate approval over the next several days. Time Spent Managing Pts Care (In Minutes): 55
[2019-09-28] MEDS: ramipriL 5 MG CAP PO SCH (21:43)
[2019-09-28] MEDS: MIRTAZAPINE 15 MG TAB PO SCH (21:44)
[2019-09-29] MEDS: PANTOPRAZOLE 40MG TABLET PO SCH (07:30)
[2019-09-29] MEDS: INSULIN -REGULAR HUMAN 50 UNIT/0.5 ML ML SQ SCH ×4 (07:30→21:00)
[2019-09-29] MEDS: NEPRO SHAKE 237 ML CAN PO SCH ×3 (09:00→21:00)
[2019-09-29] MEDS: CALCITROL 0.25 MCG CAP PO SCH (09:00)
[2019-09-29] MEDS: VITAMIN D 5,000 UNIT CAP PO SCH (09:00)
[2019-09-29] MEDS: carvediloL 25 MG TAB PO SCH ×2 (09:00→22:10)
[2019-09-29] MEDS: HYDRALAZINE HCL 25 MG TABLET PO SCH ×3 (09:00→22:10)
[2019-09-29] MEDS: DOXAZOSIN 2 MG TAB PO SCH ×2 (09:00→22:10)
[2019-09-29] MEDS: AMLODIPINE 10 MG TAB PO SCH (09:00)
[2019-09-29] MEDS ORDERED: NA CHLORIDE 0.9% 500 ML ONE (12:21)
[2019-09-29] MEDS ORDERED: MIDAZOLAM HCL 2 MG/2 ML INJ ONE (12:55)
[2019-09-29] MEDS ORDERED: LIDOCAINE 1% MPF 5 ML VIAL ONE (12:55)
[2019-09-29] MEDS ORDERED: FENTANYL CITR 100 MCG/2 ML ONE (12:55)
[2019-09-29] MEDS ORDERED: propofoL 200 MG/20 ML VIAL IV ONE (12:55)
[2019-09-29] MEDS ORDERED: HEPARIN 5000 UNIT/ML 1 ML VIAL ONE (13:02)
[2019-09-29] MEDS: LIDOCAINE 1% MPF 30 ML VIAL ONE ×2 (13:02→14:40)
[2019-09-29] MEDS ORDERED: NA CHLORIDE 0.9% 100 ML IV ONE (13:03)
[2019-09-29] MEDS ORDERED: NS 0.9% VIAL 10 ML ONE ×2 (13:03→14:55)
[2019-09-29] MEDS ORDERED: CIPROFLOXACIN 400mg IV 400 MG/200 ML BAG IV ONE (13:19)
--- NOTE | 2019-09-29 13:58 | P.PN ---
Subjective Date of Service: 09/29/19 Primary Care Provider: Dr. Rashid; Nephrology-Dr. Mendoza Chief Complaint: Possible abscess Subjective: Doing well Physical Examination - Vital Signs Temperature: 97.6 F Blood Pressure: 123/64 Pulse: 67 Respirations: 20 Pulse Ox (%): 98 - Physical Exam General: Alert HEENT: Atraumatic Neck: Supple Respiratory: Clear to auscultation bilaterally, Normal air movement Cardiovascular: Normal pulses, Regular rate/rhythm Gastrointestinal: Normal bowel sounds, Soft and benign, Non-distended - Studies Medications List Reviewed: Yes Assessment & Plan Discharge Plan: Other (prison) Plan to discharge in: Greater than 2 days Physician Review Additional Text: Impression: Healthcare associated right lower lobe pneumonia with right elevated hemidiaphragm Diabetes mellitus type 2 End-stage renal disease on hemodialysis Hypertension Anemia of chronic disease Chronic diastolic CHF 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 Patient has completed course of 2 weeks of antibiotics. Awaiting placement to snf. Patient will require transportation from snf to dialysis. Anticipate approval likely early next week Diabetes mellitus type 2: Continue monitor Accu-Cheks and provide sliding scale. End-stage renal disease on hemodialysis: Continue with dialysis. Will discuss with nephrology. Hypertension: Continue with medication. Anemia of chronic disease: Overall stable, will continue to monitor closely. Chronic diastolic CHF: Continue with diuresis and hemodialysis. 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 Disposition: Had family meeting with medical power of privacy attorney along with charge nurse and social work the other day. After much discussion, family does not want a continue to take care with the patient. Therefore will proceed with snf placement. Social work to help in this process. Patient will require transportation from snf to dialysis. Anticipate approval over the next several days. Time Spent Managing Pts Care (In Minutes): 55
[2019-09-29] MEDS ORDERED: KETOROLAC 30 MG/ML INJ ONE (14:23)
[2019-09-29] MEDS ORDERED: ONDANSETRON 4 MG/2 ML VIAL ONE (14:24)
[2019-09-29] MEDS ORDERED: EPHEDRINE SULF 50 MG/ML VIAL ONE (14:29)
--- NOTE | 2019-09-29 14:57 | P.BOP ---
Preoperative diagnosis: ESRD Postoperative diagnosis: same Primary procedure: 1. Placement of new cuffed hemodialysis catheter R internal jugular vein Secondary procedure: 2. Interpretation of fluoroscopy Other procedure(s): 3. Removal of old HD catheter. Estimated blood loss: <5cc Specimen: old intact catheter Findings: as above Anesthesia: General Complications: None Transferred to: Recovery Room Condition: Good
--- NOTE | 2019-09-29 15:48 | RAD REPORT ---
EXAM DESCRIPTION: RADChest Single View09/29/2019 3:33 pm CLINICAL HISTORY: Device placement/central venous catheter placement IMPRESSION: Central venous catheter has been placed into the distal superior vena cava. No pneumothorax
--- NOTE | 2019-09-29 19:32 | OP ---
Date of Procedure: 09/29/2019 Surgeon: Jake Chew MD Integration Lead: None. Preoperative Diagnosis: End-stage renal disease. Postoperative Diagnosis: End-stage renal disease. Procedure: 1.Placement of a cuffed right HemoSplit on the right internal jugular vein. 2.Interpretation of fluoroscopy. 3.Removal of all HemoSplit. Estimated Blood Loss: Less than 10 mL. Indications: This is a 59-year-old patient, who has a HemoSplit that he has for some time so far on the right side. It is not working properly. The hemodialysis staff want them changed. The benefits , alternatives, and risks of removal of a HemoSplit and place of a new 1 fully explained to the patie nt, which include but not limited to infection, bleeding, damage to adjacent structures as complicati on, hemothorax, pneumothorax, pulmonary emboli deep vein thrombosis, MD and even . He also unde rstands this may not relieve the symptoms. He might need more than one surgical intervention. He un derstands the risks of pneumothorax, too he signed a consent. Description Of Procedure: Patient was brought to the operating room, placed in supine position, anes thesia was given without complication. A time-out was called. Neck and chest were prepped and drape d in a sterile fashion. The right neck was prepped and draped in a sterile fashion. A small incisio n was made in the near the right internal jugular vein in previous incision. We identified the veronica ter, obtained proximal and distal control. The catheter removed the old distal HemoSplit. After paola t, I placed a guidewire holding the distal catheter in place with a guidewire guided into superior ve na cava using fluoroscopy. Distal a HemoSplit was carefully removed. At that moment, I created a ne w area on the right upper chest where we can tunnel a new catheter to a different route. The cathete r was seen exiting the right neck incision. The introducer sheath was placed under fluoroscopy, guid ewire was removed. The catheter was placed in. Introducer sheath was peeled off under direct visual ization and fluoroscopy guidance. Excellent backflow and inflow. The HemoSplit was secured in place with heparin. Patient tolerated the procedure well. Patient was sent to recovery in stable conditi on after the area was closed and secured in place with nylon. Sponge count and instrument counts wer e correct. Patient was sent to recovery in stable condition. A chest x-ray was ordered stat. HM/MODL Voice ID: [id number] Report ID: [id number]
[2019-09-29] MEDS: MIRTAZAPINE 15 MG TAB PO SCH (22:10)
[2019-09-29] MEDS: ramipriL 5 MG CAP PO SCH (22:10)
--- NOTE | 2019-09-30 00:05 | OP ---
Date of Procedure: 09/28/2019 Surgeon: Jake Chew MD Time Seen: About 10 o'clock, last night. History Of Present Illness: This is a case of a 59-year-old patient, who came to us with multiple me dical problems, including renal failure, being treated for pneumonia, found the catheter is not worki ng well for dialysis and need it replaced. I was called by the primary service to replace his cathet er today. Allergies: NONE. Medications: Reviewed. Medical Problems: Hypertension, diabetes, acute renal failure. Family History: Heart disease. He does not smoke. He does drink alcohol. Review of Systems: Ten-point system otherwise unremarkable. Physical Examination: General: Patient is awake and alert. HEENT: Pupils are equal and reactive, anicteric. Neck: Supple. Chest: Clear. Right HemoSplit with no cellulitis present. Entry site looks intact. No swelling. Chest: Bilateral breath sounds. Abdomen: Soft and depressible. Extremities: Good capillary refill. No edema. Diagnostic Data: Blood work reviewed including an INR of 0.89. X-ray reviewed. Assessment: 59-year-old patient need a hemodialysis catheter replacement. The benefits, alternative s, and risks of placement of hemodialysis catheter fully explained, which include but are not limited to infection, bleeding, damage to adjacent structures, anesthesia complication, hemothorax, pneumoth orax, pericardiac tamponade, pulmonary emboli, deep vein thrombosis, RI, even . He also underst ands this may not relieve his symptoms. He might need more than one surgical intervention. He under stood, signed a consent. ROMINA/ARLENE Voice ID: [id number] Report ID: [id number]
[2019-09-30] MEDS: INSULIN -REGULAR HUMAN 50 UNIT/0.5 ML ML SQ SCH ×4 (07:30→21:00)
--- NOTE | 2019-09-30 08:51 | RAD REPORT ---
EXAM DESCRIPTION: RAD - Fluoroscopy <1 Hour - 09/30/2019 7:35 am FINDINGS: There were 3 portable C-arm views submitted from a fluoroscopic assisted placement of a ri ght-sided dialysis catheter. No suspicious or unexpected findings. Fluoro time was 0.4 minutes.
[2019-09-30] MEDS: DOXAZOSIN 2 MG TAB PO SCH ×2 (08:53→21:22)
[2019-09-30] MEDS: HYDRALAZINE HCL 25 MG TABLET PO SCH ×3 (08:54→21:22)
[2019-09-30] MEDS: VITAMIN D 5,000 UNIT CAP PO SCH (08:54)
[2019-09-30] MEDS: carvediloL 25 MG TAB PO SCH ×2 (08:55→21:22)
[2019-09-30] MEDS: CALCITROL 0.25 MCG CAP PO SCH (08:55)
[2019-09-30] MEDS: AMLODIPINE 10 MG TAB PO SCH (08:55)
[2019-09-30] MEDS: PANTOPRAZOLE 40MG TABLET PO SCH (08:55)
[2019-09-30] MEDS: NEPRO SHAKE 237 ML CAN PO SCH ×3 (08:57→21:25)
[2019-09-30 12:57] LABS: Absolute Lymphocytes (CBC) 1.9 K/uL (0.7-4.9); Basophils % 0.6 % (0-1.3); Hematocrit 29.9 % (39.6-49.0); Lymphocytes % 13.4 % (15.3-44.8); MPV 9.1 fL (7.6-11.3); RBC Red Blood Cell Count 3.23 M/uL (4.33-5.43)
--- NOTE | 2019-09-30 13:12 | PN ---
Subjective: Patient is lying in bed status post Tesio catheter placement. Patient denies any headac he, nausea, vomiting, chest pain, abdominal pain, constipation, or diarrhea. Objective: Vital Signs: Temperature 98, pulse 69, respirations 18, blood pressure 133/62. Lungs: Clear to auscultation. Heart: S1, S2. Regular. Abdomen: Soft, nontender. Bowel sounds present. Medications: Patient is off antibiotics. Laboratory Data: No new labs for today. Assessment And Plan: Status post pneumonia and leukocytosis. We will repeat CBC to monitor white bl ood cell count. End-stage renal disease. Continue supportive care. We will follow the patient as n eeded. NF/MODL Voice ID: [id number] Report ID: [id number]
[2019-09-30 14:09] LABS: Blood Morphology Comment NOT SEEN (NOT SEEN); Platelet Estimate INCR; Urine White Blood Cell Casts OK
--- NOTE | 2019-09-30 18:24 | P.PN ---
Subjective Date of Service: 09/30/19 Primary Care Provider: Dr. Rashid; Nephrology-Dr. Mendzoa Chief Complaint: Possible abscess Subjective: Improving Physical Examination - Vital Signs Temperature: 98.2 F Blood Pressure: 119/60 Pulse: 69 Respirations: 17 Pulse Ox (%): 97 - Physical Exam General: Alert, In no apparent distress, Oriented x3, Cooperative HEENT: Atraumatic Neck: Supple Respiratory: Clear to auscultation bilaterally Cardiovascular: Normal pulses, Regular rate/rhythm Gastrointestinal: Normal bowel sounds, Soft and benign, Non-distended Neurological: Normal speech, Normal strength at 5/5 x4 extr, Normal tone - Studies Medications List Reviewed: Yes Assessment & Plan Discharge Plan: Home Plan to discharge in: 24 Hours Physician Review Additional Text: Impression: Healthcare associated right lower lobe pneumonia with right elevated hemidiaphragm Diabetes mellitus type 2 End-stage renal disease on hemodialysis Hypertension Anemia of chronic disease Chronic diastolic CHF 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 Patient has completed course of 2 weeks of antibiotics. Awaiting placement to longterm. Patient will require transportation from longterm to dialysis. Anticipate approval likely early next week Diabetes mellitus type 2: Continue monitor Accu-Cheks and provide sliding scale. End-stage renal disease on hemodialysis: Continue with dialysis. Will discuss with nephrology. Hypertension: Continue with medication. Anemia of chronic disease: Overall stable, will continue to monitor closely. Chronic diastolic CHF: Continue with diuresis and hemodialysis. 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 Disposition: Had meeting with health care social worker. Will set up meeting with family again with administrators, social work and nurses. Options for discharge include: Patient be discharged home. Family to arrange for longterm placement. Social work working on dialysis transportation and set up in the area. Time Spent Managing Pts Care (In Minutes): 55
--- NOTE | 2019-09-30 20:08 | PN ---
Date of Progress Note: 09/30/2019 Subjective: Patient is seen and examined at bedside. Denies any complaints. Objective: Vital Signs: Have been reviewed and are stable. General: He appears in no acute distress. Lungs: Clear to auscultation. Abdomen: Soft, nontender. Extremities: Without any evidence of edema. Laboratory Data: Laboratory data showing mild leukocytosis. Hemoglobin, hematocrit, and platelet co unt are otherwise stable. Current Medications: Have been reviewed in detail. Impression: 1.End-stage renal disease, on dialysis. 2.Pneumonia, receiving oral antibiotics. 3.Social issues with placement problems. 4.Hypertension, stable. 5.Anemia secondary to end-stage renal disease. Plan: Patient is overall doing okay at this time. Continue all medications and plan of care. Lizbeth jenkins Thursday, , Thursday dialysis. VV/MODL Voice ID: [id number] Report ID: [id number]
[2019-09-30] MEDS: ramipriL 5 MG CAP PO SCH (21:21)
[2019-09-30] MEDS: MIRTAZAPINE 15 MG TAB PO SCH (21:23)
[2019-10-01 05:32] LABS: HBsAG Nonreactive (Nonreactive)
[2019-10-01] MEDS: INSULIN -REGULAR HUMAN 50 UNIT/0.5 ML ML SQ SCH ×4 (07:30→21:00)
[2019-10-01] MEDS: CALCITROL 0.25 MCG CAP PO SCH (08:46)
[2019-10-01] MEDS: AMLODIPINE 10 MG TAB PO SCH (08:47)
[2019-10-01] MEDS: HYDRALAZINE HCL 25 MG TABLET PO SCH ×3 (08:47→21:22)
[2019-10-01] MEDS: carvediloL 25 MG TAB PO SCH ×2 (08:47→21:22)
[2019-10-01] MEDS: VITAMIN D 5,000 UNIT CAP PO SCH (08:48)
[2019-10-01] MEDS: PANTOPRAZOLE 40MG TABLET PO SCH (08:48)
[2019-10-01] MEDS: DOXAZOSIN 2 MG TAB PO SCH ×2 (08:48→21:22)
[2019-10-01] MEDS: NEPRO SHAKE 237 ML CAN PO SCH ×3 (08:49→21:23)
--- NOTE | 2019-10-01 14:06 | P.PN ---
Subjective Date of Service: 10/01/19 Primary Care Provider: Dr. Rashid; Nephrology-Dr. Mendoza Chief Complaint: Possible abscess Subjective: Doing well Physical Examination - Vital Signs Temperature: 98.4 F Blood Pressure: 125/60 Pulse: 70 Respirations: 18 Pulse Ox (%): 97 - Physical Exam General: Alert, In no apparent distress, Oriented x3, Cooperative HEENT: Atraumatic Neck: Supple Respiratory: Clear to auscultation bilaterally, Normal air movement Cardiovascular: Normal pulses, Regular rate/rhythm - Studies Medications List Reviewed: Yes Assessment & Plan Discharge Plan: Home Plan to discharge in: 48 Hours Physician Review Additional Text: Impression: Healthcare associated right lower lobe pneumonia with right elevated hemidiaphragm Diabetes mellitus type 2 End-stage renal disease on hemodialysis Hypertension Anemia of chronic disease Chronic diastolic CHF 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 Patient has completed course of 2 weeks of antibiotics. Awaiting placement to half-way. Patient will require transportation from half-way to dialysis. Anticipate approval likely early next week Diabetes mellitus type 2: Continue monitor Accu-Cheks and provide sliding scale. End-stage renal disease on hemodialysis: Continue with dialysis. Will discuss with nephrology. Hypertension: Continue with medication. Anemia of chronic disease: Overall stable, will continue to monitor closely. Chronic diastolic CHF: Continue with diuresis and hemodialysis. 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 Disposition: Had meeting with secondary social studies teacher yesterday. Will set up meeting with family again with administrators, social work and nurses. Options for discharge include: Patient to be discharged home. Family to arrange for half-way placement. Social work working on dialysis transportation and set up in the area. Time Spent Managing Pts Care (In Minutes): 55
[2019-10-01 14:24] LABS: Potassium 4.2 mmol/L (3.5-5.1)
[2019-10-01] MEDS: ramipriL 5 MG CAP PO SCH (21:22)
[2019-10-01] MEDS: MIRTAZAPINE 15 MG TAB PO SCH (21:23)
[2019-10-02 05:15] LABS: Potassium 4.3 mmol/L (3.5-5.1)
[2019-10-02] MEDS: INSULIN -REGULAR HUMAN 50 UNIT/0.5 ML ML SQ SCH ×4 (07:30→20:15)
[2019-10-02] MEDS: CALCITROL 0.25 MCG CAP PO SCH (08:29)
[2019-10-02] MEDS: HYDRALAZINE HCL 25 MG TABLET PO SCH ×3 (08:29→20:31)
[2019-10-02] MEDS: carvediloL 25 MG TAB PO SCH ×2 (08:29→20:29)
[2019-10-02] MEDS: PANTOPRAZOLE 40MG TABLET PO SCH (08:29)
[2019-10-02] MEDS: DOXAZOSIN 2 MG TAB PO SCH ×2 (08:30→20:31)
[2019-10-02] MEDS: AMLODIPINE 10 MG TAB PO SCH (08:30)
[2019-10-02] MEDS: VITAMIN D 5,000 UNIT CAP PO SCH (08:31)
[2019-10-02] MEDS: NEPRO SHAKE 237 ML CAN PO SCH ×3 (08:32→20:32)
--- NOTE | 2019-10-02 11:13 | P.PN ---
Subjective Date of Service: 10/02/19 Primary Care Provider: Dr. Rashid; Nephrology-Dr. Mendoza Chief Complaint: Possible abscess Subjective: Doing well (Dialysis catheter was not working properly yesterday.) Physical Examination - Vital Signs Temperature: 98.4 F Blood Pressure: 125/60 Pulse: 71 Respirations: 17 Pulse Ox (%): 97 - Physical Exam General: Alert, In no apparent distress, Oriented x3 HEENT: Atraumatic Neck: Supple Respiratory: Clear to auscultation bilaterally, Normal air movement Cardiovascular: Normal pulses, Regular rate/rhythm Gastrointestinal: Normal bowel sounds, Soft and benign, Non-distended Neurological: Normal speech, Normal strength at 5/5 x4 extr, Normal tone - Studies Medications List Reviewed: Yes Assessment & Plan Discharge Plan: Home Plan to discharge in: 24 Hours Physician Review Additional Text: Impression: Healthcare associated right lower lobe pneumonia with right elevated hemidiaphragm Diabetes mellitus type 2 End-stage renal disease on hemodialysis Hypertension Anemia of chronic disease Chronic diastolic CHF 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 Patient has completed course of 2 weeks of antibiotics. Awaiting placement to detention. Patient will require transportation from detention to dialysis. Dialysis catheter to be reassess tomorrow by surgery. Anticipate approval likely early next week. I will turn the service over to the hospitalist team tomorrow. I will go over the plan of care with him. Diabetes mellitus type 2: Continue monitor Accu-Cheks and provide sliding scale. End-stage renal disease on hemodialysis: Continue with dialysis. Dialysis catheter not working properly. Surgery is to reassess this tomorrow. Hypertension: Continue with medication. Anemia of chronic disease: Overall stable, will continue to monitor closely. Chronic diastolic CHF: Continue with diuresis and hemodialysis. 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 Disposition: Social work working to set up meeting with family with administrators, social work and nurses present. Options for discharge include: Patient to be discharged home. Family to arrange for detention placement. Social work working on dialysis transportation and set up in the area. Time Spent Managing Pts Care (In Minutes): 55
[2019-10-02] MEDS: ramipriL 5 MG CAP PO SCH (20:30)
[2019-10-02] MEDS: MIRTAZAPINE 15 MG TAB PO SCH (20:30)
[2019-10-03] MEDS: INSULIN -REGULAR HUMAN 50 UNIT/0.5 ML ML SQ SCH ×3 (07:30→16:17)
[2019-10-03] MEDS: CALCITROL 0.25 MCG CAP PO SCH (08:24)
[2019-10-03] MEDS: HYDRALAZINE HCL 25 MG TABLET PO SCH ×3 (08:24→20:51)
[2019-10-03] MEDS: VITAMIN D 5,000 UNIT CAP PO SCH (08:25)
[2019-10-03] MEDS: PANTOPRAZOLE 40MG TABLET PO SCH (08:25)
[2019-10-03] MEDS: carvediloL 25 MG TAB PO SCH ×2 (08:25→20:51)
[2019-10-03] MEDS: AMLODIPINE 10 MG TAB PO SCH (08:26)
[2019-10-03] MEDS: DOXAZOSIN 2 MG TAB PO SCH ×2 (08:26→20:51)
[2019-10-03] MEDS: NEPRO SHAKE 237 ML CAN PO SCH ×3 (08:27→20:52)
--- NOTE | 2019-10-03 11:58 | P.PN ---
Subjective Date of Service: 10/03/19 Primary Care Provider: Dr. Rashid; Nephrology-Dr. Mendoza Chief Complaint: Possible abscess Subjective: Doing well Physical Examination - Vital Signs Temperature: 98.4 F Blood Pressure: 130/62 Pulse: 67 Respirations: 20 Pulse Ox (%): 95 - Physical Exam General: Alert, In no apparent distress, Cooperative HEENT: Atraumatic Neck: Supple Respiratory: Clear to auscultation bilaterally, Normal air movement Cardiovascular: Normal pulses, Regular rate/rhythm Gastrointestinal: Normal bowel sounds, Soft and benign, Non-distended - Studies Medications List Reviewed: Yes Assessment & Plan Discharge Plan: Home Plan to discharge in: 24 Hours Physician Review Additional Text: Impression: Healthcare associated right lower lobe pneumonia with right elevated hemidiaphragm Diabetes mellitus type 2 End-stage renal disease on hemodialysis Hypertension Anemia of chronic disease Chronic diastolic CHF 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 Patient has completed antibiotic therapy. Currently waiting to set up placement at half-way. Need to help and support of family. Dialysis catheter to be reassessed today by surgery. Case discussed with nephrology. Set up for dialysis and transportation is currently being addressed. Social work working to get a meeting with family to discuss options for discharge. Only option at this time is to discharge patient with family. Family to arrange for half-way placement. Social work to finalize dialysis and transportation. Diabetes mellitus type 2: Continue monitor Accu-Cheks and provide sliding scale. End-stage renal disease on hemodialysis: Continue with dialysis. Dialysis catheter not working properly. Surgery is to reassess this tomorrow. Hypertension: Continue with medication. Anemia of chronic disease: Overall stable, will continue to monitor closely. Chronic diastolic CHF: Continue with diuresis and hemodialysis. 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 Disposition: Social work working to set up meeting with family with administrators, social work and nurses present. Options for discharge include: Patient to be discharged home. Family to step up and take patient home to arrange for a half-way placement as an outpatient. Transportation to dialysis and dialysis locally currently being arranged. Time Spent Managing Pts Care (In Minutes): 55
--- NOTE | 2019-10-03 19:15 | PN ---
Subjective: Patient is lying in bed. Denies any headache, nausea, vomiting, chest pain, abdominal p ain, constipation, or diarrhea. Objective: Vital Signs: Temperature 98, pulse 67, respirations 16, blood pressure 130/62. Lungs: Clear to auscultation. Heart: S1, S2. Regular. Abdomen: Soft, nontender. Bowel sounds present. Extremities: No edema. Laboratory Data: WBC 14,000 from September 30, hemoglobin 9.9, platelets are 419. Assessment And Plan: Status post pneumonia. Patient continued to have leukocytosis. We will repeat CBC. If white count is elevated, we will repeat blood cultures and repeat chest x-ray also. Follow patient closely. NF/MODL Voice ID: [id number] Report ID: [id number]
[2019-10-03] MEDS: ramipriL 5 MG CAP PO SCH (20:50)
[2019-10-03] MEDS: MIRTAZAPINE 15 MG TAB PO SCH (20:51)
--- NOTE | 2019-10-03 21:33 | P.PN ---
Date of Service: 10/03/19 Vital Signs Temp Pulse Resp BP Pulse Ox 98.3 F 92 H 20 158/70 H 96 10/03/19 16:00 10/03/19 20:51 10/03/19 16:00 10/03/19 20:51 10/03/19 16:00 Medications Acetaminophen (Tylenol -Extra Strength) 500 mg PO Q6H PRN PRN Reason: Fever Stop: 10/07/19 05:22 Last Admin: 09/19/19 20:46 Dose: 500 mg Amlodipine Besylate (Norvasc) 10 mg PO DAILY [facility] Stop: 10/05/19 09:01 Last Admin: 10/03/19 08:26 Dose: 10 mg Calcitriol (Rocaltrol) 0.5 mcg PO DAILY [facility] Stop: 10/06/19 09:01 Last Admin: 10/03/19 08:24 Dose: 0.5 mcg Carvedilol (Coreg) 25 mg PO BID [facility] Stop: 10/07/19 09:01 Last Admin: 10/03/19 20:51 Dose: 25 mg Cholecalciferol (Vitamin D 5,000 Iu Cap) 5,000 unit PO DAILY [facility] Stop: 10/06/19 09:01 Last Admin: 10/03/19 08:25 Dose: 5,000 unit Doxazosin Mesylate (Cardura) 2 mg PO BID [facility] Stop: 10/16/19 09:01 Last Admin: 10/03/19 20:51 Dose: 2 mg Enteral Nutritional Formula (Nepro Shake) 237 ml PO TID [facility] Stop: 10/10/19 14:01 Last Admin: 10/03/19 20:52 Dose: 237 ml Epoetin Eleazar (Retacrit) 10,000 unit IV EVERY HD RADU Stop: 10/04/19 14:16 Last Admin: 09/27/19 16:57 Dose: 10,000 unit Heparin Sodium (Porcine) (Heparin 1,000 Units/Ml) 4,000 unit IV EVERY HD RAD[facility] Stop: 10/22/19 17:01 Heparin Sodium (Porcine) (Heparin 1,000 Units/Ml) 6,000 unit IV EVERY HD PRN PRN Reason: FLUSH AFTER EACH USE Stop: 10/22/19 16:39 Last Admin: 09/27/19 16:58 Dose: 6,000 unit Hydralazine HCl (Apresoline) 100 mg PO TID [facility] Stop: 10/04/19 14:01 Last Admin: 10/03/19 20:51 Dose: 100 mg Mirtazapine (Remeron) 15 mg PO BEDTIME [facility] Stop: 10/04/19 21:01 Last Admin: 10/03/19 20:51 Dose: 15 mg Pantoprazole Sodium (Protonix Tab) 40 mg PO ACB [facility]; Protocol Stop: 10/05/19 07:31 Last Admin: 10/03/19 08:25 Dose: 40 mg Ramipril (Altace) 10 mg PO BEDTIME [facility] Stop: 10/07/19 21:01 Last Admin: 10/03/19 20:50 Dose: 10 mg Microbiology Results 09/03/19 09:01 Blood - Blood Aerobic Blood Culture - Final No growth in 5 days. 09/03/19 09:01 Blood - Blood Anaerobic Blood Culture - Final No growth in 5 days. 09/03/19 08:46 Blood - Blood Aerobic Blood Culture - Final No growth in 5 days. 09/03/19 08:46 Blood - Blood Anaerobic Blood Culture - Final No growth in 5 days. Assessment/ Plan: Nephrology CPS stable without CP or SOB. No acute events overnight. Doing well. Vitals, medications, blood work and imaging reviewed in the chart. NAD. MMM. Neck supple. CTA. RRR. Soft Abd. No C/C. LE Edema trace. No rash. AAO. Normal Speech. A/ ESRD on HD. Vasculitis with renal involvement. Leukocytopenia. Acidosis. Diastolic CHF, chronic. HTN with CKD/ CHF. DM II with CKD. Anemia in CKD. MEDINA/ Secondary HyperPTH. Hypocalcemia. HypoPO4. P/ Continue current POC and Medications. Next HD Thursday. Continue Retacrit. Encourage nutrition. AM labs. Daily weight. No NSAIDs. Case reviewed with Dr. Glass.
[2019-10-04] MEDS ORDERED: propofoL 200 MG/20 ML VIAL IV ONE (07:05)
[2019-10-04] MEDS ORDERED: LIDOCAINE 2% MPF 5 ML VIAL ONE (07:05)
[2019-10-04] MEDS ORDERED: MIDAZOLAM HCL 2 MG/2 ML INJ ONE (07:05)
[2019-10-04] MEDS ORDERED: BUPIVACAINE 0.5% PF 10 ML VIAL ONE (07:11)
[2019-10-04] MEDS: PANTOPRAZOLE 40MG TABLET PO SCH (07:30)
[2019-10-04] MEDS ORDERED: NS 0.9% VIAL 10 ML ONE ×2 (07:31→09:24)
[2019-10-04] MEDS ORDERED: LIDOCAINE 1% 20 ML MDV ONE (07:32)
[2019-10-04] MEDS ORDERED: NA CHLORIDE 0.9% 100 ML IV ONE ×2 (07:32→09:24)
[2019-10-04] MEDS ORDERED: HEPARIN 5000 UNIT/ML 1 ML VIAL ONE (07:32)
[2019-10-04 07:35] LABS: Absolute Lymphocytes (CBC) 1.8 K/uL (0.7-4.9); Basophils % 0.6 % (0-1.3); Hematocrit 30.4 % (39.6-49.0); Lymphocytes % 9.3 % (15.3-44.8); RBC Red Blood Cell Count 3.27 M/uL (4.33-5.43)
[2019-10-04] MEDS ORDERED: NA CHLORIDE 0.9% 500 ML ONE (07:41)
[2019-10-04] MEDS ORDERED: CEFAZOLIN/SWI 1gm 1 GM/10 ML SYR ONE (07:45)
[2019-10-04 07:57] LABS: Potassium 4.8 mmol/L (3.5-5.1)
[2019-10-04] MEDS ORDERED: FENTANYL CITR 100 MCG/2 ML ONE (08:03)
[2019-10-04] MEDS ORDERED: EPHEDRINE SULF 50 MG/ML VIAL ONE (08:21)
[2019-10-04] MEDS ORDERED: GLYCOPYRROLATE 0.2 MG/ML SYR ONE (08:29)
[2019-10-04 08:42] LABS: Platelet Estimate ADEQ
[2019-10-04 08:43] LABS: Anisocytosis SLIGHT; Blood Morphology Comment NOTED (NOT SEEN)
[2019-10-04] MEDS: HYDRALAZINE HCL 25 MG TABLET PO SCH ×2 (08:48→13:54)
[2019-10-04] MEDS: DOXAZOSIN 2 MG TAB PO SCH ×2 (08:49→20:41)
[2019-10-04] MEDS: carvediloL 25 MG TAB PO SCH ×2 (08:49→20:41)
[2019-10-04] MEDS: AMLODIPINE 10 MG TAB PO SCH (08:49)
[2019-10-04] MEDS: NEPRO SHAKE 237 ML CAN PO SCH ×3 (08:49→20:41)
[2019-10-04] MEDS: CALCITROL 0.25 MCG CAP PO SCH (08:50)
[2019-10-04] MEDS: VITAMIN D 5,000 UNIT CAP PO SCH (08:50)
[2019-10-04] MEDS ORDERED: Phenylephrine HCl 10 MG/ML 1 ML VIAL ONE (09:24)
--- NOTE | 2019-10-04 10:26 | RAD REPORT ---
EXAM DESCRIPTION: RAD - Fluoroscopy <1 Hour - 10/04/2019 10:16 am CLINICAL HISTORY: Venous catheter insertion. CATHETER PLACEMENT COMPARISON: Fluoroscopy <1 Hour dated 09/29/2019 FINDINGS: Fluoroscopy time 0.2 minutes.
--- NOTE | 2019-10-04 10:27 | RAD REPORT ---
EXAM DESCRIPTION: [facility] Single View10/04/2019 10:15 am CLINICAL HISTORY: Evaluate for pneumothorax IMPRESSION: The evaluation for a pneumothorax is suboptimal as the entire upper left hemithorax is n ot included in the field of view. Additionally the patient is supine. No gross pneumothorax is visualized.
--- NOTE | 2019-10-04 10:40 | P.BOP ---
Preoperative diagnosis: ESRD Postoperative diagnosis: same Primary procedure: 1. Placement of right femoral hemodialysis catheter Secondary procedure: 2. Interpretation of fluoroscopy Other procedure(s): 3. Removal of right jugular HD catheter. 4. Left neck ultrasound Estimated blood loss: <5cc Specimen: old intact catheter Anesthesia: General Complications: None Implants: skyler cath right femoral Transferred to: Recovery Room Condition: Good
--- NOTE | 2019-10-04 10:50 | RAD REPORT ---
EXAM DESCRIPTION: RAD - Chest Single View - 10/04/2019 10:43 am CLINICAL HISTORY: R O PNEUMO Chest pain. COMPARISON: Chest Single View dated 10/04/2019; Chest Single View dated 09/29/2019; Chest Pa And Lat (2 Views) dated 09/14/2019; Chest Pa And Lat (2 Views) dated 09/12/2019 FINDINGS: Portable technique limits examination quality. The lungs are underinflated but grossly clear. No evidence of a measurable pneumothorax. The heart is upper limit normal in size. No displaced fractures. IMPRESSION: No measurable pneumothorax.
[2019-10-04] MEDS: EPOETIN ALFA 10,000 UNIT/ML VIAL IV SCH (14:30)
[2019-10-04 14:43] LABS: Absolute Lymphocytes (CBC) 1.5 K/uL (0.7-4.9); Basophils % 1.5 % (0-1.3); Hematocrit 28.6 % (39.6-49.0); Lymphocytes % 21.1 % (15.3-44.8); MPV 8.6 fL (7.6-11.3); RBC Red Blood Cell Count 3.08 M/uL (4.33-5.43)
[2019-10-04 15:23] LABS: Platelet Estimate INCR; Urine White Blood Cell Casts OK
[2019-10-04 15:24] LABS: Blood Morphology Comment NOT SEEN (NOT SEEN)
[2019-10-04 15:51] LABS: Potassium 3.6 mmol/L (3.5-5.1)
--- NOTE | 2019-10-04 16:52 | P.PN ---
Subjective Date of Service: 10/04/19 Primary Care Provider: Dr. Rashid; Nephrology-Dr. Mendoza Chief Complaint: Possible abscess Patient is undergoing HD via R fem vein Conor catheter. No uremic symptoms reported Physical Examination - Vital Signs Temperature: 97.3 F Blood Pressure: 122/60 Pulse: 68 Respirations: 18 Pulse Ox (%): 99 - Physical Exam General: Alert, In no apparent distress, Cooperative HEENT: Atraumatic, Normocephalic, EOMI Respiratory: Clear to auscultation bilaterally, Normal air movement, Other ( Unlabored breathing) Cardiovascular: No edema, Normal pulses, Regular rate/rhythm, Normal S1 S2 Gastrointestinal: Normal bowel sounds, Soft and benign, Non-distended Musculoskeletal: No swelling, No tenderness Integumentary: Warmth Neurological: Normal speech, Normal affect - Studies Medications List Reviewed: Yes Assessment & Plan Physician Review: Patient Assessed, Agree with Above Assessment and Plan Physician Review Additional Text: Impression: Healthcare associated right lower lobe pneumonia with right elevated hemidiaphragm Diabetes mellitus type 2 End-stage renal disease on hemodialysis Hypertension Anemia of chronic disease Chronic diastolic CHF 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 Completed course of antibiotics. Pending placement at a fdc. human resources safety manager and social worker aide on board. End-stage renal disease on hemodialysis: Lost tunneled hemodialysis catheter. R fem vein access placed on 10/04/2019. Nephrology on board. Set up for dialysis and transportation is currently being addressed. Appreciate assistance from kitchen worker regarding placement and outpatient HD chair/center Diabetes mellitus type 2: Continue monitor Accu-Cheks and provide sliding scale. Fasting and daytime BG at goal, < 188 Hypertension: BP controlled with coreg, norvasc and ramipril Anemia of chronic disease: Overall stable, will continue to monitor closely. Today's Hb 9.8. Transfuse of < 8 Chronic diastolic CHF: Currently euvolemic. 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 Disposition: Social work working to set up meeting with family with administrators, social work and nurses present. Options for discharge include: Patient to be discharged home. Family to step up and take patient home to arrange for a fdc placement as an outpatient. Transportation to dialysis and dialysis locally currently being arranged. Time Spent Managing Pts Care (In Minutes): 25
--- NOTE | 2019-10-04 17:10 | PN ---
Subjective: Patient is lying in bed. Denies any headache, nausea, vomiting, chest pain, abdominal p ain, constipation, diarrhea. Had his right side Edgard catheter removed and a new femoral Edgard c atheter has been placed. Patient with no new complaints. Left side of his was not able t o be accessed by the interventional team. Objective: Vital Signs: Temperature 97, pulse 68, respirations 18, blood pressure 122/60. Lungs: Basal crackles. Heart: S1, S2. Regular. Abdomen: Soft, nontender. Bowel sounds present. Extremities: No edema. Laboratory Data: WBC 19,700; hemoglobin 9.8; platelets 491. Chemistry shows sodium 143, potassium 4 .8, chloride 112, bicarb 20. BUN is not available at this time. Glucose is 96. Procalcitonin is 0. 53. Blood cultures are pending. Assessment And Plan: Patient's leukocytosis is worsening, on dialysis with possible catheter versus lung infection. We will start patient on vancomycin 1 g with each dialysis today and with each dialy sis. We will follow the patient closely and have pharmacy to adjust the dose, pending culture result s. We will continue vancomycin for a total of 10 days. NF/MODL Voice ID: [id number] Report ID: [id number]
[2019-10-04] MEDS ORDERED: POTASSIUM CL SA 10 MEQ TAB PO ONE (20:00)
--- NOTE | 2019-10-04 20:02 | P.PN ---
Date of Service: 10/04/19 Vital Signs Temp Pulse Resp BP Pulse Ox 97.3 F 68 18 122/60 99 10/04/19 16:58 10/04/19 16:58 10/04/19 16:58 10/04/19 16:58 10/04/19 16:58 Medications Acetaminophen (Tylenol -Extra Strength) 500 mg PO Q6H PRN PRN Reason: Fever Stop: 10/07/19 05:22 Last Admin: 09/19/19 20:46 Dose: 500 mg Amlodipine Besylate (Norvasc) 10 mg PO DAILY [facility] Stop: 10/05/19 09:01 Last Admin: 10/04/19 08:49 Dose: Not Given Calcitriol (Rocaltrol) 0.5 mcg PO DAILY [facility] Stop: 10/06/19 09:01 Last Admin: 10/04/19 08:50 Dose: Not Given Carvedilol (Coreg) 25 mg PO BID [facility] Stop: 10/07/19 09:01 Last Admin: 10/04/19 08:49 Dose: Not Given Cholecalciferol (Vitamin D 5,000 Iu Cap) 5,000 unit PO DAILY [facility] Stop: 10/06/19 09:01 Last Admin: 10/04/19 08:50 Dose: Not Given Doxazosin Mesylate (Cardura) 2 mg PO BID [facility] Stop: 10/16/19 09:01 Last Admin: 10/04/19 08:49 Dose: Not Given Enteral Nutritional Formula (Nepro Shake) 237 ml PO TID [facility] Stop: 10/10/19 14:01 Last Admin: 10/04/19 13:54 Dose: 237 ml Heparin Sodium (Porcine) (Heparin 1,000 Units/Ml) 4,000 unit IV EVERY HD RADU Stop: 10/22/19 17:01 Heparin Sodium (Porcine) (Heparin 1,000 Units/Ml) 6,000 unit IV EVERY HD PRN PRN Reason: FLUSH AFTER EACH USE Stop: 10/22/19 16:39 Last Admin: 09/27/19 16:58 Dose: 6,000 unit Vancomycin HCl 500 mg/ Sodium (Chloride) 100 mls @ 100 mls/hr IVPB AFTER EACH DIALYSIS [facility] Stop: 11/03/19 13:31 Mirtazapine (Remeron) 15 mg PO BEDTIME [facility] Stop: 10/04/19 21:01 Last Admin: 10/03/19 20:51 Dose: 15 mg Pantoprazole Sodium (Protonix Tab) 40 mg PO ACB [facility]; Protocol Stop: 10/05/19 07:31 Last Admin: 10/04/19 07:30 Dose: Not Given Ramipril (Altace) 10 mg PO BEDTIME [facility] Stop: 10/07/19 21:01 Last Admin: 10/03/19 20:50 Dose: 10 mg Microbiology Results 09/03/19 09:01 Blood - Blood Aerobic Blood Culture - Final No growth in 5 days. 09/03/19 09:01 Blood - Blood Anaerobic Blood Culture - Final No growth in 5 days. 09/03/19 08:46 Blood - Blood Aerobic Blood Culture - Final No growth in 5 days. 09/03/19 08:46 Blood - Blood Anaerobic Blood Culture - Final No growth in 5 days. Assessment/ Plan: Nephrology CPS stable without CP or SOB. No acute events overnight. Doing well. Vitals, medications, blood work and imaging reviewed in the chart. NAD. MMM. Neck supple. CTA. RRR. Soft Abd. No C/C. LE Edema trace. No rash. AAO. Normal Speech. A/ ESRD on HD. Vasculitis with renal involvement. Leukocytopenia. Acidosis. Diastolic CHF, chronic. HTN with CKD/ CHF. DM II with CKD. Anemia in CKD. MEDINA/ Secondary HyperPTH. Hypocalcemia. HypoPO4. P/ Continue current POC and Medications. Next HD . Placement pending. Continue Retacrit. Encourage nutrition. AM labs. Daily weight. No NSAIDs.
[2019-10-04] MEDS: MIRTAZAPINE 15 MG TAB PO SCH (20:40)
[2019-10-04] MEDS: ramipriL 5 MG CAP PO SCH (20:41)
[2019-10-04] MEDS ORDERED: VANCOMYCIN 1 GM/VIAL ONE (22:37)
[2019-10-04] MEDS ORDERED: VANCOMYCIN 500 MG/VIAL ONE (22:39)
[2019-10-04] MEDS ORDERED: NA CHLORIDE 0.9% 100 ML ONE (22:41)
[2019-10-04] MEDS: VANCOMYCIN 500 MG in NA CHLORIDE 0.9% 100 ML IVPB SCH (22:44)
--- NOTE | 2019-10-05 01:16 | DS ---
Indications: This is the case of a 59-year-old patient with history of renal failure, difficult dial ysis due to stiffness of his neck. The catheter on the right side although is working by the Renal s sahil, is not letting them work properly, the machine flow properly. We discussed with t he patient the possibility of putting the catheter on the opposite side, although we might run on the same the issue. I discussed the case with the renal service, the renal nurses, and the patient. La st time he let me change it on the right side, this time he is going to let me put a new one on the l eft side. Understanding that he has to make plans if this will continue, to do a more permanent acce ss. Since the access on his neck is limited due to a lack of molar teeth. He understands that and t he risks as before including infection, bleeding, damage to adjacent structures, anesthesia complicat ion, pneumothorax, hemothorax, PE ND, even . ROMINA/ARLENE Voice ID: [id number] Report ID: [id number]
[2019-10-05 06:53] LABS: Phosphorus 5.7 mg/dL (2.5-4.9); Potassium 4.4 mmol/L (3.5-5.1)
[2019-10-05] MEDS: PANTOPRAZOLE 40MG TABLET PO SCH (08:32)
[2019-10-05] MEDS: VITAMIN D 5,000 UNIT CAP PO SCH (08:32)
[2019-10-05] MEDS: DOXAZOSIN 2 MG TAB PO SCH ×2 (08:32→20:33)
[2019-10-05] MEDS: carvediloL 25 MG TAB PO SCH ×2 (08:33→20:33)
[2019-10-05] MEDS: AMLODIPINE 10 MG TAB PO SCH (08:33)
[2019-10-05] MEDS: NEPRO SHAKE 237 ML CAN PO SCH ×3 (08:33→20:34)
[2019-10-05] MEDS: CALCITROL 0.25 MCG CAP PO SCH (08:36)
--- NOTE | 2019-10-05 10:47 | P.PN ---
Subjective Date of Service: 10/05/19 Primary Care Provider: Dr. Rashid; Nephrology-Dr. Mendoza Chief Complaint: Possible abscess No acute events Overnite. Patient seen this morning resting in his bed. Has no nausea, vomiting. No distress Physical Examination - Vital Signs Temperature: 98.8 F Blood Pressure: 124/56 Pulse: 72 Respirations: 16 Pulse Ox (%): 98 - Physical Exam General: Alert, In no apparent distress, Cooperative HEENT: Atraumatic, Normocephalic, EOMI Neck: Supple Respiratory: Clear to auscultation bilaterally, Normal air movement Cardiovascular: No edema, Normal pulses, Regular rate/rhythm, Normal S1 S2, Other (Right femoral vein Edgard in place) Gastrointestinal: Normal bowel sounds, Soft and benign, Non-distended Integumentary: Warmth Neurological: Normal speech, Normal affect - Studies Medications List Reviewed: Yes Assessment & Plan Physician Review: Patient Assessed, Agree with Above Assessment and Plan Physician Review Additional Text: Impression: Healthcare associated right lower lobe pneumonia with right elevated hemidiaphragm Diabetes mellitus type 2 End-stage renal disease on hemodialysis Hypertension Anemia of chronic disease Chronic diastolic CHF 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 Completed course of antibiotics. Difficult placement issue. merchandise team manager and social work associate on board. End-stage renal disease on hemodialysis: Lost tunneled hemodialysis catheter. R fem vein access placed on 10/04/2019. Nephrology on board. Set up for dialysis and transportation is currently being addressed. Will most likely be [facility]. Appreciate assistance from packing room worker regarding placement and outpatient HD chair/center Hyperphosphatemia Phos: 5.7. Will defer to Nephrology the decision to start PhosLo Diabetes mellitus type 2: Continue monitor Accu-Cheks and provide sliding scale. Fasting and daytime BG at goal, < 188 Hypertension: BP controlled with coreg, norvasc and ramipril Anemia of chronic disease: Overall stable, will continue to monitor closely. Last Hb 9.8. Transfuse of < 8 Chronic diastolic CHF: Currently euvolemic. 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 Disposition: Social work working to set up meeting with family with administrators, social work and nurses present. Options for discharge include: Patient to be discharged home. Family to step up and take patient home to arrange for a [facility] placement as an outpatient. Transportation to dialysis and dialysis locally currently being arranged. Time Spent Managing Pts Care (In Minutes): 25
--- NOTE | 2019-10-05 17:19 | PN ---
Subjective: Patient lying in bed. No new acute event. Chart reviewed. Objective: Vital Signs: Temperature 98, pulse 68, respirations 16, blood pressure 144/67. Lungs: Clear to auscultation. Heart: S1, S2. Regular. Abdomen: Soft, nontender. Bowel sounds present. Extremities: No edema. Laboratory Data: WBC down to normal 7000 after the line has been taken out, hemoglobin 9.3, platelet s are 414. Chemistry shows sodium 141, potassium 4.4, chloride 107, bicarb 26, BUN 34, creatinine 5. 6. Patient is currently being treated with vancomycin. Blood cultures, no growth in 24 hours. Assessment And Plan: Leukocytosis has resolved after the line is taken out, most likely secondary to line infection. Continue vancomycin for 2 weeks with dialysis. Pneumonia resolved. Leukocytosis r esolved. We will follow the patient as needed. NF/MODL Voice ID: [id number] Report ID: [id number]
[2019-10-05] MEDS: ramipriL 5 MG CAP PO SCH (20:32)
--- NOTE | 2019-10-05 20:56 | OP ---
Date of Procedure: 10/04/2019 Surgeon: Jake Chew MD Preoperative Diagnosis: End-stage renal disease. Postoperative Diagnosis: End-stage renal disease. Procedure: 1.Placement of a right femoral hemodialysis catheter. 2.Interpretation of fluoroscopy. 3.Removal of a right internal jugular vein hemodialysis catheter. 4.Left neck ultrasound. Estimated Blood Loss: Less than 5 mL. Specimen: Old intact catheter with a border of the port clogged. Anesthesia: General plus local. Implant: A Edgard catheter in the right femoral temporary. Indication For Procedure: This is the case of a 59-year-old patient with a renal failure. The patie nt has a hemodialysis either for a several months already, but he has not been able to get a permanen t access with his vascular surgeons. Recently, his hemodialysis catheter was not flowing properly. It was changed few days ago. Patient had a very stiff neck, so patient has a catheter on the right i nternal jugular vein. Eventually a few days later, it stopped working. The machine is not flowing p roperly. I discussed the case with the renal dialysis staff. They explained to me in this situation , so they asked to another catheter to be placed in if possible. The benefits, alternatives, and ris ks of catheter placement again fully explained to the patient, and to the renal staff with benefits, alternatives, and risks including, but not limited to infection, bleeding, damage to adjacent structu res, anesthesia complication, [place], and even . He also understands this may not relieve any sympt oms. He might need more than one surgical intervention. We might not be able to put another cathete r. He understood the importance of discussing with his primary doctor and his renal doctor updating a permanent access. We believe this is going to be a chronic situation since access on his neck is l imited due to a very stiff neck. He also understands the reason of each procedure to be placed. He signed a consent. Description Of Procedure: Patient brought to the operating room, placed in supine position. Anesthe osiel was done without complication. Bilateral chest and neck were prepped and draped in a sterile fas hion. We are trying to stay away from the right side at this time. We went to the left neck region. We did an ultrasound on that area and identify the jugular vein, although small was still present a nd viable. We placed the patient in Trendelenburg position. An 18-gauge needle was placed at the in ternal jugular vein under the guidance of the ultrasound. Even though we cannulized the vein, we can not pass a wire. We are once again trying to pass a wire did not go in that area. It is hard to paula cribe. So, I abandoned that procedure. Then, we have a situation of the right catheter not working well, so we obtained a chest x-ray to make sure the left side is okay since we attempt the procedure. The right hemodialysis catheter was carefully removed and it shows that both ports were clogged. T hat is probably why the machine is not working at this time. So, the catheter looks intact. No kink s and no problems although on the distal ports border of them actually. In this situation , the x-ray comes back with no pneumo. So, we proceeded then to make the decision here. In the righ t side, he has difficult time to put dialysis is a half to in the last several weeks. On the left si de, it cannot be cannulized and we are going to have to send this patient to the vascular surgeons fo r proper evaluation of the area to make sure those veins are patent since we cannot pass a guidewire. Patient needs dialysis. So, we made a decision then to a temporary right femoral catheter until th e patient can be sent to the another institution were he can have evaluation of the vascular system i n the upper chest and neck for placement of a long-term temporary catheter. So, we prepped and drape d the right femoral region in the usual sterile fashion. Injected local anesthetic and after that, I placed an 18-gauge needle on the femoral vein at the first attempt. Guidewire was passed through un edwin guidance of fluoroscopy again into the inferior vena cava. A small incision was made. Dilators were placed under fluoroscopy guidance and then the catheter was placed. The guidewire was removed. Excellent backflow and inflow. The catheter was secured in place with 3-0 nylon. Patient tolerated the each procedure well. In this case, this patient represent a challenge for this institution. I believe, the patient is going to have to be evaluated by the renal service and probably transfer this patient to [place] for more permanent access. From the surgical standpoint, we have limi missael amount of time that we have in that catheter, but at least he is able to get his dialysis. Chest x-ray will be ordered again for a protocol. ROMINA/ARLENE Voice ID: [id number] Report ID: [id number]
[2019-10-06] MEDS: NEPRO SHAKE 237 ML CAN PO SCH ×3 (09:00→21:00)
[2019-10-06] MEDS: VITAMIN D 5,000 UNIT CAP PO SCH (09:44)
[2019-10-06] MEDS: AMLODIPINE 10 MG TAB PO SCH (09:44)
[2019-10-06] MEDS: PANTOPRAZOLE 40MG TABLET PO SCH (09:45)
[2019-10-06] MEDS: carvediloL 25 MG TAB PO SCH ×2 (09:45→22:38)
[2019-10-06] MEDS: DOXAZOSIN 2 MG TAB PO SCH ×2 (09:45→22:37)
[2019-10-06] MEDS: CALCITROL 0.25 MCG CAP PO SCH (09:45)
--- NOTE | 2019-10-06 16:00 | P.PN ---
Subjective Date of Service: 10/06/19 Primary Care Provider: Dr. Rashid; Nephrology-Dr. Mendoza Chief Complaint: Possible abscess Patient is doing well today. No acute events Overnite. He has no uremic symptoms at this time. He has pending hemodialysis today. Physical Examination - Vital Signs Temperature: 97.7 F Blood Pressure: 152/66 Pulse: 63 Respirations: 16 Pulse Ox (%): 96 - Physical Exam General: Alert, In no apparent distress, Cooperative HEENT: Atraumatic, Normocephalic, EOMI Neck: Supple Respiratory: Clear to auscultation bilaterally, Normal air movement Cardiovascular: No edema, Normal pulses, Regular rate/rhythm, Normal S1 S2, Other (Right femoral vein Edgard hemodialysis catheter) Gastrointestinal: Normal bowel sounds, Soft and benign, Non-distended Musculoskeletal: No swelling, No contractures, No erythema, No tenderness Integumentary: Warmth Neurological: Normal speech, Normal tone, Normal affect - Studies Medications List Reviewed: Yes Assessment & Plan Physician Review: Patient Assessed, Agree with Above Assessment and Plan Physician Review Additional Text: Impression: Healthcare associated right lower lobe pneumonia with right elevated hemidiaphragm Diabetes mellitus type 2 End-stage renal disease on hemodialysis Hypertension Anemia of chronic disease Chronic diastolic CHF 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 Completed course of antibiotics. End-stage renal disease on hemodialysis: Lost tunneled hemodialysis catheter. R fem vein access placed on 10/04/2019. Nephrology on board. geothermal production manager/social service assistant secured a hemodialysis chair to start outpatient HD. He will most likely be discharged on Tuesday October 08, 2019. Hyperphosphatemia Will defer to Nephrology the decision to start PhosLo Diabetes mellitus type 2: Continue monitor Accu-Cheks and provide sliding scale. Fasting and daytime BG at goal, < 188 Hypertension: Continue coreg, norvasc and ramipril Anemia of chronic disease: Overall stable, will continue to monitor closely. Transfuse of < 8 Chronic diastolic CHF: Currently euvolemic. 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
--- NOTE | 2019-10-06 20:08 | P.PN ---
Date of Service: 10/06/19 Vital Signs Temp Pulse Resp BP Pulse Ox 97.7 F 63 16 152/66 H 96 10/06/19 16:05 10/06/19 16:05 10/06/19 16:05 10/06/19 16:05 10/06/19 16:05 Medications Acetaminophen (Tylenol -Extra Strength) 500 mg PO Q6H PRN PRN Reason: Fever Stop: 10/07/19 05:22 Last Admin: 09/19/19 20:46 Dose: 500 mg Amlodipine Besylate (Norvasc) 10 mg PO DAILY RADU Stop: 11/05/19 09:01 Last Admin: 10/06/19 09:44 Dose: 10 mg Calcitriol (Rocaltrol) 0.5 mcg PO DAILY [facility] Stop: 11/06/19 09:01 Calcium Acetate (Phoslo) 667 mg PO TIDWM RADU Stop: 11/06/19 08:01 Carvedilol (Coreg) 25 mg PO BID RAD[facility] Stop: 10/07/19 09:01 Last Admin: 10/06/19 09:45 Dose: 25 mg Cholecalciferol (Vitamin D 5,000 Iu Cap) 5,000 unit PO DAILY [facility] Stop: 11/06/19 09:01 Doxazosin Mesylate (Cardura) 2 mg PO BID [facility] Stop: 10/16/19 09:01 Last Admin: 10/06/19 09:45 Dose: 2 mg Enteral Nutritional Formula (Nepro Shake) 237 ml PO TID [facility] Stop: 10/10/19 14:01 Last Admin: 10/06/19 14:00 Dose: Not Given Heparin Sodium (Porcine) (Heparin 1,000 Units/Ml) 4,000 unit IV EVERY HD [facility] Stop: 10/22/19 17:01 Heparin Sodium (Porcine) (Heparin 1,000 Units/Ml) 6,000 unit IV EVERY HD PRN PRN Reason: FLUSH AFTER EACH USE Stop: 10/22/19 16:39 Last Admin: 09/27/19 16:58 Dose: 6,000 unit Vancomycin HCl 500 mg/ Sodium (Chloride) 100 mls @ 100 mls/hr IVPB AFTER EACH DIALYSIS [facility] Stop: 11/03/19 13:31 Last Admin: 10/04/19 22:44 Dose: 100 mls Pantoprazole Sodium (Protonix Tab) 40 mg PO ACB [facility]; Protocol Stop: 11/05/19 07:31 Last Admin: 10/06/19 09:45 Dose: 40 mg Ramipril (Altace) 10 mg PO BEDTIME RADU Stop: 10/07/19 21:01 Last Admin: 10/05/19 20:32 Dose: 10 mg Microbiology Results 09/03/19 09:01 Blood - Blood Aerobic Blood Culture - Final No growth in 5 days. 09/03/19 09:01 Blood - Blood Anaerobic Blood Culture - Final No growth in 5 days. 09/03/19 08:46 Blood - Blood Aerobic Blood Culture - Final No growth in 5 days. 09/03/19 08:46 Blood - Blood Anaerobic Blood Culture - Final No growth in 5 days. Assessment/ Plan: Nephrology CPS stable without CP or SOB. No acute events overnight. Doing well. Vitals, medications, blood work and imaging reviewed in the chart. NAD. MMM. Neck supple. CTA. RRR. Soft Abd. No C/C. LE Edema trace. No rash. AAO. Normal Speech. A/ ESRD on HD. Vasculitis with renal involvement. Leukocytopenia. Acidosis. Diastolic CHF, chronic. HTN with CKD/ CHF. DM II with CKD. Anemia in CKD. MEDINA/ Secondary HyperPTH. Hypocalcemia. HypoPO4. P/ Continue current POC and Medications. HD today. Give Retacrit. Encourage nutrition. AM labs. Daily weight. No NSAIDs. Dialysis placement at the [facility].
[2019-10-06] MEDS ORDERED: EPOETIN ALFA 10,000 UNIT/ML VIAL SQ SCH (21:00)
[2019-10-06] MEDS: ramipriL 5 MG CAP PO SCH (22:34)
[2019-10-07] MEDS ORDERED: VANCOMYCIN 500 MG/VIAL ONE (00:34)
[2019-10-07] MEDS ORDERED: NA CHLORIDE 0.9% 100 ML ONE (00:45)
[2019-10-07] MEDS: VANCOMYCIN 500 MG in NA CHLORIDE 0.9% 100 ML IVPB SCH (05:07)
[2019-10-07] MEDS ORDERED: ACETAMINOPHEN 500 MG TAB PO PRN (07:03)
[2019-10-07] MEDS: PANTOPRAZOLE 40MG TABLET PO SCH (08:28)
[2019-10-07] MEDS: carvediloL 25 MG TAB PO SCH (08:29)
[2019-10-07] MEDS: CA ACETATE 667 MG CAP PO SCH ×3 (08:29→16:08)
[2019-10-07] MEDS: DOXAZOSIN 2 MG TAB PO SCH (08:30)
[2019-10-07] MEDS: AMLODIPINE 10 MG TAB PO SCH (08:30)
[2019-10-07] MEDS: NEPRO SHAKE 237 ML CAN PO SCH ×3 (08:31→14:00)
[2019-10-07] MEDS ORDERED: CALCITROL 0.25 MCG CAP PO SCH (09:00)
[2019-10-07] MEDS ORDERED: VITAMIN D 5,000 UNIT CAP PO SCH (09:00)
--- NOTE | 2019-10-07 09:58 | P.PN ---
Date of Service: 10/07/19 Vital Signs Temp Pulse Resp BP Pulse Ox 98.2 F 64 17 144/67 H 98 10/07/19 08:00 10/07/19 08:30 10/07/19 08:00 10/07/19 08:30 10/07/19 08:00 Medications Acetaminophen (Tylenol -Extra Strength) 500 mg PO Q6H PRN PRN Reason: Fever Stop: 11/06/19 07:04 Amlodipine Besylate (Norvasc) 10 mg PO DAILY RADU Stop: 11/05/19 09:01 Last Admin: 10/07/19 08:30 Dose: 10 mg Calcitriol (Rocaltrol) 0.5 mcg PO DAILY RADU Stop: 11/06/19 09:01 Last Admin: 10/07/19 08:30 Dose: 0.5 mcg Calcium Acetate (Phoslo) 667 mg PO TIDWM RADU Stop: 11/06/19 08:01 Last Admin: 10/07/19 08:29 Dose: 667 mg Cholecalciferol (Vitamin D 5,000 Iu Cap) 5,000 unit PO DAILY RADU Stop: 11/06/19 09:01 Last Admin: 10/07/19 08:30 Dose: 5,000 unit Doxazosin Mesylate (Cardura) 2 mg PO BID RADU Stop: 10/16/19 09:01 Last Admin: 10/07/19 08:30 Dose: 2 mg Enteral Nutritional Formula (Nepro Shake) 237 ml PO TID RADU Stop: 10/10/19 14:01 Last Admin: 10/07/19 08:31 Dose: 237 ml Heparin Sodium (Porcine) (Heparin 1,000 Units/Ml) 4,000 unit IV EVERY HD RADU Stop: 10/22/19 17:01 Heparin Sodium (Porcine) (Heparin 1,000 Units/Ml) 6,000 unit IV EVERY HD PRN PRN Reason: FLUSH AFTER EACH USE Stop: 10/22/19 16:39 Last Admin: 09/27/19 16:58 Dose: 6,000 unit Vancomycin HCl 500 mg/ Sodium (Chloride) 100 mls @ 100 mls/hr IVPB AFTER EACH DIALYSIS RADU Stop: 11/03/19 13:31 Last Admin: 10/07/19 05:07 Dose: 100 mls Pantoprazole Sodium (Protonix Tab) 40 mg PO ACB RADU; Protocol Stop: 11/05/19 07:31 Last Admin: 10/07/19 08:28 Dose: 40 mg Ramipril (Altace) 10 mg PO BEDTIME RADU Stop: 10/07/19 21:01 Last Admin: 10/06/19 22:34 Dose: 10 mg Microbiology Results 09/03/19 09:01 Blood - Blood Aerobic Blood Culture - Final No growth in 5 days. 09/03/19 09:01 Blood - Blood Anaerobic Blood Culture - Final No growth in 5 days. 09/03/19 08:46 Blood - Blood Aerobic Blood Culture - Final No growth in 5 days. 09/03/19 08:46 Blood - Blood Anaerobic Blood Culture - Final No growth in 5 days. Assessment/ Plan: Nephrology CPS stable without CP or SOB. No acute events overnight. Doing well. Access did not work well yesterday so HD was shortened to ~1 hour. Vitals, medications, blood work and imaging reviewed in the chart. NAD. MMM. Neck supple. CTA. RRR. Soft Abd. No C/C. LE Edema trace. No rash. AAO. Normal Speech. A/ ESRD on HD. Vasculitis with renal involvement. Leukocytopenia. Acidosis. Diastolic CHF, chronic. HTN with CKD/ CHF. DM II with CKD. Anemia in CKD. MEDINA/ Secondary HyperPTH. Hypocalcemia. HypoPO4. P/ Continue current POC and Medications. Notify Dr. Chew to reevaluate the tunneled CVC for HD. Encourage nutrition. AM labs. Daily weight. No NSAIDs. Dialysis placement at the [facility].
--- NOTE | 2019-10-07 10:47 | P.PN ---
Subjective Date of Service: 10/07/19 Primary Care Provider: Dr. Rashid; Nephrology-Dr. Mendoza Chief Complaint: Possible abscess Patient is doing well this morning. HD access issues yesterday. Only underwent 1 hour OF HD. Physical Examination - Vital Signs Temperature: 98.2 F Blood Pressure: 144/67 Pulse: 64 Respirations: 17 Pulse Ox (%): 98 - Physical Exam General: Alert, In no apparent distress, Cooperative, Cachectic HEENT: Atraumatic, Normocephalic, EOMI Neck: Supple Respiratory: Clear to auscultation bilaterally, Normal air movement Cardiovascular: Normal pulses, Regular rate/rhythm, Normal S1 S2, Abnormal S3 Gastrointestinal: Normal bowel sounds, Soft and benign, Non-distended, Other (R femoral vein HD line) Musculoskeletal: No swelling, No contractures, No erythema Integumentary: Warmth Neurological: Normal speech, Normal affect - Studies Medications List Reviewed: Yes Assessment & Plan Physician Review: Patient Assessed, Agree with Above Assessment and Plan Physician Review Additional Text: Impression: Healthcare associated right lower lobe pneumonia with right elevated hemidiaphragm Diabetes mellitus type 2 End-stage renal disease on hemodialysis Hypertension Anemia of chronic disease Chronic diastolic CHF 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 R fem vein access placed on 10/04/2019. Surgery notified by Nephrology for new HD catheter malfunction. Follow up recommendations from Surgery. In the meantime, regional marketing manager/social welfare research worker secured a hemodialysis chair to start outpatient HD. Healthcare associated right lower lobe pneumonia with right elevated hemidiaphragm: Infectious controlled. Completed course of antibiotics. Hyperphosphatemia Will defer to Nephrology the decision to start PhosLo Diabetes mellitus type 2: Continue monitor Accu-Cheks and provide sliding scale. Fasting and daytime BG at goal, < 188 Hypertension: Continue coreg, norvasc and ramipril Anemia of chronic disease: Overall stable, will continue to monitor closely. Transfuse of < 8 Chronic diastolic CHF: Currently euvolemic. 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 Dispo: CM/SW working for the past several days to secure placement for the patient. Patient is a difficult placement as family feels overwhelmed with patient's ongoing needs. CM/SW/primary team would prefer family participation in stepping up and assist with patient. There is a plan to proceed with Guardianship on Thursday if placement remains an issue. Time Spent Managing Pts Care (In Minutes): 25
[2019-10-07 11:57] LABS: Absolute Lymphocytes (CBC) 2.4 K/uL (0.7-4.9); Basophils % 1.2 % (0-1.3); Lymphocytes % 14.9 % (15.3-44.8); MPV 8.6 fL (7.6-11.3); RBC Red Blood Cell Count 3.14 M/uL (4.33-5.43)
[2019-10-07 12:29] LABS: Potassium 5.2 mmol/L (3.5-5.1)
[2019-10-07 13:41] LABS: Urine White Blood Cell Casts OK
[2019-10-07 13:42] LABS: Blood Morphology Comment NOT SEEN (NOT SEEN); Platelet Estimate ADEQ
[2019-10-07] MEDS ORDERED: SOD POLYSTYREN SUL 15 GM/60 ML UCUP PO ONE (14:47)
--- NOTE | 2019-10-07 15:57 | P.DS ---
Admission Date: 09/08/19 Discharge Date: 10/07/19 Primary Care Provider: Dr. Rashid; Nephrology-Dr. Mendoza Disposition: ROUTINE DISCHARGE Discharge Condition: FAIR Reason for Admission: Possible abscess Brief History of Present Illness: 59-year-old gentleman with a past medical history of hypertension, congestive heart failure, cardiomyopathy, recently diagnosed vasculitis induced kidney failure on hemodialysis brought in to the hospital for functional decline and with generalized weakness. Found to have a pneumonia during this admission and was treated. Patient hospital course lasted for approximately 34 days. Major complications encounter during this stay included dialysis access and placement issues. He used to have a right-sided tunnel dialysis catheter which became nonfunctional. Surgery was involved in the case in place a right femoral vein Edgard access on 10/04/2019. Experienced access malfunction on 10/07/2019. The decision was made to transfer patient to [facility] for vascular workup. Based on sign-out, leukocyte to obtain a PermCath by IR through which she will be dialyzed and eventually have a more durable access with vascular surgery. Sign-out given to hospitalist. Patient is stable. Slightly hyperactive anemic on transfer date. Kayexalate given. As far as the supple, social services director and keycase assembler aggressively working on finding placement for outpatient hemodialysis. It is unclear whether family would be willing to accommodate the patient. They stated that the been overwhelmed with his ongoing comorbidities. The family does not contribute, social services director and keycase assembler will proceed with guardianship application. There is question whether not patient had a MR since childhood Vital Signs/Physical Exam: Temp Pulse Resp BP Pulse Ox 97.8 F 63 17 143/67 H 97 10/07/19 12:00 10/07/19 12:00 10/07/19 12:10/07/19 12:10/07/19 12:00 General: Alert, In no apparent distress, Cooperative HEENT: Atraumatic, Normocephalic, EOMI Neck: Supple Respiratory: Clear to auscultation bilaterally, Normal air movement Cardiovascular: No edema, Normal pulses, Regular rate/rhythm Gastrointestinal: Normal bowel sounds, Soft and benign, Non-distended Musculoskeletal: No swelling, No contractures, No erythema Integumentary: Warmth Neurological: Normal speech, Normal affect Laboratory Data at Discharge: WBC 16.5 K/uL (4.3-10.9) H D 10/07/19 11:46 Hgb 9.1 g/dL (13.6-17.9) L 10/07/19 11:46 Hct 28.0 % (39.6-49.0) L 10/07/19 11:46 Plt Count 422 K/uL (152-406) H 10/07/19 11:46 PT 10.6 SECONDS (9.5-12.5) 09/03/19 08:46 INR 0.89 09/03/19 08:46 APTT 32.7 SECONDS (24.3-36.9) 09/03/19 08:46 Sodium 142 mmol/L (136-145) 10/07/19 11:46 Potassium 5.2 mmol/L (3.5-5.1) H 10/07/19 11:46 BUN 74 mg/dL (7-18) H D 10/07/19 11:46 Creatinine 6.79 mg/dL (0.55-1.3) H* D 10/07/19 11:46 Glucose 110 mg/dL (74-106) H 10/07/19 11:46 Phosphorus 5.7 mg/dL (2.5-4.9) H 10/05/19 05:57 Magnesium 2.0 mg/dL (1.8-2.4) 10/05/19 05:57 Total Bilirubin 0.3 mg/dL (0.2-1.0) 09/25/19 05:25 AST 22 U/L (15-37) 09/25/19 05:25 ALT 39 U/L (12-78) 09/25/19 05:25 Alkaline Phosphatase 102 U/L (45-117) 09/25/19 05:25 Lipase 347 U/L (73-393) 09/03/19 08:46 Home Medications: Amlodipine Besylate [Norvasc] 10 mg PO DAILY 09/04/19 Atorvastatin Calcium 20 mg PO DAILY 09/04/19 Calcitriol [Rocaltrol] 0.25 mg PO DAILY 09/04/19 Calcium Acetate [Phoslo] 667 mg PO TID 09/04/19 Labetalol HCl 20 mg PO BID 09/04/19 Mirtazapine [Remeron] 15 mg PO DAILY 09/04/19 Pantoprazole Sodium [Protonix] 40 mg PO DAILY 09/04/19 carvediloL [Coreg*] 12.5 mg PO BID 09/04/19 Patient Discharge Instructions: 1. Follow up with his PCP in 1 week to follow up this hospitalization. Follow up with Quality Control Inspector Heading in [address] chest in 2 weeks for resolution of PNA. 2. Patient presented with hypoglycemia likely related to recent treatment of Lantus. Patient with diabetes mellitus type 2 prior diet controlled. Patient was recently diagnosis with vasculitis. He was treated with a course of steroids. This required insulin therapy. When his steroid treatment was discontinued he developed decrease activity. He was found to be hypoglycemic. Patient was admitted for further evaluation. Lantus was discontinued. Patient remains on diet controlled diabetes. At discharge will discontinue Lantus entirely. Patient may continue with 2000 ADA diet for diabetic control. Recommend to maintain blood sugars less 140 fasting and less than 200 after meals. If blood sugar remains elevated. This can be further addressed by his PCP or nephrology. Will recommend not to use insulin as this may increase risk of hypoglycemia. Patient will continue with Nepro supplementation 237 mL twice daily. 3. Patient with end-stage renal disease on hemodialysis related to vasculitis. Patient received dialysis during the course of his stay. Patient was seen and evaluated by nephrology. At discharge he will continue with dialysis as directed. Patient will continue with calcitriol 0.25 mcg daily and Phoslo 667 mg 3 times a day. Patient had slight elevation in pro calcitonin. This is likely related to his recent vasculitis. No evidence of infection noted at this time. Chest x-ray unremarkable. White count within normal range. 4. Patient with history of chronic systolic/diastolic CHF. This has remained stable. Patient will continue with a 1500 cc per day fluid restriction. Patient will continue with his home medications. 5. Patient with hypertension. At discharge he will continue with his medications-carvedilol 12.5 mg 1 pill twice daily, labetalol 20 mg 1 pill twice daily, and Norvasc 10 mg daily. 6. Patient with hyperlipidemia. At discharge he will continue with Lipitor 20 mg daily. 7. Patient with GERD. Patient will continue with Protonix 40 mg daily. 8. Patient with anemia of chronic disease. Recommend to recheck lab-CBC in 1-2 weeks to monitor his progress. Diet: Renal Activity: Fall precautions
[2019-10-07 16:43] VITALS: O2SAT 94
--- NOTE | 2019-10-07 16:48 | PN ---
Subjective: Patient is lying in bed with no new complaints. Denies any headache, nausea, vomiting, chest pain, abdominal pain, constipation, or diarrhea. Objective: Vital Signs: Temperature 98, pulse 64, respirations 17, blood pressure 144/67. Lungs: Clear to auscultation. Heart: S1, S2. Regular. Abdomen: Soft, nontender. Bowel sounds present. Extremities: No edema. Right groin Edgard catheter noted. Laboratory Data: No new labs available today. Assessment And Plan: Leukocytosis, improved. We will repeat CBC to monitor leukocytosis. Patient i s currently on vancomycin. We might be able to discontinue vancomycin if CBC remains normal. NF/MODL Voice ID: [id number] Report ID: [id number]
[2019-10-07 17:19] VITALS: BP 139/65; TEMP 98.6
== END 2019-10-07 18:39 | disposition home or self-care (01) | DRG 177 ==
LOC: ER 08:15 → OBSVTOIN 14:31 → ERHOLD 14:31 → UNDOADMOB 15:51 → 2ND 16:39 → ERHOLD 16:39 → 2ND 17:27 → INTOOBSV 09-08 10:46 → OBSVTOIN 09-08 10:46 → 2ND 09-14 12:18 → UNDODISIN 10-07 18:39
PROVIDERS: ADMIT Hospitalist; ATTEND Internal Medicine
PROC: 5A1D70Z Performance of Urinary Filtration, Intermittent, Less than 6 Hours Per Day (ICD-10-PCS; 2019-09-04)
PROC: 5A1D70Z Performance of Urinary Filtration, Intermittent, Less than 6 Hours Per Day (ICD-10-PCS; 2019-09-06)
PROC: 5A1D70Z Performance of Urinary Filtration, Intermittent, Less than 6 Hours Per Day (ICD-10-PCS; 2019-09-08)
PROC: 5A1D70Z Performance of Urinary Filtration, Intermittent, Less than 6 Hours Per Day (ICD-10-PCS; 2019-09-08)
PROC: 5A1D70Z Performance of Urinary Filtration, Intermittent, Less than 6 Hours Per Day (ICD-10-PCS; 2019-09-10)
PROC: 5A1D70Z Performance of Urinary Filtration, Intermittent, Less than 6 Hours Per Day (ICD-10-PCS; 2019-09-15)
PROC: 5A1D70Z Performance of Urinary Filtration, Intermittent, Less than 6 Hours Per Day (ICD-10-PCS; 2019-09-17)
PROC: 5A1D70Z Performance of Urinary Filtration, Intermittent, Less than 6 Hours Per Day (ICD-10-PCS; 2019-09-20)
PROC: 5A1D70Z Performance of Urinary Filtration, Intermittent, Less than 6 Hours Per Day (ICD-10-PCS; 2019-09-22)
PROC: 5A1D70Z Performance of Urinary Filtration, Intermittent, Less than 6 Hours Per Day (ICD-10-PCS; 2019-09-24)
PROC: 5A1D70Z Performance of Urinary Filtration, Intermittent, Less than 6 Hours Per Day (ICD-10-PCS; 2019-09-27)
PROC: 05HM33Z Insertion of Infusion Device into Right Internal Jugular Vein, Percutaneous Approach (ICD-10-PCS; 2019-09-29)
PROC: 5A1D70Z Performance of Urinary Filtration, Intermittent, Less than 6 Hours Per Day (ICD-10-PCS; 2019-09-29)
PROC: 05PY33Z Removal of Infusion Device from Upper Vein, Percutaneous Approach (ICD-10-PCS; principal; 2019-09-29 13:00)
PROC: 5A1D70Z Performance of Urinary Filtration, Intermittent, Less than 6 Hours Per Day (ICD-10-PCS; 2019-10-01)
PROC: 05PY33Z Removal of Infusion Device from Upper Vein, Percutaneous Approach (ICD-10-PCS; 2019-10-04)
PROC: 06HM33Z Insertion of Infusion Device into Right Femoral Vein, Percutaneous Approach (ICD-10-PCS; 2019-10-04)
PROC: 5A1D70Z Performance of Urinary Filtration, Intermittent, Less than 6 Hours Per Day (ICD-10-PCS; 2019-10-04)
PROC: 5A1D70Z Performance of Urinary Filtration, Intermittent, Less than 6 Hours Per Day (ICD-10-PCS; 2019-10-06)
DX: J85.1 Abscess of lung with pneumonia (principal); N18.6 End stage renal disease; I13.2 Hypertensive heart and chronic kidney disease with heart failure and with stage 5 chronic kidney disease, or end stage renal disease; I50.42 Chronic combined systolic (congestive) and diastolic (congestive) heart failure; N25.81 Secondary hyperparathyroidism of renal origin; D61.818 Other pancytopenia; T82.49XA Other complication of vascular dialysis catheter, initial encounter; E11.22 Type 2 diabetes mellitus with diabetic chronic kidney disease; I77.6 Arteritis, unspecified; E11.649 Type 2 diabetes mellitus with hypoglycemia without coma; T38.3X5A Adverse effect of insulin and oral hypoglycemic [antidiabetic] drugs, initial encounter; E78.5 Hyperlipidemia, unspecified; K21.9 Gastro-esophageal reflux disease without esophagitis; E87.8 Other disorders of electrolyte and fluid balance, not elsewhere classified; R26.9 Unspecified abnormalities of gait and mobility; E83.51 Hypocalcemia; F70 Mild intellectual disabilities; G47.00 Insomnia, unspecified; D63.1 Anemia in chronic kidney disease; E83.39 Other disorders of phosphorus metabolism; Z99.2 Dependence on renal dialysis; Z79.4 Long term (current) use of insulin
CPT/HCPCS: 36415; 71045; 71046; 71250; 76000; 80048; 80051; 80053; 80076; 80202; 82550; 82553; 82947; 83036; 83605; 83690; 83735; 83880; 84100; 84145; 84484; 85025; 85610; 85730; 86704; 86706; 86803; 87040; 87340; 88300; 90935; 93005; 93306; 94760; 97110; 97116; 97161; 97165; 97530; 99285; C1752; G0378; J0610; J0690; J0744; J1644; J2250; J2370; J2405; J2704; J3010; J3475; J7030; J7040; P9047; Q4081

== ENCOUNTER 2019-10-18 10:23 | Inpatient (IN) | payer OTHER ==
--- NOTE | 2019-10-18 14:15 | R.PREADM ---
SCREENING DATE AND TIME 10/18/2019 10:41 (KEY ACCOUNT MANAGER) ANTICIPATED REHAB ADMISSION DATE 10/20/2019 REFERRING FACILITY [facility] REFERRAL DATE AND TIME 10/18/2019 10:41 (KEY ACCOUNT MANAGER) ACUTE ADMIT DATE 10/07/2019 Previous Rehabilitation(s): No. REFERRING PHYSICIAN [facility] REHAB FACILITY [facility] CLINICAL LIAISON [place] PHYSICIAN REVIEWER Dr. Berry Fuentes M.D. MR# [id number] NAME CONSTANTINO NOBLES ADDRESS [address] [place] [address] DATE OF 1960 AGE 59 SSN# [id number] GENDER male MARITAL STATUS Single (Never ) RACE ADMIT FROM 02 - [facility] PRE-HOSPITAL LIVING SETTING 01 - Home (private home/apt. board/care, assisted living, intermediate, transitional living) HOME TYPE AND DETAILS Type of home: single family house # of levels in the residence: 1 # of steps to enter the residence: 0 # of steps within the residence: 0 PRE-HOSPITAL LIVING WITH Alone FAMILY SUPPORT No PRIMARY FAMILY CONTACT NAME Elham Killian PRIMARY FAMILY CONTACT PHONE PHONE PRIMARY FAMILY CONTACT ON ADM.? no IS PRIMARY FAMILY CONTACT AUTH. REP.? no 1ST EMERGENCY CONTACT Elham Killian 1ST CONTACT PHONE PHONE 1ST CONTACT ON ADM. no IS 1ST CONTACT AUTH. REP.? no PHONE 2ND CONTACT ON ADM.? 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 No ANOTHER [employer] RESPONSIBLE? No PRIMARY REHAB/ACUTE DIAGNOSIS: Hemodialysis catheter dysfunction ESRD on Hemodialysis ONSET DATE 10/07/2019 REHAB IMPAIRMENT CATEGORY (JUAN CARLOS): 20 Miscellaneous (Misc) does NOT meet 60% rule PRIMARY DIAGNOSIS-RELATED SURGERIES: Tunneled Dialysis Catheter Placement on 10/12/2019 Left Brachiobasilic AVF on 10/14/2019 COMORBID REHAB/ACUTE DIAGNOSES: - N/A Right Jugular DVT HTN HLD DM Leukocytosis SUMMARY OF ACUTE HOSPITALIZATION: Pt. is a 59 yo Right-handed male. On 10/07/2019 he was admitted to [facility] with diagnosis Hemodialysis c atheter dysfunction. His impairment category is Medically Complex Conditions 17 - Medical/Surgical Complications (17.8). Pre-morbidly, Pt. was independent/mod-I in Locomotion, Balance, Safety Awareness, Social Cognition, T ransfers Control, Sphincter Control, Self-Care, Communication, and Endurance; and he had good Locomot ion, Safety Awareness, Balance, Social Cognition, Transfers Control, Sphincter Control, Self-Care, Co mmunication, and Endurance. Currently, he has deficits of Locomotion, Balance, Safety Awareness, Social Cognition, Transfers Cont rol, Self-Care, Communication, and Endurance. Pt. is now referred to [facility] for acute in-patient rehabilitation in order to maximize patient's functional independence in activities of daily living, strength, ROM, and mobi lity. Patient has realistic goal of being discharged at assistance level 6-Messi to reside at Home with Fam ava/Relatives. Constantino Nobles is a 59 year old male that lives alone in a single yusuf home. On 10/07/2019, he had malfunctioning dialysis catheter and was admitted to [facility] and treated. He is now medically stable but in need of 24-hour nursing, doctor supervision and oversite while receiving active and The patient is reasonably expected to participate in 3hours of therapy a day/15 hours per week and receive care with an intensive interdisciplinary approach. PAST MEDICAL HISTORY DM HLD HTN Leukocytosis Right Jugular DVT MEDICATION ALLERGIES: No Known Drug Allergies (NKDA) ENVIRONMENTAL ALLERGIES: None Known - Substance Allergies None Known - Other Allergies None Known CODE STATUS: Full code WEIGHT/HEIGHT/BMI: WEIGHT 129 lbs HEIGHT 5' 6" BMI 20.8 DIET: - Diet Type Renal - Diet - Solid Texture Regular - Diet - Liquid Texture Regular - Tube Feed N/A SKIN DIAGRAM: Graft on Left arm; extent - small; stage - NS(Not Stageable). Treatment - Per Physician's Orders. REVIEW OF SYSTEMS: - Gen Alert and awake Lying in bed No apparent distress Oriented to: person, time, and place - Vital Signs Temperature: 97.5 F SBP/DBP: 145/66 Pulse: 62 Resp: 17 Vital signs stable, afebrile - CVS RRR VITAL SIGNS Temperature: 97.5 F SBP/DBP: 145/66 Pulse: 62 Resp: 17 Vital signs stable, afebrile MEDICATIONS/TREATMENT: Other- See attached MAR (Medication Administration Record). CURRENT SPHINCTER CONTROL: Pre-hospital bladder status: continent # of bladder accidents in the last 7 days prior to screenin Pre-hospital bowel status: continent # of bowel accidents in the last 7 days prior to screenin Last Bowel Movement Date: CURRENT LOCOMOTION STATUS: distance walked 50 feet DETAILED CURRENT FUNCTIONAL STATUS: - Bladder accident frequency: Ind - No accidents in the past 7 days - Bowel accident frequency: Ind - No accidents in the past 7 days - Walking score based on distance walked: 0(N/A) - Wheelchair score based on distance traveled: 0(N/A) QI SCORES: - Self-Care A. Eating 05-Setup or clean-up assistance B. Oral hygiene 05-Setup or clean-up assistance C. Toileting hygiene 04-Supervision or touching assistance E. Shower/bathe self 03-Partial/moderate assistance F. Upper body dressing 04-Supervision or touching assistance G. Lower body dressing 03-Partial/moderate assistance H. Putting on/taking off footwear 03-Partial/moderate assistance - Mobility A. Roll left and right 03-Partial/moderate assistance B. Sit to lying 03-Partial/moderate assistance C. Lying to sitting on side of bed 03-Partial/moderate assistance D. Sit to stand 03-Partial/moderate assistance E. Chair/jae-jq-tclup transfer 03-Partial/moderate assistance F. Toilet transfer 03-Partial/moderate assistance G. Car transfer 88-Not attempted due to medical condition or safety concerns I. Walk 10 feet 03-Partial/moderate assistance J. Walk 50 feet with two turns 88-Not attempted due to medical condition or safety concerns K. Walk 150 feet 03-Partial/moderate assistance L. Walking 10 feet on uneven surfaces 88-Not attempted due to medical condition or safety concerns M. 1 step (curb) 88-Not attempted due to medical condition or safety concerns N. 4 steps 88-Not attempted due to medical condition or safety concerns O. 12 steps 88-Not attempted due to medical condition or safety concerns P. Picking up object 88-Not attempted due to medical condition or safety concerns R. Wheel 50 feet with two turns 88-Not attempted due to medical condition or safety concerns S. Wheel 150 feet 88-Not attempted due to medical condition or safety concerns - Bladder and Bowel Bladder continence 5-No urine output Bowel continence 0-Always continent - Endurance Fair - Balance Fair - Safety Awareness Fair CURRENT [facility]. DEFICITS: Self-Care, Mobility, Endurance, Balance, and Safety Awareness CURRENT / PREVIOUS ASSISTIVE DEVICES: 3-in-1 Commode [facility] Bed Rolling Walker Shower Chair Standard Walker Wheelchair CURRENT USE ASSISTIVE DEVICES: SCDs HISTORY OF FALLS. HAS THE PATIENT HAD TWO OR MORE FALLS IN THE PAST YEAR OR ANY FALL WITH INJURY IN T HE PAST YEAR?: Unknown PRIOR SURGERY. DID THE PATIENT HAVE MAJOR SURGERY DURING THE 100 DAYS PRIOR TO ADMISSION?: No THERAPY NOTES FROM ACUTE CARE: Attached. SPECIAL NEEDS: - Safety Concerns Skin breakdown precautions needed due to skin breakdown risk PATIENT NEEDS ACTIVE AND ONGOING THERAPEUTIC INTERVENTION OF MULTIPLE THERAPY DISCIPLINES, INCLUDING: - Dietary and Nutrition Adequate Nutrition. Nutritional Education. Nutritional Supplements. PATIENT NEEDS CLOSE MEDICAL SUPERVISION BY A REHABILITATION PHYSICIAN FOR: Coordination of Treatment Team DVT Management Medical and Co-Morbidity Management Wound Care PATIENT REQUIRES 24X7 REHAB NURSING FOR MEDICAL AND FUNCTIONAL MGT. OF THE FOLLOWING DEFICITS: Disease Management Medication Management Patient/Family Education Providing Safe Environment Skin Integrity PATIENT REQUIRES INTENSIVE, COORDINATED INTERDISCIPLINARY APPROACH TO REHAB: Arranging Home Equipment/Services Discharge Planning Family Intervention/Training Dance Studio Manager/Case Management PATIENT REHAB POTENTIAL: Bhupendra NOBLES is able and expected to receive 3 hours of individualized therapy daily on at least 5 of every 7 days Bhupendra LEEs prognosis for significant practical improvement within a reasonable period of time appe ars Good Expected level of measurable improvement will be of a practical value to Bhupendra NOBLES's functional cap acity or adaptations to impairments Has a viable Discharge Plan Medically appropriate; condition is sufficiently stable to participate in intensive rehab program DISCHARGE PLAN: - Estimated Length of Stay (days) 13. - Consensus on plan Discharge plan has been discussed with primary caregiver. Patient/Family is in agreement with the nicole n. Primary caregiver is in agreement with the plan. - Patient/Family Goals Return home with assistance. - Planned Living Setting Upon Discharge Home, to live with Family/Relatives. Transitional Living. RECOMMENDED CARE LEVEL: IRF RECOMMENDATION DETAILS: Recommended Admission to Comprehensive Rehabilitation Program to Increase Functional Howard SCREENER'S COMPLETENESS CONFIRMATION: - Screening Confirmation The patient data collection on this preadmission screening form is finished PHYSICIANS REVIEW AND ADMISSION DETERMINATION Admit - Based on my review of the Pre-Admission Screening results, in my medical judgment and experie nce, I concur with the findings and recommend admission to [facility], as this patient requires an IRF level of care. SIGNATURE PANEL: Clinical Liaison - [electronically] signed by [place]en [place] on 10/18/2019 at 13:49 (KEY ACCOUNT MANAGER) Physician Reviewer - [electronically] signed by Dr. Berry Fuentes M.D. on 10/18/2019 at 14:14 (KEY ACCOUNT MANAGER )
--- OUTSIDE RECORDS SUMMARY | 2019-10-18 21:16 | XMS REPORT ---
:1960 [facility] Address [address] [place] [address] Care Team Providers Name Role Phone RYAN LYNCH Unavailable Unavailable Problems This patient has no known problems. Allergies, Adverse Reactions, Alerts This patient has no known allergies or adverse reactions. Medications This patient has no known medications. Results Test Description Test Time Test Comments Text Results Atomic Results Result Comments CBC (HEMOGRAM ONLY) 2019-10-18 16:12:00 Test Item Value Reference Range Comments WHITE BLOOD CELL COUNT (BEAKER) (test ruod=985) 11.9 K/ L 3.5-10.5 RED BLOOD CELL COUNT (BEAKER) (test retr=151) 3.44 M/ L 4.63-6.08 HEMOGLOBIN (BEAKER) (test etdv=576) 9.6 GM/DL 13.7-17.5 HEMATOCRIT (BEAKER) (test xegw=287) 31.0 % 40.1-51.0 MEAN CORPUSCULAR VOLUME (BEAKER) (test xrpm=017) 90.1 fL 79.0-92.2 MEAN CORPUSCULAR HEMOGLOBIN (BEAKER) (test tmfn=872) 27.9 pg 25.7-32.2 MEAN CORPUSCULAR HEMOGLOBIN CONC (BEAKER) (test izmn=298) 31.0 GM/DL 32.3- 36.5 RED CELL DISTRIBUTION WIDTH (BEAKER) (test oybh=937) 15.3 % 11.6-14.4 PLATELET COUNT (BEAKER) (test wapo=694) 372 K/CU MM 150-450 MEAN PLATELET VOLUME (BEAKER) (test usds=977) 10.3 fL 9.4-12.4 NUCLEATED RED BLOOD CELLS (BEAKER) (test bklf=951) 0 /100 WBC 0-0 POCT-GLUCOSE [id number] 16:04:00 Test Item Value Reference Range Comments POC-GLUCOSE METER (BEAKER) 119 mg/dL 70-110 : TESTED AT [facility] [address] [facility] (test kjlt=5863) [facility], [address]: Pen Tender/Lumber Carrier [id number] for SOLANGE PINON POCT-GLUCOSE [id number] 08:09:00 Test Item Value Reference Range Comments POC-GLUCOSE METER (BEAKER) 82 mg/dL 70-110 : TESTED AT [facility] [address] [facility] [facility] (test trre=0675) [facility], [address]: Pen Tender/Lumber Carrier ZY=[id number] for DAVID AN BASIC METABOLIC [id number] 04:25:00 Test Item Value Reference Range Comments SODIUM (BEAKER) (test 143 meq/L 136-145 loli=680) POTASSIUM (BEAKER) (test 4.9 meq/L 3.5-5.1 pjeb=845) CHLORIDE (BEAKER) (test 105 meq/L 98-107 vpst=295) CO2 (BEAKER) (test 26 meq/L 22-29 jxgi=742) BLOOD UREA NITROGEN 57 mg/dL 7-21 (BEAKER) (test mwti=452) CREATININE (BEAKER) (test 6.77 mg/dL 0.57-1.25 jbpm=210) GLUCOSE RANDOM (BEAKER) 88 mg/dL 70-105 (test dddf=980) CALCIUM (BEAKER) (test 8.0 mg/dL 8.4-10.2 uwve=759) EGFR (BEAKER) (test 8 mL/min/1.73 sq m ESTIMATED GFR IS NOT asdr=3506) ACCURATE CREATININE CLEARANCE IN PREDICTING GLOMERULAR FILTRATION RATE. ESTIMATED GFR IS NOT APPLICABLE FOR DIALYSIS PATIENTS. Pen Tender ID - [id number] 04:14:00 Test Item Value Reference Range Comments PARTIAL THROMBOPLASTIN TIME (BEAKER) (test 61.2 seconds 22.5-36.0 awwy=925) While on warfarin.PROTHROMBIN [id number] 04:13:00 Test Item Value Reference Range Comments PROTIME (BEAKER) (test wnce=367) 14.4 seconds 11.9-14.2 INR (BEAKER) (test iqnx=514) 1.2 <=5.9 Effective 02/23/2019: PT Reference Range ChangeNew: 11.9-14.2 Previous: 11.7- 14.7RECOMMENDED COUMADIN/WARFARIN INR THERAPY RANGESSTANDARD DOSE: 2.0-3.0 Includes: PROPHYLAXIS for venous thrombosis, systemic embolization; TREATMENT for venous thrombosis and/or pulmonary embolus.HIGH RISK: Target INR is2.5-3.5 for patients wiht mechanical heart valves.While on warfarin.POCT-GLUCOSE [id number] 22:33:00 Test Item Value Reference Range Comments POC-GLUCOSE METER (BEAKER) 92 mg/dL 70-110 : TESTED AT [address] (test kvom=9898) [facility], [address]: Pen Tender/Lumber Carrier [id number] for TREASURE KRISHNAMURTHY POCT-GLUCOSE [id number] 18:04:00 Test Item Value Reference Range Comments POC-GLUCOSE METER (BEAKER) 167 mg/dL 70-110 : TESTED AT [address] (test lqqs=4412) [facility], [address]: Pen Tender/Lumber Carrier FK=[id number] for CLARISSA VELASQUEZ [id number] 17:30:00 Test Item Value Reference Range Comments PARTIAL THROMBOPLASTIN TIME (BEAKER) (test 108.5 seconds 22.5-36.0 lspv=078) If baseline INR has not been drawn or baseline INR is greater than 3.5.PROTHROMBIN [id number] 17:20:00 Test Item Value Reference Range Comments PROTIME (BEAKER) (test wfym=845) 15.4 seconds 11.9-14.2 INR (BEAKER) (test ypzt=060) 1.3 <=5.9 Effective 02/23/2019: PT Reference Range ChangeNew: 11.9-14.2 Previous: 11.7- 14.7RECOMMENDED COUMADIN/WARFARIN INR THERAPY RANGESSTANDARD DOSE: 2.0-3.0 Includes: PROPHYLAXIS for venous thrombosis, systemic embolization; TREATMENT for venous thrombosis and/or pulmonary embolus.HIGH RISK: Target INR is2.5-3.5 for patients wiht mechanical heart valves.If baseline INR has not been drawn or baseline INRis greater than 3.5.POCT-GLUCOSE [id number] 12:25:00 Test Item Value Reference Range Comments POC-GLUCOSE METER (BEAKER) 171 mg/dL 70-110 : TESTED AT [address] (test zxbq=8545) [facility], [address]: Pen Tender/Lumber Carrier VB=[id number] for CLARISSA VELASQUEZ POCT-GLUCOSE [id number] 08:34:00 Test Item Value Reference Range Comments POC-GLUCOSE METER (BEAKER) 107 mg/dL 70-110 : TESTED AT [address] (test ayve=4417) [facility], [address]: Pen Tender/Lumber Carrier GF=[id number] for CLARISSA VELASQUEZ [id number] 02:29:00 Test Item Value Reference Range Comments PARTIAL THROMBOPLASTIN TIME (BEAKER) (test 21.5 seconds 22.5-36.0 hugf=158) 6 hours after starting heparin infusion and as indicated per sliding scalePOCT- GLUCOSE [id number] 21:21:00 Test Item Value Reference Range Comments POC-GLUCOSE METER (BEAKER) 127 mg/dL 70-110 : TESTED AT [address] (test eeon=3678) [facility], [address]: Pen Tender/Lumber Carrier GZ=[id number] for KAITLIN COOPER POCT-GLUCOSE [id number] 17:38:00 Test Item Value Reference Range Comments POC-GLUCOSE METER (BEAKER) 158 mg/dL 70-110 : TESTED AT [address] (test hfzf=6323) [facility], [address]: Pen Tender/Lumber Carrier GB=[id number] for CLARISSA VELASQUEZ [id number] 17:09:00 Test Item Value Reference Range Comments PARTIAL THROMBOPLASTIN TIME (BEAKER) (test 40.2 seconds 22.5-36.0 eobw=260) Prior to initiating heparinCBC (HEMOGRAM ONLY)2019-10-16 16:35:00 Test Item Value Reference Range Comments WHITE BLOOD CELL COUNT (BEAKER) (test ouxf=124) 12.4 K/ L 3.5-10.5 RED BLOOD CELL COUNT (BEAKER) (test wznd=003) 3.13 M/ L 4.63-6.08 HEMOGLOBIN (BEAKER) (test dwkw=647) 9.1 GM/DL 13.7-17.5 HEMATOCRIT (BEAKER) (test gonm=717) 29.1 % 40.1-51.0 MEAN CORPUSCULAR VOLUME (BEAKER) (test nzqh=163) 93.0 fL 79.0-92.2 MEAN CORPUSCULAR HEMOGLOBIN (BEAKER) (test 29.1 pg 25.7-32.2 domx=434) MEAN CORPUSCULAR HEMOGLOBIN CONC (BEAKER) (test 31.3 GM/DL 32.3-36.5 derg=548) RED CELL DISTRIBUTION WIDTH (BEAKER) (test 15.1 % 11.6-14.4 ysng=646) PLATELET COUNT (BEAKER) (test zwjl=032) 330 K/CU MM 150-450 MEAN PLATELET VOLUME (BEAKER) (test dpdd=947) 10.3 fL 9.4-12.4 NUCLEATED RED BLOOD CELLS (BEAKER) (test 0 /100 WBC 0-0 cuiz=179) POCT-GLUCOSE [id number] 12:14:00 Test Item Value Reference Range Comments POC-GLUCOSE METER (BEAKER) 118 mg/dL 70-110 : TESTED AT [address] (test uiff=2971) [facility], [address]: Pen Tender/Lumber Carrier [id number] for RON CLARISSA POCT-GLUCOSE [id number] 07:37:00 Test Item Value Reference Range Comments POC-GLUCOSE METER (BEAKER) 74 mg/dL 70-110 : TESTED AT [address] (test lzjm=3259) [facility], [address]: Pen Tender/Lumber Carrier SG=[id number] for ROBSON DUEÑASFER POCT-GLUCOSE [id number] 07:37:00 Test Item Value Reference Range Comments POC-GLUCOSE METER (BEAKER) 169 mg/dL 70-110 : TESTED AT [address] (test dzvd=2077) [facility], [address]: Pen Tender/Lumber Carrier MB=[id number] for LEANA JOSE MANUEL BASIC METABOLIC [id number] 05:56:00 Test Item Value Reference Range Comments SODIUM (BEAKER) (test 142 meq/L 136-145 zphv=679) POTASSIUM (BEAKER) (test 4.2 meq/L 3.5-5.1 jhyl=915) CHLORIDE (BEAKER) (test 106 meq/L 98-107 dhez=720) CO2 (BEAKER) (test 27 meq/L 22-29 rdpy=547) BLOOD UREA NITROGEN 28 mg/dL 7-21 (BEAKER) (test sqbp=336) CREATININE (BEAKER) (test 4.24 mg/dL 0.57-1.25 xfxf=477) GLUCOSE RANDOM (BEAKER) 84 mg/dL 70-105 (test gzdo=989) CALCIUM (BEAKER) (test 7.8 mg/dL 8.4-10.2 bdkx=988) EGFR (BEAKER) (test 14 mL/min/1.73 sq m ESTIMATED GFR IS NOT omtp=4094) ACCURATE CREATININE CLEARANCE IN PREDICTING GLOMERULAR FILTRATION RATE. ESTIMATED GFR IS NOT APPLICABLE FOR DIALYSIS PATIENTS. Pen Tender ID - PIKENDRA LBLOOD [id number] 01:00:00 Test Item Value Reference Range Comments CULTURE (BEAKER) (test clwa=9872) No growth in 5 days BLOOD [id number] 01:00:00 Test Item Value Reference Range Comments CULTURE (BEAKER) (test yops=2641) No growth in 5 days POCT-GLUCOSE [id number] 22:13:00 Test Item Value Reference Range Comments POC-GLUCOSE METER (BEAKER) 196 mg/dL 70-110 : TESTED AT [facility] [address] [facility] [facility] (test rdco=6124) [facility], [address]: Pen Tender/Lumber Carrier AJ=[id number] for Amina White URINALYSIS W/ REFLEX URINE [id number] 17:59:00 Test Item Value Reference Range Comments COLOR (BEAKER) (test ernr=329) Yellow CLARITY (BEAKER) (test lpoy=567) Clear SPECIFIC GRAVITY UA (BEAKER) (test dlhk=886) 1.011 1.001-1.035 PH UA (BEAKER) (test qsls=122) 8.0 5.0-8.0 PROTEIN UA (BEAKER) (test jlzh=528) 600 mg/dL Negative GLUCOSE UA (BEAKER) (test hvmt=371) 70 mg/dL Negative KETONES UA (BEAKER) (test jhey=495) Negative Negative BILIRUBIN UA (BEAKER) (test sqdx=754) Negative Negative BLOOD UA (BEAKER) (test uzqc=339) Small Negative NITRITE UA (BEAKER) (test sfys=898) Negative Negative LEUKOCYTE ESTERASE UA (BEAKER) (test cghu=267) Negative Negative UROBILINOGEN UA (BEAKER) (test aisk=293) 0.2 mg/dL 0.2-1.0 RBC UA (BEAKER) (test xsbd=228) 9 /HPF WBC UA (BEAKER) (test oefk=625) 4 /HPF MUCUS (BEAKER) (test ilru=3167) Rare SQUAMOUS EPITHELIAL (BEAKER) (test tsro=877) < /HPF SOURCE(BEAKER) (test ttak=9566) Pen Tender ID - [auto]Pen Tender ID - techPOCT-GLUCOSE [id number] 12:18:00 Test Item Value Reference Range Comments POC-GLUCOSE METER (BEAKER) 82 mg/dL 70-110 : TESTED AT [facility] [address] [facility] (test toyp=5405) [facility], [address]: Pen Tender/Lumber Carrier PA=[id number] for MATTY BLAKE POCT-GLUCOSE [id number] 11:44:00 Test Item Value Reference Range Comments POC-GLUCOSE METER (BEAKER) 69 mg/dL 70-110 : TESTED AT [address] (test lozw=2606) [facility], [address]: Pen Tender/Lumber Carrier UA=[id number] for MATTY BLAKE CBC (HEMOGRAM ONLY)2019-10-15 09:53:00 Test Item Value Reference Range Comments WHITE BLOOD CELL COUNT (BEAKER) (test sqoe=257) 15.9 K/ L 3.5-10.5 RED BLOOD CELL COUNT (BEAKER) (test bulp=206) 3.10 M/ L 4.63-6.08 HEMOGLOBIN (BEAKER) (test qsbr=450) 8.8 GM/DL 13.7-17.5 HEMATOCRIT (BEAKER) (test wzxl=429) 28.5 % 40.1-51.0 MEAN CORPUSCULAR VOLUME (BEAKER) (test jnyc=091) 91.9 fL 79.0-92.2 MEAN CORPUSCULAR HEMOGLOBIN (BEAKER) (test 28.4 pg 25.7-32.2 sgxa=595) MEAN CORPUSCULAR HEMOGLOBIN CONC (BEAKER) (test 30.9 GM/DL 32.3-36.5 dknh=921) RED CELL DISTRIBUTION WIDTH (BEAKER) (test 15.5 % 11.6-14.4 jhxq=116) PLATELET COUNT (BEAKER) (test apsw=820) 314 K/CU MM 150-450 MEAN PLATELET VOLUME (BEAKER) (test kuif=460) 10.2 fL 9.4-12.4 NUCLEATED RED BLOOD CELLS (BEAKER) (test 0 /100 WBC 0-0 ifwg=393) POCT-GLUCOSE [id number] 08:25:00 Test Item Value Reference Range Comments POC-GLUCOSE METER (BEAKER) 71 mg/dL 70-110 : TESTED AT [address] (test xypc=7057) [facility], [address]: Pen Tender/Lumber Carrier HJ=[id number] for Jennifer Rousseau POCT-GLUCOSE [id number] 21:25:00 Test Item Value Reference Range Comments POC-GLUCOSE METER (BEAKER) 78 mg/dL 70-110 : TESTED AT [address] (test mzej=0157) [facility], [address]: Pen Tender/Lumber Carrier EW=[id number] for OLGA LIDIA BEDOLLA POCT-GLUCOSE [id number] 18:00:00 Test Item Value Reference Range Comments POC-GLUCOSE METER (BEAKER) 83 mg/dL 70-110 : TESTED AT [address] (test qxsm=6816) [facility], [address]: Pen Tender/Lumber Carrier BA=[id number] for MATTY BLAKE POCT-GLUCOSE [id number] 08:12:00 Test Item Value Reference Range Comments POC-GLUCOSE METER (BEAKER) 99 mg/dL 70-110 : TESTED AT [address] (test gblj=0612) [facility], [address]: Pen Tender/Lumber Carrier GS=[id number] for MATTY BLAKE BASIC METABOLIC [id number] 07:19:00 Test Item Value Reference Range Comments SODIUM (BEAKER) (test 142 meq/L 136-145 yquf=560) POTASSIUM (BEAKER) (test 4.2 meq/L 3.5-5.1 fblv=457) CHLORIDE (BEAKER) (test 106 meq/L 98-107 mkpc=353) CO2 (BEAKER) (test 26 meq/L 22-29 nyis=832) BLOOD UREA NITROGEN 36 mg/dL 7-21 (BEAKER) (test vupq=957) CREATININE (BEAKER) (test 4.43 mg/dL 0.57-1.25 vjwu=189) GLUCOSE RANDOM (BEAKER) 93 mg/dL 70-105 (test blrx=616) CALCIUM (BEAKER) (test 8.0 mg/dL 8.4-10.2 tbhd=728) EGFR (BEAKER) (test 14 mL/min/1.73 sq m ESTIMATED GFR IS NOT napb=4617) ACCURATE CREATININE CLEARANCE IN PREDICTING GLOMERULAR FILTRATION RATE. ESTIMATED GFR IS NOT APPLICABLE FOR DIALYSIS PATIENTS. Pen Tender ID - LIANNE [id number] 06:36:00 Test Item Value Reference Range Comments PARTIAL THROMBOPLASTIN TIME (BEAKER) (test 72.8 seconds 22.5-36.0 fdnv=460) PROTHROMBIN [id number] 06:34:00 Test Item Value Reference Range Comments PROTIME (BEAKER) (test llef=622) 15.3 seconds 11.9-14.2 INR (BEAKER) (test liun=698) 1.2 <=5.9 Effective 02/23/2019: PT Reference Range ChangeNew: 11.9-14.2 Previous: 11.7- 14.7RECOMMENDED COUMADIN/WARFARIN INR THERAPY RANGESSTANDARD DOSE: 2.0-3.0 Includes: PROPHYLAXIS for venous thrombosis, systemic embolization; TREATMENT for venous thrombosis and/or pulmonary embolus.HIGH RISK: Target INR is2.5-3.5 for patients wiht mechanical heart valves.CBC (HEMOGRAM ONLY)2019-10-14 06:33:00 Test Item Value Reference Range Comments WHITE BLOOD CELL COUNT (BEAKER) (test gwdx=920) 16.8 K/ L 3.5-10.5 RED BLOOD CELL COUNT (BEAKER) (test tvdy=515) 3.31 M/ L 4.63-6.08 HEMOGLOBIN (BEAKER) (test utfy=603) 9.5 GM/DL 13.7-17.5 HEMATOCRIT (BEAKER) (test pyuq=381) 30.3 % 40.1-51.0 MEAN CORPUSCULAR VOLUME (BEAKER) (test znic=714) 91.5 fL 79.0-92.2 MEAN CORPUSCULAR HEMOGLOBIN (BEAKER) (test 28.7 pg 25.7-32.2 yznp=733) MEAN CORPUSCULAR HEMOGLOBIN CONC (BEAKER) (test 31.4 GM/DL 32.3-36.5 wuij=246) RED CELL DISTRIBUTION WIDTH (BEAKER) (test 15.3 % 11.6-14.4 isba=570) PLATELET COUNT (BEAKER) (test vtsk=661) 336 K/CU MM 150-450 MEAN PLATELET VOLUME (BEAKER) (test lpsh=213) 10.4 fL 9.4-12.4 NUCLEATED RED BLOOD CELLS (BEAKER) (test 0 /100 WBC 0-0 ymbg=699) POCT-GLUCOSE [id number] 22:12:00 Test Item Value Reference Range Comments POC-GLUCOSE METER (BEAKER) 154 mg/dL 70-110 : TESTED AT [address] (test fvdu=6288) [facility], [address]: Pen Tender/Lumber Carrier CB=[id number] for TREASURE KRISHNAMURTHY POCT-GLUCOSE [id number] 17:50:00 Test Item Value Reference Range Comments POC-GLUCOSE METER (BEAKER) 122 mg/dL 70-110 : TESTED AT [address] (test haew=9896) [facility], [address]: Pen Tender/Lumber Carrier HM=[id number] for PAREKH, WICHO POCT-GLUCOSE [id number] 12:59:00 Test Item Value Reference Range Comments POC-GLUCOSE METER (BEAKER) 181 mg/dL 70-110 : TESTED AT [address] (test coie=2371) [facility], [address]: Pen Tender/Lumber Carrier II=[id number] for PAREKH, WICHO [id number] 12:30:00 Test Item Value Reference Range Comments PARTIAL THROMBOPLASTIN TIME (BEAKER) (test 82.5 seconds 22.5-36.0 bqtr=247) CBC W/PLT COUNT & AUTO [id number] 10:12:00 Test Item Value Reference Range Comments WHITE BLOOD CELL COUNT (BEAKER) (test kdxh=350) 16.8 K/ L 3.5-10.5 RED BLOOD CELL COUNT (BEAKER) (test seeh=971) 3.07 M/ L 4.63-6.08 HEMOGLOBIN (BEAKER) (test hnel=066) 8.9 GM/DL 13.7-17.5 HEMATOCRIT (BEAKER) (test ojqs=012) 27.8 % 40.1-51.0 MEAN CORPUSCULAR VOLUME (BEAKER) (test vxtv=111) 90.6 fL 79.0-92.2 MEAN CORPUSCULAR HEMOGLOBIN (BEAKER) (test 29.0 pg 25.7-32.2 brwt=687) MEAN CORPUSCULAR HEMOGLOBIN CONC (BEAKER) (test 32.0 GM/DL 32.3-36.5 tecv=127) RED CELL DISTRIBUTION WIDTH (BEAKER) (test 15.7 % 11.6-14.4 mutj=988) PLATELET COUNT (BEAKER) (test llpm=598) 366 K/CU MM 150-450 MEAN PLATELET VOLUME (BEAKER) (test ldjr=796) 10.9 fL 9.4-12.4 NUCLEATED RED BLOOD CELLS (BEAKER) (test 0 /100 WBC 0-0 sfnz=105) (CELLAVISION MANUAL DIFF)2019-10-13 10:12:00 Test Item Value Reference Range Comments NEUTROPHILS - REL (CELLAVISION)(BEAKER) (test 61 % kjlt=2185) LYMPHOCYTES - REL (CELLAVISION)(BEAKER) (test 11 % pbfa=9383) MONOCYTES - REL (CELLAVISION)(BEAKER) (test 1 % efjo=8875) EOSINOPHILS - REL (CELLAVISION)(BEAKER) (test 26 % udzv=5154) ATYPICAL LYMPHOCYTES - REL (CELLAVISION)(BEAKER) 1 % 0-0 (test ntku=9247) NEUTROPHILS - ABS (CELLAVISION)(BEAKER) (test 10.25 K/ul 1.78-5.38 hyub=9379) LYMPHOCYTES - ABS (CELLAVISION)(BEAKER) (test 1.85 K/ul 1.32-3.57 khbs=8326) MONOCYTES - ABS (CELLAVISION)(BEAKER) (test 0.17 K/uL 0.30-0.82 neze=1581) EOSINOPHILS - ABS (CELLAVISION)(BEAKER) (test 4.37 K/uL 0.04-0.54 kjaw=2455) ATYPICAL LYMPHOCYTES - ABS (CELLAVISION)(BEAKER) 0.17 K/uL 0.00-0.00 (test zqja=4462) TOTAL COUNTED (BEAKER) (test lole=8212) 100 WBC MORPHOLOGY (BEAKER) (test clvo=119) Normal PLT MORPHOLOGY (BEAKER) (test wgco=553) Normal POLYCHROMATOPHILLIC RBCS(BEAKER) (test fxvb=275) 1+ few HYPOCHROMIA (BEAKER) (test vjvz=804) 1+ few ARTIFACT (CELLAVISION)(BEAKER) (test wdal=3096) Present PLATELET CONCENTRATION (CELLAVISION)(BEAKER) Adequate (test rngh=9509) Pen Tender ID - Lana Gregorio comments: Slide comments:OLVIN TUNNELED CATHETER [id number] 08:29:00Reason for exam:->tunneled dialysis catheter replacementFINAL REPORT Tunneled dialysis catheter insertion. History: Renal failure. Modality : Sonography and fluoroscopy. Sedation: Moderate sedation was administered. 0.5 mg of Versed and 25 mcg of fentanyl IV was used for moderate sedation monitored under my direction. Total intra-service time of sedation was 20 minutes. The patient's vital signs were monitored throughout the procedure and recorded in the patient's medical record bythe nurse. Drill Rig Operator Helper: Charlie [place] Equipment Mechanic: None. Approach: Right internal jugular vein Estimated blood loss: < 5 cc. Specimen: None. Fluoroscopy Time: A 0.2 min. Dose (Ka,r): 1.2 mGy. Technique: Informed written consent was obtained. Discussion of risks, benefits, and alternatives were made withthe patient. The patient expressed understanding and agreed to proceed. All elements maximal sterile barrier technique was utilized for this procedure, including utilization of sterile scrub solution for skin prep, a large sterile sheet to cover the areas of the patient that were not prepped, and hand hygiene, mask, head covering, and sterile gown for performing radiologist and scrub technologist. The skin was anesthetized with 2% lidocaine.Ultrasound evaluation partially occlusive thrombus withinthe right internal jugular vein. The right internal jugular vein was punctured under direct real-time ultrasound guidance with a micropuncture needle. An ultrasound image was saved to PACS. A 0.018 inch wire was placed through the needle into the right atrium. A 4 Estonian micropuncture sheath was placed and a 0.035 wire was advanced into the IVC. A subcutaneous tunnel was created in the right anterior chest wall by blunt dissection. A 19 cm tip to cuff 15.5 Estonian Duraflow 2 catheter was brought through the tunnel. The vessel tract was serially dilated. A peel-away sheath was placed in the right IJ vein and the catheter was advanced through the sheath, with its distal tip terminating in thesuperior right atrium. The peel-away sheath was removed. The ports were flushed and aspirated easily following placement. The catheter was sutured to the skin to secure its placement. The small jugular incision site was closed using Dermabond. A resorbable purse-string suture was placed at the catheter exit site. . Vital signs were monitored throughout the procedure by a nurse, and remained stable. The patient tolerated the procedure well and left the department in the same condition. Results: Spot radiograph of the chest demonstrates the new dialysis catheter to lie in the expected position with its tip overlying the superior right atrium. Impression: Successful, uncomplicated placement of a right internal jugular tunneled dialysis catheter using sonographic and fluoroscopic guidance and conscious sedation.Signed: Yves Camp MDReport Verified Date/Time: 10/13/2019 08:29: 12 Reading Location: [facility] Radiology Reading Room POCT-GLUCOSE [id number] 08:08:00 Test Item Value Reference Range Comments POC-GLUCOSE METER (BEAKER) 90 mg/dL 70-110 : TESTED AT [address] (test bdji=1130) [facility], [address]: Pen Tender/Lumber Carrier VN=[id number] for WICHO PAREKH BASIC METABOLIC [id number] 08:00:00 Test Item Value Reference Range Comments SODIUM (BEAKER) (test 139 meq/L 136-145 xeaq=507) POTASSIUM (BEAKER) (test 5.0 meq/L 3.5-5.1 osjj=118) CHLORIDE (BEAKER) (test 106 meq/L 98-107 akpb=132) CO2 (BEAKER) (test 22 meq/L 22-29 dnhz=496) BLOOD UREA NITROGEN 58 mg/dL 7-21 (BEAKER) (test unug=484) CREATININE (BEAKER) (test 6.72 mg/dL 0.57-1.25 mvan=015) GLUCOSE RANDOM (BEAKER) 92 mg/dL 70-105 (test moud=834) CALCIUM (BEAKER) (test 7.5 mg/dL 8.4-10.2 gddc=613) EGFR (BEAKER) (test 8 mL/min/1.73 sq m ESTIMATED GFR IS NOT qjam=9894) ACCURATE CREATININE CLEARANCE IN PREDICTING GLOMERULAR FILTRATION RATE. ESTIMATED GFR IS NOT APPLICABLE FOR DIALYSIS PATIENTS. Pen Tender ID - UBALDO [id number] 06:42:00 Test Item Value Reference Range Comments PARTIAL THROMBOPLASTIN TIME (BEAKER) (test 71.9 seconds 22.5-36.0 thfb=348) [id number] 15:51:00 Test Item Value Reference Range Comments PARTIAL THROMBOPLASTIN TIME (BEAKER) (test 108.9 seconds 22.5-36.0 qgbo=819) [id number] 13:55:00 Test Item Value Reference Range Comments POTASSIUM (BEAKER) (test vufv=130) 5.6 meq/L 3.5-5.1 Pen Tender ID - TERI FPOCT-GLUCOSE [id number] 13:19:00 Test Item Value Reference Range Comments POC-GLUCOSE METER (BEAKER) 140 mg/dL 70-110 : TESTED AT [facility] [address] (test faso=2631) [facility], [address]: Pen Tender/Lumber Carrier CI=[id number] for ALAYNA JUAREZ CBC (HEMOGRAM ONLY)2019-10-12 10:30:00 Test Item Value Reference Range Comments WHITE BLOOD CELL COUNT (BEAKER) (test awsg=039) 19.8 K/ L 3.5-10.5 RED BLOOD CELL COUNT (BEAKER) (test xyqn=283) 2.82 M/ L 4.63-6.08 HEMOGLOBIN (BEAKER) (test ifdp=429) 8.2 GM/DL 13.7-17.5 HEMATOCRIT (BEAKER) (test ghgo=883) 25.8 % 40.1-51.0 MEAN CORPUSCULAR VOLUME (BEAKER) (test cqje=587) 91.5 fL 79.0-92.2 MEAN CORPUSCULAR HEMOGLOBIN (BEAKER) (test 29.1 pg 25.7-32.2 mopn=025) MEAN CORPUSCULAR HEMOGLOBIN CONC (BEAKER) (test 31.8 GM/DL 32.3-36.5 lzmb=619) RED CELL DISTRIBUTION WIDTH (BEAKER) (test 16.2 % 11.6-14.4 xfwp=576) PLATELET COUNT (BEAKER) (test izml=943) 384 K/CU MM 150-450 MEAN PLATELET VOLUME (BEAKER) (test piem=543) 10.8 fL 9.4-12.4 NUCLEATED RED BLOOD CELLS (BEAKER) (test 0 /100 WBC 0-0 wjay=976) BASIC METABOLIC [id number] 09:11:00 Test Item Value Reference Range Comments SODIUM (BEAKER) (test 140 meq/L 136-145 zttk=730) POTASSIUM (BEAKER) (test 6.4 meq/L 3.5-5.1 Specimen slightly fjvl=440) hemolyzed CHLORIDE (BEAKER) (test 112 meq/L 98-107 izic=166) CO2 (BEAKER) (test 12 meq/L 22-29 pcym=423) BLOOD UREA NITROGEN 102 mg/dL 7-21 (BEAKER) (test yasv=572) CREATININE (BEAKER) (test 9.08 mg/dL 0.57-1.25 Specimen slightly ytya=672) hemolyzed GLUCOSE RANDOM (BEAKER) 80 mg/dL 70-105 (test pyar=094) CALCIUM (BEAKER) (test 7.3 mg/dL 8.4-10.2 fpnm=408) EGFR (BEAKER) (test 6 mL/min/1.73 sq m ESTIMATED GFR IS NOT nedg=3759) ACCURATE CREATININE CLEARANCE IN PREDICTING GLOMERULAR FILTRATION RATE. ESTIMATED GFR IS NOT APPLICABLE FOR DIALYSIS PATIENTS. Pen Tender ID - TERI FPOCT-GLUCOSE [id number] 07:27:00 Test Item Value Reference Range Comments POC-GLUCOSE METER (BEAKER) 87 mg/dL 70-110 : TESTED AT [facility] [address] [place] [address] (test cctl=8312) [facility], [address]: Pen Tender/Lumber Carrier RQ=[id number] for WICHO PAREKH [id number] 06:21:00 Test Item Value Reference Range Comments PARTIAL THROMBOPLASTIN TIME (BEAKER) (test 66.6 seconds 22.5-36.0 wyrw=608) [id number] 23:34:00 Test Item Value Reference Range Comments PARTIAL THROMBOPLASTIN TIME (BEAKER) (test 102.2 seconds 22.5-36.0 cvju=068) POCT-GLUCOSE [id number] 21:51:00 Test Item Value Reference Range Comments POC-GLUCOSE METER (BEAKER) 112 mg/dL 70-110 : TESTED AT [address] (test nfep=2746) [facility], [address]: Pen Tender/Lumber Carrier QB=[id number] for Betty Luong POCT-GLUCOSE [id number] 18:33:00 Test Item Value Reference Range Comments POC-GLUCOSE METER (BEAKER) 106 mg/dL 70-110 : TESTED AT [address] (test atdd=1901) [facility], [address]: Pen Tender/Lumber Carrier RV=[id number] for HOMA MOFFETT [id number] 16:37:00 Test Item Value Reference Range Comments PARTIAL THROMBOPLASTIN TIME (BEAKER) (test 106.5 seconds 22.5-36.0 ouxb=340) POCT-GLUCOSE [id number] 12:52:00 Test Item Value Reference Range Comments POC-GLUCOSE METER (BEAKER) 136 mg/dL 70-110 : Notified RN/MD: TESTED AT (test wqyq=9876) [address], [address]: Pen Tender/Lumber Carrier HY=[id number] for HOMA MOFFETT CBC W/PLT COUNT & AUTO [id number] 10:29:00 Test Item Value Reference Range Comments WHITE BLOOD CELL COUNT (BEAKER) (test zkvc=164) 18.4 K/ L 3.5-10.5 RED BLOOD CELL COUNT (BEAKER) (test lgtj=391) 3.00 M/ L 4.63-6.08 HEMOGLOBIN (BEAKER) (test oluf=416) 8.8 GM/DL 13.7-17.5 HEMATOCRIT (BEAKER) (test cgki=959) 27.8 % 40.1-51.0 MEAN CORPUSCULAR VOLUME (BEAKER) (test msfb=503) 92.7 fL 79.0-92.2 MEAN CORPUSCULAR HEMOGLOBIN (BEAKER) (test 29.3 pg 25.7-32.2 kthl=550) MEAN CORPUSCULAR HEMOGLOBIN CONC (BEAKER) (test 31.7 GM/DL 32.3-36.5 stpy=342) RED CELL DISTRIBUTION WIDTH (BEAKER) (test 15.9 % 11.6-14.4 wsuy=241) PLATELET COUNT (BEAKER) (test zmdg=646) 403 K/CU MM 150-450 MEAN PLATELET VOLUME (BEAKER) (test refw=769) 10.8 fL 9.4-12.4 NUCLEATED RED BLOOD CELLS (BEAKER) (test 0 /100 WBC 0-0 cvpg=645) (CELLAVISION MANUAL DIFF)2019-10-11 10:29:00 Test Item Value Reference Range Comments NEUTROPHILS - REL (CELLAVISION)(BEAKER) (test 62 % nolk=6009) LYMPHOCYTES - REL (CELLAVISION)(BEAKER) (test 13 % gmvw=9685) MONOCYTES - REL (CELLAVISION)(BEAKER) (test 5 % tpvt=8641) EOSINOPHILS - REL (CELLAVISION)(BEAKER) (test 17 % show=9770) BASOPHILS - REL (CELLAVISION)(BEAKER) (test 2 % ijgh=7546) NEUTROPHILS - ABS (CELLAVISION)(BEAKER) (test 11.41 K/ul 1.78-5.38 jopw=6719) LYMPHOCYTES - ABS (CELLAVISION)(BEAKER) (test 2.39 K/ul 1.32-3.57 ljwd=1823) MONOCYTES - ABS (CELLAVISION)(BEAKER) (test 0.92 K/uL 0.30-0.82 lher=3783) EOSINOPHILS - ABS (CELLAVISION)(BEAKER) (test 3.13 K/uL 0.04-0.54 rmqa=0536) BASOPHILS - ABS (CELLAVISION)(BEAKER) (test 0.37 K/uL 0.01-0.08 niba=9502) TOTAL COUNTED (BEAKER) (test hvmv=6820) 100 WBC MORPHOLOGY (BEAKER) (test ewxx=643) Normal PLT MORPHOLOGY (BEAKER) (test hkbn=245) Normal POLYCHROMATOPHILLIC RBCS(BEAKER) (test ybqp=305) 1+ few HYPOCHROMIA (BEAKER) (test vyza=858) 1+ few ANISOCYTOSIS (BEAKER) (test zgfp=035) 1+ few MACROCYTES (BEAKER) (test farp=142) 1+ few POIKILOCYTES (BEAKER) (test mela=733) 1+ few LORI CELLS (BEAKER) (test ldpb=983) 1+ few ARTIFACT (CELLAVISION)(BEAKER) (test vmxm=0846) Present HELMET CELLS (CELLAVISION)(BEAKER) (test 1+ few uflh=4934) PLATELET CONCENTRATION (CELLAVISION)(BEAKER) Adequate (test pzqb=9459) Pen Tender ID - Mitra Grijalva comments: Slide comments:[id number] 07:38:00 Test Item Value Reference Range Comments PARTIAL THROMBOPLASTIN TIME (BEAKER) (test 51.7 seconds 22.5-36.0 oefi=805) POCT-GLUCOSE [id number] 07:36:00 Test Item Value Reference Range Comments POC-GLUCOSE METER (BEAKER) 91 mg/dL 70-110 : TESTED AT [facility] [address] [facility] (test fjkv=3093) [facility], [address]: Pen Tender/Lumber Carrier SK=[id number] for MOFFETTHOMA BASIC METABOLIC [id number] 07:01:00 Test Item Value Reference Range Comments SODIUM (BEAKER) (test 145 meq/L 136-145 jmnk=243) POTASSIUM (BEAKER) (test 5.0 meq/L 3.5-5.1 nydx=602) CHLORIDE (BEAKER) (test 113 meq/L 98-107 vwtk=023) CO2 (BEAKER) (test 19 meq/L 22-29 zomf=919) BLOOD UREA NITROGEN 103 mg/dL 7-21 (BEAKER) (test wnrr=866) CREATININE (BEAKER) (test 8.81 mg/dL 0.57-1.25 oqsu=813) GLUCOSE RANDOM (BEAKER) 93 mg/dL 70-105 (test nvjz=226) CALCIUM (BEAKER) (test 7.7 mg/dL 8.4-10.2 zovv=612) EGFR (BEAKER) (test 6 mL/min/1.73 sq m ESTIMATED GFR IS NOT mofb=6305) ACCURATE CREATININE CLEARANCE IN PREDICTING GLOMERULAR FILTRATION RATE. ESTIMATED GFR IS NOT APPLICABLE FOR DIALYSIS PATIENTS. Pen Tender ID - ABBEY MPROTHROMBIN TIME/[id number] 06:01:00 Test Item Value Reference Range Comments PROTIME (BEAKER) (test jqkl=038) 14.8 seconds 11.9-14.2 INR (BEAKER) (test sokp=828) 1.2 <=5.9 Effective 02/23/2019: PT Reference Range ChangeNew: 11.9-14.2 Previous: 11.7- 14.7RECOMMENDED COUMADIN/WARFARIN INR THERAPY RANGESSTANDARD DOSE: 2.0-3.0 Includes: PROPHYLAXIS for venous thrombosis, systemic embolization; TREATMENT for venous thrombosis and/or pulmonary embolus.HIGH RISK: Target INR is2.5-3.5 for patients wiht mechanical heart valves.BASIC METABOLIC [id number] 23:02: 00 Test Item Value Reference Range Comments SODIUM (BEAKER) (test 144 meq/L 136-145 jsxc=131) POTASSIUM (BEAKER) (test 5.7 meq/L 3.5-5.1 xrxj=697) CHLORIDE (BEAKER) (test 112 meq/L 98-107 qtaz=798) CO2 (BEAKER) (test 19 meq/L 22-29 stqj=837) BLOOD UREA NITROGEN 102 mg/dL 7-21 (BEAKER) (test ikuu=992) CREATININE (BEAKER) (test 8.60 mg/dL 0.57-1.25 flrm=444) GLUCOSE RANDOM (BEAKER) 152 mg/dL 70-105 (test ghqy=806) CALCIUM (BEAKER) (test 8.0 mg/dL 8.4-10.2 ktns=247) EGFR (BEAKER) (test 6 mL/min/1.73 sq m ESTIMATED GFR IS NOT nxbw=0200) ACCURATE CREATININE CLEARANCE IN PREDICTING GLOMERULAR FILTRATION RATE. ESTIMATED GFR IS NOT APPLICABLE FOR DIALYSIS PATIENTS. Pen Tender ID - [id number] 22:49:00 Test Item Value Reference Range Comments PARTIAL THROMBOPLASTIN TIME (BEAKER) (test 80.2 seconds 22.5-36.0 jpet=930) POCT-GLUCOSE [id number] 22:03:00 Test Item Value Reference Range Comments POC-GLUCOSE METER (BEAKER) 108 mg/dL 70-110 : TESTED AT [facility] [address] [facility] (test sbwz=3201) [facility], [address]: Pen Tender/Lumber Carrier QD=[id number] for HOMA MOFFETT POCT-GLUCOSE [id number] 21:08:00 Test Item Value Reference Range Comments POC-GLUCOSE METER (BEAKER) 193 mg/dL 70-110 : TESTED AT [facility] [address] (test sego=9388) [place], [address]: Pen Tender/Lumber Carrier AY=[id number] for JETT AYOUB [id number] 15:27:00 Test Item Value Reference Range Comments PARTIAL THROMBOPLASTIN TIME (BEAKER) (test 65.5 seconds 22.5-36.0 busg=753) (CELLAVISION MANUAL DIFF)2019-10-10 14:28:00 Test Item Value Reference Range Comments NEUTROPHILS - REL (CELLAVISION)(BEAKER) (test 52 % khqs=2931) LYMPHOCYTES - REL (CELLAVISION)(BEAKER) (test 13 % veww=6014) MONOCYTES - REL (CELLAVISION)(BEAKER) (test 4 % ucvm=4345) EOSINOPHILS - REL (CELLAVISION)(BEAKER) (test 28 % qizc=6220) BASOPHILS - REL (CELLAVISION)(BEAKER) (test 1 % bimx=1214) METAMYELOCYTES - REL (CELLAVISION)(BEAKER) (test 1 % 0-0 wplg=3370) ATYPICAL LYMPHOCYTES - REL (CELLAVISION)(BEAKER) 1 % 0-0 (test ceon=5760) NEUTROPHILS - ABS (CELLAVISION)(BEAKER) (test 11.13 K/ul 1.78-5.38 cgsj=8326) LYMPHOCYTES - ABS (CELLAVISION)(BEAKER) (test 2.78 K/ul 1.32-3.57 efmj=4511) MONOCYTES - ABS (CELLAVISION)(BEAKER) (test 0.86 K/uL 0.30-0.82 pjzw=0785) EOSINOPHILS - ABS (CELLAVISION)(BEAKER) (test 5.99 K/uL 0.04-0.54 wabu=9267) BASOPHILS - ABS (CELLAVISION)(BEAKER) (test 0.21 K/uL 0.01-0.08 gznk=1118) METAMYELOCYTES - ABS (CELLAVISION)(BEAKER) (test 0.21 K/uL 0.00-0.00 dtey=7746) ATYPICAL LYMPHOCYTES - ABS (CELLAVISION)(BEAKER) 0.21 K/uL 0.00-0.00 (test rvhj=6299) TOTAL COUNTED (BEAKER) (test ayzi=7154) 100 WBC MORPHOLOGY (BEAKER) (test cnuo=039) Normal GIANT PLATELETS (BEAKER) (test otkq=270) Present LARGE PLT(BEAKER) (test sabp=6734) Present POLYCHROMATOPHILLIC RBCS(BEAKER) (test eivn=032) 3+ many HYPOCHROMIA (BEAKER) (test nuiu=234) 2+ moderate ANISOCYTOSIS (BEAKER) (test mvoo=559) 1+ few MICROCYTES (BEAKER) (test jndt=442) 1+ few POIKILOCYTES (BEAKER) (test alhr=576) 1+ few ELLIPTOCYTES (BEAKER) (test albv=236) 1+ few OVALOCYTES (BEAKER) (test vlqx=142) 1+ few TEAR DROP CELLS (BEAKER) (test oxtm=576) 1+ few LORI CELLS (BEAKER) (test samu=969) 2+ moderate ARTIFACT (CELLAVISION)(BEAKER) (test poul=0123) Present PLATELET CONCENTRATION (CELLAVISION)(BEAKER) Adequate (test bxjb=5511) Pen Tender ID - Teri Ferguson comments: Slide comments:POCT-GLUCOSE [id number] 12:00:00 Test Item Value Reference Range Comments POC-GLUCOSE METER (BEAKER) 98 mg/dL 70-110 : TESTED AT [facility] [address] [facility] (test azua=7189) [facility], [address]: Pen Tender/Lumber Carrier GG=[id number] for HOMA MOFFETT BASIC METABOLIC [id number] 09:03:00 Test Item Value Reference Range Comments SODIUM (BEAKER) (test 144 meq/L 135-148 eows=117) POTASSIUM (BEAKER) (test 5.4 meq/L 3.6-5.5 nuze=556) CHLORIDE (BEAKER) (test 112 meq/L 98-106 xaem=679) CO2 (BEAKER) (test 19 meq/L 20-29 ejkm=080) BLOOD UREA NITROGEN 91 mg/dL 10-26 (BEAKER) (test fxjk=293) CREATININE (BEAKER) (test 8.90 mg/dL 0.50-1.20 tjwp=887) GLUCOSE RANDOM (BEAKER) 92 mg/dL 70-110 (test jroo=397) CALCIUM (BEAKER) (test 8.7 mg/dL 8.5-10.5 xrrl=531) EGFR (BEAKER) (test 6 mL/min/1.73 sq m ESTIMATED GFR IS NOT bfpk=9701) ACCURATE CREATININE CLEARANCE IN PREDICTING GLOMERULAR FILTRATION RATE. ESTIMATED GFR IS NOT APPLICABLE FOR DIALYSIS PATIENTS. Pen Tender ID - [id number] 05:33:00 Test Item Value Reference Range Comments PARTIAL THROMBOPLASTIN TIME (BEAKER) (test 50.4 seconds 22.5-36.0 xhkz=824) PROTHROMBIN [id number] 05:32:00 Test Item Value Reference Range Comments PROTIME (BEAKER) (test utrq=891) 14.5 seconds 11.9-14.2 INR (BEAKER) (test ykjg=947) 1.2 <=5.9 Effective 02/23/2019: PT Reference Range ChangeNew: 11.9-14.2 Previous: 11.7- 14.7RECOMMENDED COUMADIN/WARFARIN INR THERAPY RANGESSTANDARD DOSE: 2.0-3.0 Includes: PROPHYLAXIS for venous thrombosis, systemic embolization; TREATMENT for venous thrombosis and/or pulmonary embolus.HIGH RISK: Target INR is2.5-3.5 for patients wiht mechanical heart valves.CBC W/PLT COUNT & AUTO [id number] 05:27:00 Test Item Value Reference Range Comments WHITE BLOOD CELL COUNT (BEAKER) (test ahra=127) 21.4 K/ L 3.5-10.5 RED BLOOD CELL COUNT (BEAKER) (test iuhe=761) 2.93 M/ L 4.63-6.08 HEMOGLOBIN (BEAKER) (test jqhy=888) 8.6 GM/DL 13.7-17.5 HEMATOCRIT (BEAKER) (test mnpe=224) 27.4 % 40.1-51.0 MEAN CORPUSCULAR VOLUME (BEAKER) (test dgqz=356) 93.5 fL 79.0-92.2 MEAN CORPUSCULAR HEMOGLOBIN (BEAKER) (test 29.4 pg 25.7-32.2 rwis=022) MEAN CORPUSCULAR HEMOGLOBIN CONC (BEAKER) (test 31.4 GM/DL 32.3-36.5 inzh=170) RED CELL DISTRIBUTION WIDTH (BEAKER) (test 15.8 % 11.6-14.4 dobq=687) PLATELET COUNT (BEAKER) (test prhb=227) 416 K/CU MM 150-450 MEAN PLATELET VOLUME (BEAKER) (test caua=458) 10.6 fL 9.4-12.4 NUCLEATED RED BLOOD CELLS (BEAKER) (test 0 /100 WBC 0-0 frpy=028) POCT-GLUCOSE [id number] 21:06:00 Test Item Value Reference Range Comments POC-GLUCOSE METER (BEAKER) 145 mg/dL 70-110 : TESTED AT [place] [id number] [facility] (test nkcb=4324) [facility], [address]: Pen Tender/Lumber Carrier EO=[id number] for JETT AYOUB [id number] 20:14:00 Test Item Value Reference Range Comments PARTIAL THROMBOPLASTIN TIME (BEAKER) (test 80.5 seconds 22.5-36.0 bitr=621) POCT-GLUCOSE [id number] 17:52:00 Test Item Value Reference Range Comments POC-GLUCOSE METER (BEAKER) 107 mg/dL 70-110 : TESTED AT [address] (test qcho=6028) [facility], [address]: Pen Tender/Lumber Carrier IZ=[id number] for ADRIANNE NESBITT RAD, CHEST, 1 VIEW, NON [id number] 17:07:00Reason for exam:-> leukocytosisShould this be performed at the bedside?->YesFINAL REPORT INDICATION: leukocytosis COMPARISON: None TECHNIQUE: Single frontal view of the chest. FINDINGS: Lungs and pleura: Left retrocardiac atelectasis. Superimposed infection may be excluded clinically. No effusion.Heart and mediastinum: Normal heart size. Unremarkable mediastinal contours.Osseous structures: No acute abnormality.Other: None. IMPRESSION: Left retrocardiac atelectasis. Superimposed infection may be excluded clinically Signed: Angeles Banda MDReport Verified Date/Time: 10/09/2019 17: 07:26 Reading Location: [address] Neuro Reading Room (CELLAVISION MANUAL DIFF) 2019-10-09 15:09:00 Test Item Value Reference Range Comments NEUTROPHILS - REL (CELLAVISION)(BEAKER) (test 60 % odxx=8569) LYMPHOCYTES - REL (CELLAVISION)(BEAKER) (test 13 % tzpe=3683) MONOCYTES - REL (CELLAVISION)(BEAKER) (test 5 % tjdc=5207) EOSINOPHILS - REL (CELLAVISION)(BEAKER) (test 21 % daqu=8490) BANDS - REL (CELLAVISION)(BEAKER) (test 1 % 0-10 mtgn=0143) NEUTROPHILS - ABS (CELLAVISION)(BEAKER) (test 10.32 K/ul 1.78-5.38 dlnz=7033) LYMPHOCYTES - ABS (CELLAVISION)(BEAKER) (test 2.24 K/ul 1.32-3.57 inuq=3870) MONOCYTES - ABS (CELLAVISION)(BEAKER) (test 0.86 K/uL 0.30-0.82 youp=6360) EOSINOPHILS - ABS (CELLAVISION)(BEAKER) (test 3.61 K/uL 0.04-0.54 ewwd=5340) BANDS - ABS (CELLAVISION)(BEAKER) (test 0.17 K/uL 0.00-0.80 hbgi=8850) TOTAL COUNTED (BEAKER) (test fgzz=7104) 100 WBC MORPHOLOGY (BEAKER) (test vsao=240) Normal GIANT PLATELETS (BEAKER) (test vijm=890) Present ANISOCYTOSIS (BEAKER) (test shan=551) 1+ few MACROCYTES (BEAKER) (test pyjo=746) 1+ few POIKILOCYTES (BEAKER) (test vfem=732) 2+ moderate SCHISTOCYTES (BEAKER) (test ghkt=655) 1+ few OVALOCYTES (BEAKER) (test iowk=558) 1+ few TEAR DROP CELLS (BEAKER) (test liua=107) 1+ few ARTIFACT (CELLAVISION)(BEAKER) (test ayih=1650) Present PLATELET CONCENTRATION (CELLAVISION)(BEAKER) Adequate (test ovlv=1145) Pen Tender ID - Johan Ramos comments: Slide comments:OLVIN, TUNNELED CATHETER [id number] 14:37:00Reason for exam:->right fem dialysis catheter not functioning, needs new access.FINAL REPORT Exam: None tunnel dialysis catheter exchange Clinical History:Dialysis catheter malfunction Consent: Benefits and risks were explained to the patient who gave consent to the procedure. Fluoro Time: 0.1 Minutes Total Images: 1 Procedure: Sterile barrier technique was followed including cap, mask, sterile gown, sterile gloves, sterile sheet, hand hygiene and 2%chlorhexidine for cutaneous antisepsis. The right groin was prepped and draped in usual sterile fashion. 2% lidocaine was used as local anesthetic. Under fluoroscopic guidance, the indwelling right common femoral nontunneled dialysis catheter was exchanged for a new nontunneled dialysis catheter over the wire. The tip was advanced to the IVC. Both lumens flush and aspirate easily and were heparinized. The catheter was secured using 2-0 Prolene. Hemostasis was achieved. The patient tolerated the procedure well without any adverse reactions. He left the department in stable condition. Complication: None immediate Impression: 1. Right common femoral nontunneled dialysis catheter exchange as described. Signed: Khloe Rose MDReport Verified Date/Time: 10/09/2019 14:37:53 Reading Location: [facility] Reading Room Electronically signed by: TESSA ROSE M.D. on 02:37 [id number] 13:02:00 Test Item Value Reference Range Comments PARTIAL THROMBOPLASTIN TIME (BEAKER) (test 44.9 seconds 22.5-36.0 ypmc=536) Prior to initiating heparinCBC (HEMOGRAM ONLY)2019-10-09 12:41:00 Test Item Value Reference Range Comments WHITE BLOOD CELL COUNT (BEAKER) (test eusp=082) 17.6 K/ L 3.5-10.5 RED BLOOD CELL COUNT (BEAKER) (test agcg=622) 3.23 M/ L 4.63-6.08 HEMOGLOBIN (BEAKER) (test iyys=667) 9.2 GM/DL 13.7-17.5 HEMATOCRIT (BEAKER) (test iwuu=626) 30.1 % 40.1-51.0 MEAN CORPUSCULAR VOLUME (BEAKER) (test tjtn=493) 93.2 fL 79.0-92.2 MEAN CORPUSCULAR HEMOGLOBIN (BEAKER) (test 28.5 pg 25.7-32.2 pxys=407) MEAN CORPUSCULAR HEMOGLOBIN CONC (BEAKER) (test 30.6 GM/DL 32.3-36.5 xfxr=714) RED CELL DISTRIBUTION WIDTH (BEAKER) (test 15.5 % 11.6-14.4 ckbl=305) PLATELET COUNT (BEAKER) (test yhba=994) 474 K/CU MM 150-450 MEAN PLATELET VOLUME (BEAKER) (test jvot=884) 10.5 fL 9.4-12.4 NUCLEATED RED BLOOD CELLS (BEAKER) (test 0 /100 WBC 0-0 ssnu=431) POCT-GLUCOSE [id number] 12:31:00 Test Item Value Reference Range Comments POC-GLUCOSE METER (BEAKER) 110 mg/dL 70-110 : TESTED AT [address] (test lkep=1710) [facility], [address]: Pen Tender/Lumber Carrier LR=[id number] for DELICIA, ADRIANNE POCT-GLUCOSE [id number] 08:41:00 Test Item Value Reference Range Comments POC-GLUCOSE METER (BEAKER) 100 mg/dL 70-110 : TESTED AT [address] (test szlc=6928) [facility], [address]: Pen Tender/Lumber Carrier VD=[id number] for DELICIA, ADRIANNE BASIC METABOLIC [id number] 06:32:00 Test Item Value Reference Range Comments SODIUM (BEAKER) (test 144 meq/L 136-145 hzqd=791) POTASSIUM (BEAKER) (test 5.0 meq/L 3.5-5.1 znbl=629) CHLORIDE (BEAKER) (test 111 meq/L 98-107 buzl=835) CO2 (BEAKER) (test 21 meq/L 22-29 zzec=440) BLOOD UREA NITROGEN 83 mg/dL 7-21 (BEAKER) (test jmqb=017) CREATININE (BEAKER) (test 8.08 mg/dL 0.57-1.25 fobw=048) GLUCOSE RANDOM (BEAKER) 110 mg/dL 70-105 (test huaw=954) CALCIUM (BEAKER) (test 8.3 mg/dL 8.4-10.2 bprf=121) EGFR (BEAKER) (test 7 mL/min/1.73 sq m ESTIMATED GFR IS NOT wezq=7285) ACCURATE CREATININE CLEARANCE IN PREDICTING GLOMERULAR FILTRATION RATE. ESTIMATED GFR IS NOT APPLICABLE FOR DIALYSIS PATIENTS. Pen Tender ID - ABBEY MPROTHROMBIN [id number] 05:35:00 Test Item Value Reference Range Comments PROTIME (BEAKER) (test rmfw=734) 14.7 seconds 11.9-14.2 INR (BEAKER) (test vpzt=323) 1.2 <=5.9 Effective 02/23/2019: PT Reference Range ChangeNew: 11.9-14.2 Previous: 11.7- 14.7RECOMMENDED COUMADIN/WARFARIN INR THERAPY RANGESSTANDARD DOSE: 2.0-3.0 Includes: PROPHYLAXIS for venous thrombosis, systemic embolization; TREATMENT for venous thrombosis and/or pulmonary embolus.HIGH RISK: Target INR is2.5-3.5 for patients wiht mechanical heart valves.CBC W/PLT COUNT & AUTO [id number] 05:18:00 Test Item Value Reference Range Comments WHITE BLOOD CELL COUNT (BEAKER) (test tuyu=293) 17.2 K/ L 3.5-10.5 RED BLOOD CELL COUNT (BEAKER) (test fysh=399) 3.13 M/ L 4.63-6.08 HEMOGLOBIN (BEAKER) (test catc=913) 9.4 GM/DL 13.7-17.5 HEMATOCRIT (BEAKER) (test xmfk=790) 28.8 % 40.1-51.0 MEAN CORPUSCULAR VOLUME (BEAKER) (test ltdp=739) 92.0 fL 79.0-92.2 MEAN CORPUSCULAR HEMOGLOBIN (BEAKER) (test 30.0 pg 25.7-32.2 najf=121) MEAN CORPUSCULAR HEMOGLOBIN CONC (BEAKER) (test 32.6 GM/DL 32.3-36.5 itnt=654) RED CELL DISTRIBUTION WIDTH (BEAKER) (test 15.5 % 11.6-14.4 ouah=053) PLATELET COUNT (BEAKER) (test zfsy=210) 452 K/CU MM 150-450 MEAN PLATELET VOLUME (BEAKER) (test igxb=820) 10.8 fL 9.4-12.4 NUCLEATED RED BLOOD CELLS (BEAKER) (test 0 /100 WBC 0-0 qnba=928) POCT-GLUCOSE [id number] 21:13:00 Test Item Value Reference Range Comments POC-GLUCOSE METER (BEAKER) 130 mg/dL 70-110 : TESTED AT [facility] [address] (test sbtd=3312) [facility], [address]: Pen Tender/Lumber Carrier TR=[id number] for TREASURE KRISHNAMURTHY CBC W/PLT COUNT & AUTO [id number] 11:30:00 Test Item Value Reference Range Comments WHITE BLOOD CELL COUNT (BEAKER) (test iugu=053) 15.7 K/ L 3.5-10.5 RED BLOOD CELL COUNT (BEAKER) (test dqef=443) 3.24 M/ L 4.63-6.08 HEMOGLOBIN (BEAKER) (test qbxx=293) 9.3 GM/DL 13.7-17.5 HEMATOCRIT (BEAKER) (test dyed=224) 29.7 % 40.1-51.0 MEAN CORPUSCULAR VOLUME (BEAKER) (test zwqn=979) 91.7 fL 79.0-92.2 MEAN CORPUSCULAR HEMOGLOBIN (BEAKER) (test 28.7 pg 25.7-32.2 tzcm=767) MEAN CORPUSCULAR HEMOGLOBIN CONC (BEAKER) (test 31.3 GM/DL 32.3-36.5 hhoa=461) RED CELL DISTRIBUTION WIDTH (BEAKER) (test 15.5 % 11.6-14.4 ofrq=514) PLATELET COUNT (BEAKER) (test iuzt=111) 455 K/CU MM 150-450 MEAN PLATELET VOLUME (BEAKER) (test tehs=671) 10.4 fL 9.4-12.4 NUCLEATED RED BLOOD CELLS (BEAKER) (test 0 /100 WBC 0-0 wfod=032) (CELLAVISION MANUAL DIFF)2019-10-08 11:30:00 Test Item Value Reference Range Comments NEUTROPHILS - REL (CELLAVISION)(BEAKER) (test 59 % hdde=4439) LYMPHOCYTES - REL (CELLAVISION)(BEAKER) (test 16 % ftln=9783) MONOCYTES - REL (CELLAVISION)(BEAKER) (test 3 % csnk=0491) EOSINOPHILS - REL (CELLAVISION)(BEAKER) (test 19 % sehu=2961) BASOPHILS - REL (CELLAVISION)(BEAKER) (test 3 % oooq=2179) NEUTROPHILS - ABS (CELLAVISION)(BEAKER) (test 9.26 K/ul 1.78-5.38 lglr=3180) LYMPHOCYTES - ABS (CELLAVISION)(BEAKER) (test 2.51 K/ul 1.32-3.57 hrfc=0840) MONOCYTES - ABS (CELLAVISION)(BEAKER) (test 0.47 K/uL 0.30-0.82 rbrs=4822) EOSINOPHILS - ABS (CELLAVISION)(BEAKER) (test 2.98 K/uL 0.04-0.54 unih=2478) BASOPHILS - ABS (CELLAVISION)(BEAKER) (test 0.47 K/uL 0.01-0.08 sftc=9230) TOTAL COUNTED (BEAKER) (test glgd=4392) 100 WBC MORPHOLOGY (BEAKER) (test ihem=366) Normal GIANT PLATELETS (BEAKER) (test zzrl=111) Present LARGE PLT(BEAKER) (test wdmv=6184) Present POLYCHROMATOPHILLIC RBCS(BEAKER) (test fzmc=778) 1+ few HYPOCHROMIA (BEAKER) (test ivgz=176) 1+ few ANISOCYTOSIS (BEAKER) (test kiud=568) 2+ moderate MICROCYTES (BEAKER) (test sviq=049) 1+ few MACROCYTES (BEAKER) (test qgmp=578) 2+ moderate POIKILOCYTES (BEAKER) (test arxh=013) 1+ few TARGET CELLS (BEAKER) (test ktfv=275) 1+ few ELLIPTOCYTES (BEAKER) (test lhqm=514) 1+ few OVALOCYTES (BEAKER) (test teue=978) 1+ few TEAR DROP CELLS (BEAKER) (test pfmz=857) 1+ few ARTIFACT (CELLAVISION)(BEAKER) (test wvel=6699) Present PLATELET CONCENTRATION (CELLAVISION)(BEAKER) Adequate (test usje=1201) Pen Tender ID - Tamara Berkowtiz comments: Slide comments:POCT-GLUCOSE [id number] 11:13:00 Test Item Value Reference Range Comments POC-GLUCOSE METER (BEAKER) 132 mg/dL 70-110 : Notified RN/MD: TESTED AT (test ovzb=4260) [facility] [address] [facility], [address]: Pen Tender/Lumber Carrier [id number] for ARCENIO DAWN POCT-GLUCOSE [id number] 07:48:00 Test Item Value Reference Range Comments POC-GLUCOSE METER (BEAKER) 89 mg/dL 70-110 : TESTED AT [place] [id number] [facility] (test lblc=5859) [facility], [address]: Pen Tender/Lumber Carrier YH=[id number] for ARCENIO DAWN BASIC METABOLIC [id number] 07:32:00 Test Item Value Reference Range Comments SODIUM (BEAKER) (test 139 meq/L 136-145 ohwk=448) POTASSIUM (BEAKER) (test 5.1 meq/L 3.5-5.1 rznl=965) CHLORIDE (BEAKER) (test 107 meq/L 98-107 mlcw=183) CO2 (BEAKER) (test 21 meq/L 22-29 bkyq=741) BLOOD UREA NITROGEN 78 mg/dL 7-21 (BEAKER) (test pqjm=512) CREATININE (BEAKER) (test 7.52 mg/dL 0.57-1.25 ilti=643) GLUCOSE RANDOM (BEAKER) 76 mg/dL 70-105 (test gltx=928) CALCIUM (BEAKER) (test 8.3 mg/dL 8.4-10.2 iaqo=568) EGFR (BEAKER) (test 7 mL/min/1.73 sq m ESTIMATED GFR IS NOT jzqh=7879) ACCURATE CREATININE CLEARANCE IN PREDICTING GLOMERULAR FILTRATION RATE. ESTIMATED GFR IS NOT APPLICABLE FOR DIALYSIS PATIENTS. Pen Tender ID - TERI FHEPATITIS B SURFACE [id number] 06:31:00 Test Item Value Reference Range Comments HEPATITIS B SURFACE ANTIGEN (2) (BEAKER) (test Nonreactive Nonreactive azgi=1369) Pen Tender ID - ABBEY MPROTHROMBIN TIME/[id number] 05:23:00 Test Item Value Reference Range Comments PROTIME (BEAKER) (test tscv=474) 14.6 seconds 11.9-14.2 INR (BEAKER) (test xilf=097) 1.2 <=5.9 Effective 02/23/2019: PT Reference Range ChangeNew: 11.9-14.2 Previous: 11.7- 14.7RECOMMENDED COUMADIN/WARFARIN INR THERAPY RANGESSTANDARD DOSE: 2.0-3.0 Includes: PROPHYLAXIS for venous thrombosis, systemic embolization; TREATMENT for venous thrombosis and/or pulmonary embolus.HIGH RISK: Target INR is2.5-3.5 for patients wiht mechanical heart valves.POCT-GLUCOSE [id number] 22:08:00 Test Item Value Reference Range Comments POC-GLUCOSE METER ([employer]) 141 mg/dL 70-110 : TESTED AT [facility] [address] [facility] (test szon=9495) [facility], [address]: Pen Tender/Lumber Carrier ZC=[id number] for TREASURE KRISHNAMURTHY
[2019-10-18] MEDS ORDERED: GLUCAGON 1 MG/VIAL IM PRN (22:44)
[2019-10-18] MEDS ORDERED: D50W 25 GM/50 ML SYRINGE/VIAL IV PRN (22:44)
[2019-10-19] MEDS: INSULIN -REGULAR HUMAN 50 UNIT/0.5 ML ML SQ SCH ×4 (07:30→20:08)
[2019-10-19 07:51] LABS: Absolute Lymphocytes (CBC) 2.4 K/uL (0.7-4.9); Basophils % 0.6 % (0-1.3); Hematocrit 30.6 % (39.6-49.0); Lymphocytes % 18.6 % (15.3-44.8); MPV 8.8 fL (7.6-11.3); RBC Red Blood Cell Count 3.42 M/uL (4.33-5.43)
[2019-10-19] MEDS ORDERED: AMLODIPINE 10 MG TAB PO SCH (08:00)
[2019-10-19 08:12] LABS: Albumin 2.6 g/dL (3.4-5.0); Magnesium 1.9 mg/dL (1.8-2.4); Potassium 4.4 mmol/L (3.5-5.1); Prealbumin 15.5 mg/dL (20-40)
[2019-10-19] MEDS: CALCITROL 0.25 MCG CAP PO SCH (08:20)
[2019-10-19] MEDS: DOXAZOSIN 2 MG TAB PO SCH ×2 (08:20→20:07)
[2019-10-19] MEDS: carvediloL 12.5 MG TAB PO SCH ×2 (08:20→20:06)
[2019-10-19 09:09] LABS: Anisocytosis 1+; Blood Morphology Comment NOTED (NOT SEEN); Platelet Estimate ADEQ
[2019-10-19] MEDS: AMLODIPINE 10 MG TAB PO SCH (10:25)
--- NOTE | 2019-10-19 15:04 | FAST ---
SHIFT START DATE/TIME: 10/19/2019 07:00 (LPC) SHIFT END DATE/TIME: 10/19/2019 19:00 (LPC) NAME JAQUELIN NOBLES DATE OF : 1960 DATE OF ADMISSION: 10/18/2019 21:12 (LPC) PHONE: AGE: 59 N# [id number] GENDER: Male ENCOUNTER PHYSICIAN: Dr. Berry Fuentes M.D. ADMISSION DIAGNOSIS: - Medically Complex Conditions 17 - Medical/Surgical Complications (17.8) Hemodialysis catheter dysfunction. ESRD on Hemodialysis. EATING: EATING - STEP 1: Does the patient complete the activity by him/herself with no assistance (physical, verbal/nonverbal cueing, setup/clean-up)? Yes. 1. [id number] ADMISSION PERFORMANCE: Independent CODE: 06 ORAL HYGIENE: ORAL HYGIENE - STEP 1: Does the patient complete the activity by him/herself with no assistance (physical, verbal/nonverbal cueing, setup/clean-up)? Yes. 1. [id number] ADMISSION PERFORMANCE: Independent CODE: 06 TOILETING HYGIENE: TOILETING HYGIENE - STEP 1: Does the patient complete the activity by him/herself with no assistance (physical, verbal/nonverbal cueing, setup/clean-up)? Yes. 1. [id number] ADMISSION PERFORMANCE: Independent CODE: 06 BATHING: Not assessed/no information CODE: - DRESSING - UPPER BODY: Not assessed/no information CODE: - DRESSING - LOWER BODY: Not assessed/no information CODE: - PUTTING ON/TAKING OFF FOOTWEAR: Not assessed/no information CODE: - DOES THE PATIENT USE A WHEELCHAIR/SCOOTER? CODE: EXPR INDICATE THE TYPE OF WHEELCHAIR/SCOOTER USED: CODE: EXPR INDICATE THE TYPE OF WHEELCHAIR/SCOOTER USED: CODE: EXPR BLADDER AND BOWEL: H350. BLADDER CONTINENCE (3-DAY ASSESSMENT PERIOD): Always continent (no documented incontinence) CODE: 0 H400. BOWEL CONTINENCE (3-DAY ASSESSMENT PERIOD): Always continent CODE: 0 SIGNATURE PANEL: The following modified sections: 1. [id number] Admission Performance, 1. [id number] Admission Performance, 1. [id number] Admission Performance, H400. Bowel Continence (3-day assessment period), H350. Bladder Con tinence (3-day assessment period) were [electronically] signed by Mague Philippe C.N.A. on ThuOct 19 2019 15:04:23 GMT-0600 (Central Standard Time)
[2019-10-19] MEDS: CA ACETATE 667 MG CAP PO SCH (16:51)
--- NOTE | 2019-10-19 17:07 | CON ---
Date of Consultation: 10/19/2019 Reason For Consult: ESRD, on dialysis. History Of Present Illness: Mr. Skelton is a 59-year-old male with past medical history significant for uncontrolled diabetes and chronic cognitive impairment secondary to anoxic brain injury, mild fu nctioning dialysis catheter, who was transferred to [facility] for exchang e of the catheter; however, his femoral Edgard catheter did not work well. He is currently dialyzin g with a right-sided tunneled IJ catheter. He has also had a left arm AV fistula that was placed. Katia barnhart was diagnosed with right jugular vein DVT and was discharged to the rehab for further placement pen ding further placement at this time. Past Medical History: Significant for history of ESRD, on dialysis, hypertension, history of cogniti ve impairment. Surgical History: Significant for history of AV fistula placement recently, history of multiple cath eter exchanges and placement of tunneled dialysis catheter. Social History: He is currently unable to make his own decisions. His family is also unable to take care of him. He has multiple other social issues. No history of smoking or alcohol use reported at this time. Review of Systems: Positive for some pain in his left arm. Otherwise, denies any other complaints. Physical Examination: Vital Signs: Have been reviewed and are stable. General: He appears in no acute distress. Lungs: Clear to auscultation. Abdomen: Soft and nontender. Extremities: Left arm AV fistula with good bruit and thrill. Laboratory Data: Has been reviewed in detail. BMP results are consistent with ESRD. CBC showing mi ld leukocytosis, hemoglobin of 9.9, hematocrit of 30.6, and platelet count of 351. Current Medications: Have been reviewed. He is on amlodipine 10 mg a day, atorvastatin, calcitriol, carvedilol, doxazosin, heparin for deep vein thrombosis prophylaxis. Impression: 1.End-stage renal disease, on dialysis. 2.Right jugular vein deep vein thrombosis. The patient also has a right-sided tunneled dialysis cat heter on the same side. High risk of progression and development of superior vena cava syndrome. Wi ll possibly need long-term anticoagulation with Coumadin. 3.Anemia secondary to end-stage renal disease. 4.Failure to thrive. The patient is supposed to be on Remeron, which we will restart. 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 We will go ahead and start him on phosphorus binders and continue the calcitriol. Plan: Overall, the patient is stable at this time. We will continue Thursday, , Thursday carie lysis. Once AV fistula is mature, we will transition him to AV fistula use and will possibly need lo ng-term anticoagulation. Continue all other medications and plan of care. VV/MODL Voice ID: [id number] Report ID: [id number]
[2019-10-19] MEDS ORDERED: HEPARIN 5000 UNIT/ML 1 ML VIAL SQ SCH (20:00)
[2019-10-19] MEDS: APIXABAN 2.5 MG TABLET PO SCH (20:04)
[2019-10-19] MEDS: MIRTAZAPINE 15 MG TAB PO SCH (20:04)
[2019-10-19] MEDS: ATORVASTATIN 20 MG TAB PO SCH (20:04)
[2019-10-19] MEDS: NEPRO SHAKE 237 ML CAN PO SCH (20:07)
[2019-10-19] MEDS: PROMOD 30 ML DOSE PO SCH (20:07)
--- NOTE | 2019-10-19 22:34 | R.HP ---
FACILITY: [facility] ENCOUNTER DATE AND TIME: 10/19/2019 22:27 (MANAGER FILE) MR#: [id number] NAME CONSTANTINO SKELTON ADDRESS: [address] [facility] [place]: [place] [address] PHONE: DATE OF : 1960 AGE: 59 SSN# [id number] GENDER: Male DEXTERITY Right-handed MARITAL STATUS Single (Never ) [facility] PRE-HOSPITAL LIVING SETTING 01 - Home (private home/apt. board/care, assisted living, [facility], transitional living) PRE-HOSPITAL LIVING WITH Alone ENCOUNTER PHYSICIAN: Dr. Berry Fuentes M.D. REFERRING DOCTOR: deon Wise DATE OF ADMISSION: 10/18/2019 21:12 (MANAGER FILE) REFERRING FACILITY [facility] HOME TYPE AND DETAILS: Type of home: single family house # of levels in the residence: 1 # of steps to enter the residence: 0 # of steps within the residence: 0 ADMISSION DIAGNOSIS: Hemodialysis catheter dysfunction ESRD on Hemodialysis ONSET DATE: 10/07/2019 PRIMARY DIAGNOSIS-RELATED SURGERIES: Tunneled Dialysis Catheter Placement on 10/12/2019 Left Brachiobasilic AVF on 10/14/2019 SECONDARY/COMORBID DIAGNOSES (TIERED): - N/A Right Jugular DVT HTN HLD DM Leukocytosis HISTORY OF PRESENT ILLNESS (HPI): Pt. is a 59 yo Right-handed male. On 10/07/2019 he was admitted to [facility] with diagnosis Hemodialysis c atheter dysfunction. His impairment category is Medically Complex Conditions 17 - Medical/Surgical Complications (17.8). Pre-morbidly, Pt. was independent/mod-I in Locomotion, Balance, Safety Awareness, Social Cognition, T ransfers Control, Sphincter Control, Self-Care, Communication, and Endurance; and he had good Locomot ion, Safety Awareness, Balance, Social Cognition, Transfers Control, Sphincter Control, Self-Care, Co mmunication, and Endurance. Currently, he has deficits of Locomotion, Balance, Safety Awareness, Social Cognition, Transfers Cont rol, Self-Care, Communication, and Endurance. Pt. is now referred to [facility] for acute in-patient rehabilitation in order to maximize patient's functional independence in activities of daily living, strength, ROM, and mobi lity. Patient has realistic goal of being discharged at assistance level 6-Messi to reside at Home with Fam ava/Relatives. Constantino Skelton is a 59 year old male that lives alone in a single yusuf home. On 10/07/2019, he had malfunctioning dialysis catheter and was admitted to [facility] and treated. He is now medically stable but in need of 24-hour nursing, doctor supervision and oversite while receiving active and The patient is reasonably expected to participate in 3hours of therapy a day/15 hours per week and receive care with an intensive interdisciplinary approach. MEDICATION ALLERGIES: No Known Drug Allergies (NKDA) ENVIRONMENTAL ALLERGIES: None Known - Substance Allergies None Known - Other Allergies None Known PAST MEDICAL HISTORY: DM HLD HTN Leukocytosis Right Jugular DVT FAMILY HISTORY: Family history is not contributory. SOCIAL HISTORY: - Home Living Alone REVIEW OF SYSTEMS: - Gen No Chills Fatigue No Fever - Eyes No Double Vision No itchiness - ENMT No Difficulty Swallowing - CVS No Chest Discomfort No Chest Pain Fatigue No Weight Gain - Resp No Cough No Shortness of Breath - GI Continent No Abdominal Pain No Constipation No Diarrhea - Continent No Kidney Pain No Painful Urination No Urinary Urgency - MSK No Joint Pain No Muscle Cramps Stiffness - Skin No Itching No Rash No Suspicious Lesions - Neuro Coordination Difficulty Difficulty with Concentration No Memory Loss No Seizures Weakness - Psych No Anxiety No Depression No HIV Exposure No Persistent Infections No Seasonal Allergies - Endo No Cold/Heat Intolerance No Excessive Hunger No Excessive Thirst No Excessive Urination PHYSICAL EXAM - Gen Alert and awake Lying in bed No apparent distress Oriented to: person, time, and place - Skin No skin breakdown. Normacephalic - Eyes No abnormalities - ENMT No abnormalities - Neck No abnormalities - CVS RRR - Chest Clear - Resp Clear to auscultation - Abd Soft - GI Non distended Deferred - No abnormalities - Ext Mild bilateral lower extremity edema. - MSK 4+/5 weakness in both lower extremities. - Neuro No focal deficits - Psych No abnormalities VITAL SIGNS Temperature: 97.5 F SBP/DBP: 145/66 Pulse: 62 Resp: 17 NURSING: - Shower allowing shower ACTIVITIES OOB only with supervision QI SCORES: - Self-Care A. Eating 05-Setup or clean-up assistance B. Oral hygiene 05-Setup or clean-up assistance C. Toileting hygiene 04-Supervision or touching assistance E. Shower/bathe self 03-Partial/moderate assistance F. Upper body dressing 04-Supervision or touching assistance G. Lower body dressing 03-Partial/moderate assistance H. Putting on/taking off footwear 03-Partial/moderate assistance - Mobility A. Roll left and right 03-Partial/moderate assistance B. Sit to lying 03-Partial/moderate assistance C. Lying to sitting on side of bed 03-Partial/moderate assistance D. Sit to stand 03-Partial/moderate assistance E. Chair/fyl-ag-azlej transfer 03-Partial/moderate assistance F. Toilet transfer 03-Partial/moderate assistance G. Car transfer 88-Not attempted due to medical condition or safety concerns I. Walk 10 feet 03-Partial/moderate assistance J. Walk 50 feet with two turns 88-Not attempted due to medical condition or safety concerns K. Walk 150 feet 03-Partial/moderate assistance L. Walking 10 feet on uneven surfaces 88-Not attempted due to medical condition or safety concerns M. 1 step (curb) 88-Not attempted due to medical condition or safety concerns N. 4 steps 88-Not attempted due to medical condition or safety concerns O. 12 steps 88-Not attempted due to medical condition or safety concerns P. Picking up object 88-Not attempted due to medical condition or safety concerns R. Wheel 50 feet with two turns 88-Not attempted due to medical condition or safety concerns S. Wheel 150 feet 88-Not attempted due to medical condition or safety concerns - Bladder and Bowel Bladder continence 5-No urine output Bowel continence 0-Always continent - Endurance Fair - Balance Fair - Safety Awareness Fair CURRENT FUNC. DEFICITS: Self-Care, Mobility, Endurance, Balance, and Safety Awareness MEDICATIONS: - Other See attached MAR (Medication Administration Record) ASSESSMENT: Pt. is a 59 yo Right-handed male.On 10/07/2019 he was admitted to [facility] with diagnosis Hemodialysis catheter dysfunction.His impairment category is Medically Co mplex Conditions 17 - Medical/Surgical Complications (17.8).Pre-morbidly, Pt. was independent/mod-I in Locomotion, Balance, Safety Awareness, Social Cognition, Transfers Control, Sphincter Control, Mily f-Care, Communication, and Endurance; and he had good Locomotion, Safety Awareness, Balance, Social C ognition, Transfers Control, Sphincter Control, Self-Care, Communication, and Endurance.Currently, he has deficits of Locomotion, Balance, Safety Awareness, Social Cognition, Transfers Control, Self-Car e, Communication, and Endurance.Pt. is now referred to [facility] for acute in -patient rehabilitation in order to maximize patient's functional independence in activities of daily living, strength, ROM, and mobility.- Rehab Goal Patient has realistic goal of being discharged at assistance level 6-Messi to reside at Home with Fam ava/Relatives. Constantino Skelton is a 59 year old male that lives alone in a single yusuf home. On 10/07/2019, he had malfunctioning dialysis catheter and was admitted to [facility] and treated. He is now medically stable but in need of 24-hour nursing, doctor supervision and oversite while receiving active and The patient is reasonably expected to participate in 3hours of therapy a day/15 hours per week and receive care with an intensive interdisciplinary approach.REHAB PLAN: - Physical Therapy Gait dysfunction - to improve, our physical therapists will perform initial evaluation of pt's status upon admission and devise an individualized program for Gait Training, and Wheel Chair mobility Inability to transfer - to improve, our physical therapists will perform initial evaluation of pt's s tatus upon admission and devise an individualized program for Bed mobility Need for home safety evaluation - to improve, our physical therapists will perform initial evaluation of pt's status upon admission and devise an individualized program for Home Evaluation Need in caregiver upon discharge - to improve, our physical therapists will perform initial evaluatio n of pt's status upon admission and devise an individualized program for Caregiver Training New precaution - to improve, our physical therapists will perform initial evaluation of pt's status u kayla admission and devise an individualized program for Patient precaution education Edema - to improve, our physical therapists will perform initial evaluation of pt's status upon admi ssion and devise an individualized program for Elevation Training, and Lymphedema Therapy Poor balance - to improve, our physical therapists will perform initial evaluation of pt's status upo n admission and devise an individualized program for Balance Training Poor endurance - to improve, our physical therapists will perform initial evaluation of pt's status u kayla admission and devise an individualized program for Endurance Training Weakness - to improve, our physical therapists will perform initial evaluation of pt's status upon ad mission and devise an individualized program for Aquatic Therapy, Neuromuscular Reeducation, and Stre ngthening Achieving independence - to improve, our physical therapists will perform initial evaluation of pt's status upon admission and devise an individualized program for Community Reintegration Activities - Occupational Therapy ADL deficits - to improve, our occupation therapists will perform initial evaluation of pt's status u kayla admission and devise an individualized program for Bathing, Bed mobility, Community Reintegration , Cooking, Dressing, Eating, Fine Motor Skills, Grooming, Homemaking, Kitchen Mobility, Laundry, Viviana ent Education, Safety Awareness, Splinting - Positioning, Transfers(Toilet, Tub, Shower), and Wheel C hair Management Cognitive deficits - to improve, our occupation therapists will perform initial evaluation of pt's st atus upon admission and devise an individualized program for Cognition - orientation Need for home care aide - to improve, our occupation therapists will perform initial evaluation of pt's s tatus upon admission and devise an individualized program for Caregiver Training Weakness - to improve, our occupation therapists will perform initial evaluation of pt's status upon admission and devise an individualized program for Aquatic Therapy, Balance, Endurance, UE ROM, and U E strengthening MEDICAL PLAN: - Diet Type Start Renal - Diet - Liquid Texture Start Regular - Tube Feed Start N/A - Other See attached MAR (Medication Administration Record) - Diet - Solid Texture Regular - Shower shower DISCHARGE PLAN: - Estimated Length of Stay (days) 13. - Consensus on plan Discharge plan has been discussed with primary caregiver. Patient/Family is in agreement with the nicole n. Primary caregiver is in agreement with the plan. - Patient/Family Goals Return home with assistance. - Planned Living Setting Upon Discharge Home, to live with Family/Relatives. Transitional Living. SIGNATURE PANEL: (MANAGER FILE)
--- NOTE | 2019-10-19 22:35 | PAPE ---
PATIENT: [facility] MR# [id number] REFERRING DOCTOR deon Wise EVALUATION DATE AND TIME 10/19/2019 22:34 ([employer] SCOUT) NAME JAQUELIN NOBLES DATE OF 1960 AGE 59 PHONE SSN# [id number] GENDER male EVALUATING PHYSICIAN Dr. Berry Fuentes M.D. ADMISSION DIAGNOSIS: Hemodialysis catheter dysfunction ESRD on Hemodialysis ONSET DATE 10/07/2019 SECONDARY/COMORBID DIAGNOSES TIERED: - N/A Right Jugular DVT HTN HLD DM Leukocytosis POST-ADMISSION FUNCTIONAL/MEDICAL STATUS: - Bladder Same accident frequency: Ind - No accidents in the past 7 days - Bowel Same accident frequency: Ind - No accidents in the past 7 days - Walking Same score based on distance walked: 0(N/A) - Wheelchair Same score based on distance traveled: 0(N/A) STATUS CHANGE EVALUATION: No change in Functional or Medical Status is identified compared with Pre-Admission screening. PATIENT NEEDS CLOSE MEDICAL SUPERVISION BY A REHABILITATION PHYSICIAN FOR: Coordination of Treatment Team DVT Management Medical and Co-Morbidity Management Wound Care PATIENT REQUIRES 24X7 REHAB NURSING FOR MEDICAL AND FUNCTIONAL MGT. OF THE FOLLOWING DEFICITS: Disease Management Medication Management Patient/Family Education Providing Safe Environment Skin Integrity PATIENT REQUIRES INTENSIVE, COORDINATED INTERDISCIPLINARY APPROACH TO REHAB: Arranging Home Equipment/Services Discharge Planning Family Intervention/Training Auditing Control Clerk/Case Management LIST OF IDENTIFIED AND POTENTIAL PROBLEMS: Alteration in leisure activities Bladder, Incontinence Bowel, Incontinence DVT, Actual or Potential Infection, Actual or Potential Mobility Impaired Pain, Alteration in Comfort Self Care Deficit Skin Integrity, Actual or Potential Urinary Tract Infection (UTI), Actual or Potential PATIENT COULD BE AT RISK FOR COMPLICATIONS FROM ADVERSE MEDICAL CONDITIONS DUE TO HIS/HER COMORBIDITI ES AND THE RIGORS OF THE INTENSIVE REHABILLITATION PROGRAM. METHODS OR INTERVENTIONS TO AVOID COMPLIC ATIONS INCLUDE: - Deep Vein Thrombosis (DVT) Prophylaxis therapy for prevention . Sequential Compression Device (SCD). TE D Hose. - Bleeding Assess lab values and manage abnormalities. Nursing to teach precautions for anti-coagulation therapy . Wound to be assessed every shift. - Infection Clinical staff to assess and manage the signs and symptoms of infection including fever, redness, war mth, etc. - Urinary Tract Infection - Falls Patient will be evaluated for Fall Precautions and will be placed on Fall Precautions as indicated pe r protocol. - Skin Breakdown Nursing will assess skin daily using assessment tool and will place on Skin Breakdown Precautions as indicated per protocol. - Pain Clinical staff may employ non-medication methods such as massage, distraction, decrease stimulus, etc . as needed. Clinical staff will assess patient's pain level every shift per protocol to assess and e nsure pain management effectiveness. Medications will be given and the pain level re-assessed. PRELIMINARY PLAN OF CARE: - Physical Therapy Patient needs Physical Therapy for a daily minimum of 1.5 hours at least 5 out of 7 days, to improve: Mobility, Strengthening, Transfers, Stretching, ROM, Endurance, Ability to manage stairs, Gait, and Balance. - Rehabilitation Nursing Patient requires 24x7 Rehabilitation Nursing for: Pain Issues, Identifying and preventing risk factor s, Monitoring and reporting current medical conditions, Assisting with ambulation and transfer, Dheeraj ting with all ADL-s, Teaching patients about disease process and medications, Family teaching, Provid ing safe environment, Bowel and Bladder Issues, Skin Integrity, and Medication Management. Patient needs Auditing Control Clerk and/or Case Management for: Discharge Planning, Arranging Home Equipmen t or Services, and Family Interventions. - Dietary and Nutrition Services Patient needs Dietary and Nutrition Services for: Adequate Nutrition, Nutritional Supplements, and Nu tritional Education. - Occupational Therapy Patient needs Occupational Therapy for a daily minimum of 1.5 hours at least 5 out of 7 days, to impr ove Activities of Daily Living, including: Eating, Grooming, Bathing, Dressing, Toileting, Toilet Tra nsfers, Community Reintegration, Higher functional activities, Adaptive Equipment, Splinting, Househo ld Tasks, and Other activities as determined. QI SCORES: - Self-Care A. Eating 05-Setup or clean-up assistance B. Oral hygiene 05-Setup or clean-up assistance C. Toileting hygiene 04-Supervision or touching assistance E. Shower/bathe self 03-Partial/moderate assistance F. Upper body dressing 04-Supervision or touching assistance G. Lower body dressing 03-Partial/moderate assistance H. Putting on/taking off footwear 03-Partial/moderate assistance - Mobility A. Roll left and right 03-Partial/moderate assistance B. Sit to lying 03-Partial/moderate assistance C. Lying to sitting on side of bed 03-Partial/moderate assistance D. Sit to stand 03-Partial/moderate assistance E. Chair/[id number]-[id number] transfer 03-Partial/moderate assistance F. Toilet transfer 03-Partial/moderate assistance G. Car transfer 88-Not attempted due to medical condition or safety concerns I. Walk 10 feet 03-Partial/moderate assistance J. Walk 50 feet with two turns 88-Not attempted due to medical condition or safety concerns K. Walk 150 feet 03-Partial/moderate assistance L. Walking 10 feet on uneven surfaces 88-Not attempted due to medical condition or safety concerns M. 1 step (curb) 88-Not attempted due to medical condition or safety concerns N. 4 steps 88-Not attempted due to medical condition or safety concerns O. 12 steps 88-Not attempted due to medical condition or safety concerns P. Picking up object 88-Not attempted due to medical condition or safety concerns R. Wheel 50 feet with two turns 88-Not attempted due to medical condition or safety concerns S. Wheel 150 feet 88-Not attempted due to medical condition or safety concerns - Bladder and Bowel Bladder continence 5-No urine output Bowel continence 0-Always continent - Endurance Fair - Balance Fair - Safety Awareness Fair POTENTIAL FUNCTIONAL GOALS FOR PATIENT TO ACHIEVE BY DISCHARGE: - Safety Precaution Patient will remain free from falls or injury at time of discharge. - Bed Mobility Patient will perform bed mobility at 4-Sudha level of assistance. - Transfers Patient will complete transfers from bed to chair at 4-Sudha level of assistance. - Mobility Patient will ambulate 150 ft with 4-Sudha level of assistance with RW. PATIENT REHAB POTENTIAL Bhupendra NOBLES is able and expected to receive 3 hours of individualized therapy daily on at least 5 of every 7 days Bhupendra NOBLES's prognosis for significant practical improvement within a reasonable period of time appe ars Good Expected level of measurable improvement will be of a practical value to Bhupendra NOBLES's functional cap acity or adaptations to impairments Has a viable Discharge Plan Medically appropriate; condition is sufficiently stable to participate in intensive rehab program DISCHARGE PLAN: - Estimated Length of Stay (days) 13. - Consensus on plan Discharge plan has been discussed with primary caregiver. Patient/Family is in agreement with the nicole n. Primary caregiver is in agreement with the plan. - Patient/Family Goals Return home with assistance. - Planned Living Setting Upon Discharge Home, to live with Family/Relatives. Transitional Living. CONCLUSION ON REHABILITATION NECESSITY: I have evaluated patient's pre-admission functional status and, comparing it to the patient's post-ad mission functional status now, I conclude that the pre-admission assessment was accurate. Patient's c ondition on admission supports the medical necessity of admission to IRF. It is safe to proceed with patient's therapy program. SIGNATURE PANEL: ([employer] SCOUT)
[2019-10-20] MEDS: INSULIN -REGULAR HUMAN 50 UNIT/0.5 ML ML SQ SCH ×4 (07:30→22:08)
[2019-10-20] MEDS: PROMOD 30 ML DOSE PO SCH ×2 (08:00→22:19)
[2019-10-20] MEDS: NEPRO SHAKE 237 ML CAN PO SCH ×2 (08:00→22:19)
--- NOTE | 2019-10-20 08:00 | P.CNS ---
Date of Consult: 10/20/19 Reason for Consult: Painful toenails Requesting Physician: Berry Fuentes Chief Complaint: Painful elongated toenails Allergies No Known Allergies Allergy (Verified 09/03/19 17:11) Home Medications: Amlodipine Besylate [Norvasc] 10 mg PO DAILY 09/04/19 Atorvastatin Calcium 20 mg PO BEDTIME 09/04/19 Calcitriol [Rocaltrol] 0.25 mg PO DAILY 09/04/19 carvediloL [Coreg*] 12.5 mg PO BID 09/04/19 Apixaban [Eliquis] 2.5 mg PO BID 10/19/19 Doxazosin [Cardura] 2 mg PO BID 10/19/19 - Past Medical/Surgical History Diabetic: Yes -: HTN -: DM -: ESRD- on HD -: HLD -: Leukocytosis -: Right Jugular DVT -: 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 -: hemodialysis catheter dysfunction- -: CHF -: Tunneled Right jugular catheter placement 10/12/19 -: Arteriovenous Fistula left arm placement 10/14/19 -: removal of right femoral quiton catheter 10/08/19 - Family History Sister Medical History: Hypertension Mother Medical History: Heart disease - Social History Smoking Status: Never smoker Alcohol use: No CD- Drugs: No Caffeine use: No Place of Residence: [facility] Review of Systems 10-point ROS is otherwise unremarkable Physical Examination Temp Pulse Resp BP Pulse Ox 98.2 F 64 16 163/75 H 98 10/20/19 07:51 10/20/19 07:51 10/20/19 07:51 10/20/19 07:51 10/20/19 07:51 General: Alert, In no apparent distress, Oriented x3 Cardiovascular: No edema, Abnormal pulses (nonpalpable pedal pulses bilateral) Capillary refill: <2 Seconds Musculoskeletal: No clubbing, No swelling, No erythema, No tenderness, No warmth , Contractures (contractures of digits 2-4 bilateral) Integumentary: No rashes, No significant lesion, No tenderness/swelling, No erythema, No warmth, Other (thickened hypertrophic toenails with subungual debris x 10. Absent hair growth bilateral) Neurological: Sensation intact Laboratory Data (last 24 hrs) 10/19/19 07:26: Sodium 141, Potassium 4.4, BUN 34 H D, Creatinine 4.83 H D, Glucose 93, Magnesium 1.9 10/19/19 07:26: WBC 12.9 H D, Hgb 9.9 L, Hct 30.6 L, Plt Count 351 - Problems (1) Tinea unguium Current Visit: Yes Status: Acute (2) Type 2 diabetes mellitus with diabetic peripheral angiopathy without gangrene Current Visit: Yes Status: Acute Conclusions/Impression: Manual and mechanical debridement of toenails at bedside. Patient tolerated the procedure well with no complaints Physician Review: Patient Assessed, Agree with Above Assessment and Plan Critical Care: No Time Spent Managing Pts care (In Minutes): 30
[2019-10-20] MEDS: CA ACETATE 667 MG CAP PO SCH ×3 (08:14→16:24)
[2019-10-20] MEDS: FE SULF/FA/VIT B COMP & C TAB PO SCH (08:14)
[2019-10-20] MEDS: DOXAZOSIN 2 MG TAB PO SCH ×2 (08:15→22:17)
[2019-10-20] MEDS: CALCITROL 0.25 MCG CAP PO SCH (08:15)
[2019-10-20] MEDS: carvediloL 12.5 MG TAB PO SCH ×2 (08:15→22:17)
[2019-10-20] MEDS: APIXABAN 2.5 MG TABLET PO SCH ×2 (08:15→20:00)
[2019-10-20] MEDS: FERROUS SULFATE 325 MG TAB PO SCH (08:16)
[2019-10-20] MEDS: AMLODIPINE 10 MG TAB PO SCH (10:00)
--- NOTE | 2019-10-20 15:07 | FAST ---
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 Berry Fuentes M.D. ADMISSION DIAGNOSIS: - Medically Complex Conditions 17 - Medical/Surgical Complications (17.8) Hemodialysis catheter dysfunction. ESRD on Hemodialysis. ROLL LEFT AND RIGHT: ROLL LEFT AND RIGHT - STEP 1: Does the patient complete the activity by him/herself with no assistance (physical, verbal/nonverbal cueing, setup/clean-up)? No. ROLL LEFT AND RIGHT - STEP 2: Does the patient need only setup/clean-up assistance from one helper? Yes. 1. [id number] ADMISSION PERFORMANCE: Setup or clean-up assistance CODE: 05 SIT TO LYING: SIT TO LYING - STEP 1: Does the patient complete the activity by him/herself with no assistance (physical, verbal/nonverbal cueing, setup/clean-up)? No. SIT TO LYING - STEP 2: Does the patient need only setup/clean-up assistance from one helper? Yes. 1. [id number] ADMISSION PERFORMANCE: Setup or clean-up assistance CODE: 05 LYING TO SITTING: LYING TO SITTING ON SIDE OF BED - STEP 1: Does the patient complete the activity by him/herself with no assistance (physical, verbal/nonverbal cueing, setup/clean-up)? No. LYING TO SITTING ON SIDE OF BED - STEP 2: Does the patient need only setup/clean-up assistance from one helper? Yes. 1. [id number] ADMISSION PERFORMANCE: Setup or clean-up assistance CODE: 05 SIT TO STAND: SIT TO STAND - STEP 1: Does the patient complete the activity by him/herself with no assistance (physical, verbal/nonverbal cueing, setup/clean-up)? No. SIT TO STAND - STEP 2: Does the patient need only setup/clean-up assistance from one helper? Yes. 1. [id number] ADMISSION PERFORMANCE: Setup or clean-up assistance CODE: 05 TRANSFERS: BED, CHAIR: CHAIR/[id number] TRANSFER - STEP 1: Does the patient complete the activity by him/herself with no assistance (physical, verbal/nonverbal cueing, setup/clean-up)? No. CHAIR/[id number] TRANSFER - STEP 2: Does the patient need only setup/clean-up assistance from one helper? Yes. 1. [id number] ADMISSION PERFORMANCE: Setup or clean-up assistance CODE: 05 TRANSFER TOILET: TOILET TRANSFER - STEP 1: Does the patient complete the activity by him/herself with no assistance (physical, verbal/nonverbal cueing, setup/clean-up)? No. TOILET TRANSFER - STEP 2: Does the patient need only setup/clean-up assistance from one helper? Yes. 1. [id number] ADMISSION PERFORMANCE: Setup or clean-up assistance CODE: 05 TRANSFERS: CAR: Not attempted due to environmental limitations (e.g., lack of equipment, weather constraints) CODE: 10 WALK 10 FEET: WALK 10 FEET - STEP 1: Does the patient complete the activity by him/herself with no assistance (physical, verbal/nonverbal cueing, setup/clean-up)? No. WALK 10 FEET - STEP 2: Does the patient need only setup/clean-up assistance from one helper? Yes. 1. [id number] ADMISSION PERFORMANCE: Setup or clean-up assistance CODE: 05 WALK 50 FEET: WALK 50 FEET - STEP 1: Does the patient complete the activity by him/herself with no assistance (physical, verbal/nonverbal cueing, setup/clean-up)? No. WALK 50 FEET - STEP 2: Does the patient need only setup/clean-up assistance from one helper? Yes. 1. [id number] ADMISSION PERFORMANCE: Setup or clean-up assistance CODE: 05 WALK 150 FEET: WALK 150 FEET - STEP 1: Does the patient complete the activity by him/herself with no assistance (physical, verbal/nonverbal cueing, setup/clean-up)? No. WALK 150 FEET - STEP 2: Does the patient need only setup/clean-up assistance from one helper? Yes. 1. [id number] ADMISSION PERFORMANCE: Setup or clean-up assistance CODE: 05 WALK 10 FEET UNEVEN: Not attempted due to medical condition or safety concerns CODE: 88 1 STEP (CURB): 1 STEP CURB - STEP 1: Does the patient complete the activity by him/herself with no assistance (physical, verbal/nonverbal cueing, setup/clean-up)? No. 1 STEP CURB - STEP 2: Does the patient need only setup/clean-up assistance from one helper? Yes. 1. [id number] ADMISSION PERFORMANCE: Setup or clean-up assistance CODE: 05 4 STEPS: 4 STEPS - STEP 1: Does the patient complete the activity by him/herself with no assistance (physical, verbal/nonverbal cueing, setup/clean-up)? No. 4 STEPS - STEP 2: Does the patient need only setup/clean-up assistance from one helper? Yes. 1. [id number] ADMISSION PERFORMANCE: Setup or clean-up assistance CODE: 05 12 STEPS: 12 STEPS - STEP 1: Does the patient complete the activity by him/herself with no assistance (physical, verbal/nonverbal cueing, setup/clean-up)? No. 12 STEPS - STEP 2: Does the patient need only setup/clean-up assistance from one helper? Yes. 1. [id number] ADMISSION PERFORMANCE: Setup or clean-up assistance CODE: 05 PICKING UP OBJECT: Not attempted due to medical condition or safety concerns CODE: 88 DOES THE PATIENT USE A WHEELCHAIR/SCOOTER? Q1. DOES THE PATIENT USE A WHEELCHAIR/SCOOTER?: No CODE: 0 INDICATE THE TYPE OF WHEELCHAIR/SCOOTER USED: CODE: EXPR INDICATE THE TYPE OF WHEELCHAIR/SCOOTER USED: CODE: EXPR BLADDER AND BOWEL: CODE: EXPR CODE: EXPR SIGNATURE PANEL: The following modified sections: 1. [id number] Admission Performance, 1. [id number] Admission Performance, 1. [id number] Admission Performance, 1. [id number] Admission Performance, 1. [id number] Admission Performance, 1. [id number] Admission Performance, 1. [id number] Admission Performance, 1. [id number] Admission Performance , 1. [id number] Admission Performance, 1. [id number] Admission Performance, 1. [id number] Admission Performanc e, 1. [id number] Admission Performance, Q1. Does the patient use a wheelchair/scooter? were [electronica lly] signed by Jamar Martínez PTA on ThuOct 20 2019 15:05:39 GMT-0600 (Central Standard Time)
--- NOTE | 2019-10-20 19:23 | P.PN ---
Date of Service: 10/20/19 Vital Signs Temp Pulse Resp BP Pulse Ox 98.2 F 67 16 148/66 H 98 10/20/19 07:51 10/20/19 10:00 10/20/19 07:51 10/20/19 10:00 10/20/19 07:51 Medications Amlodipine Besylate (Norvasc) 10 mg PO 1000 [facility] Stop: 11/18/19 10:01 Last Admin: 10/20/19 10:00 Dose: 10 mg Apixaban (Eliquis) 2.5 mg PO BID [facility] Stop: 11/18/19 20:01 Last Admin: 10/20/19 08:15 Dose: 2.5 mg Atorvastatin Calcium (Lipitor) 20 mg PO BEDTIME [facility] Stop: 11/18/19 21:01 Last Admin: 10/19/19 20:04 Dose: 20 mg Calcitriol (Rocaltrol) 0.25 mcg PO DAILY [facility] Stop: 11/18/19 08:01 Last Admin: 10/20/19 08:15 Dose: 0.25 mcg Calcium Acetate (Phoslo) 1,334 mg PO TIDWM [facility] Stop: 11/18/19 17:01 Last Admin: 10/20/19 16:24 Dose: 1,334 mg Carvedilol (Coreg) 12.5 mg PO BID [facility] Stop: 11/18/19 08:01 Last Admin: 10/20/19 08:15 Dose: 12.5 mg Dextrose (Dextrose 50% Syringe/Vial) 12.5 gm IV PRN PRN; Protocol PRN Reason: HYPOGLYCEMIA Stop: 11/17/19 22:45 Doxazosin Mesylate (Cardura) 2 mg PO BID [facility] Stop: 11/18/19 08:01 Last Admin: 10/20/19 08:15 Dose: 2 mg Enteral Nutritional Formula (Nepro Shake) 237 ml PO BID [facility] Stop: 11/18/19 20:01 Last Admin: 10/20/19 08:00 Dose: 237 ml Ferrous Sulfate (Feosol) 325 mg PO DAILY [facility] Stop: 11/19/19 08:01 Last Admin: 10/20/19 08:16 Dose: 325 mg Glucagon (Glucagen) 1 mg IM 1X PRN; Protocol PRN Reason: HYPOGLYCEMIA Stop: 11/17/19 22:45 Insulin Human Regular (Novolin -R) 0 unit SQ ACHS [facility]; Protocol Stop: 11/18/19 07:31 Last Admin: 10/20/19 16:30 Dose: Not Given Mirtazapine (Remeron) 15 mg PO BEDTIME [facility] Stop: 11/18/19 21:01 Last Admin: 10/19/19 20:04 Dose: 15 mg Multivitamins/Iron (Hemocyte Plus) 1 tab PO DAILY WITH BREAKFAST [facility] Stop: 11/19/19 08:01 Last Admin: 10/20/19 08:14 Dose: 1 tab Nutritional Formula (Promod Liquid Protein) 30 ml PO BID [facility] Stop: 11/18/19 20:01 Last Admin: 10/20/19 08:00 Dose: 30 ml Tramadol HCl (Ultram) 50 mg PO TID PRN PRN Reason: Pain scale 5-7 (Moderate) Stop: 11/18/19 14:05 Lab Results (last 24 hrs) 10/20/19 16:27: POC Glucose 145 H 10/20/19 11:56: POC Glucose 119 10/20/19 07:22: POC Glucose 178 H 10/19/19 20:06: POC Glucose 144 H Assessment/ Plan: Nephrology CPS stable without CP or SOB. No acute events overnight. Doing well. Fair appetite. Vitals, medications, blood work and imaging reviewed in the chart. NAD. MMM. Neck supple. CTA. RRR. Soft Abd. No C/C/E. No rash. AAO. Normal Speech. A/ ESRD on HD. HTN with CKD/ CHF. DM II with CKD. Diastolic CHF, chronic. Anemia in CKD. MEDINA/ Secondary HyperPTH. P/ Continue current POC and Medications. HD TIW. Retacrit as needed. PT as tolerated. Encourage nutrition. AM labs PRN. Daily weight. No NSAIDs.
[2019-10-20] MEDS ORDERED: HEPARIN 5000 UNIT/ML 1 ML VIAL ONE ×2 (20:52→20:53)
[2019-10-20] MEDS: ATORVASTATIN 20 MG TAB PO SCH (22:17)
[2019-10-20] MEDS: MIRTAZAPINE 15 MG TAB PO SCH (22:18)
--- NOTE | 2019-10-20 23:20 | PN ---
Subjective: Mr. Skelton is doing very well. He says that he has no pain and no difficulty with his sleep or bowel movements. He is ambulating very well, covering at least 1250 feet at a time without difficulty going up and down several flights of steps. Today is his hemodialysis day, which will be later on. Blood sugars ranged from 119 to 145. Objective: Vital Signs: Blood pressure 140/68, pulse 67, respiratory rate 14, temperature 98.2, oxy gen saturation 98%. Weight 118 pounds, height 5 feet 7 inches. BMI 18.5. General: Mr. Skelton is resting in bed. He is in no acute distress. He has completed morning exer cises. Lungs: He is clear to auscultation. Abdomen: Soft. Extremities: No significant edema or cyanosis. Neurological: No focal deficits in the upper and lower extremities. Noted strength is close to 5+ i n the upper and lower extremities bilaterally. Assessment: Mr. Skelton is a 59-year-old patient with end-stage renal disease, on hemodialysis, who was admitted to rehabilitation unit for debility. He is doing very well with his physical and occup ational therapy. He is comorbid, dyslipidemia, hypertension, chronic anemia, and low albumin. Plan: Use Eliquis 2.5 mg twice daily for DVT prophylaxis, Norvasc 10 mg daily for hypertension, Lipi tor 20 mg at bedtime for dyslipidemia, Coreg 12.5 mg twice a day along with Cardura 2 mg twice daily for blood pressure management. Continue Hemocyte-Plus and ProMod and Ultram as needed for pain and a s indicated dialysis, which is 3 times weekly. He will have dialysis today. The patient will continue with physical and occupational therapy, although he does not have transport ation for the therapy and will be discharged with home health. Continue physical therapy. ZHENG/ARLENE Voice ID: [id number] Report ID: [id number]
[2019-10-21] MEDS: INSULIN -REGULAR HUMAN 50 UNIT/0.5 ML ML SQ SCH ×4 (07:30→20:02)
[2019-10-21] MEDS: CA ACETATE 667 MG CAP PO SCH ×3 (08:05→17:01)
[2019-10-21] MEDS: APIXABAN 2.5 MG TABLET PO SCH ×2 (08:06→19:56)
[2019-10-21] MEDS: CALCITROL 0.25 MCG CAP PO SCH (08:06)
[2019-10-21] MEDS: carvediloL 12.5 MG TAB PO SCH ×2 (08:06→19:56)
[2019-10-21] MEDS: FERROUS SULFATE 325 MG TAB PO SCH (08:07)
[2019-10-21] MEDS: FE SULF/FA/VIT B COMP & C TAB PO SCH (08:07)
[2019-10-21] MEDS: DOXAZOSIN 2 MG TAB PO SCH ×2 (08:07→19:55)
[2019-10-21] MEDS: PROMOD 30 ML DOSE PO SCH ×2 (08:08→19:57)
[2019-10-21] MEDS: NEPRO SHAKE 237 ML CAN PO SCH ×2 (08:08→20:00)
[2019-10-21] MEDS: AMLODIPINE 10 MG TAB PO SCH (09:59)
--- NOTE | 2019-10-21 10:02 | P.RH.PN ---
Estimated Length of Stay: 10 Expected Discharge Date: 10/27/19 Discharge Disposition Plan: Home Family Support: Yes Assisted Goal: Mobility, Transfers, Self Care Vital Signs: Last Vital Signs Temp 98 F 10/21/19 07:03 Pulse 61 10/21/19 09:56 Resp 16 10/21/19 07:03 BP 144/68 H 10/21/19 09:56 Pulse Ox 98 10/21/19 07:03 Laboratory: Laboratory Last Values WBC 12.9 K/uL (4.3-10.9) H D 10/19/19 07:26 RBC 3.42 M/uL (4.33-5.43) L 10/19/19 07:26 Hgb 9.9 g/dL (13.6-17.9) L 10/19/19 07:26 Hct 30.6 % (39.6-49.0) L 10/19/19 07:26 MCV 89.5 fL (80-100) 10/19/19 07:26 MCH 28.9 pg (27.0-35.0) 10/19/19 07:26 MCHC 32.3 g/dL (32.0-36.0) 10/19/19 07:26 RDW 16.9 % (12.1-15.2) H 10/19/19 07:26 Plt Count 351 K/uL (152-406) 10/19/19 07:26 MPV 8.8 fL (7.6-11.3) 10/19/19 07:26 Neutrophils % 40.9 % (41.7-73.7) L 10/19/19 07:26 Lymphocytes % 18.6 % (15.3-44.8) 10/19/19 07:26 Monocytes % 3.4 % (3.3-12.3) 10/19/19 07:26 Eosinophils % 36.5 % (0-4.4) H 10/19/19 07:26 Basophils % 0.6 % (0-1.3) 10/19/19 07:26 Absolute Neutrophils 5.3 K/uL (1.8-8.0) 10/19/19 07:26 Segmented Neutrophils 43 % (40-80) 10/19/19 07:26 Absolute Lymphocytes 2.4 K/uL (0.7-4.9) 10/19/19 07:26 Lymphocytes 21 % (15-42) 10/19/19 07:26 Monocytes 5 % (0-10) 10/19/19 07: Absolute Monocytes 0.4 K/uL (0.1-1.3) 10/19/19 07:26 Eosinophils 30 % (0-3) H 10/19/19 07:26 Absolute Eosinophils 4.7 K/uL (0-0.5) H 10/19/19 07:26 Basophils 1 % (0-1) 10/19/19 07: Absolute Basophils 0.1 K/uL (0-0.5) 10/19/19 07:26 Anisocytosis 1+ 10/19/19 07:26 Morphology Comment Noted (NOT SEEN) 10/19/19 07:26 Sodium 141 mmol/L (136-145) 10/19/19 07:26 Potassium 4.4 mmol/L (3.5-5.1) 10/19/19 07:26 Chloride 105 mmol/L (98-107) 10/19/19 07:26 Carbon Dioxide 28 mmol/L (21-32) 10/19/19 07:26 BUN 34 mg/dL (7-18) H D 10/19/19 07:26 Creatinine 4.83 mg/dL (0.55-1.3) H D 10/19/19 07:26 Estimated GFR 12 mL/min (=/>90) L 10/19/19 07:26 Glucose 93 mg/dL (74-106) 10/19/19 07:26 POC Glucose 98 mg/dl (65-120) 10/21/19 07:24 Calcium 8.1 mg/dL (8.5-10.1) L 10/19/19 07:26 Magnesium 1.9 mg/dL (1.8-2.4) 10/19/19 07:26 Albumin 2.6 g/dL (3.4-5.0) L 10/19/19 07:26 Prealbumin 15.5 mg/dL (20-40) L 10/19/19 07:26 Weight: 118 lb 1.6 oz Wound Present: Yes Closed Surgical Incision Present: Yes Negative Pressure Wound Therapy Present: No Physician Update: His labs were reviewed. His WBC is mildly elevated with and essentially unremarkable. He has done were well walking 500' and up and down 15 stairs with supervision. He will be discharged to SNF today. Medical Issues: Patient has no urine output and always continent with bowel Summary: Patient's care plan and detention goals have been reviewed and revised as necessary. Please see the Rehabilitation Signature page for all necessary signatures.
--- NOTE | 2019-10-21 15:53 | FAST ---
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 Berry Fuentes M.D. ADMISSION DIAGNOSIS: - Medically Complex Conditions 17 - Medical/Surgical Complications (17.8) Hemodialysis catheter dysfunction. ESRD on Hemodialysis. EATING: Not assessed/no information CODE: - ORAL HYGIENE: ORAL HYGIENE - STEP 1: Does the patient complete the activity by him/herself with no assistance (physical, verbal/nonverbal cueing, setup/clean-up)? Yes. 1. [id number] ADMISSION PERFORMANCE: Independent CODE: 06 TOILETING HYGIENE: Not assessed/no information CODE: - BATHING: SHOWER/BATHE SELF - STEP 1: Does the patient complete the activity by him/herself with no assistance (physical, verbal/nonverbal cueing, setup/clean-up)? Yes. 1. [id number] ADMISSION PERFORMANCE: Independent CODE: 06 DRESSING - UPPER BODY: DRESSING - UPPER BODY - STEP 1: Does the patient complete the activity by him/herself with no assistance (physical, verbal/nonverbal cueing, setup/clean-up)? Yes. 1. ADMISSION PERFORMANCE: Independent CODE: 06 DRESSING - LOWER BODY: DRESSING - LOWER BODY - STEP 1: Does the patient complete the activity by him/herself with no assistance (physical, verbal/nonverbal cueing, setup/clean-up)? Yes. 1. [id number] ADMISSION PERFORMANCE: Independent CODE: 06 PUTTING ON/TAKING OFF FOOTWEAR: FOOTWEAR - STEP 1: Does the patient complete the activity by him/herself with no assistance (physical, verbal/nonverbal cueing, setup/clean-up)? Yes. 1. [id number] ADMISSION PERFORMANCE: Independent CODE: 06 DOES THE PATIENT USE A WHEELCHAIR/SCOOTER? CODE: EXPR INDICATE THE TYPE OF WHEELCHAIR/SCOOTER USED: CODE: EXPR INDICATE THE TYPE OF WHEELCHAIR/SCOOTER USED: CODE: EXPR BLADDER AND BOWEL: CODE: EXPR CODE: EXPR SIGNATURE PANEL: The following modified sections: 1. [id number] Admission Performance, 1. [id number] Admission Performance, 1. SL4052v Admission Performance, 1. EF3036c Admission Performance, 1. AB3746p Admission Performance were [electronically] signed by BESSIE Toney on ThuOct 21 2019 15:51:38 GMT-0600 (Central Standard Time)
[2019-10-21] MEDS ORDERED: DOCUSATE NA/SENNA CONC 1 TAB PO PRN (17:40)
[2019-10-21] MEDS: MIRTAZAPINE 15 MG TAB PO SCH (20:27)
[2019-10-21] MEDS: ATORVASTATIN 20 MG TAB PO SCH (20:27)
--- NOTE | 2019-10-21 21:36 | P.PN ---
Date of Service: 10/21/19 Vital Signs Temp Pulse Resp BP Pulse Ox 98.0 F 69 15 128/63 99 10/21/19 20:08 10/21/19 20:08 10/21/19 20:08 10/21/19 20:08 10/21/19 20:08 Medications Amlodipine Besylate (Norvasc) 10 mg PO 1000 RADU Stop: 11/18/19 10:01 Last Admin: 10/21/19 09:59 Dose: 10 mg Apixaban (Eliquis) 2.5 mg PO BID RADU Stop: 11/18/19 20:01 Last Admin: 10/21/19 19:56 Dose: 2.5 mg Atorvastatin Calcium (Lipitor) 20 mg PO BEDTIME RADU Stop: 11/18/19 21:01 Last Admin: 10/21/19 20:27 Dose: 20 mg Calcitriol (Rocaltrol) 0.25 mcg PO DAILY RADU Stop: 11/18/19 08:01 Last Admin: 10/21/19 08:06 Dose: 0.25 mcg Calcium Acetate (Phoslo) 1,334 mg PO TIDWM RADU Stop: 11/18/19 17:01 Last Admin: 10/21/19 17:01 Dose: 1,334 mg Carvedilol (Coreg) 12.5 mg PO BID RADU Stop: 11/18/19 08:01 Last Admin: 10/21/19 19:56 Dose: 12.5 mg Dextrose (Dextrose 50% Syringe/Vial) 12.5 gm IV PRN PRN; Protocol PRN Reason: HYPOGLYCEMIA Stop: 11/17/19 22:45 Doxazosin Mesylate (Cardura) 2 mg PO BID RADU Stop: 11/18/19 08:01 Last Admin: 10/21/19 19:55 Dose: 2 mg Enteral Nutritional Formula (Nepro Shake) 237 ml PO BID RADU Stop: 11/18/19 20:01 Last Admin: 10/21/19 20:00 Dose: Not Given Ferrous Sulfate (Feosol) 325 mg PO DAILY RADU Stop: 11/19/19 08:01 Last Admin: 10/21/19 08:07 Dose: 325 mg Glucagon (Glucagen) 1 mg IM 1X PRN; Protocol PRN Reason: HYPOGLYCEMIA Stop: 11/17/19 22:45 Heparin Sodium (Porcine) (Heparin 1,000 Units/Ml) 1,000 unit IJ EVERY HD PRN PRN Reason: FLUSH AFTER EACH USE Last Admin: 10/20/19 18:00 Dose: 1,000 unit Insulin Human Regular (Novolin -R) 0 unit SQ ACHS [facility]; Protocol Stop: 11/18/19 07:31 Last Admin: 10/21/19 20:02 Dose: Not Given Mirtazapine (Remeron) 15 mg PO BEDTIME RADU Stop: 11/18/19 21:01 Last Admin: 10/21/19 20:27 Dose: 15 mg Multivitamins/Iron (Hemocyte Plus) 1 tab PO DAILY WITH BREAKFAST RADU Stop: 11/19/19 08:01 Last Admin: 10/21/19 08:07 Dose: 1 tab Nutritional Formula (Promod Liquid Protein) 30 ml PO BID RADU Stop: 11/18/19 20:01 Last Admin: 10/21/19 19:57 Dose: Not Given Senna/Docusate Sodium (Senokot-S) 2 tab PO BEDTIME PRN PRN Reason: CONSTIPATION Stop: 11/20/19 17:41 Last Admin: 10/21/19 19:55 Dose: 2 tab Tramadol HCl (Ultram) 50 mg PO TID PRN PRN Reason: Pain scale 5-7 (Moderate) Stop: 11/18/19 14:05 Lab Results (last 24 hrs) 10/21/19 20:01: POC Glucose 171 H 10/21/19 16:39: POC Glucose 149 H 10/21/19 11:04: POC Glucose 118 10/21/19 07:24: POC Glucose 98 10/20/19 22:08: POC Glucose 133 H Assessment/ Plan: Nephrology CPS stable without CP or SOB. No acute events overnight. Doing well. Fair appetite. Vitals, medications, blood work and imaging reviewed in the chart. NAD. MMM. Neck supple. CTA. RRR. Soft Abd. No C/C/E. No rash. AAO. Normal Speech. A/ ESRD on HD. HTN with CKD/ CHF. DM II with CKD. Diastolic CHF, chronic. Anemia in CKD. MEDINA/ Secondary HyperPTH. P/ Continue current POC and Medications. HD TIW. Retacrit as needed. PT as tolerated. Encourage nutrition. AM labs PRN. Daily weight. No NSAIDs.
[2019-10-21] MEDS: EPOETIN ALFA 10,000 UNIT/ML VIAL SQ SCH (22:00)
--- NOTE | 2019-10-22 02:28 | FAST ---
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 Berry Fuentes M.D. ADMISSION DIAGNOSIS: - Medically Complex Conditions 17 - Medical/Surgical Complications (17.8) Hemodialysis catheter dysfunction. ESRD on Hemodialysis. EATING: Not assessed/no information CODE: - ORAL HYGIENE: Not assessed/no information CODE: - TOILETING HYGIENE: TOILETING HYGIENE - STEP 1: Does the patient complete the activity by him/herself with no assistance (physical, verbal/nonverbal cueing, setup/clean-up)? Yes. 1. [id number] ADMISSION PERFORMANCE: Independent CODE: 06 BATHING: Not assessed/no information CODE: - DRESSING - UPPER BODY: Not assessed/no information CODE: - DRESSING - LOWER BODY: Not assessed/no information CODE: - PUTTING ON/TAKING OFF FOOTWEAR: Not assessed/no information CODE: - ROLL LEFT AND RIGHT: ROLL LEFT AND RIGHT - STEP 1: Does the patient complete the activity by him/herself with no assistance (physical, verbal/nonverbal cueing, setup/clean-up)? Yes. 1. [id number] ADMISSION PERFORMANCE: Independent CODE: 06 SIT TO LYING: SIT TO LYING - STEP 1: Does the patient complete the activity by him/herself with no assistance (physical, verbal/nonverbal cueing, setup/clean-up)? Yes. 1. [id number] ADMISSION PERFORMANCE: Independent CODE: 06 LYING TO SITTING: LYING TO SITTING ON SIDE OF BED - STEP 1: Does the patient complete the activity by him/herself with no assistance (physical, verbal/nonverbal cueing, setup/clean-up)? Yes. 1. [id number] ADMISSION PERFORMANCE: Independent CODE: 06 SIT TO STAND: SIT TO STAND - STEP 1: Does the patient complete the activity by him/herself with no assistance (physical, verbal/nonverbal cueing, setup/clean-up)? Yes. 1. [id number] ADMISSION PERFORMANCE: Independent CODE: 06 TRANSFERS: BED, CHAIR: CHAIR/[id number] TRANSFER - STEP 1: Does the patient complete the activity by him/herself with no assistance (physical, verbal/nonverbal cueing, setup/clean-up)? Yes. 1. [id number] ADMISSION PERFORMANCE: Independent CODE: 06 TRANSFER TOILET: TOILET TRANSFER - STEP 1: Does the patient complete the activity by him/herself with no assistance (physical, verbal/nonverbal cueing, setup/clean-up)? Yes. 1. [id number] ADMISSION PERFORMANCE: Independent CODE: 06 TRANSFERS: CAR: Not assessed/no information CODE: - WALK 10 FEET: Not assessed/no information CODE: - 1 STEP (CURB): Not assessed/no information CODE: - PICKING UP OBJECT: Not assessed/no information CODE: - DOES THE PATIENT USE A WHEELCHAIR/SCOOTER? CODE: EXPR WHEEL 50 FEET WITH TWO TURNS: Not assessed/no information CODE: - INDICATE THE TYPE OF WHEELCHAIR/SCOOTER USED: CODE: EXPR WHEEL 150 FEET: Not assessed/no information CODE: - INDICATE THE TYPE OF WHEELCHAIR/SCOOTER USED: CODE: EXPR BLADDER AND BOWEL: H350. BLADDER CONTINENCE (3-DAY ASSESSMENT PERIOD): Always continent (no documented incontinence) CODE: 0 H400. BOWEL CONTINENCE (3-DAY ASSESSMENT PERIOD): Always continent CODE: 0
[2019-10-22] MEDS: INSULIN -REGULAR HUMAN 50 UNIT/0.5 ML ML SQ SCH ×4 (07:19→20:20)
[2019-10-22] MEDS: DOXAZOSIN 2 MG TAB PO SCH ×2 (07:23→19:36)
[2019-10-22] MEDS: carvediloL 12.5 MG TAB PO SCH ×2 (07:24→19:35)
[2019-10-22] MEDS: EPOETIN ALFA 10,000 UNIT/ML VIAL SQ SCH (07:29)
[2019-10-22] MEDS: CA ACETATE 667 MG CAP PO SCH ×3 (07:53→16:59)
[2019-10-22] MEDS: CALCITROL 0.25 MCG CAP PO SCH (07:53)
[2019-10-22] MEDS: FERROUS SULFATE 325 MG TAB PO SCH (07:53)
[2019-10-22] MEDS: NEPRO SHAKE 237 ML CAN PO SCH ×2 (07:53→19:04)
[2019-10-22] MEDS: APIXABAN 2.5 MG TABLET PO SCH ×2 (07:53→19:36)
[2019-10-22] MEDS: PROMOD 30 ML DOSE PO SCH ×2 (07:54→19:04)
[2019-10-22] MEDS: FE SULF/FA/VIT B COMP & C TAB PO SCH (07:54)
[2019-10-22] MEDS: AMLODIPINE 10 MG TAB PO SCH (09:31)
[2019-10-22 10:42] LABS: Absolute Lymphocytes (CBC) 1.9 K/uL (0.7-4.9); Basophils % 0.6 % (0-1.3); Hematocrit 26.9 % (39.6-49.0); Lymphocytes % 15.1 % (15.3-44.8); MPV 8.8 fL (7.6-11.3); RBC Red Blood Cell Count 3.05 M/uL (4.33-5.43)
[2019-10-22 11:12] LABS: Albumin 2.4 g/dL (3.4-5.0); Bilirubin Total 0.2 mg/dL (0.2-1.0); Magnesium 1.9 mg/dL (1.8-2.4); Phosphorus 4.1 mg/dL (2.5-4.9); Potassium 4.5 mmol/L (3.5-5.1)
[2019-10-22] MEDS ORDERED: EPOETIN ALFA 10,000 UNIT/ML VIAL SQ ONE (14:00)
[2019-10-22] MEDS: MIRTAZAPINE 15 MG TAB PO SCH (19:35)
[2019-10-22] MEDS: ATORVASTATIN 20 MG TAB PO SCH (19:35)
[2019-10-23] MEDS: INSULIN -REGULAR HUMAN 50 UNIT/0.5 ML ML SQ SCH ×4 (07:30→19:07)
[2019-10-23] MEDS: PROMOD 30 ML DOSE PO SCH ×2 (08:00→19:07)
[2019-10-23] MEDS: NEPRO SHAKE 237 ML CAN PO SCH ×2 (08:00→19:07)
[2019-10-23] MEDS: CA ACETATE 667 MG CAP PO SCH ×3 (08:21→16:52)
[2019-10-23] MEDS: carvediloL 12.5 MG TAB PO SCH ×2 (08:22→19:06)
[2019-10-23] MEDS: FERROUS SULFATE 325 MG TAB PO SCH (08:22)
[2019-10-23] MEDS: CALCITROL 0.25 MCG CAP PO SCH (08:22)
[2019-10-23] MEDS: DOXAZOSIN 2 MG TAB PO SCH ×2 (08:22→19:07)
[2019-10-23] MEDS: FE SULF/FA/VIT B COMP & C TAB PO SCH (08:23)
[2019-10-23] MEDS: APIXABAN 2.5 MG TABLET PO SCH ×2 (08:23→19:06)
[2019-10-23] MEDS: AMLODIPINE 10 MG TAB PO SCH (09:33)
[2019-10-23] MEDS: ATORVASTATIN 20 MG TAB PO SCH (19:06)
[2019-10-23] MEDS: MIRTAZAPINE 15 MG TAB PO SCH (19:06)
[2019-10-24] MEDS: INSULIN -REGULAR HUMAN 50 UNIT/0.5 ML ML SQ SCH ×4 (07:30→20:01)
[2019-10-24] MEDS: PROMOD 30 ML DOSE PO SCH ×2 (08:00→20:00)
[2019-10-24] MEDS: NEPRO SHAKE 237 ML CAN PO SCH ×2 (08:00→20:00)
[2019-10-24] MEDS: FE SULF/FA/VIT B COMP & C TAB PO SCH (08:05)
[2019-10-24] MEDS: CA ACETATE 667 MG CAP PO SCH ×3 (08:05→17:16)
[2019-10-24] MEDS: FERROUS SULFATE 325 MG TAB PO SCH (08:05)
[2019-10-24] MEDS: DOXAZOSIN 2 MG TAB PO SCH ×2 (08:05→19:59)
[2019-10-24] MEDS: carvediloL 12.5 MG TAB PO SCH ×2 (08:06→19:58)
[2019-10-24] MEDS: CALCITROL 0.25 MCG CAP PO SCH (08:06)
[2019-10-24] MEDS: APIXABAN 2.5 MG TABLET PO SCH ×2 (08:07→19:59)
[2019-10-24] MEDS: AMLODIPINE 10 MG TAB PO SCH (10:44)
--- NOTE | 2019-10-24 17:56 | R.PN ---
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 SUBJECTIVE: Pt denied any Shortness of Breath. Pt denied any depression. Ambulated 500' independently using a rollator. His some ADLs were performed with independence. He ini tially refused a shower since he has no clean clothes. His sister will bring clean clothes and he agr ees to have a shower. VITAL SIGNS Temperature: 97.8 F SBP/DBP: 176/79 Pulse: 61 Resp: 16 MEDICATION ALLERGIES: No Known Drug Allergies (NKDA) ENVIRONMENTAL ALLERGIES: None Known - Substance Allergies None Known - Other Allergies None Known NURSING: - Shower allowing shower ACTIVITIES OOB only with supervision THERAPIES: - Dietary and Nutrition Adequate Nutrition. Nutritional Education. Nutritional Supplements. PHYSICAL EXAM - Gen Alert and awake Lying in bed No apparent distress Oriented to: person, time, and place - Skin No skin breakdown. Normacephalic - Eyes No abnormalities - ENMT No abnormalities - Neck No abnormalities - CVS RRR - Chest Clear - Resp Clear to auscultation - Abd Soft - GI Non distended Deferred - No abnormalities - Ext Mild bilateral lower extremity edema. - MSK 4+/5 weakness in both lower extremities. - Neuro No focal deficits - Psych No abnormalities ASSESSMENT: Pt. is a 59 yo Right-handed male.On 10/07/2019 he was admitted to [facility] with diagnosis Hemodialysis catheter dysfunction.His impairment category is Medically Co mplex Conditions 17 - Medical/Surgical Complications (17.8).Pre-morbidly, Pt. was independent/mod-I in Locomotion, Balance, Safety Awareness, Social Cognition, Transfers Control, Sphincter Control, Mily f-Care, Communication, and Endurance; and he had good Locomotion, Safety Awareness, Balance, Social C ognition, Transfers Control, Sphincter Control, Self-Care, Communication, and Endurance.Currently, he has deficits of Locomotion, Balance, Safety Awareness, Social Cognition, Transfers Control, Self-Car e, Communication, and Endurance.Pt. is now referred to [facility] for acute in -patient rehabilitation in order to maximize patient's functional independence in activities of daily living, strength, ROM, and mobility.- Rehab Goal Patient has realistic goal of being discharged at assistance level 6-Messi to reside at Home with Fam ava/Relatives. MDM/PLAN: - Physical Therapy Gait dysfunction - to improve, our physical therapists will perform initial evaluation of pt's statu s upon admission and devise an individualized program for Gait Training, and Wheel Chair mobility Inability to transfer - to improve, our physical therapists will perform initial evaluation of pt's status upon admission and devise an individualized program for Bed mobility Need for home safety evaluation - to improve, our physical therapists will perform initial evaluatio n of pt's status upon admission and devise an individualized program for Home Evaluation Need in caregiver upon discharge - to improve, our physical therapists will perform initial evaluati on of pt's status upon admission and devise an individualized program for Caregiver Training New precaution - to improve, our physical therapists will perform initial evaluation of pt's status upon admission and devise an individualized program for Patient precaution education Edema - to improve, our physical therapists will perform initial evaluation of pt's status upon admis thomas and devise an individualized program for Elevation Training, and Lymphedema Therapy Poor balance - to improve, our physical therapists will perform initial evaluation of pt's status up on admission and devise an individualized program for Balance Training Poor endurance - to improve, our physical therapists will perform initial evaluation of pt's status upon admission and devise an individualized program for Endurance Training Weakness - to improve, our physical therapists will perform initial evaluation of pt's status upon a dmission and devise an individualized program for Aquatic Therapy, Neuromuscular Reeducation, and Str engthening Achieving independence - to improve, our physical therapists will perform initial evaluation of pt's status upon admission and devise an individualized program for Community Reintegration Activities - Occupational Therapy ADL deficits - to improve, our occupation therapists will perform initial evaluation of pt's status upon admission and devise an individualized program for Bathing, Bed mobility, Community Reintegratio n, Cooking, Dressing, Eating, Fine Motor Skills, Grooming, Homemaking, Kitchen Mobility, Laundry, Pat ient Education, Safety Awareness, Splinting - Positioning, Transfers(Toilet, Tub, Shower), and Wheel Chair Management Cognitive deficits - to improve, our occupation therapists will perform initial evaluation of pt's s tatus upon admission and devise an individualized program for Cognition - orientation Need for acute care physician - to improve, our occupation therapists will perform initial evaluation of pt's status upon admission and devise an individualized program for Caregiver Training Weakness - to improve, our occupation therapists will perform initial evaluation of pt's status upon admission and devise an individualized program for Aquatic Therapy, Balance, Endurance, UE ROM, and UE strengthening - Other See attached MAR (Medication Administration Record) - Diet Type Continue Renal - Diet - Liquid Texture Continue Regular - Tube Feed Continue N/A - Diet - Solid Texture Continue Regular - Shower allowing shower FUNCTIONAL STATUS: UPDATED AT WEEKLY TEAM CONFERENCE - Bladder Same accident frequency: 7-Ind - No accidents in the past 7 days - Bowel Same accident frequency: 7-Ind - No accidents in the past 7 days - Walking Same score based on distance walked: 0(N/A) - Wheelchair Same score based on distance traveled: 0(N/A) FUNCTIONAL STATUS: - Self-Care A. Eating Messi B. Grooming Messi C. Bathing Sudha D. Dressing - Upper sup E. Dressing - Lower Sudha F. Toileting Sudha - Sphincter Control G. Bladder control Messi H. Bowel control Messi - Transfers Control I. Bed/Chair/Wheelchair Sudha J. Toilet Sudha K. Tub/Shower Sudha - Locomotion L. Walk/Wheelchair (B) Ind M. Stairs sup - Communication N. Comprehension (B) sup O. Expression (B) sup - Social Cognition P. Social Interaction Sudha Q. Problem Solving modA R. Memory sup - Endurance Fair - Balance Fair - Safety Awareness Fair QI SCORES: - Self-Care A. Eating 05-Setup or clean-up assistance B. Oral hygiene 05-Setup or clean-up assistance C. Toileting hygiene 04-Supervision or touching assistance E. Shower/bathe self 03-Partial/moderate assistance F. Upper body dressing 04-Supervision or touching assistance G. Lower body dressing 03-Partial/moderate assistance H. Putting on/taking off footwear 03-Partial/moderate assistance - Mobility A. Roll left and right 03-Partial/moderate assistance B. Sit to lying 03-Partial/moderate assistance C. Lying to sitting on side of bed 03-Partial/moderate assistance D. Sit to stand 03-Partial/moderate assistance E. Chair/[id number]-upygs transfer 03-Partial/moderate assistance F. Toilet transfer 03-Partial/moderate assistance G. Car transfer 88-Not attempted due to medical condition or safety concerns I. Walk 10 feet 03-Partial/moderate assistance J. Walk 50 feet with two turns 88-Not attempted due to medical condition or safety concerns K. Walk 150 feet 03-Partial/moderate assistance L. Walking 10 feet on uneven surfaces 88-Not attempted due to medical condition or safety concerns M. 1 step (curb) 88-Not attempted due to medical condition or safety concerns N. 4 steps 88-Not attempted due to medical condition or safety concerns O. 12 steps 88-Not attempted due to medical condition or safety concerns P. Picking up object 88-Not attempted due to medical condition or safety concerns R. Wheel 50 feet with two turns 88-Not attempted due to medical condition or safety concerns S. Wheel 150 feet 88-Not attempted due to medical condition or safety concerns - Bladder and Bowel Bladder continence 5-No urine output Bowel continence 0-Always continent - Endurance Fair - Balance Fair - Safety Awareness Fair CURRENT [facility]. 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
[2019-10-24] MEDS: ATORVASTATIN 20 MG TAB PO SCH (20:01)
[2019-10-24] MEDS: MIRTAZAPINE 15 MG TAB PO SCH (20:01)
[2019-10-25] MEDS: INSULIN -REGULAR HUMAN 50 UNIT/0.5 ML ML SQ SCH ×3 (07:30→23:29)
[2019-10-25] MEDS: PROMOD 30 ML DOSE PO SCH ×2 (08:00→20:00)
[2019-10-25] MEDS: CA ACETATE 667 MG CAP PO SCH ×3 (08:54→17:12)
[2019-10-25] MEDS: CALCITROL 0.25 MCG CAP PO SCH (08:54)
[2019-10-25] MEDS: FERROUS SULFATE 325 MG TAB PO SCH (08:54)
[2019-10-25] MEDS: FE SULF/FA/VIT B COMP & C TAB PO SCH (08:54)
[2019-10-25] MEDS: APIXABAN 2.5 MG TABLET PO SCH ×2 (08:54→23:20)
[2019-10-25] MEDS: DOXAZOSIN 2 MG TAB PO SCH ×2 (08:55→23:29)
[2019-10-25] MEDS: carvediloL 12.5 MG TAB PO SCH ×2 (08:55→23:28)
[2019-10-25] MEDS: NEPRO SHAKE 237 ML CAN PO SCH ×2 (08:56→20:00)
[2019-10-25] MEDS: AMLODIPINE 10 MG TAB PO SCH (10:29)
[2019-10-25] MEDS: EPOETIN ALFA 10,000 UNIT/ML VIAL SQ ONE ×2 (14:15→22:15)
--- NOTE | 2019-10-25 14:49 | FAST ---
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 Berry Fuentes M.D. ADMISSION DIAGNOSIS: - Medically Complex Conditions 17 - Medical/Surgical Complications (17.8) Hemodialysis catheter dysfunction. ESRD on Hemodialysis. EATING: EATING - STEP 1: Does the patient complete the activity by him/herself with no assistance (physical, verbal/nonverbal cueing, setup/clean-up)? Yes. 1. [id number] ADMISSION PERFORMANCE: Independent CODE: 06 ORAL HYGIENE: ORAL HYGIENE - STEP 1: Does the patient complete the activity by him/herself with no assistance (physical, verbal/nonverbal cueing, setup/clean-up)? Yes. 1. [id number] ADMISSION PERFORMANCE: Independent CODE: 06 TOILETING HYGIENE: TOILETING HYGIENE - STEP 1: Does the patient complete the activity by him/herself with no assistance (physical, verbal/nonverbal cueing, setup/clean-up)? Yes. 1. [id number] ADMISSION PERFORMANCE: Independent CODE: 06 BATHING: Not assessed/no information CODE: - DRESSING - UPPER BODY: DRESSING - UPPER BODY - STEP 1: Does the patient complete the activity by him/herself with no assistance (physical, verbal/nonverbal cueing, setup/clean-up)? No. DRESSING - UPPER BODY - STEP 2: Does the patient need only setup/clean-up assistance from one helper? Yes. 1. [id number] ADMISSION PERFORMANCE: Setup or clean-up assistance CODE: 05 DRESSING - LOWER BODY: DRESSING - LOWER BODY - STEP 1: Does the patient complete the activity by him/herself with no assistance (physical, verbal/nonverbal cueing, setup/clean-up)? No. DRESSING - LOWER BODY - STEP 2: Does the patient need only setup/clean-up assistance from one helper? Yes. 1. [id number] ADMISSION PERFORMANCE: Setup or clean-up assistance CODE: 05 PUTTING ON/TAKING OFF FOOTWEAR: FOOTWEAR - STEP 1: Does the patient complete the activity by him/herself with no assistance (physical, verbal/nonverbal cueing, setup/clean-up)? No. FOOTWEAR - STEP 2: Does the patient need only setup/clean-up assistance from one helper? Yes. 1. [id number] ADMISSION PERFORMANCE: Setup or clean-up assistance CODE: 05 ROLL LEFT AND RIGHT: ROLL LEFT AND RIGHT - STEP 1: Does the patient complete the activity by him/herself with no assistance (physical, verbal/nonverbal cueing, setup/clean-up)? No. ROLL LEFT AND RIGHT - STEP 2: Does the patient need only setup/clean-up assistance from one helper? Yes. 1. [id number] ADMISSION PERFORMANCE: Setup or clean-up assistance CODE: 05 SIT TO LYING: SIT TO LYING - STEP 1: Does the patient complete the activity by him/herself with no assistance (physical, verbal/nonverbal cueing, setup/clean-up)? No. SIT TO LYING - STEP 2: Does the patient need only setup/clean-up assistance from one helper? Yes. 1. [id number] ADMISSION PERFORMANCE: Setup or clean-up assistance CODE: 05 LYING TO SITTING: LYING TO SITTING ON SIDE OF BED - STEP 1: Does the patient complete the activity by him/herself with no assistance (physical, verbal/nonverbal cueing, setup/clean-up)? No. LYING TO SITTING ON SIDE OF BED - STEP 2: Does the patient need only setup/clean-up assistance from one helper? Yes. 1. [id number] ADMISSION PERFORMANCE: Setup or clean-up assistance CODE: 05 SIT TO STAND: SIT TO STAND - STEP 1: Does the patient complete the activity by him/herself with no assistance (physical, verbal/nonverbal cueing, setup/clean-up)? No. SIT TO STAND - STEP 2: Does the patient need only setup/clean-up assistance from one helper? Yes. 1. [id number] ADMISSION PERFORMANCE: Setup or clean-up assistance CODE: 05 TRANSFERS: BED, CHAIR: CHAIR/[id number] TRANSFER - STEP 1: Does the patient complete the activity by him/herself with no assistance (physical, verbal/nonverbal cueing, setup/clean-up)? No. [id number] TRANSFER - STEP 2: Does the patient need only setup/clean-up assistance from one helper? Yes. 1. [id number] ADMISSION PERFORMANCE: Setup or clean-up assistance CODE: 05 TRANSFER TOILET: TOILET TRANSFER - STEP 1: Does the patient complete the activity by him/herself with no assistance (physical, verbal/nonverbal cueing, setup/clean-up)? Yes. 1. [id number] ADMISSION PERFORMANCE: Independent CODE: 06 TRANSFERS: CAR: Not assessed/no information CODE: - WALK 10 FEET: Not assessed/no information CODE: - 1 STEP (CURB): Not assessed/no information CODE: - PICKING UP OBJECT: PICKING UP OBJECT - STEP 1: Does the patient complete the activity by him/herself with no assistance (physical, verbal/nonverbal cueing, setup/clean-up)? No. PICKING UP OBJECT - STEP 2: Does the patient need only setup/clean-up assistance from one helper? Yes. 1. [id number] ADMISSION PERFORMANCE: Setup or clean-up assistance CODE: 05 DOES THE PATIENT USE A WHEELCHAIR/SCOOTER? Q1. DOES THE PATIENT USE A WHEELCHAIR/SCOOTER?: No CODE: 0 INDICATE THE TYPE OF WHEELCHAIR/SCOOTER USED: CODE: EXPR INDICATE THE TYPE OF WHEELCHAIR/SCOOTER USED: CODE: EXPR BLADDER AND BOWEL: H350. BLADDER CONTINENCE (3-DAY ASSESSMENT PERIOD): Always continent (no documented incontinence) CODE: 0 H400. BOWEL CONTINENCE (3-DAY ASSESSMENT PERIOD): Always continent CODE: 0 SIGNATURE PANEL: The following modified sections: 1. [id number] Admission Performance, 1. [id number] Admission Performance, 1. [id number] Admission Performance, 1. MS3970x Admission Performance, 1. IM7504s Admission Performance, 1. [id number] Admission Performance, 1. [id number] Admission Performance, 1. AL5304H Admission Performance , 1. [id number] Admission Performance, 1. [id number] Admission Performance, 1. [id number] Admission Performanc e, 1. [id number] Admission Performance, 1. HC7439M Admission Performance, Q1. Does the patient use a whe elchair/scooter?, H350. Bladder Continence (3-day assessment period), H400. Bowel Continence (3-day a ssessment period) were [electronically] signed by Trevor BurkettNCarine on ThuOct 25 2019 14:48:55 T-0600 (Central Standard Time)
--- NOTE | 2019-10-25 17:44 | R.PN ---
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 SUBJECTIVE: Pt denied any Shortness of Breath. Pt denied any depression. Ambulated 1000' independently using a rollator. Up and down 15 steps with independence. His ADLs were performed with independence. He completed a shower with minimum assistance. VITAL SIGNS Temperature: 97.4 F SBP/DBP: 165/74 Pulse: 68 Resp: 16 MEDICATION ALLERGIES: No Known Drug Allergies (NKDA) ENVIRONMENTAL ALLERGIES: None Known - Substance Allergies None Known - Other Allergies None Known NURSING: - Shower allowing shower ACTIVITIES OOB only with supervision THERAPIES: - Dietary and Nutrition Adequate Nutrition. Nutritional Education. Nutritional Supplements. PHYSICAL EXAM - Gen Alert and awake Lying in bed No apparent distress Oriented to: person, time, and place - Skin No skin breakdown. Normacephalic - Eyes No abnormalities - ENMT No abnormalities - Neck No abnormalities - CVS RRR - Chest Clear - Resp Clear to auscultation - Abd Soft - GI Non distended Deferred - No abnormalities - Ext Mild bilateral lower extremity edema. - MSK 4+/5 weakness in both lower extremities. - Neuro No focal deficits - Psych No abnormalities ASSESSMENT: Pt. is a 59 yo Right-handed male.On 10/07/2019 he was admitted to [facility] with diagnosis Hemodialysis catheter dysfunction.His impairment category is Medically Co mplex Conditions 17 - Medical/Surgical Complications (17.8).Pre-morbidly, Pt. was independent/mod-I in Locomotion, Balance, Safety Awareness, Social Cognition, Transfers Control, Sphincter Control, Mily f-Care, Communication, and Endurance; and he had good Locomotion, Safety Awareness, Balance, Social C ognition, Transfers Control, Sphincter Control, Self-Care, Communication, and Endurance.Currently, he has deficits of Locomotion, Balance, Safety Awareness, Social Cognition, Transfers Control, Self-Car e, Communication, and Endurance.Pt. is now referred to [facility] for acute in -patient rehabilitation in order to maximize patient's functional independence in activities of daily living, strength, ROM, and mobility.- Rehab Goal Patient has realistic goal of being discharged at assistance level 6-Messi to reside at Home with Fam ava/Relatives. MDM/PLAN: - Physical Therapy Gait dysfunction - to improve, our physical therapists will perform initial evaluation of pt's statu s upon admission and devise an individualized program for Gait Training, and Wheel Chair mobility Inability to transfer - to improve, our physical therapists will perform initial evaluation of pt's status upon admission and devise an individualized program for Bed mobility Need for home safety evaluation - to improve, our physical therapists will perform initial evaluatio n of pt's status upon admission and devise an individualized program for Home Evaluation Need in caregiver upon discharge - to improve, our physical therapists will perform initial evaluati on of pt's status upon admission and devise an individualized program for Caregiver Training New precaution - to improve, our physical therapists will perform initial evaluation of pt's status upon admission and devise an individualized program for Patient precaution education Edema - to improve, our physical therapists will perform initial evaluation of pt's status upon admi ssion and devise an individualized program for Elevation Training, and Lymphedema Therapy Poor balance - to improve, our physical therapists will perform initial evaluation of pt's status up on admission and devise an individualized program for Balance Training Poor endurance - to improve, our physical therapists will perform initial evaluation of pt's status upon admission and devise an individualized program for Endurance Training Weakness - to improve, our physical therapists will perform initial evaluation of pt's status upon a dmission and devise an individualized program for Aquatic Therapy, Neuromuscular Reeducation, and Str engthening Achieving independence - to improve, our physical therapists will perform initial evaluation of pt's status upon admission and devise an individualized program for Community Reintegration Activities - Occupational Therapy ADL deficits - to improve, our occupation therapists will perform initial evaluation of pt's status upon admission and devise an individualized program for Bathing, Bed mobility, Community Reintegratio n, Cooking, Dressing, Eating, Fine Motor Skills, Grooming, Homemaking, Kitchen Mobility, Laundry, Pat ient Education, Safety Awareness, Splinting - Positioning, Transfers(Toilet, Tub, Shower), and Wheel Chair Management Cognitive deficits - to improve, our occupation therapists will perform initial evaluation of pt's s tatus upon admission and devise an individualized program for Cognition - orientation Need for dialysis patient care technician - to improve, our occupation therapists will perform initial evaluation of pt's status upon admission and devise an individualized program for Caregiver Training Weakness - to improve, our occupation therapists will perform initial evaluation of pt's status upon admission and devise an individualized program for Aquatic Therapy, Balance, Endurance, UE ROM, and UE strengthening - Other See attached MAR (Medication Administration Record) - Diet Type Continue Renal - Diet - Liquid Texture Continue Regular - Tube Feed Continue N/A - Diet - Solid Texture Continue Regular - Shower allowing shower FUNCTIONAL STATUS: UPDATED AT WEEKLY TEAM CONFERENCE - Bladder Same accident frequency: 7-Ind - No accidents in the past 7 days - Bowel Same accident frequency: 7-Ind - No accidents in the past 7 days - Walking Same score based on distance walked: 0(N/A) - Wheelchair Same score based on distance traveled: 0(N/A) FUNCTIONAL STATUS: - Self-Care A. Eating Messi B. Grooming Messi C. Bathing Sudha D. Dressing - Upper sup E. Dressing - Lower Sudha F. Toileting Sudha - Sphincter Control G. Bladder control Messi H. Bowel control Messi - Transfers Control I. Bed/Chair/Wheelchair Sudha J. Toilet Sudha K. Tub/Shower Sudha - Locomotion L. Walk/Wheelchair (B) Ind M. Stairs sup - Communication N. Comprehension (B) sup O. Expression (B) sup - Social Cognition P. Social Interaction Sudha Q. Problem Solving modA R. Memory sup - Endurance Fair - Balance Fair - Safety Awareness Fair QI SCORES: - Self-Care A. Eating 05-Setup or clean-up assistance B. Oral hygiene 05-Setup or clean-up assistance C. Toileting hygiene 04-Supervision or touching assistance E. Shower/bathe self 03-Partial/moderate assistance F. Upper body dressing 04-Supervision or touching assistance G. Lower body dressing 03-Partial/moderate assistance H. Putting on/taking off footwear 03-Partial/moderate assistance - Mobility A. Roll left and right 03-Partial/moderate assistance B. Sit to lying 03-Partial/moderate assistance C. Lying to sitting on side of bed 03-Partial/moderate assistance D. Sit to stand 03-Partial/moderate assistance E. Chair/[id number] transfer 03-Partial/moderate assistance F. Toilet transfer 03-Partial/moderate assistance G. Car transfer 88-Not attempted due to medical condition or safety concerns I. Walk 10 feet 03-Partial/moderate assistance J. Walk 50 feet with two turns 88-Not attempted due to medical condition or safety concerns K. Walk 150 feet 03-Partial/moderate assistance L. Walking 10 feet on uneven surfaces 88-Not attempted due to medical condition or safety concerns M. 1 step (curb) 88-Not attempted due to medical condition or safety concerns N. 4 steps 88-Not attempted due to medical condition or safety concerns O. 12 steps 88-Not attempted due to medical condition or safety concerns P. Picking up object 88-Not attempted due to medical condition or safety concerns R. Wheel 50 feet with two turns 88-Not attempted due to medical condition or safety concerns S. Wheel 150 feet 88-Not attempted due to medical condition or safety concerns - Bladder and Bowel Bladder continence 5-No urine output Bowel continence 0-Always continent - Endurance Fair - Balance Fair - Safety Awareness Fair CURRENT REPLACED BY [facility]. DEFICITS: Self-Care, Mobility, Endurance, Balance, and Safety Awareness SIGNATURE PANEL: (EVALUATOR)
[2019-10-25] MEDS: MIRTAZAPINE 15 MG TAB PO SCH (23:28)
[2019-10-25] MEDS: ATORVASTATIN 20 MG TAB PO SCH (23:29)
[2019-10-26] MEDS: INSULIN -REGULAR HUMAN 50 UNIT/0.5 ML ML SQ SCH ×2 (08:00→20:00)
[2019-10-26] MEDS: PROMOD 30 ML DOSE PO SCH ×2 (08:00→20:00)
[2019-10-26] MEDS: CALCITROL 0.25 MCG CAP PO SCH (08:06)
[2019-10-26] MEDS: DOXAZOSIN 2 MG TAB PO SCH ×2 (08:06→20:05)
[2019-10-26] MEDS: FERROUS SULFATE 325 MG TAB PO SCH (08:06)
[2019-10-26] MEDS: CA ACETATE 667 MG CAP PO SCH ×3 (08:06→17:16)
[2019-10-26] MEDS: APIXABAN 2.5 MG TABLET PO SCH ×2 (08:06→20:06)
[2019-10-26] MEDS: carvediloL 12.5 MG TAB PO SCH ×2 (08:07→20:06)
[2019-10-26] MEDS: FE SULF/FA/VIT B COMP & C TAB PO SCH (08:07)
[2019-10-26] MEDS: NEPRO SHAKE 237 ML CAN PO SCH ×2 (08:08→20:00)
[2019-10-26] MEDS: AMLODIPINE 10 MG TAB PO SCH (10:18)
--- NOTE | 2019-10-26 17:55 | R.PN ---
ENCOUNTER DATE AND TIME: 10/26/2019 17:51 (OUTREACH COORDINATOR) NAME JAQUELIN NOBLES DATE OF : 1960 DATE OF ADMISSION: 10/18/2019 21:12 (OUTREACH COORDINATOR) Hemodialysis catheter dysfunctionESRD on HemodialysisCHIEF COMPLAINT: End stage renal disease and debility. SUBJECTIVE: Pt denied any Shortness of Breath. Pt denied any depression. Ambulated 1250' independently using a rollator. Up and down 30 steps with independence. His ADLs were performed with independence. He completed a shower with minimum assistance. VITAL SIGNS Temperature: 97.4 F SBP/DBP: 175/78 Pulse: 64 Resp: 16 MEDICATION ALLERGIES: No Known Drug Allergies (NKDA) ENVIRONMENTAL ALLERGIES: None Known - Substance Allergies None Known - Other Allergies None Known NURSING: - Shower allowing shower ACTIVITIES OOB only with supervision THERAPIES: - Dietary and Nutrition Adequate Nutrition. Nutritional Education. Nutritional Supplements. PHYSICAL EXAM - Gen Alert and awake Lying in bed No apparent distress Oriented to: person, time, and place - Skin No skin breakdown. Normacephalic - Eyes No abnormalities - ENMT No abnormalities - Neck No abnormalities - CVS RRR - Chest Clear - Resp Clear to auscultation - Abd Soft - GI Non distended Deferred - No abnormalities - Ext Mild bilateral lower extremity edema. - MSK 4+/5 weakness in both lower extremities. - Neuro No focal deficits - Psych No abnormalities ASSESSMENT: Pt. is a 59 yo Right-handed male.On 10/07/2019 he was admitted to [facility] with diagnosis Hemodialysis catheter dysfunction.His impairment category is Medically Co mplex Conditions 17 - Medical/Surgical Complications (17.8).Pre-morbidly, Pt. was independent/mod-I in Locomotion, Balance, Safety Awareness, Social Cognition, Transfers Control, Sphincter Control, Mily f-Care, Communication, and Endurance; and he had good Locomotion, Safety Awareness, Balance, Social C ognition, Transfers Control, Sphincter Control, Self-Care, Communication, and Endurance.Currently, he has deficits of Locomotion, Balance, Safety Awareness, Social Cognition, Transfers Control, Self-Car e, Communication, and Endurance.Pt. is now referred to [facility] for acute in -patient rehabilitation in order to maximize patient's functional independence in activities of daily living, strength, ROM, and mobility.- Rehab Goal Patient has realistic goal of being discharged at assistance level 6-Messi to reside at Home with Fam ava/Relatives. MDM/PLAN: - Physical Therapy Gait dysfunction - to improve, our physical therapists will perform initial evaluation of pt's statu s upon admission and devise an individualized program for Gait Training, and Wheel Chair mobility Inability to transfer - to improve, our physical therapists will perform initial evaluation of pt's status upon admission and devise an individualized program for Bed mobility Need for home safety evaluation - to improve, our physical therapists will perform initial evaluatio n of pt's status upon admission and devise an individualized program for Home Evaluation Need in caregiver upon discharge - to improve, our physical therapists will perform initial evaluati on of pt's status upon admission and devise an individualized program for Caregiver Training New precaution - to improve, our physical therapists will perform initial evaluation of pt's status upon admission and devise an individualized program for Patient precaution education Edema - to improve, our physical therapists will perform initial evaluation of pt's status upon admi ssion and devise an individualized program for Elevation Training, and Lymphedema Therapy Poor balance - to improve, our physical therapists will perform initial evaluation of pt's status up on admission and devise an individualized program for Balance Training Poor endurance - to improve, our physical therapists will perform initial evaluation of pt's status upon admission and devise an individualized program for Endurance Training Weakness - to improve, our physical therapists will perform initial evaluation of pt's status upon a dmission and devise an individualized program for Aquatic Therapy, Neuromuscular Reeducation, and Str engthening Achieving independence - to improve, our physical therapists will perform initial evaluation of pt's status upon admission and devise an individualized program for Community Reintegration Activities - Occupational Therapy ADL deficits - to improve, our occupation therapists will perform initial evaluation of pt's status upon admission and devise an individualized program for Bathing, Bed mobility, Community Reintegratio n, Cooking, Dressing, Eating, Fine Motor Skills, Grooming, Homemaking, Kitchen Mobility, Laundry, Pat ient Education, Safety Awareness, Splinting - Positioning, Transfers(Toilet, Tub, Shower), and Wheel Chair Management Cognitive deficits - to improve, our occupation therapists will perform initial evaluation of pt's s tatus upon admission and devise an individualized program for Cognition - orientation Need for acute care assistant - to improve, our occupation therapists will perform initial evaluation of pt's status upon admission and devise an individualized program for Caregiver Training Weakness - to improve, our occupation therapists will perform initial evaluation of pt's status upon admission and devise an individualized program for Aquatic Therapy, Balance, Endurance, UE ROM, and UE strengthening - Other See attached MAR (Medication Administration Record) - Diet Type Continue Renal - Diet - Liquid Texture Continue Regular - Tube Feed Continue N/A - Diet - Solid Texture Continue Regular - Shower allowing shower FUNCTIONAL STATUS: UPDATED AT WEEKLY TEAM CONFERENCE - Bladder Same accident frequency: 7-Ind - No accidents in the past 7 days - Bowel Same accident frequency: 7-Ind - No accidents in the past 7 days - Walking Same score based on distance walked: 0(N/A) - Wheelchair Same score based on distance traveled: 0(N/A) FUNCTIONAL STATUS: - Self-Care A. Eating Messi B. Grooming Messi C. Bathing Sudha D. Dressing - Upper sup E. Dressing - Lower Sudha F. Toileting Sudha - Sphincter Control G. Bladder control Messi H. Bowel control Messi - Transfers Control I. Bed/Chair/Wheelchair Sudha J. Toilet Sudha K. Tub/Shower Sudha - Locomotion L. Walk/Wheelchair (B) Ind M. Stairs sup - Communication N. Comprehension (B) sup O. Expression (B) sup - Social Cognition P. Social Interaction Sudha Q. Problem Solving modA R. Memory sup - Endurance Fair - Balance Fair - Safety Awareness Fair QI SCORES: - Self-Care A. Eating 05-Setup or clean-up assistance B. Oral hygiene 05-Setup or clean-up assistance C. Toileting hygiene 04-Supervision or touching assistance E. Shower/bathe self 03-Partial/moderate assistance F. Upper body dressing 04-Supervision or touching assistance G. Lower body dressing 03-Partial/moderate assistance H. Putting on/taking off footwear 03-Partial/moderate assistance - Mobility A. Roll left and right 03-Partial/moderate assistance B. Sit to lying 03-Partial/moderate assistance C. Lying to sitting on side of bed 03-Partial/moderate assistance D. Sit to stand 03-Partial/moderate assistance E. Chair/fwp-en-[id number] transfer 03-Partial/moderate assistance F. Toilet transfer 03-Partial/moderate assistance G. Car transfer 88-Not attempted due to medical condition or safety concerns I. Walk 10 feet 03-Partial/moderate assistance J. Walk 50 feet with two turns 88-Not attempted due to medical condition or safety concerns K. Walk 150 feet 03-Partial/moderate assistance L. Walking 10 feet on uneven surfaces 88-Not attempted due to medical condition or safety concerns M. 1 step (curb) 88-Not attempted due to medical condition or safety concerns N. 4 steps 88-Not attempted due to medical condition or safety concerns O. 12 steps 88-Not attempted due to medical condition or safety concerns P. Picking up object 88-Not attempted due to medical condition or safety concerns R. Wheel 50 feet with two turns 88-Not attempted due to medical condition or safety concerns S. Wheel 150 feet 88-Not attempted due to medical condition or safety concerns - Bladder and Bowel Bladder continence 5-No urine output Bowel continence 0-Always continent - Endurance Fair - Balance Fair - Safety Awareness Fair CURRENT [facility]. DEFICITS: Self-Care, Mobility, Endurance, Balance, and Safety Awareness SIGNATURE PANEL: (OUTREACH COORDINATOR)
[2019-10-26] MEDS: ATORVASTATIN 20 MG TAB PO SCH (20:06)
[2019-10-26] MEDS: MIRTAZAPINE 15 MG TAB PO SCH (20:06)
[2019-10-27] MEDS: NEPRO SHAKE 237 ML CAN PO SCH ×2 (08:00→20:00)
[2019-10-27] MEDS: PROMOD 30 ML DOSE PO SCH ×2 (08:00→20:00)
[2019-10-27] MEDS: INSULIN -REGULAR HUMAN 50 UNIT/0.5 ML ML SQ SCH ×2 (08:00→20:00)
[2019-10-27] MEDS: carvediloL 12.5 MG TAB PO SCH ×2 (08:05→21:28)
[2019-10-27] MEDS: CA ACETATE 667 MG CAP PO SCH ×3 (08:06→17:06)
[2019-10-27] MEDS: CALCITROL 0.25 MCG CAP PO SCH (08:06)
[2019-10-27] MEDS: TRAMADOL HCL 50 MG TAB PO PRN ×2 (08:06→21:30)
[2019-10-27] MEDS: DOXAZOSIN 2 MG TAB PO SCH ×2 (08:06→21:28)
[2019-10-27] MEDS: APIXABAN 2.5 MG TABLET PO SCH ×2 (08:06→21:28)
[2019-10-27] MEDS: FE SULF/FA/VIT B COMP & C TAB PO SCH (08:07)
[2019-10-27] MEDS: FERROUS SULFATE 325 MG TAB PO SCH (08:07)
[2019-10-27] MEDS: AMLODIPINE 10 MG TAB PO SCH (09:32)
--- NOTE | 2019-10-27 16:40 | FAST ---
SHIFT START DATE/TIME: 10/27/2019 07:00 (STOVE MECHANIC) SHIFT END DATE/TIME: 10/27/2019 19:00 (STOVE MECHANIC) NAME JAQUELIN NOBLES DATE OF : 1960 DATE OF ADMISSION: 10/18/2019 21:12 (STOVE MECHANIC) PHONE: AGE: 59 N# [id number] GENDER: Male ENCOUNTER PHYSICIAN: Dr. Berry Fuentes M.D. ADMISSION DIAGNOSIS: - Medically Complex Conditions 17 - Medical/Surgical Complications (17.8) Hemodialysis catheter dysfunction. ESRD on Hemodialysis. EATING: EATING - STEP 1: Does the patient complete the activity by him/herself with no assistance (physical, verbal/nonverbal cueing, setup/clean-up)? Yes. 1. [id number] ADMISSION PERFORMANCE: Independent CODE: 06 ORAL HYGIENE: ORAL HYGIENE - STEP 1: Does the patient complete the activity by him/herself with no assistance (physical, verbal/nonverbal cueing, setup/clean-up)? Yes. 1. [id number] ADMISSION PERFORMANCE: Independent CODE: 06 TOILETING HYGIENE: TOILETING HYGIENE - STEP 1: Does the patient complete the activity by him/herself with no assistance (physical, verbal/nonverbal cueing, setup/clean-up)? Yes. 1. [id number] ADMISSION PERFORMANCE: Independent CODE: 06 BATHING: Not assessed/no information CODE: - DRESSING - UPPER BODY: DRESSING - UPPER BODY - STEP 1: Does the patient complete the activity by him/herself with no assistance (physical, verbal/nonverbal cueing, setup/clean-up)? No. DRESSING - UPPER BODY - STEP 2: Does the patient need only setup/clean-up assistance from one helper? Yes. 1. [id number] ADMISSION PERFORMANCE: Setup or clean-up assistance CODE: 05 DRESSING - LOWER BODY: DRESSING - LOWER BODY - STEP 1: Does the patient complete the activity by him/herself with no assistance (physical, verbal/nonverbal cueing, setup/clean-up)? No. DRESSING - LOWER BODY - STEP 2: Does the patient need only setup/clean-up assistance from one helper? Yes. 1. [id number] ADMISSION PERFORMANCE: Setup or clean-up assistance CODE: 05 PUTTING ON/TAKING OFF FOOTWEAR: Not assessed/no information CODE: - ROLL LEFT AND RIGHT: ROLL LEFT AND RIGHT - STEP 1: Does the patient complete the activity by him/herself with no assistance (physical, verbal/nonverbal cueing, setup/clean-up)? Yes. 1. [id number] ADMISSION PERFORMANCE: Independent CODE: 06 SIT TO LYING: SIT TO LYING - STEP 1: Does the patient complete the activity by him/herself with no assistance (physical, verbal/nonverbal cueing, setup/clean-up)? Yes. 1. [id number] ADMISSION PERFORMANCE: Independent CODE: 06 LYING TO SITTING: LYING TO SITTING ON SIDE OF BED - STEP 1: Does the patient complete the activity by him/herself with no assistance (physical, verbal/nonverbal cueing, setup/clean-up)? Yes. 1. [id number] ADMISSION PERFORMANCE: Independent CODE: 06 SIT TO STAND: SIT TO STAND - STEP 1: Does the patient complete the activity by him/herself with no assistance (physical, verbal/nonverbal cueing, setup/clean-up)? Yes. 1. [id number] ADMISSION PERFORMANCE: Independent CODE: 06 TRANSFERS: BED, CHAIR: CHAIR/[id number] TRANSFER - STEP 1: Does the patient complete the activity by him/herself with no assistance (physical, verbal/nonverbal cueing, setup/clean-up)? Yes. 1. [id number] ADMISSION PERFORMANCE: Independent CODE: 06 TRANSFER TOILET: TOILET TRANSFER - STEP 1: Does the patient complete the activity by him/herself with no assistance (physical, verbal/nonverbal cueing, setup/clean-up)? Yes. 1. [id number] ADMISSION PERFORMANCE: Independent CODE: 06 TRANSFERS: CAR: Not assessed/no information CODE: - WALK 10 FEET: WALK 10 FEET - STEP 1: Does the patient complete the activity by him/herself with no assistance (physical, verbal/nonverbal cueing, setup/clean-up)? Yes. 1. [id number] ADMISSION PERFORMANCE: Independent CODE: 06 WALK 50 FEET: WALK 50 FEET - STEP 1: Does the patient complete the activity by him/herself with no assistance (physical, verbal/nonverbal cueing, setup/clean-up)? Yes. 1. [id number] ADMISSION PERFORMANCE: Independent CODE: 06 WALK 150 FEET: WALK 150 FEET - STEP 1: Does the patient complete the activity by him/herself with no assistance (physical, verbal/nonverbal cueing, setup/clean-up)? Yes. 1. [id number] ADMISSION PERFORMANCE: Independent CODE: 06 WALK 10 FEET UNEVEN: Not assessed/no information CODE: - 1 STEP (CURB): Not assessed/no information CODE: - PICKING UP OBJECT: Not assessed/no information CODE: - DOES THE PATIENT USE A WHEELCHAIR/SCOOTER? Q1. DOES THE PATIENT USE A WHEELCHAIR/SCOOTER?: No CODE: 0 INDICATE THE TYPE OF WHEELCHAIR/SCOOTER USED: CODE: EXPR INDICATE THE TYPE OF WHEELCHAIR/SCOOTER USED: CODE: EXPR BLADDER AND BOWEL: H350. BLADDER CONTINENCE (3-DAY ASSESSMENT PERIOD): Always continent (no documented incontinence) CODE: 0 H400. BOWEL CONTINENCE (3-DAY ASSESSMENT PERIOD): Always continent CODE: 0 SIGNATURE PANEL: The following modified sections: 1. [id number] Admission Performance, 1. [id number] Admission Performance, 1. [id number] Admission Performance, 1. [id number] Admission Performance, 1. [id number] Admission Performance, 1. [id number] Admission Performance, 1. [id number] Admission Performance, 1. [id number] Admission Performance , 1. [id number] Admission Performance, 1. [id number] Admission Performance, 1. [id number] Admission Performanc e, 1. [id number] Admission Performance, 1. [id number] Admission Performance, 1. [id number] Admission Performan ce, 1. [id number] Admission Performance, Q1. Does the patient use a wheelchair/scooter?, H350. Bladder C ontinence (3-day assessment period), H400. Bowel Continence (3-day assessment period) were [leann [email or web address]] signed by Mague Philippe, C.N.AJeannie on ThuOct 27 2019 16:39:36 GMT-0600 (Central Standard Time)
[2019-10-27 18:34] LABS: Absolute Lymphocytes (CBC) 2.7 K/uL (0.7-4.9); Basophils % 1.2 % (0-1.3); Hematocrit 25.2 % (39.6-49.0); Lymphocytes % 18.7 % (15.3-44.8); MPV 9.5 fL (7.6-11.3); RBC Red Blood Cell Count 2.86 M/uL (4.33-5.43)
--- NOTE | 2019-10-27 18:56 | R.PN ---
ENCOUNTER DATE AND TIME: 10/27/2019 18:49 (CHAIR TRIMMER) NAME JAQUELIN SKELTON DATE OF : 1960 DATE OF ADMISSION: 10/18/2019 21:12 (CHAIR TRIMMER) Hemodialysis catheter dysfunctionESRD on HemodialysisCHIEF COMPLAINT: End stage renal disease and debility. SUBJECTIVE: Pt denied any Shortness of Breath. Pt denied any depression. Ambulated 1250' independently using a rollator. Up and down 30 steps with independence. His ADLs were performed with independence. He completed a shower with minimum assistance. Mr. Skelton was found to be cognitively competent with normal cognitive testing on two separate test s. He is able to make decisions regarding his medical care and disposition. He will be discharged in good condition tomorrow. VITAL SIGNS Temperature: 97.0 F SBP/DBP: 168/74 Pulse: 64 Resp: 14 MEDICATION ALLERGIES: No Known Drug Allergies (NKDA) ENVIRONMENTAL ALLERGIES: None Known - Substance Allergies None Known - Other Allergies None Known NURSING: - Shower allowing shower ACTIVITIES OOB only with supervision THERAPIES: - Dietary and Nutrition Adequate Nutrition. Nutritional Education. Nutritional Supplements. PHYSICAL EXAM - Gen Alert and awake Lying in bed No apparent distress Oriented to: person, time, and place - Skin No skin breakdown. Normacephalic - Eyes No abnormalities - ENMT No abnormalities - Neck No abnormalities - CVS RRR - Chest Clear - Resp Clear to auscultation - Abd Soft - GI Non distended Deferred - No abnormalities - Ext Mild bilateral lower extremity edema. - MSK 4+/5 weakness in both lower extremities. - Neuro No focal deficits - Psych No abnormalities ASSESSMENT: Pt. is a 59 yo Right-handed male.On 10/07/2019 he was admitted [facility] with diagnosis Hemodialysis catheter dysfunction.His impairment category is Medically Co mplex Conditions 17 - Medical/Surgical Complications (17.8).Pre-morbidly, Pt. was independent/mod-I in Locomotion, Balance, Safety Awareness, Social Cognition, Transfers Control, Sphincter Control, Mily f-Care, Communication, and Endurance; and he had good Locomotion, Safety Awareness, Balance, Social C ognition, Transfers Control, Sphincter Control, Self-Care, Communication, and Endurance.Currently, he has deficits of Locomotion, Balance, Safety Awareness, Social Cognition, Transfers Control, Self-Car e, Communication, and Endurance.Pt. is now referred to [facility] for acute in -patient rehabilitation in order to maximize patient's functional independence in activities of daily living, strength, ROM, and mobility.- Rehab Goal Patient has realistic goal of being discharged at assistance level 6-Messi to reside at Home with Fam ava/Relatives. MDM/PLAN: - Physical Therapy Gait dysfunction - to improve, our physical therapists will perform initial evaluation of pt's statu s upon admission and devise an individualized program for Gait Training, and Wheel Chair mobility Inability to transfer - to improve, our physical therapists will perform initial evaluation of pt's status upon admission and devise an individualized program for Bed mobility Need for home safety evaluation - to improve, our physical therapists will perform initial evaluatio n of pt's status upon admission and devise an individualized program for Home Evaluation Need in caregiver upon discharge - to improve, our physical therapists will perform initial evaluati on of pt's status upon admission and devise an individualized program for Caregiver Training New precaution - to improve, our physical therapists will perform initial evaluation of pt's status upon admission and devise an individualized program for Patient precaution education Edema - to improve, our physical therapists will perform initial evaluation of pt's status upon admi ssion and devise an individualized program for Elevation Training, and Lymphedema Therapy Poor balance - to improve, our physical therapists will perform initial evaluation of pt's status up on admission and devise an individualized program for Balance Training Poor endurance - to improve, our physical therapists will perform initial evaluation of pt's status upon admission and devise an individualized program for Endurance Training Weakness - to improve, our physical therapists will perform initial evaluation of pt's status upon a dmission and devise an individualized program for Aquatic Therapy, Neuromuscular Reeducation, and Str engthening Achieving independence - to improve, our physical therapists will perform initial evaluation of pt's status upon admission and devise an individualized program for Community Reintegration Activities - Occupational Therapy ADL deficits - to improve, our occupation therapists will perform initial evaluation of pt's status upon admission and devise an individualized program for Bathing, Bed mobility, Community Reintegratio n, Cooking, Dressing, Eating, Fine Motor Skills, Grooming, Homemaking, Kitchen Mobility, Laundry, Pat ient Education, Safety Awareness, Splinting - Positioning, Transfers(Toilet, Tub, Shower), and Wheel Chair Management Cognitive deficits - to improve, our occupation therapists will perform initial evaluation of pt's s tatus upon admission and devise an individualized program for Cognition - orientation Need for respiratory care instructor - to improve, our occupation therapists will perform initial evaluation of pt's status upon admission and devise an individualized program for Caregiver Training Weakness - to improve, our occupation therapists will perform initial evaluation of pt's status upon admission and devise an individualized program for Aquatic Therapy, Balance, Endurance, UE ROM, and UE strengthening - Other See attached MAR (Medication Administration Record) - Diet Type Continue Renal - Diet - Liquid Texture Continue Regular - Tube Feed Continue N/A - Diet - Solid Texture Continue Regular - Shower allowing shower FUNCTIONAL STATUS: UPDATED AT WEEKLY TEAM CONFERENCE - Bladder Same accident frequency: 7-Ind - No accidents in the past 7 days - Bowel Same accident frequency: 7-Ind - No accidents in the past 7 days - Walking Same score based on distance walked: 0(N/A) - Wheelchair Same score based on distance traveled: 0(N/A) FUNCTIONAL STATUS: - Self-Care A. Eating Messi B. Grooming Messi C. Bathing Sudha D. Dressing - Upper sup E. Dressing - Lower Sudha F. Toileting Sudha - Sphincter Control G. Bladder control Messi H. Bowel control Messi - Transfers Control I. Bed/Chair/Wheelchair Sudha J. Toilet Sudha K. Tub/Shower Sudha - Locomotion L. Walk/Wheelchair (B) Ind M. Stairs sup - Communication N. Comprehension (B) sup O. Expression (B) sup - Social Cognition P. Social Interaction Sudha Q. Problem Solving modA R. Memory sup - Endurance Fair - Balance Fair - Safety Awareness Fair QI SCORES: - Self-Care A. Eating 05-Setup or clean-up assistance B. Oral hygiene 05-Setup or clean-up assistance C. Toileting hygiene 04-Supervision or touching assistance E. Shower/bathe self 03-Partial/moderate assistance F. Upper body dressing 04-Supervision or touching assistance G. Lower body dressing 03-Partial/moderate assistance H. Putting on/taking off footwear 03-Partial/moderate assistance - Mobility A. Roll left and right 03-Partial/moderate assistance B. Sit to lying 03-Partial/moderate assistance C. Lying to sitting on side of bed 03-Partial/moderate assistance D. Sit to stand 03-Partial/moderate assistance E. Chair/kdi-qx-[id number] transfer 03-Partial/moderate assistance F. Toilet transfer 03-Partial/moderate assistance G. Car transfer 88-Not attempted due to medical condition or safety concerns I. Walk 10 feet 03-Partial/moderate assistance J. Walk 50 feet with two turns 88-Not attempted due to medical condition or safety concerns K. Walk 150 feet 03-Partial/moderate assistance L. Walking 10 feet on uneven surfaces 88-Not attempted due to medical condition or safety concerns M. 1 step (curb) 88-Not attempted due to medical condition or safety concerns N. 4 steps 88-Not attempted due to medical condition or safety concerns O. 12 steps 88-Not attempted due to medical condition or safety concerns P. Picking up object 88-Not attempted due to medical condition or safety concerns R. Wheel 50 feet with two turns 88-Not attempted due to medical condition or safety concerns S. Wheel 150 feet 88-Not attempted due to medical condition or safety concerns - Bladder and Bowel Bladder continence 5-No urine output Bowel continence 0-Always continent - Endurance Fair - Balance Fair - Safety Awareness Fair [facility] DEFICITS: Self-Care, Mobility, Endurance, Balance, and Safety Awareness SIGNATURE PANEL: (CHAIR TRIMMER)
[2019-10-27 20:15] LABS: Albumin 2.4 g/dL (3.4-5.0); Magnesium 1.8 mg/dL (1.8-2.4); Potassium 4.8 mmol/L (3.5-5.1); Prealbumin 21.6 mg/dL (20-40)
[2019-10-27 20:17] LABS: Platelet Estimate ADEQ
[2019-10-27 20:18] LABS: Anisocytosis SLIGHT; Blood Morphology Comment NOTED (NOT SEEN); Ovalocytes SLIGHT; Poikilocytosis SLIGHT; Teardrop Cell FEW
[2019-10-27] MEDS: ATORVASTATIN 20 MG TAB PO SCH (21:28)
[2019-10-27] MEDS: MIRTAZAPINE 15 MG TAB PO SCH (21:28)
[2019-10-28] MEDS: INSULIN -REGULAR HUMAN 50 UNIT/0.5 ML ML SQ SCH ×2 (07:12→20:00)
[2019-10-28] MEDS: NEPRO SHAKE 237 ML CAN PO SCH ×2 (07:23→20:00)
[2019-10-28] MEDS: PROMOD 30 ML DOSE PO SCH ×2 (07:23→21:25)
[2019-10-28] MEDS: DOXAZOSIN 2 MG TAB PO SCH ×2 (07:23→21:24)
[2019-10-28] MEDS: APIXABAN 2.5 MG TABLET PO SCH ×2 (07:24→21:24)
[2019-10-28] MEDS: carvediloL 12.5 MG TAB PO SCH ×2 (07:24→21:24)
[2019-10-28] MEDS: FERROUS SULFATE 325 MG TAB PO SCH (07:24)
[2019-10-28] MEDS: CA ACETATE 667 MG CAP PO SCH ×3 (07:24→17:29)
[2019-10-28] MEDS: CALCITROL 0.25 MCG CAP PO SCH (07:24)
[2019-10-28] MEDS: FE SULF/FA/VIT B COMP & C TAB PO SCH (07:25)
[2019-10-28] MEDS: AMLODIPINE 10 MG TAB PO SCH (09:30)
--- NOTE | 2019-10-28 10:08 | P.RH.PN ---
Estimated Length of Stay: 14 Expected Discharge Date: 10/28/19 Discharge Disposition Plan: Home Family Support: Yes Care Home Goal: Mobility, Transfers, Self Care Vital Signs: Last Vital Signs Temp 97 F 10/28/19 08:49 Pulse 55 10/28/19 09:30 Resp 18 10/28/19 08:49 BP 172/79 H 10/28/19 09:30 Pulse Ox 99 10/28/19 08:49 Laboratory: Laboratory Last Values WBC 14.4 K/uL (4.3-10.9) H D 10/27/19 18:06 RBC 2.86 M/uL (4.33-5.43) L 10/27/19 18:06 Hgb 8.2 g/dL (13.6-17.9) L 10/27/19 18:06 Hct 25.2 % (39.6-49.0) L 10/27/19 18:06 MCV 88.2 fL (80-100) 10/27/19 18:06 MCH 28.8 pg (27.0-35.0) 10/27/19 18:06 MCHC 32.7 g/dL (32.0-36.0) 10/27/19 18:06 RDW 17.8 % (12.1-15.2) H 10/27/19 18:06 Plt Count 296 K/uL (152-406) 10/27/19 18:06 MPV 9.5 fL (7.6-11.3) 10/27/19 18:06 Plt Distribution Width Cancelled 10/27/19 06:00 Absolute Nucleated RBC Cancelled 10/27/19 06:00 Neutrophils % 43.0 % (41.7-73.7) 10/27/19 18:06 Lymphocytes % 18.7 % (15.3-44.8) 10/27/19 18:06 Monocytes % 6.2 % (3.3-12.3) 10/27/19 18:06 Eosinophils % 30.9 % (0-4.4) H 10/27/19 18:06 Basophils % 1.2 % (0-1.3) 10/27/19 18:06 Nucleated RBC % Cancelled 10/27/19 06:00 Absolute Neutrophils 6.2 K/uL (1.8-8.0) 10/27/19 18:06 Segmented Neutrophils 47 % (40-80) 10/27/19 18:06 Band Neutrophils 1 % (0-1) 10/27/19 18:06 Absolute Lymphocytes 2.7 K/uL (0.7-4.9) 10/27/19 18:06 Lymphocytes 16 % (15-42) 10/27/19 18:06 Monocytes 5 % (0-10) 10/27/19 18:06 Absolute Monocytes 0.9 K/uL (0.1-1.3) 10/27/19 18:06 Eosinophils 31 % (0-3) H 10/27/19 18:06 Absolute Eosinophils 4.5 K/uL (0-0.5) H 10/27/19 18:06 Basophils 1 % (0-1) 10/19/19 07:26 Absolute Basophils 0.2 K/uL (0-0.5) 10/27/19 18:06 Diff Path Review Cancelled 10/27/19 06:00 Poikilocytosis Slight 10/27/19 18:06 Anisocytosis Slight 10/27/19 18:06 Tear Drop Cells Few 10/27/19 18:06 Ovalocytes Slight 10/27/19 18:06 Morphology Comment Noted (NOT SEEN) 10/27/19 18:06 Sodium 141 mmol/L (136-145) 10/27/19 18:06 Potassium 4.8 mmol/L (3.5-5.1) 10/27/19 18:06 Chloride 106 mmol/L (98-107) 10/27/19 18:06 Carbon Dioxide 29 mmol/L (21-32) 10/27/19 18:06 BUN 49 mg/dL (7-18) H 10/27/19 18:06 Creatinine 5.34 mg/dL (0.55-1.3) H* 10/27/19 18:06 Estimated GFR 11 mL/min (=/>90) L 10/27/19 18:06 Glucose 126 mg/dL (74-106) H 10/27/19 18:06 POC Glucose 118 mg/dl (65-120) 10/28/19 06:39 Calcium 8.6 mg/dL (8.5-10.1) 10/27/19 18:06 Phosphorus 4.1 mg/dL (2.5-4.9) 10/22/19 10:32 Magnesium 1.8 mg/dL (1.8-2.4) 10/27/19 18:06 Total Bilirubin 0.2 mg/dL (0.2-1.0) 10/22/19 10:32 AST 34 U/L (15-37) 10/22/19 10:32 ALT 33 U/L (12-78) 10/22/19 10:32 Alkaline Phosphatase 77 U/L (45-117) 10/22/19 10:32 Serum Total Protein 6.0 g/dL (6.4-8.2) L 10/22/19 10:32 Albumin 2.4 g/dL (3.4-5.0) L 10/27/19 18:06 Globulin 3.6 g/dL (2.3-3.5) H 10/22/19 10:32 Albumin/Globulin Ratio 0.7 (1.1-1.8) L 10/22/19 10:32 Prealbumin 21.6 mg/dL (20-40) 10/27/19 18:06 Weight: 117 lb 2 oz Wound Present: Yes Closed Surgical Incision Present: Yes Negative Pressure Wound Therapy Present: No Physician Update: He is refusing physical and occupational therapy and will be discharged to [facility] today. However, he is doing well ambulation and transfers. 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 Please see the Rehabilitation Signature page for all necessary signatures.
--- NOTE | 2019-10-28 15:48 | FAST ---
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 Berry Fuentes M.D. ADMISSION DIAGNOSIS: - Medically Complex Conditions 17 - Medical/Surgical Complications (17.8) Hemodialysis catheter dysfunction. ESRD on Hemodialysis. ROLL LEFT AND RIGHT: ROLL LEFT AND RIGHT - STEP 1: Does the patient complete the activity by him/herself with no assistance (physical, verbal/nonverbal cueing, setup/clean-up)? Yes. 1. [id number] ADMISSION PERFORMANCE: Independent CODE: 06 SIT TO LYING: SIT TO LYING - STEP 1: Does the patient complete the activity by him/herself with no assistance (physical, verbal/nonverbal cueing, setup/clean-up)? Yes. 1. [id number] ADMISSION PERFORMANCE: Independent CODE: 06 LYING TO SITTING: LYING TO SITTING ON SIDE OF BED - STEP 1: Does the patient complete the activity by him/herself with no assistance (physical, verbal/nonverbal cueing, setup/clean-up)? Yes. 1. [id number] ADMISSION PERFORMANCE: Independent CODE: 06 SIT TO STAND: SIT TO STAND - STEP 1: Does the patient complete the activity by him/herself with no assistance (physical, verbal/nonverbal cueing, setup/clean-up)? Yes. 1. [id number] ADMISSION PERFORMANCE: Independent CODE: 06 TRANSFERS: BED, CHAIR: CHAIR/[id number] TRANSFER - STEP 1: Does the patient complete the activity by him/herself with no assistance (physical, verbal/nonverbal cueing, setup/clean-up)? Yes. 1. [id number] ADMISSION PERFORMANCE: Independent CODE: 06 TRANSFER TOILET: TOILET TRANSFER - STEP 1: Does the patient complete the activity by him/herself with no assistance (physical, verbal/nonverbal cueing, setup/clean-up)? Yes. 1. [id number] ADMISSION PERFORMANCE: Independent CODE: 06 TRANSFERS: CAR: Not attempted due to environmental limitations (e.g., lack of equipment, weather constraints) CODE: 10 WALK 10 FEET: WALK 10 FEET - STEP 1: Does the patient complete the activity by him/herself with no assistance (physical, verbal/nonverbal cueing, setup/clean-up)? Yes. 1. [id number] ADMISSION PERFORMANCE: Independent CODE: 06 WALK 50 FEET: WALK 50 FEET - STEP 1: Does the patient complete the activity by him/herself with no assistance (physical, verbal/nonverbal cueing, setup/clean-up)? Yes. 1. [id number] ADMISSION PERFORMANCE: Independent CODE: 06 WALK 150 FEET: WALK 150 FEET - STEP 1: Does the patient complete the activity by him/herself with no assistance (physical, verbal/nonverbal cueing, setup/clean-up)? Yes. 1. [id number] ADMISSION PERFORMANCE: Independent CODE: 06 WALK 10 FEET UNEVEN: WALKING 10 FEET ON UNEVEN SURFACES - STEP 1: Does the patient complete the activity by him/herself with no assistance (physical, verbal/nonverbal cueing, setup/clean-up)? Yes. 1. [id number] ADMISSION PERFORMANCE: Independent CODE: 06 1 STEP (CURB): 1 STEP CURB - STEP 1: Does the patient complete the activity by him/herself with no assistance (physical, verbal/nonverbal cueing, setup/clean-up)? Yes. 1. [id number] ADMISSION PERFORMANCE: Independent CODE: 06 4 STEPS: 4 STEPS - STEP 1: Does the patient complete the activity by him/herself with no assistance (physical, verbal/nonverbal cueing, setup/clean-up)? Yes. 1. [id number] ADMISSION PERFORMANCE: Independent CODE: 06 12 STEPS: 12 STEPS - STEP 1: Does the patient complete the activity by him/herself with no assistance (physical, verbal/nonverbal cueing, setup/clean-up)? Yes. 1. [id number] ADMISSION PERFORMANCE: Independent CODE: 06 PICKING UP OBJECT: PICKING UP OBJECT - STEP 1: Does the patient complete the activity by him/herself with no assistance (physical, verbal/nonverbal cueing, setup/clean-up)? Yes. 1. [id number] ADMISSION PERFORMANCE: Independent CODE: 06 DOES THE PATIENT USE A WHEELCHAIR/SCOOTER? Q1. DOES THE PATIENT USE A WHEELCHAIR/SCOOTER?: No CODE: 0 INDICATE THE TYPE OF WHEELCHAIR/SCOOTER USED: CODE: EXPR INDICATE THE TYPE OF WHEELCHAIR/SCOOTER USED: CODE: EXPR BLADDER AND BOWEL: CODE: EXPR CODE: EXPR SIGNATURE PANEL: The following modified sections: 1. [id number] Admission Performance, 1. [id number] Admission Performance, 1. [id number] Admission Performance, 1. [id number] Admission Performance, 1. [id number] Admission Performance, 1. [id number] Admission Performance, 1. [id number] Admission Performance, 1. [id number] Admission Performance , 1. [id number] Admission Performance, 1. [id number] Admission Performance, 1. [id number] Admission Performanc e, 1. [id number] Admission Performance, 1. [id number] Admission Performance, 1. [id number] Admission Performan ce, Q1. Does the patient use a wheelchair/scooter? were [electronically] signed by Jamar Martínez PTA on ThuOct 28 2019 15:47:32 GMT-0600 (Central Standard Time)
[2019-10-28] MEDS: ATORVASTATIN 20 MG TAB PO SCH (21:23)
[2019-10-28] MEDS: MIRTAZAPINE 15 MG TAB PO SCH (21:24)
[2019-10-29 05:38] VITALS: BMI 18.5
[2019-10-29 07:25] VITALS: BP 168/75; TEMP 97.6
[2019-10-29] MEDS: carvediloL 12.5 MG TAB PO SCH (07:27)
[2019-10-29] MEDS: DOXAZOSIN 2 MG TAB PO SCH (07:27)
[2019-10-29] MEDS: APIXABAN 2.5 MG TABLET PO SCH (07:32)
[2019-10-29] MEDS: FE SULF/FA/VIT B COMP & C TAB PO SCH (07:32)
[2019-10-29] MEDS: CA ACETATE 667 MG CAP PO SCH ×2 (07:32→12:09)
[2019-10-29] MEDS: FERROUS SULFATE 325 MG TAB PO SCH (07:33)
[2019-10-29] MEDS: CALCITROL 0.25 MCG CAP PO SCH (07:33)
[2019-10-29] MEDS: INSULIN -REGULAR HUMAN 50 UNIT/0.5 ML ML SQ SCH (07:33)
[2019-10-29] MEDS: NEPRO SHAKE 237 ML CAN PO SCH (07:33)
[2019-10-29] MEDS: PROMOD 30 ML DOSE PO SCH (07:34)
[2019-10-29] MEDS: AMLODIPINE 10 MG TAB PO SCH (10:00)
== END 2019-10-29 12:35 | DRG 947 ==
LOC: 5TH 21:12
PROVIDERS: ADMIT Psychiatry & Neurology Neurology with Special Qualifications in Child Neurology; ATTEND Psychiatry & Neurology Neurology with Special Qualifications in Child Neurology
PROC: 5A1D70Z Performance of Urinary Filtration, Intermittent, Less than 6 Hours Per Day (ICD-10-PCS; 2019-10-20)
PROC: 5A1D70Z Performance of Urinary Filtration, Intermittent, Less than 6 Hours Per Day (ICD-10-PCS; 2019-10-22)
PROC: 5A1D70Z Performance of Urinary Filtration, Intermittent, Less than 6 Hours Per Day (ICD-10-PCS; 2019-10-25)
PROC: 5A1D70Z Performance of Urinary Filtration, Intermittent, Less than 6 Hours Per Day (ICD-10-PCS; 2019-10-27)
PROC: 5A1D70Z Performance of Urinary Filtration, Intermittent, Less than 6 Hours Per Day (ICD-10-PCS; principal; 2019-10-29)
DX: R53.81 Other malaise (principal); N18.6 End stage renal disease; I13.2 Hypertensive heart and chronic kidney disease with heart failure and with stage 5 chronic kidney disease, or end stage renal disease; I50.32 Chronic diastolic (congestive) heart failure; N25.81 Secondary hyperparathyroidism of renal origin; E11.22 Type 2 diabetes mellitus with diabetic chronic kidney disease; E78.5 Hyperlipidemia, unspecified; D63.1 Anemia in chronic kidney disease; B35.1 Tinea unguium; E11.51 Type 2 diabetes mellitus with diabetic peripheral angiopathy without gangrene; Z99.2 Dependence on renal dialysis
CPT/HCPCS: 36415; 80048; 80053; 82040; 82947; 83735; 84100; 84134; 85025; 90935; 92523; 97110; 97116; 97161; 97530; J1644; Q5105

== ENCOUNTER 2019-11-04 09:23 | Observation (INO) | payer OTHER ==
--- OUTSIDE RECORDS SUMMARY | 2019-11-04 09:27 | XMS REPORT ---
:1960 Author Organization [facility] Address [address] [place] [address] Care Team Providers Name Role Phone RYAN LYNCH Unavailable Unavailable Problems This patient has no known problems. Allergies, Adverse Reactions, Alerts This patient has no known allergies or adverse reactions. Medications This patient has no known medications. Results Test Description Test Time Test Comments Text Results Atomic Results Result Comments POCT-GLUCOSE METER 2019-10-18 22:31:00 Test Item Value Reference Range Comments POC-GLUCOSE METER (BEAKER) 195 mg/dL 70-110 : TESTED AT [address] (test pxqn=0383) [place], [address]: Restaurant Cook/Scientific Programmer Analyst [id number] for DAVID AN CBC (HEMOGRAM ONLY)2019-10-18 16:12:00 Test Item Value Reference Range Comments WHITE BLOOD CELL COUNT (BEAKER) (test pdig=598) 11.9 K/ L 3.5-10.5 RED BLOOD CELL COUNT (BEAKER) (test ifem=277) 3.44 M/ L 4.63-6.08 HEMOGLOBIN (BEAKER) (test lemx=114) 9.6 GM/DL 13.7-17.5 HEMATOCRIT (BEAKER) (test mcgi=580) 31.0 % 40.1-51.0 MEAN CORPUSCULAR VOLUME (BEAKER) (test qkxy=787) 90.1 fL 79.0-92.2 MEAN CORPUSCULAR HEMOGLOBIN (BEAKER) (test 27.9 pg 25.7-32.2 sujp=858) MEAN CORPUSCULAR HEMOGLOBIN CONC (BEAKER) (test 31.0 GM/DL 32.3-36.5 aslj=041) RED CELL DISTRIBUTION WIDTH (BEAKER) (test 15.3 % 11.6-14.4 oshf=774) PLATELET COUNT (BEAKER) (test qncj=819) 372 K/CU MM 150-450 MEAN PLATELET VOLUME (BEAKER) (test wnsq=899) 10.3 fL 9.4-12.4 NUCLEATED RED BLOOD CELLS (BEAKER) (test 0 /100 WBC 0-0 tngj=736) POCT-GLUCOSE [id number] 16:04:00 Test Item Value Reference Range Comments POC-GLUCOSE METER (BEAKER) 119 mg/dL 70-110 : TESTED AT [facility] [address] [facility] (test vbgx=1362) [facility], [address]: Restaurant Cook/Scientific Programmer Analyst [id number] for V[place]UR[place], SOLANGE POCT-GLUCOSE [id number] 08:09:00 Test Item Value Reference Range Comments POC-GLUCOSE METER (BEAKER) 82 mg/dL 70-110 : TESTED AT [address] (test lsrz=0581) [facility], [address]: Restaurant Cook/Scientific Programmer Analyst [id number]=[id number] for DAVID AN BASIC METABOLIC [id number] 04:25:00 Test Item Value Reference Range Comments SODIUM (BEAKER) (test 143 meq/L 136-145 ebku=775) POTASSIUM (BEAKER) (test 4.9 meq/L 3.5-5.1 oheh=656) CHLORIDE (BEAKER) (test 105 meq/L 98-107 xulq=799) CO2 (BEAKER) (test 26 meq/L 22-29 rgqo=574) BLOOD UREA NITROGEN 57 mg/dL 7-21 (BEAKER) (test uzss=864) CREATININE (BEAKER) (test 6.77 mg/dL 0.57-1.25 nrrk=739) GLUCOSE RANDOM (BEAKER) 88 mg/dL 70-105 (test fnba=630) CALCIUM (BEAKER) (test 8.0 mg/dL 8.4-10.2 uech=587) EGFR (BEAKER) (test 8 mL/min/1.73 sq m ESTIMATED GFR IS NOT akew=2538) ACCURATE CREATININE CLEARANCE IN PREDICTING GLOMERULAR FILTRATION RATE. ESTIMATED GFR IS NOT APPLICABLE FOR DIALYSIS PATIENTS. Restaurant Cook ID - [id number] 04:14:00 Test Item Value Reference Range Comments PARTIAL THROMBOPLASTIN TIME (BEAKER) (test 61.2 seconds 22.5-36.0 ruux=456) While on warfarin.PROTHROMBIN [id number] 04:13:00 Test Item Value Reference Range Comments PROTIME (BEAKER) (test gkqi=695) 14.4 seconds 11.9-14.2 INR (BEAKER) (test mhqy=331) 1.2 <=5.9 Effective 02/23/2019: PT Reference Range ChangeNew: 11.9-14.2 Previous: 11.7- 14.7RECOMMENDED COUMADIN/WARFARIN INR THERAPY RANGESSTANDARD DOSE: 2.0-3.0 Includes: PROPHYLAXIS for venous thrombosis, systemic embolization; TREATMENT for venous thrombosis and/or pulmonary embolus.HIGH RISK: Target INR is2.5-3.5 for patients wiht mechanical heart valves.While on warfarin.POCT-GLUCOSE [id number] 22:33:00 Test Item Value Reference Range Comments POC-GLUCOSE METER (BEAKER) 92 mg/dL 70-110 : TESTED AT [facility] [address] [facility] (test bcuc=1666) [facility], [address]: Restaurant Cook/Scientific Programmer Analyst [id number] for TREASURE KRISHNAMURTHY POCT-GLUCOSE [id number] 18:04:00 Test Item Value Reference Range Comments POC-GLUCOSE METER (BEAKER) 167 mg/dL 70-110 : TESTED AT [address] (test oner=1509) [facility], [address]: Restaurant Cook/Scientific Programmer Analyst [id number] for CLARISSA VELASQUEZ [id number] 17:30:00 Test Item Value Reference Range Comments PARTIAL THROMBOPLASTIN TIME (BEAKER) (test 108.5 seconds 22.5-36.0 qdaq=438) If baseline INR has not been drawn or baseline INR is greater than 3.5.PROTHROMBIN [id number] 17:20:00 Test Item Value Reference Range Comments PROTIME (BEAKER) (test sknf=053) 15.4 seconds 11.9-14.2 INR (BEAKER) (test gwma=549) 1.3 <=5.9 Effective 02/23/2019: PT Reference Range ChangeNew: 11.9-14.2 Previous: 11.7- 14.7RECOMMENDED COUMADIN/WARFARIN INR THERAPY RANGESSTANDARD DOSE: 2.0-3.0 Includes: PROPHYLAXIS for venous thrombosis, systemic embolization; TREATMENT for venous thrombosis and/or pulmonary embolus.HIGH RISK: Target INR is2.5-3.5 for patients wiht mechanical heart valves.If baseline INR has not been drawn or baseline INRis greater than 3.5.POCT-GLUCOSE [id number] 12:25:00 Test Item Value Reference Range Comments POC-GLUCOSE METER (BEAKER) 171 mg/dL 70-110 : TESTED AT [address] (test gxct=5053) [facility], [address]: Restaurant Cook/Scientific Programmer Analyst [id number] for CLARISSA VELASQUEZ POCT-GLUCOSE [id number] 08:34:00 Test Item Value Reference Range Comments POC-GLUCOSE METER (BEAKER) 107 mg/dL 70-110 : TESTED AT [address] (test jgjf=4321) [facility], [address]: Restaurant Cook/Scientific Programmer Analyst MQ=[id number] for CLARISSA VELASQUEZ [id number] 02:29:00 Test Item Value Reference Range Comments PARTIAL THROMBOPLASTIN TIME (BEAKER) (test 21.5 seconds 22.5-36.0 vksl=258) 6 hours after starting heparin infusion and as indicated per sliding scalePOCT- GLUCOSE [id number] 21:21:00 Test Item Value Reference Range Comments POC-GLUCOSE METER (BEAKER) 127 mg/dL 70-110 : TESTED AT [address] (test nvyi=2377) [facility], [address]: Restaurant Cook/Scientific Programmer Analyst [id number] for KAITLIN COOPER POCT-GLUCOSE [id number] 17:38:00 Test Item Value Reference Range Comments POC-GLUCOSE METER (BEAKER) 158 mg/dL 70-110 : TESTED AT [address] (test ttgt=8103) [facility], [address]: Restaurant Cook/Scientific Programmer Analyst [id number] for CLARISSA VELASQUEZ [id number] 17:09:00 Test Item Value Reference Range Comments PARTIAL THROMBOPLASTIN TIME (BEAKER) (test 40.2 seconds 22.5-36.0 skga=528) Prior to initiating heparinCBC (HEMOGRAM ONLY)2019-10-16 16:35:00 Test Item Value Reference Range Comments WHITE BLOOD CELL COUNT (BEAKER) (test qgrz=434) 12.4 K/ L 3.5-10.5 RED BLOOD CELL COUNT (BEAKER) (test eusx=694) 3.13 M/ L 4.63-6.08 HEMOGLOBIN (BEAKER) (test uumq=636) 9.1 GM/DL 13.7-17.5 HEMATOCRIT (BEAKER) (test brpb=575) 29.1 % 40.1-51.0 MEAN CORPUSCULAR VOLUME (BEAKER) (test comm=373) 93.0 fL 79.0-92.2 MEAN CORPUSCULAR HEMOGLOBIN (BEAKER) (test 29.1 pg 25.7-32.2 gvpo=270) MEAN CORPUSCULAR HEMOGLOBIN CONC (BEAKER) (test 31.3 GM/DL 32.3-36.5 ipic=029) RED CELL DISTRIBUTION WIDTH (BEAKER) (test 15.1 % 11.6-14.4 oaui=639) PLATELET COUNT (BEAKER) (test myqu=238) 330 K/CU MM 150-450 MEAN PLATELET VOLUME (BEAKER) (test arpg=156) 10.3 fL 9.4-12.4 NUCLEATED RED BLOOD CELLS (BEAKER) (test 0 /100 WBC 0-0 mqpz=749) POCT-GLUCOSE [id number] 12:14:00 Test Item Value Reference Range Comments POC-GLUCOSE METER (BEAKER) 118 mg/dL 70-110 : TESTED AT [address] (test dhlv=7653) [facility], [address]: Restaurant Cook/Scientific Programmer Analyst JI=[id number] for CLARISSA VELASQUEZ POCT-GLUCOSE [id number] 07:37:00 Test Item Value Reference Range Comments POC-GLUCOSE METER (BEAKER) 74 mg/dL 70-110 : TESTED AT [address] (test sauc=8215) [facility], [address]: Restaurant Cook/Scientific Programmer Analyst [id number] for JOSE MANUEL DUEÑAS POCT-GLUCOSE [id number] 07:37:00 Test Item Value Reference Range Comments POC-GLUCOSE METER (BEAKER) 169 mg/dL 70-110 : TESTED AT [address] (test ngxb=3730) [facility], [address]: Restaurant Cook/Scientific Programmer Analyst [id number] for JOSE MANUEL DUEÑAS BASIC METABOLIC [id number] 05:56:00 Test Item Value Reference Range Comments SODIUM (BEAKER) (test 142 meq/L 136-145 ncag=256) POTASSIUM (BEAKER) (test 4.2 meq/L 3.5-5.1 yhld=812) CHLORIDE (BEAKER) (test 106 meq/L 98-107 vidg=566) CO2 (BEAKER) (test 27 meq/L 22-29 qacl=273) BLOOD UREA NITROGEN 28 mg/dL 7-21 (BEAKER) (test tmre=035) CREATININE (BEAKER) (test 4.24 mg/dL 0.57-1.25 jhpt=454) GLUCOSE RANDOM (BEAKER) 84 mg/dL 70-105 (test reyp=867) CALCIUM (BEAKER) (test 7.8 mg/dL 8.4-10.2 ogxv=497) EGFR (BEAKER) (test 14 mL/min/1.73 sq m ESTIMATED GFR IS NOT gaaa=6197) ACCURATE CREATININE CLEARANCE IN PREDICTING GLOMERULAR FILTRATION RATE. ESTIMATED GFR IS NOT APPLICABLE FOR DIALYSIS PATIENTS. Restaurant Cook ID - UBALDO LBLOOD [id number] 01:00:00 Test Item Value Reference Range Comments CULTURE (BEAKER) (test mtut=0419) No growth in 5 days BLOOD [id number] 01:00:00 Test Item Value Reference Range Comments CULTURE (BEAKER) (test jubt=5230) No growth in 5 days POCT-GLUCOSE [id number] 22:13:00 Test Item Value Reference Range Comments POC-GLUCOSE METER (BEAKER) 196 mg/dL 70-110 : TESTED AT [facility] [address] [facility] (test tvvm=0150) [facility], [address]: Restaurant Cook/Scientific Programmer Analyst [id number] for Amina White URINALYSIS W/ REFLEX URINE [id number] 17:59:00 Test Item Value Reference Range Comments COLOR (BEAKER) (test igsm=622) Yellow CLARITY (BEAKER) (test sogs=430) Clear SPECIFIC GRAVITY UA (BEAKER) (test uwag=620) 1.011 1.001-1.035 PH UA (BEAKER) (test gztw=188) 8.0 5.0-8.0 PROTEIN UA (BEAKER) (test cusf=142) 600 mg/dL Negative GLUCOSE UA (BEAKER) (test sbrg=293) 70 mg/dL Negative KETONES UA (BEAKER) (test aivc=003) Negative Negative BILIRUBIN UA (BEAKER) (test qork=411) Negative Negative BLOOD UA (BEAKER) (test vgcz=917) Small Negative NITRITE UA (BEAKER) (test jihw=164) Negative Negative LEUKOCYTE ESTERASE UA (BEAKER) (test ipov=495) Negative Negative UROBILINOGEN UA (BEAKER) (test wlpn=936) 0.2 mg/dL 0.2-1.0 RBC UA (BEAKER) (test opxa=891) 9 /HPF WBC UA (BEAKER) (test fuyh=880) 4 /HPF MUCUS (BEAKER) (test pvli=0866) Rare SQUAMOUS EPITHELIAL (BEAKER) (test ojhj=809) < /HPF SOURCE(BEAKER) (test qeev=5136) Restaurant Cook ID - [auto]Restaurant Cook ID - techPOCT-GLUCOSE [id number] 12:18:00 Test Item Value Reference Range Comments POC-GLUCOSE METER (BEAKER) 82 mg/dL 70-110 : TESTED AT [address] (test zgkh=2039) [facility], [address]: Restaurant Cook/Scientific Programmer Analyst AK=[id number] for MATTY BLAKE POCT-GLUCOSE [id number] 11:44:00 Test Item Value Reference Range Comments POC-GLUCOSE METER (BEAKER) 69 mg/dL 70-110 : TESTED AT [address] (test cwha=8392) [facility], [address]: Restaurant Cook/Scientific Programmer Analyst AP=[id number] for MATTY BLAKE CBC (HEMOGRAM ONLY)2019-10-15 09:53:00 Test Item Value Reference Range Comments WHITE BLOOD CELL COUNT (BEAKER) (test levv=508) 15.9 K/ L 3.5-10.5 RED BLOOD CELL COUNT (BEAKER) (test snmf=756) 3.10 M/ L 4.63-6.08 HEMOGLOBIN (BEAKER) (test jhxd=261) 8.8 GM/DL 13.7-17.5 HEMATOCRIT (BEAKER) (test jprh=205) 28.5 % 40.1-51.0 MEAN CORPUSCULAR VOLUME (BEAKER) (test yyff=751) 91.9 fL 79.0-92.2 MEAN CORPUSCULAR HEMOGLOBIN (BEAKER) (test 28.4 pg 25.7-32.2 uumr=359) MEAN CORPUSCULAR HEMOGLOBIN CONC (BEAKER) (test 30.9 GM/DL 32.3-36.5 erfe=697) RED CELL DISTRIBUTION WIDTH (BEAKER) (test 15.5 % 11.6-14.4 cpnl=158) PLATELET COUNT (BEAKER) (test xcbc=704) 314 K/CU MM 150-450 MEAN PLATELET VOLUME (BEAKER) (test imft=714) 10.2 fL 9.4-12.4 NUCLEATED RED BLOOD CELLS (BEAKER) (test 0 /100 WBC 0-0 trno=390) POCT-GLUCOSE [id number] 08:25:00 Test Item Value Reference Range Comments POC-GLUCOSE METER (BEAKER) 71 mg/dL 70-110 : TESTED AT [address] (test tgvt=0183) [facility], [address]: Restaurant Cook/Scientific Programmer Analyst [id number] for Jennifer Rousseau POCT-GLUCOSE [id number] 21:25:00 Test Item Value Reference Range Comments POC-GLUCOSE METER (BEAKER) 78 mg/dL 70-110 : TESTED AT [address] (test omqr=5020) [facility], [address]: Restaurant Cook/Scientific Programmer Analyst [id number] for CHIOMA OLGA LIDIA POCT-GLUCOSE [id number] 18:00:00 Test Item Value Reference Range Comments POC-GLUCOSE METER (BEAKER) 83 mg/dL 70-110 : TESTED AT [address] (test morp=0313) [facility], [address]: Restaurant Cook/Scientific Programmer Analyst ZD=[id number] for LOU MATTY POCT-GLUCOSE [id number] 08:12:00 Test Item Value Reference Range Comments POC-GLUCOSE METER (BEAKER) 99 mg/dL 70-110 : TESTED AT [address] (test exxj=8640) [facility], [address]: Restaurant Cook/Scientific Programmer Analyst FY=[id number] for MATTY BLAKE BASIC METABOLIC [id number] 07:19:00 Test Item Value Reference Range Comments SODIUM (BEAKER) (test 142 meq/L 136-145 crxh=289) POTASSIUM (BEAKER) (test 4.2 meq/L 3.5-5.1 dvvx=858) CHLORIDE (BEAKER) (test 106 meq/L 98-107 wwwm=755) CO2 (BEAKER) (test 26 meq/L 22-29 jdmv=074) BLOOD UREA NITROGEN 36 mg/dL 7-21 (BEAKER) (test oomu=147) CREATININE (BEAKER) (test 4.43 mg/dL 0.57-1.25 hgmt=832) GLUCOSE RANDOM (BEAKER) 93 mg/dL 70-105 (test kfza=720) CALCIUM (BEAKER) (test 8.0 mg/dL 8.4-10.2 soua=090) EGFR (BEAKER) (test 14 mL/min/1.73 sq m ESTIMATED GFR IS NOT tvhr=8094) ACCURATE CREATININE CLEARANCE IN PREDICTING GLOMERULAR FILTRATION RATE. ESTIMATED GFR IS NOT APPLICABLE FOR DIALYSIS PATIENTS. Restaurant Cook ID - LIANNE [id number] 06:36:00 Test Item Value Reference Range Comments PARTIAL THROMBOPLASTIN TIME (BEAKER) (test 72.8 seconds 22.5-36.0 riae=776) PROTHROMBIN TIME/[id number] 06:34:00 Test Item Value Reference Range Comments PROTIME (BEAKER) (test fvan=286) 15.3 seconds 11.9-14.2 INR (BEAKER) (test uviu=860) 1.2 <=5.9 Effective 02/23/2019: PT Reference Range ChangeNew: 11.9-14.2 Previous: 11.7- 14.7RECOMMENDED COUMADIN/WARFARIN INR THERAPY RANGESSTANDARD DOSE: 2.0-3.0 Includes: PROPHYLAXIS for venous thrombosis, systemic embolization; TREATMENT for venous thrombosis and/or pulmonary embolus.HIGH RISK: Target INR is2.5-3.5 for patients wiht mechanical heart valves.CBC (HEMOGRAM ONLY)2019-10-14 06:33:00 Test Item Value Reference Range Comments WHITE BLOOD CELL COUNT (BEAKER) (test twhr=409) 16.8 K/ L 3.5-10.5 RED BLOOD CELL COUNT (BEAKER) (test zvxd=975) 3.31 M/ L 4.63-6.08 HEMOGLOBIN (BEAKER) (test vrgt=648) 9.5 GM/DL 13.7-17.5 HEMATOCRIT (BEAKER) (test cfzz=397) 30.3 % 40.1-51.0 MEAN CORPUSCULAR VOLUME (BEAKER) (test pgla=565) 91.5 fL 79.0-92.2 MEAN CORPUSCULAR HEMOGLOBIN (BEAKER) (test 28.7 pg 25.7-32.2 lbes=548) MEAN CORPUSCULAR HEMOGLOBIN CONC (BEAKER) (test 31.4 GM/DL 32.3-36.5 usrb=742) RED CELL DISTRIBUTION WIDTH (BEAKER) (test 15.3 % 11.6-14.4 nqid=970) PLATELET COUNT (BEAKER) (test htfb=013) 336 K/CU MM 150-450 MEAN PLATELET VOLUME (BEAKER) (test maim=657) 10.4 fL 9.4-12.4 NUCLEATED RED BLOOD CELLS (BEAKER) (test 0 /100 WBC 0-0 vedp=736) POCT-GLUCOSE [id number] 22:12:00 Test Item Value Reference Range Comments POC-GLUCOSE METER (BEAKER) 154 mg/dL 70-110 : TESTED AT [address] (test scfi=8435) [facility], [address]: Restaurant Cook/Scientific Programmer Analyst [id number] for TREASURE KRISHNAMURTHY POCT-GLUCOSE [id number] 17:50:00 Test Item Value Reference Range Comments POC-GLUCOSE METER (BEAKER) 122 mg/dL 70-110 : TESTED AT [address] (test oydj=4807) [facility], [address]: Restaurant Cook/Scientific Programmer Analyst QV=[id number] for PAREKH, WICHO POCT-GLUCOSE [id number] 12:59:00 Test Item Value Reference Range Comments POC-GLUCOSE METER (BEAKER) 181 mg/dL 70-110 : TESTED AT [address] (test myrv=7845) [facility], [address]: Restaurant Cook/Scientific Programmer Analyst [id number] for PAREKH, WICHO [id number] 12:30:00 Test Item Value Reference Range Comments PARTIAL THROMBOPLASTIN TIME (BEAKER) (test 82.5 seconds 22.5-36.0 gafq=922) CBC W/PLT COUNT & AUTO [id number] 10:12:00 Test Item Value Reference Range Comments WHITE BLOOD CELL COUNT (BEAKER) (test rntk=947) 16.8 K/ L 3.5-10.5 RED BLOOD CELL COUNT (BEAKER) (test vpsu=258) 3.07 M/ L 4.63-6.08 HEMOGLOBIN (BEAKER) (test vjzc=543) 8.9 GM/DL 13.7-17.5 HEMATOCRIT (BEAKER) (test dwku=759) 27.8 % 40.1-51.0 MEAN CORPUSCULAR VOLUME (BEAKER) (test vweg=818) 90.6 fL 79.0-92.2 MEAN CORPUSCULAR HEMOGLOBIN (BEAKER) (test 29.0 pg 25.7-32.2 sxpa=608) MEAN CORPUSCULAR HEMOGLOBIN CONC (BEAKER) (test 32.0 GM/DL 32.3-36.5 rney=141) RED CELL DISTRIBUTION WIDTH (BEAKER) (test 15.7 % 11.6-14.4 alxk=198) PLATELET COUNT (BEAKER) (test oazn=075) 366 K/CU MM 150-450 MEAN PLATELET VOLUME (BEAKER) (test zcgw=759) 10.9 fL 9.4-12.4 NUCLEATED RED BLOOD CELLS (BEAKER) (test 0 /100 WBC 0-0 dxvc=182) (CELLAVISION MANUAL DIFF)2019-10-13 10:12:00 Test Item Value Reference Range Comments NEUTROPHILS - REL (CELLAVISION)(BEAKER) (test 61 % oekj=0519) LYMPHOCYTES - REL (CELLAVISION)(BEAKER) (test 11 % olqq=4065) MONOCYTES - REL (CELLAVISION)(BEAKER) (test 1 % wvsi=2264) EOSINOPHILS - REL (CELLAVISION)(BEAKER) (test 26 % ffxa=3678) ATYPICAL LYMPHOCYTES - REL (CELLAVISION)(BEAKER) 1 % 0-0 (test kmqb=4200) NEUTROPHILS - ABS (CELLAVISION)(BEAKER) (test 10.25 K/ul 1.78-5.38 jqav=1685) LYMPHOCYTES - ABS (CELLAVISION)(BEAKER) (test 1.85 K/ul 1.32-3.57 kfnd=3998) MONOCYTES - ABS (CELLAVISION)(BEAKER) (test 0.17 K/uL 0.30-0.82 baub=2009) EOSINOPHILS - ABS (CELLAVISION)(BEAKER) (test 4.37 K/uL 0.04-0.54 jgrj=8615) ATYPICAL LYMPHOCYTES - ABS (CELLAVISION)(BEAKER) 0.17 K/uL 0.00-0.00 (test phsl=0635) TOTAL COUNTED (BEAKER) (test gimk=4402) 100 WBC MORPHOLOGY (BEAKER) (test tuzw=933) Normal PLT MORPHOLOGY (BEAKER) (test hqno=690) Normal POLYCHROMATOPHILLIC RBCS(BEAKER) (test hjjk=698) 1+ few HYPOCHROMIA (BEAKER) (test auli=742) 1+ few ARTIFACT (CELLAVISION)(BEAKER) (test aaby=4612) Present PLATELET CONCENTRATION (CELLAVISION)(BEAKER) Adequate (test raco=9260) Restaurant Cook ID - Lana Gregorio comments: Slide comments:OLVIN TUNNELED CATHETER [id number] 08:29:00Reason for exam:->tunneled dialysis catheter replacementFINAL REPORT [...] in the patient's medical record bythe nurse. Quality And Reliability Engineer: Charlie Camp Rodding Machine Tender: None. Approach: Right internal jugular vein Estimated [...] needle into the right atrium. A 4 Turkmen micropuncture sheath was placed and a 0.035 wire was advanced into the IVC. A subcutaneous tunnel was created in the right anterior chest wall by blunt dissection. A 19 cm tip to cuff 15.5 Turkmen Duraflow 2 catheter was brought through the [...] Verified Date/Time: 10/13/2019 08:29: 12 Reading Location: [facility] Radiology Reading Room POCT-GLUCOSE [id number] 08:08:00 Test Item Value Reference Range Comments POC-GLUCOSE METER (BEAKER) 90 mg/dL 70-110 : TESTED AT [facility] [address] [place] [address] (test lakm=5487) [facility], [address]: Restaurant Cook/Scientific Programmer Analyst [id number] for WICHO PAREKH BASIC METABOLIC [id number] 08:00:00 Test Item Value Reference Range Comments SODIUM (BEAKER) (test 139 meq/L 136-145 hrao=259) POTASSIUM (BEAKER) (test 5.0 meq/L 3.5-5.1 fedj=600) CHLORIDE (BEAKER) (test 106 meq/L 98-107 khpr=704) CO2 (BEAKER) (test 22 meq/L 22-29 htwg=556) BLOOD UREA NITROGEN 58 mg/dL 7-21 (BEAKER) (test bwkq=219) CREATININE (BEAKER) (test 6.72 mg/dL 0.57-1.25 xeda=580) GLUCOSE RANDOM (BEAKER) 92 mg/dL 70-105 (test qtej=322) CALCIUM (BEAKER) (test 7.5 mg/dL 8.4-10.2 xjma=973) EGFR (BEAKER) (test 8 mL/min/1.73 sq m ESTIMATED GFR IS NOT otqm=0025) ACCURATE CREATININE CLEARANCE IN PREDICTING GLOMERULAR FILTRATION RATE. ESTIMATED GFR IS NOT APPLICABLE FOR DIALYSIS PATIENTS. Restaurant Cook ID - UBALDO [id number] 06:42:00 Test Item Value Reference Range Comments PARTIAL THROMBOPLASTIN TIME (BEAKER) (test 71.9 seconds 22.5-36.0 xisi=200) [id number] 15:51:00 Test Item Value Reference Range Comments PARTIAL THROMBOPLASTIN TIME (BEAKER) (test 108.9 seconds 22.5-36.0 lswi=148) [id number] 13:55:00 Test Item Value Reference Range Comments POTASSIUM (BEAKER) (test vvyy=224) 5.6 meq/L 3.5-5.1 [employer] ID - TERI FPOCT-GLUCOSE [id number] 13:19:00 Test Item Value Reference Range Comments POC-GLUCOSE METER (BEAKER) 140 mg/dL 70-110 : TESTED AT [facility] [address] [facility] (test iuii=0299) [facility], [id number]: Restaurant Cook/Scientific Programmer Analyst [id number] for ALAYNA JUAREZ CBC (HEMOGRAM ONLY)2019-10-12 10:30:00 Test Item Value Reference Range Comments WHITE BLOOD CELL COUNT (BEAKER) (test godn=173) 19.8 K/ L 3.5-10.5 RED BLOOD CELL COUNT (BEAKER) (test qyzp=167) 2.82 M/ L 4.63-6.08 HEMOGLOBIN (BEAKER) (test zolf=184) 8.2 GM/DL 13.7-17.5 HEMATOCRIT (BEAKER) (test wcxw=165) 25.8 % 40.1-51.0 MEAN CORPUSCULAR VOLUME (BEAKER) (test jyrf=605) 91.5 fL 79.0-92.2 MEAN CORPUSCULAR HEMOGLOBIN (BEAKER) (test 29.1 pg 25.7-32.2 mgwd=695) MEAN CORPUSCULAR HEMOGLOBIN CONC (BEAKER) (test 31.8 GM/DL 32.3-36.5 nlxu=090) RED CELL DISTRIBUTION WIDTH (BEAKER) (test 16.2 % 11.6-14.4 bzrt=114) PLATELET COUNT (BEAKER) (test shei=735) 384 K/CU MM 150-450 MEAN PLATELET VOLUME (BEAKER) (test nxej=500) 10.8 fL 9.4-12.4 NUCLEATED RED BLOOD CELLS (BEAKER) (test 0 /100 WBC 0-0 twoa=114) BASIC METABOLIC [id number] 09:11:00 Test Item Value Reference Range Comments SODIUM (BEAKER) (test 140 meq/L 136-145 omad=713) POTASSIUM (BEAKER) (test 6.4 meq/L 3.5-5.1 Specimen slightly ufeh=588) hemolyzed CHLORIDE (BEAKER) (test 112 meq/L 98-107 vanp=008) CO2 (BEAKER) (test 12 meq/L 22-29 avzd=353) BLOOD UREA NITROGEN 102 mg/dL 7-21 (BEAKER) (test lpfk=184) CREATININE (BEAKER) (test 9.08 mg/dL 0.57-1.25 Specimen slightly soed=010) hemolyzed GLUCOSE RANDOM (BEAKER) 80 mg/dL 70-105 (test tluv=885) CALCIUM (BEAKER) (test 7.3 mg/dL 8.4-10.2 eiux=745) EGFR (BEAKER) (test 6 mL/min/1.73 sq m ESTIMATED GFR IS NOT jzsq=2469) ACCURATE CREATININE CLEARANCE IN PREDICTING GLOMERULAR FILTRATION RATE. ESTIMATED GFR IS NOT APPLICABLE FOR DIALYSIS PATIENTS. [employer] ID - TERI DOCKERYOCT-GLUCOSE [id number] 07:27:00 Test Item Value Reference Range Comments POC-GLUCOSE METER (BEAKER) 87 mg/dL 70-110 : TESTED AT [facility] [address] [facility] (test xgmo=2847) [facility], [address]: Restaurant Cook/Scientific Programmer Analyst [id number] for WICHO PAREKH [id number] 06:21:00 Test Item Value Reference Range Comments PARTIAL THROMBOPLASTIN TIME (BEAKER) (test 66.6 seconds 22.5-36.0 zekn=652) [id number] 23:34:00 Test Item Value Reference Range Comments PARTIAL THROMBOPLASTIN TIME (BEAKER) (test 102.2 seconds 22.5-36.0 exrz=234) POCT-GLUCOSE [id number] 21:51:00 Test Item Value Reference Range Comments POC-GLUCOSE METER (BEAKER) 112 mg/dL 70-110 : TESTED AT [address] (test agqg=1634) [facility], [address]: Restaurant Cook/Scientific Programmer Analyst [id number] for Betty Luong POCT-GLUCOSE [id number] 18:33:00 Test Item Value Reference Range Comments POC-GLUCOSE METER (BEAKER) 106 mg/dL 70-110 : TESTED AT [address] (test nxqz=3717) [facility], [address]: Restaurant Cook/Scientific Programmer Analyst [id number] for HOMA MOFFETT [id number] 16:37:00 Test Item Value Reference Range Comments PARTIAL THROMBOPLASTIN TIME (BEAKER) (test 106.5 seconds 22.5-36.0 mutc=968) POCT-GLUCOSE [id number] 12:52:00 Test Item Value Reference Range Comments POC-GLUCOSE METER (BEAKER) 136 mg/dL 70-110 : Notified RN/MD: TESTED AT (test uszv=4765) [address], [address]: Restaurant Cook/Scientific Programmer Analyst [id number] for HOMA MOFFETT CBC W/PLT COUNT & AUTO [id number] 10:29:00 Test Item Value Reference Range Comments WHITE BLOOD CELL COUNT (BEAKER) (test fzmi=137) 18.4 K/ L 3.5-10.5 RED BLOOD CELL COUNT (BEAKER) (test pmez=154) 3.00 M/ L 4.63-6.08 HEMOGLOBIN (BEAKER) (test umwz=975) 8.8 GM/DL 13.7-17.5 HEMATOCRIT (BEAKER) (test isqd=797) 27.8 % 40.1-51.0 MEAN CORPUSCULAR VOLUME (BEAKER) (test fqlu=868) 92.7 fL 79.0-92.2 MEAN CORPUSCULAR HEMOGLOBIN (BEAKER) (test 29.3 pg 25.7-32.2 qujj=362) MEAN CORPUSCULAR HEMOGLOBIN CONC (BEAKER) (test 31.7 GM/DL 32.3-36.5 bkcl=030) RED CELL DISTRIBUTION WIDTH (BEAKER) (test 15.9 % 11.6-14.4 wzrx=077) PLATELET COUNT (BEAKER) (test paxd=358) 403 K/CU MM 150-450 MEAN PLATELET VOLUME (BEAKER) (test wuih=811) 10.8 fL 9.4-12.4 NUCLEATED RED BLOOD CELLS (BEAKER) (test 0 /100 WBC 0-0 jyfp=710) (CELLAVISION MANUAL DIFF)2019-10-11 10:29:00 Test Item Value Reference Range Comments NEUTROPHILS - REL (CELLAVISION)(BEAKER) (test 62 % vxfu=7395) LYMPHOCYTES - REL (CELLAVISION)(BEAKER) (test 13 % dqfg=6537) MONOCYTES - REL (CELLAVISION)(BEAKER) (test 5 % abld=4241) EOSINOPHILS - REL (CELLAVISION)(BEAKER) (test 17 % nzhh=8876) BASOPHILS - REL (CELLAVISION)(BEAKER) (test 2 % muua=3292) NEUTROPHILS - ABS (CELLAVISION)(BEAKER) (test 11.41 K/ul 1.78-5.38 grox=8190) LYMPHOCYTES - ABS (CELLAVISION)(BEAKER) (test 2.39 K/ul 1.32-3.57 zbyb=6515) MONOCYTES - ABS (CELLAVISION)(BEAKER) (test 0.92 K/uL 0.30-0.82 ztqk=2062) EOSINOPHILS - ABS (CELLAVISION)(BEAKER) (test 3.13 K/uL 0.04-0.54 kzwp=3323) BASOPHILS - ABS (CELLAVISION)(BEAKER) (test 0.37 K/uL 0.01-0.08 gefa=8712) TOTAL COUNTED (BEAKER) (test ybqc=0266) 100 WBC MORPHOLOGY (BEAKER) (test devh=012) Normal PLT MORPHOLOGY (BEAKER) (test ssgx=459) Normal POLYCHROMATOPHILLIC RBCS(BEAKER) (test jrxw=163) 1+ few HYPOCHROMIA (BEAKER) (test dtom=919) 1+ few ANISOCYTOSIS (BEAKER) (test rlml=345) 1+ few MACROCYTES (BEAKER) (test qwoh=080) 1+ few POIKILOCYTES (BEAKER) (test dtlg=086) 1+ few LORI CELLS (BEAKER) (test ekhc=437) 1+ few ARTIFACT (CELLAVISION)(BEAKER) (test edsc=7244) Present HELMET CELLS (CELLAVISION)(BEAKER) (test 1+ few jntn=1696) PLATELET CONCENTRATION (CELLAVISION)(BEAKER) Adequate (test apcz=3178) Restaurant Cook ID - Mitra Grijalva comments: Slide comments:[id number] 07:38:00 Test Item Value Reference Range Comments PARTIAL THROMBOPLASTIN TIME (BEAKER) (test 51.7 seconds 22.5-36.0 lxys=507) POCT-GLUCOSE [id number] 07:36:00 Test Item Value Reference Range Comments POC-GLUCOSE METER (BEAKER) 91 mg/dL 70-110 : TESTED AT [facility] [address] [facility] (test iphf=8161) [facility], [id number]: Restaurant Cook/Scientific Programmer Analyst [id number] for HOMA MOFFETT BASIC METABOLIC [id number] 07:01:00 Test Item Value Reference Range Comments SODIUM (BEAKER) (test 145 meq/L 136-145 afwo=747) POTASSIUM (BEAKER) (test 5.0 meq/L 3.5-5.1 tsif=806) CHLORIDE (BEAKER) (test 113 meq/L 98-107 ohwr=019) CO2 (BEAKER) (test 19 meq/L 22-29 hxlz=605) BLOOD UREA NITROGEN 103 mg/dL 7-21 (BEAKER) (test xxth=224) CREATININE (BEAKER) (test 8.81 mg/dL 0.57-1.25 uuxt=974) GLUCOSE RANDOM (BEAKER) 93 mg/dL 70-105 (test tzpc=510) CALCIUM (BEAKER) (test 7.7 mg/dL 8.4-10.2 lvxn=177) EGFR (BEAKER) (test 6 mL/min/1.73 sq m ESTIMATED GFR IS NOT cblw=8084) ACCURATE CREATININE CLEARANCE IN PREDICTING GLOMERULAR FILTRATION RATE. ESTIMATED GFR IS NOT APPLICABLE FOR DIALYSIS PATIENTS. Restaurant Cook ID - ABBEY MPROTHROMBIN TIME/[id number] 06:01:00 Test Item Value Reference Range Comments PROTIME (BEAKER) (test bivu=073) 14.8 seconds 11.9-14.2 INR (BEAKER) (test toky=089) 1.2 <=5.9 Effective 02/23/2019: PT Reference Range ChangeNew: 11.9-14.2 Previous: 11.7- 14.7RECOMMENDED COUMADIN/WARFARIN INR THERAPY RANGESSTANDARD DOSE: 2.0-3.0 Includes: PROPHYLAXIS for venous thrombosis, systemic embolization; TREATMENT for venous thrombosis and/or pulmonary embolus.HIGH RISK: Target INR is2.5-3.5 for patients wiht mechanical heart valves.BASIC METABOLIC [id number] 23:02: 00 Test Item Value Reference Range Comments SODIUM (BEAKER) (test 144 meq/L 136-145 vezz=192) POTASSIUM (BEAKER) (test 5.7 meq/L 3.5-5.1 yyqd=845) CHLORIDE (BEAKER) (test 112 meq/L 98-107 wjpp=604) CO2 (BEAKER) (test 19 meq/L 22-29 jcpr=957) BLOOD UREA NITROGEN 102 mg/dL 7-21 (BEAKER) (test kfmp=751) CREATININE (BEAKER) (test 8.60 mg/dL 0.57-1.25 kxyk=311) GLUCOSE RANDOM (BEAKER) 152 mg/dL 70-105 (test rmcg=106) CALCIUM (BEAKER) (test 8.0 mg/dL 8.4-10.2 zfdg=522) EGFR (BEAKER) (test 6 mL/min/1.73 sq m ESTIMATED GFR IS NOT ugtr=2143) ACCURATE CREATININE CLEARANCE IN PREDICTING GLOMERULAR FILTRATION RATE. ESTIMATED GFR IS NOT APPLICABLE FOR DIALYSIS PATIENTS. Restaurant Cook ID - [id number] 22:49:00 Test Item Value Reference Range Comments PARTIAL THROMBOPLASTIN TIME (BEAKER) (test 80.2 seconds 22.5-36.0 hccy=193) POCT-GLUCOSE [id number] 22:03:00 Test Item Value Reference Range Comments POC-GLUCOSE METER (BEAKER) 108 mg/dL 70-110 : TESTED AT [facility] [address] [facility] (test pzag=0681) [facility], [id number]: Restaurant Cook/Scientific Programmer Analyst [id number] for HOMA MOFFETT POCT-GLUCOSE [id number] 21:08:00 Test Item Value Reference Range Comments POC-GLUCOSE METER (BEAKER) 193 mg/dL 70-110 : TESTED AT [facility] [address] [facility] (test cgel=3021) [facility], [address]: Restaurant Cook/Scientific Programmer Analyst [id number] for JETT AYOUB [id number] 15:27:00 Test Item Value Reference Range Comments PARTIAL THROMBOPLASTIN TIME (BEAKER) (test 65.5 seconds 22.5-36.0 fywg=143) (CELLAVISION MANUAL DIFF)2019-10-10 14:28:00 Test Item Value Reference Range Comments NEUTROPHILS - REL (CELLAVISION)(BEAKER) (test 52 % ueun=5643) LYMPHOCYTES - REL (CELLAVISION)(BEAKER) (test 13 % bdzd=3909) MONOCYTES - REL (CELLAVISION)(BEAKER) (test 4 % ovfx=0191) EOSINOPHILS - REL (CELLAVISION)(BEAKER) (test 28 % tkqt=3077) BASOPHILS - REL (CELLAVISION)(BEAKER) (test 1 % grfd=7393) METAMYELOCYTES - REL (CELLAVISION)(BEAKER) (test 1 % 0-0 rkxh=4152) ATYPICAL LYMPHOCYTES - REL (CELLAVISION)(BEAKER) 1 % 0-0 (test glbw=3940) NEUTROPHILS - ABS (CELLAVISION)(BEAKER) (test 11.13 K/ul 1.78-5.38 hvkb=4511) LYMPHOCYTES - ABS (CELLAVISION)(BEAKER) (test 2.78 K/ul 1.32-3.57 qsdd=7662) MONOCYTES - ABS (CELLAVISION)(BEAKER) (test 0.86 K/uL 0.30-0.82 nnuu=8757) EOSINOPHILS - ABS (CELLAVISION)(BEAKER) (test 5.99 K/uL 0.04-0.54 whcv=2114) BASOPHILS - ABS (CELLAVISION)(BEAKER) (test 0.21 K/uL 0.01-0.08 vuwu=0378) METAMYELOCYTES - ABS (CELLAVISION)(BEAKER) (test 0.21 K/uL 0.00-0.00 xenu=6594) ATYPICAL LYMPHOCYTES - ABS (CELLAVISION)(BEAKER) 0.21 K/uL 0.00-0.00 (test ttxw=4559) TOTAL COUNTED (BEAKER) (test ozgi=8562) 100 WBC MORPHOLOGY (BEAKER) (test rpdy=064) Normal GIANT PLATELETS (BEAKER) (test jfaj=366) Present LARGE PLT(BEAKER) (test yggs=5391) Present POLYCHROMATOPHILLIC RBCS(BEAKER) (test nqgi=072) 3+ many HYPOCHROMIA (BEAKER) (test ljnq=076) 2+ moderate ANISOCYTOSIS (BEAKER) (test usvl=452) 1+ few MICROCYTES (BEAKER) (test fyau=744) 1+ few POIKILOCYTES (BEAKER) (test kzuz=548) 1+ few ELLIPTOCYTES (BEAKER) (test yhcw=135) 1+ few OVALOCYTES (BEAKER) (test nfpd=407) 1+ few TEAR DROP CELLS (BEAKER) (test nsxy=400) 1+ few LORI CELLS (BEAKER) (test uljg=095) 2+ moderate ARTIFACT (CELLAVISION)(BEAKER) (test edfp=3388) Present PLATELET CONCENTRATION (CELLAVISION)(BEAKER) Adequate (test lodr=7308) Restaurant Cook ID - Teri Ferguson comments: Slide comments:POCT-GLUCOSE [id number] 12:00:00 Test Item Value Reference Range Comments POC-GLUCOSE METER (BEAKER) 98 mg/dL 70-110 : TESTED AT [facility] [address] [facility] (test maxv=8470) [facility], [address]: Restaurant Cook/Scientific Programmer Analyst [id number] for HOMA MOFFETT BASIC METABOLIC [id number] 09:03:00 Test Item Value Reference Range Comments SODIUM (BEAKER) (test 144 meq/L 135-148 foke=018) POTASSIUM (BEAKER) (test 5.4 meq/L 3.6-5.5 vrxs=217) CHLORIDE (BEAKER) (test 112 meq/L 98-106 skms=315) CO2 (BEAKER) (test 19 meq/L 20-29 qiea=363) BLOOD UREA NITROGEN 91 mg/dL 10-26 (BEAKER) (test mocm=438) CREATININE (BEAKER) (test 8.90 mg/dL 0.50-1.20 gbcc=518) GLUCOSE RANDOM (BEAKER) 92 mg/dL 70-110 (test isht=244) CALCIUM (BEAKER) (test 8.7 mg/dL 8.5-10.5 bzuq=025) EGFR (BEAKER) (test 6 mL/min/1.73 sq m ESTIMATED GFR IS NOT nqma=9815) ACCURATE CREATININE CLEARANCE IN PREDICTING GLOMERULAR FILTRATION RATE. ESTIMATED GFR IS NOT APPLICABLE FOR DIALYSIS PATIENTS. Restaurant Cook ID - [id number] 05:33:00 Test Item Value Reference Range Comments PARTIAL THROMBOPLASTIN TIME (BEAKER) (test 50.4 seconds 22.5-36.0 adxx=782) PROTHROMBIN TIME/[id number] 05:32:00 Test Item Value Reference Range Comments PROTIME (BEAKER) (test aejz=337) 14.5 seconds 11.9-14.2 INR (BEAKER) (test ftcd=606) 1.2 <=5.9 Effective 02/23/2019: PT Reference Range ChangeNew: 11.9-14.2 Previous: 11.7- 14.7RECOMMENDED COUMADIN/WARFARIN INR THERAPY RANGESSTANDARD DOSE: 2.0-3.0 Includes: PROPHYLAXIS for venous thrombosis, systemic embolization; TREATMENT for venous thrombosis and/or pulmonary embolus.HIGH RISK: Target INR is2.5-3.5 for patients wiht mechanical heart valves.CBC W/PLT COUNT & AUTO [id number] 05:27:00 Test Item Value Reference Range Comments WHITE BLOOD CELL COUNT (BEAKER) (test hdbl=816) 21.4 K/ L 3.5-10.5 RED BLOOD CELL COUNT (BEAKER) (test gepf=036) 2.93 M/ L 4.63-6.08 HEMOGLOBIN (BEAKER) (test vibu=117) 8.6 GM/DL 13.7-17.5 HEMATOCRIT (BEAKER) (test oydd=333) 27.4 % 40.1-51.0 MEAN CORPUSCULAR VOLUME (BEAKER) (test wnxs=455) 93.5 fL 79.0-92.2 MEAN CORPUSCULAR HEMOGLOBIN (BEAKER) (test 29.4 pg 25.7-32.2 oacq=433) MEAN CORPUSCULAR HEMOGLOBIN CONC (BEAKER) (test 31.4 GM/DL 32.3-36.5 ghuj=549) RED CELL DISTRIBUTION WIDTH (BEAKER) (test 15.8 % 11.6-14.4 ylfz=175) PLATELET COUNT (BEAKER) (test uspw=605) 416 K/CU MM 150-450 MEAN PLATELET VOLUME (BEAKER) (test okid=018) 10.6 fL 9.4-12.4 NUCLEATED RED BLOOD CELLS (BEAKER) (test 0 /100 WBC 0-0 gmgk=433) POCT-GLUCOSE [id number] 21:06:00 Test Item Value Reference Range Comments POC-GLUCOSE METER (BEAKER) 145 mg/dL 70-110 : TESTED AT [address] (test bvvh=4189) [facility], [address]: Restaurant Cook/Scientific Programmer Analyst [id number] for JETT AYOUB [id number] 20:14:00 Test Item Value Reference Range Comments PARTIAL THROMBOPLASTIN TIME (BEAKER) (test 80.5 seconds 22.5-36.0 ogsb=042) POCT-GLUCOSE [id number] 17:52:00 Test Item Value Reference Range Comments POC-GLUCOSE METER (BEAKER) 107 mg/dL 70-110 : TESTED AT [address] (test vpnz=6865) [facility], [address]: Restaurant Cook/Scientific Programmer Analyst [id number] for DELICIA, ADRIANNE RAD, CHEST, 1 VIEW, NON [id number] 17:07:00Reason for exam:-> leukocytosisShould this be performed [...] Verified Date/Time: 10/09/2019 17: 07:26 Reading Location: [facility] C013V Neuro Reading Room (CELLAVISION MANUAL DIFF) 2019-10-09 15:09:00 Test Item Value Reference Range Comments NEUTROPHILS - REL (CELLAVISION)(BEAKER) (test 60 % uldp=7131) LYMPHOCYTES - REL (CELLAVISION)(BEAKER) (test 13 % lkjs=0239) MONOCYTES - REL (CELLAVISION)(BEAKER) (test 5 % arpb=7176) EOSINOPHILS - REL (CELLAVISION)(BEAKER) (test 21 % zuih=5644) BANDS - REL (CELLAVISION)(BEAKER) (test 1 % 0-10 wwny=9846) NEUTROPHILS - ABS (CELLAVISION)(BEAKER) (test 10.32 K/ul 1.78-5.38 tbjh=1762) LYMPHOCYTES - ABS (CELLAVISION)(BEAKER) (test 2.24 K/ul 1.32-3.57 yfei=9737) MONOCYTES - ABS (CELLAVISION)(BEAKER) (test 0.86 K/uL 0.30-0.82 dymx=6466) EOSINOPHILS - ABS (CELLAVISION)(BEAKER) (test 3.61 K/uL 0.04-0.54 dpsu=7258) BANDS - ABS (CELLAVISION)(BEAKER) (test 0.17 K/uL 0.00-0.80 ffqo=6248) TOTAL COUNTED (BEAKER) (test ecgc=8235) 100 WBC MORPHOLOGY (BEAKER) (test vlgh=460) Normal GIANT PLATELETS (BEAKER) (test ankt=249) Present ANISOCYTOSIS (BEAKER) (test yhif=351) 1+ few MACROCYTES (BEAKER) (test lhrh=914) 1+ few POIKILOCYTES (BEAKER) (test sjec=511) 2+ moderate SCHISTOCYTES (BEAKER) (test zyfi=810) 1+ few OVALOCYTES (BEAKER) (test ywle=739) 1+ few TEAR DROP CELLS (BEAKER) (test zxme=494) 1+ few ARTIFACT (CELLAVISION)(BEAKER) (test aalp=0016) Present PLATELET CONCENTRATION (CELLAVISION)(BEAKER) Adequate (test qqde=0319) Restaurant Cook ID - Johan Ramos comments: Slide comments:ANG, TUNNELED CATHETER [id number] 14:37:00Reason for exam:->right fem dialysis catheter not [...] catheter exchange as described. Signed: Khloe Rose [facility] Verified Date/Time: 10/09/2019 14:37:53 Reading Location: [facility] Reading Room Electronically signed by: TESSA ROSE M.D. on 02:37 [id number] 13:02:00 Test Item Value Reference Range Comments PARTIAL THROMBOPLASTIN TIME (BEAKER) (test 44.9 seconds 22.5-36.0 nfbb=746) Prior to initiating heparinCBC (HEMOGRAM ONLY)2019-10-09 12:41:00 Test Item Value Reference Range Comments WHITE BLOOD CELL COUNT (BEAKER) (test xjqa=644) 17.6 K/ L 3.5-10.5 RED BLOOD CELL COUNT (BEAKER) (test giee=890) 3.23 M/ L 4.63-6.08 HEMOGLOBIN (BEAKER) (test hafh=454) 9.2 GM/DL 13.7-17.5 HEMATOCRIT (BEAKER) (test qwpc=259) 30.1 % 40.1-51.0 MEAN CORPUSCULAR VOLUME (BEAKER) (test edmn=951) 93.2 fL 79.0-92.2 MEAN CORPUSCULAR HEMOGLOBIN (BEAKER) (test 28.5 pg 25.7-32.2 fetq=184) MEAN CORPUSCULAR HEMOGLOBIN CONC (BEAKER) (test 30.6 GM/DL 32.3-36.5 vthf=661) RED CELL DISTRIBUTION WIDTH (BEAKER) (test 15.5 % 11.6-14.4 tyly=996) PLATELET COUNT (BEAKER) (test roaq=314) 474 K/CU MM 150-450 MEAN PLATELET VOLUME (BEAKER) (test tngn=302) 10.5 fL 9.4-12.4 NUCLEATED RED BLOOD CELLS (BEAKER) (test 0 /100 WBC 0-0 rfpb=934) POCT-GLUCOSE [id number] 12:31:00 Test Item Value Reference Range Comments POC-GLUCOSE METER (BEAKER) 110 mg/dL 70-110 : TESTED AT [address] (test cuqw=4357) [facility], [address]: Restaurant Cook/Scientific Programmer Analyst [id number] for DELICIA, ADRIANNE POCT-GLUCOSE [id number] 08:41:00 Test Item Value Reference Range Comments POC-GLUCOSE METER (BEAKER) 100 mg/dL 70-110 : TESTED AT [address] (test plns=9291) [facility], [address]: Restaurant Cook/Scientific Programmer Analyst [id number] for DELICIA, ADRIANNE BASIC METABOLIC [id number] 06:32:00 Test Item Value Reference Range Comments SODIUM (BEAKER) (test 144 meq/L 136-145 dwqz=393) POTASSIUM (BEAKER) (test 5.0 meq/L 3.5-5.1 pije=314) CHLORIDE (BEAKER) (test 111 meq/L 98-107 lxil=923) CO2 (BEAKER) (test 21 meq/L 22-29 mplx=927) BLOOD UREA NITROGEN 83 mg/dL 7-21 (BEAKER) (test ljxx=285) CREATININE (BEAKER) (test 8.08 mg/dL 0.57-1.25 cuhe=524) GLUCOSE RANDOM (BEAKER) 110 mg/dL 70-105 (test incs=807) CALCIUM (BEAKER) (test 8.3 mg/dL 8.4-10.2 vbxg=313) EGFR (BEAKER) (test 7 mL/min/1.73 sq m ESTIMATED GFR IS NOT uron=9109) ACCURATE CREATININE CLEARANCE IN PREDICTING GLOMERULAR FILTRATION RATE. ESTIMATED GFR IS NOT APPLICABLE FOR DIALYSIS PATIENTS. Restaurant Cook ID - ABBEY MPROTHROMBIN TIME/[id number] 05:35:00 Test Item Value Reference Range Comments PROTIME (BEAKER) (test gduz=887) 14.7 seconds 11.9-14.2 INR (BEAKER) (test hwip=133) 1.2 <=5.9 Effective 02/23/2019: PT Reference Range ChangeNew: 11.9-14.2 Previous: 11.7- 14.7RECOMMENDED COUMADIN/WARFARIN INR THERAPY RANGESSTANDARD DOSE: 2.0-3.0 Includes: PROPHYLAXIS for venous thrombosis, systemic embolization; TREATMENT for venous thrombosis and/or pulmonary embolus.HIGH RISK: Target INR is2.5-3.5 for patients wiht mechanical heart valves.CBC W/PLT COUNT & AUTO [id number] 05:18:00 Test Item Value Reference Range Comments WHITE BLOOD CELL COUNT (BEAKER) (test bxif=909) 17.2 K/ L 3.5-10.5 RED BLOOD CELL COUNT (BEAKER) (test uffw=332) 3.13 M/ L 4.63-6.08 HEMOGLOBIN (BEAKER) (test ojqq=167) 9.4 GM/DL 13.7-17.5 HEMATOCRIT (BEAKER) (test hdbm=472) 28.8 % 40.1-51.0 MEAN CORPUSCULAR VOLUME (BEAKER) (test yoam=388) 92.0 fL 79.0-92.2 MEAN CORPUSCULAR HEMOGLOBIN (BEAKER) (test 30.0 pg 25.7-32.2 rsph=285) MEAN CORPUSCULAR HEMOGLOBIN CONC (BEAKER) (test 32.6 GM/DL 32.3-36.5 wevu=735) RED CELL DISTRIBUTION WIDTH (BEAKER) (test 15.5 % 11.6-14.4 ffir=932) PLATELET COUNT (BEAKER) (test bpqy=230) 452 K/CU MM 150-450 MEAN PLATELET VOLUME (BEAKER) (test esfr=691) 10.8 fL 9.4-12.4 NUCLEATED RED BLOOD CELLS (BEAKER) (test 0 /100 WBC 0-0 zaox=288) POCT-GLUCOSE [id number] 21:13:00 Test Item Value Reference Range Comments POC-GLUCOSE METER (BEAKER) 130 mg/dL 70-110 : TESTED AT [facility] [address] [facility] (test qakx=3484) [facility], [address]: Restaurant Cook/Scientific Programmer Analyst [id number] for TREASURE KRISHNAMURTHY CBC W/PLT COUNT & AUTO [id number] 11:30:00 Test Item Value Reference Range Comments WHITE BLOOD CELL COUNT (BEAKER) (test jlve=320) 15.7 K/ L 3.5-10.5 RED BLOOD CELL COUNT (BEAKER) (test frcn=886) 3.24 M/ L 4.63-6.08 HEMOGLOBIN (BEAKER) (test ulkz=054) 9.3 GM/DL 13.7-17.5 HEMATOCRIT (BEAKER) (test ptrh=434) 29.7 % 40.1-51.0 MEAN CORPUSCULAR VOLUME (BEAKER) (test qpzl=375) 91.7 fL 79.0-92.2 MEAN CORPUSCULAR HEMOGLOBIN (BEAKER) (test 28.7 pg 25.7-32.2 ebau=141) MEAN CORPUSCULAR HEMOGLOBIN CONC (BEAKER) (test 31.3 GM/DL 32.3-36.5 mmhe=311) RED CELL DISTRIBUTION WIDTH (BEAKER) (test 15.5 % 11.6-14.4 kopo=244) PLATELET COUNT (BEAKER) (test aehu=374) 455 K/CU MM 150-450 MEAN PLATELET VOLUME (BEAKER) (test mlnx=135) 10.4 fL 9.4-12.4 NUCLEATED RED BLOOD CELLS (BEAKER) (test 0 /100 WBC 0-0 gues=320) (CELLAVISION MANUAL DIFF)2019-10-08 11:30:00 Test Item Value Reference Range Comments NEUTROPHILS - REL (CELLAVISION)(BEAKER) (test 59 % nlei=6818) LYMPHOCYTES - REL (CELLAVISION)(BEAKER) (test 16 % ckln=6478) MONOCYTES - REL (CELLAVISION)(BEAKER) (test 3 % acpd=0027) EOSINOPHILS - REL (CELLAVISION)(BEAKER) (test 19 % bdpn=1220) BASOPHILS - REL (CELLAVISION)(BEAKER) (test 3 % ghwu=6209) NEUTROPHILS - ABS (CELLAVISION)(BEAKER) (test 9.26 K/ul 1.78-5.38 zkda=5857) LYMPHOCYTES - ABS (CELLAVISION)(BEAKER) (test 2.51 K/ul 1.32-3.57 qcdh=6749) MONOCYTES - ABS (CELLAVISION)(BEAKER) (test 0.47 K/uL 0.30-0.82 wnwp=6069) EOSINOPHILS - ABS (CELLAVISION)(BEAKER) (test 2.98 K/uL 0.04-0.54 tqjs=4285) BASOPHILS - ABS (CELLAVISION)(BEAKER) (test 0.47 K/uL 0.01-0.08 dnxz=8641) TOTAL COUNTED (BEAKER) (test wtad=0839) 100 WBC MORPHOLOGY (BEAKER) (test goap=835) Normal GIANT PLATELETS (BEAKER) (test putv=110) Present LARGE PLT(BEAKER) (test nmlq=6450) Present POLYCHROMATOPHILLIC RBCS(BEAKER) (test uvzk=373) 1+ few HYPOCHROMIA (BEAKER) (test poph=877) 1+ few ANISOCYTOSIS (BEAKER) (test upzl=193) 2+ moderate MICROCYTES (BEAKER) (test esrp=790) 1+ few MACROCYTES (BEAKER) (test moth=109) 2+ moderate POIKILOCYTES (BEAKER) (test ictc=181) 1+ few TARGET CELLS (BEAKER) (test fhvf=560) 1+ few ELLIPTOCYTES (BEAKER) (test crkx=086) 1+ few OVALOCYTES (BEAKER) (test phfr=001) 1+ few TEAR DROP CELLS (BEAKER) (test byqc=700) 1+ few ARTIFACT (CELLAVISION)(BEAKER) (test raur=0522) Present PLATELET CONCENTRATION (CELLAVISION)(BEAKER) Adequate (test pmxb=2483) Restaurant Cook ID - Tamara Berkowitz comments: Slide comments:POCT-GLUCOSE [id number] 11:13:00 Test Item Value Reference Range Comments POC-GLUCOSE METER (BEAKER) 132 mg/dL 70-110 : Notified RN/MD: TESTED AT (test vjsa=5793) [address], [address]: Restaurant Cook/Scientific Programmer Analyst UA=[id number] for ARCENIO DAWN POCT-GLUCOSE [id number] 07:48:00 Test Item Value Reference Range Comments POC-GLUCOSE METER (BEAKER) 89 mg/dL 70-110 : TESTED AT [address] (test lmxk=4928) [facility], [address]: Restaurant Cook/Scientific Programmer Analyst TA=[id number] for ARCENIO DAWN BASIC METABOLIC [id number] 07:32:00 Test Item Value Reference Range Comments SODIUM (BEAKER) (test 139 meq/L 136-145 rbwi=713) POTASSIUM (BEAKER) (test 5.1 meq/L 3.5-5.1 msjq=978) CHLORIDE (BEAKER) (test 107 meq/L 98-107 qonk=810) CO2 (BEAKER) (test 21 meq/L 22-29 pmwr=987) BLOOD UREA NITROGEN 78 mg/dL 7-21 (BEAKER) (test hxdt=514) CREATININE (BEAKER) (test 7.52 mg/dL 0.57-1.25 jexd=211) GLUCOSE RANDOM (BEAKER) 76 mg/dL 70-105 (test whbi=185) CALCIUM (BEAKER) (test 8.3 mg/dL 8.4-10.2 smez=844) EGFR (BEAKER) (test 7 mL/min/1.73 sq m ESTIMATED GFR IS NOT zzqs=8184) ACCURATE CREATININE CLEARANCE IN PREDICTING GLOMERULAR FILTRATION RATE. ESTIMATED GFR IS NOT APPLICABLE FOR DIALYSIS PATIENTS. Restaurant Cook ID - TERI FHEPATITIS B SURFACE [id number] 06:31:00 Test Item Value Reference Range Comments HEPATITIS B SURFACE ANTIGEN (2) (LIZZETH) (test Nonreactive Nonreactive uhxt=7041) Restaurant Cook ID - ABBEY MPROTHROMBIN TIME/[id number] 05:23:00 Test Item Value Reference Range Comments PROTIME (LIZZETH) (test lwwj=085) 14.6 seconds 11.9-14.2 INR (LIZZETH) (test biig=140) 1.2 <=5.9 Effective 02/23/2019: PT Reference Range ChangeNew: 11.9-14.2 Previous: 11.7- 14.7RECOMMENDED COUMADIN/WARFARIN INR THERAPY RANGESSTANDARD DOSE: 2.0-3.0 Includes: PROPHYLAXIS for venous thrombosis, systemic embolization; TREATMENT for venous thrombosis and/or pulmonary embolus.HIGH RISK: Target INR is2.5-3.5 for patients wiht mechanical heart valves.POCT-GLUCOSE [id number] 22:08:00 Test Item Value Reference Range Comments POC-GLUCOSE METER (LIZZETH) 141 mg/dL 70-110 : TESTED AT [facility] [address] (test nocc=5436) [facility], [address]: Restaurant Cook/Scientific Programmer Analyst BA=[id number] for TREASURE KRISHNAMURTHY
--- NOTE | 2019-11-04 11:31 | RAD REPORT ---
EXAM DESCRIPTION: RAD - Chest Single View - 11/04/2019 11:22 am CLINICAL HISTORY: dialysis Chest pain. COMPARISON: Chest Single View dated 10/04/2019; Chest Single View dated 10/04/2019; Chest Single View da missael 09/29/2019; Chest Pa And Lat (2 Views) dated 09/14/2019 FINDINGS: Portable technique limits examination quality. Mildly elevated right hemidiaphragm noted, chronic. The lungs are grossly clear. The heart is normal in size. Right-sided venous catheter has tip in the SVC. IMPRESSION: No acute intrathoracic process suspected.
--- NOTE | 2019-11-04 13:29 | ER ---
Nurse's Notes [facility] Name: Constantino Skelton Jr Age: 59 yrs Sex: Male : 1960 Arrival Date: 11/04/2019 Time: 09:25 Bed 16 Private MD: Sohail Adame Diagnosis: End stage renal disease;Hyperkalemia;Uremia Presentation: 11/04 10:30 Presenting complaint: Patient states: was sent from [facility] to have dialysis, has outpatient dialysis set up but was unable to have it done today because his hep panel was not back yet, last dialysis was last Thursday , a week ago. Transition of care: patient was not received from another setting of care. Onset of symptoms was November 04, 2019. Risk Assessment: Do you want to hurt yourself or someone else? Patient reports no desire to harm self or others. Initial Sepsis Screen: Does the patient meet any 2 criteria? No. Patient's initial sepsis screen is negative. Does the patient have a suspected source of infection? No. Patient's initial sepsis screen is negative. Care prior to arrival: None. 10:30 Method Of Arrival: Ambulatory iw 10:30 Acuity: LORRAINE 3 iw Historical: - Allergies: 10:33 No Known Allergies; iw - PMHx: 10:33 Diabetes - NIDDM; HD - -Sat; Hyperlipidemia; Hypertension; iw - PSHx: 10:33 None; iw - Immunization history:: Adult Immunizations not up to date. - Coronavirus screen:: The patient has NOT traveled to [place], [place], or [place] in the past 14 days. Proceed with normal triage process as indicated. - Social history:: Smoking status: Patient denies any tobacco usage or history of. - Ebola Screening: : Patient negative for fever greater than or equal to 101.5 degrees Fahrenheit, and additional compatible Ebola Virus Disease symptoms Patient denies exposure to infectious person Patient denies travel to an Ebola-affected area in the 21 days before illness onset No symptoms or risks identified at this time. Screenin:15 Abuse screen: Denies threats or abuse. Denies injuries from another. Nutritional sg screening: No deficits noted. Tuberculosis screening: No symptoms or risk factors identified. Never had TB. Fall Risk None identified. Assessment: 11:15 General: Appears in no apparent distress. well groomed, well developed, well nourished, sg Behavior is calm, cooperative, appropriate for age. Pain: Denies pain. 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 Speech is normal, Facial symmetry appears normal. Cardiovascular: Heart tones S1 S2 present Capillary refill is brisk in bilateral fingers Patient's skin is warm and dry. Chest pain is denied. Respiratory: Airway is patent Respiratory effort is even, unlabored, Respiratory pattern is regular, symmetrical. GI: Abdomen is round non-distended. : No signs and/or symptoms were reported regarding the genitourinary system. EENT: No signs and/or symptoms were reported regarding the EENT system. Derm: Skin is pink, warm \T\ dry. Musculoskeletal: Circulation, motion, and sensation intact. Range of motion: intact in all extremities. 11:30 Reassessment: awaiting Xray results at this time, pt to have blood drawn, refusing at sg this time, will try again with patient after comfort measures implemented. 12:30 Reassessment: Patient appears in no apparent distress at this time. pt refusing a blood sg draw at this time, states that [facility] has lab results that were ordered by but did not bring copies, Jane RICHARDSON speaking with at this time. 12:50 Reassessment: Patient appears in no apparent distress at this time. Labs received for sg pt from a blood drawn done at [facility], Jane RICHARDSON notified. Vital Signs: 10:33 BP 134 / 66; Pulse 86; Resp 16; Temp 98.3; Pulse Ox 99% on R/A; Weight 63.5 kg; Height iw 5 ft. 7 in. (170.18 cm); Pain 0/10; 10:33 Body Mass Index 21.93 (63.50 kg, 170.18 cm) iw ED Course: 09:25 Patient arrived in ED. as 09:25 Sohail Adame MD is Private Physician. as 10:32 Triage completed. iw 10:33 Arm band placed on. iw 10:51 Jennifer Miller FNP-C [facility]. snw 10:51 Wolf Liu MD is Attending Physician. snw 11:10 Tho Webb, RN is Primary Nurse. sg 11:15 No provider procedures requiring assistance completed. sg 11:24 Chest Single View XRAY In Process Unspecified. EDMS 13:27 Carolann Alonzo MD is Hospitalizing Provider. snw Administered Medications: No medications were administered Outcome: 13:28 Decision to Hospitalize by Provider. snw 15:59 Patient left the ED. iw Signatures: Dispatcher [employer] EDMS Tho Webb, RN RN Jennifer Pillai, TRANSIT MIXER DRIVER-C TRANSIT MIXER DRIVER-Csnw Shania Chew as Ilsa Preston, RN RN iw
--- NOTE | 2019-11-04 13:29 | EDPHYS ---
Physician Documentation [facility] Name: Constantino Skelton Jr Age: 59 yrs Sex: Male : 1960 Arrival Date: 11/04/2019 Time: 09:25 Bed 16 Private MD: Sohail Adame ED Physician Wolf Liu HPI: 11/04 13:29 This 59 yrs old Male presents to ER via Ambulatory with complaints of needs snw dialysis. 13:29 Pt without complaint, here for dialysis. Onset: The symptoms/episode began/occurred snw acutely. The patient has experienced similar episodes in the past, multiple times. The patient has been recently seen by a physician: the patient's primary care provider, Dr. Mendoza. Historical: - Allergies: 10:33 No Known Allergies; iw - PMHx: 10:33 Diabetes - NIDDM; HD - -Sat; Hyperlipidemia; Hypertension; iw - PSHx: 10:33 None; iw - Immunization history:: Adult Immunizations not up to date. - Coronavirus screen:: The patient has NOT traveled to [place], [place], or [place] in the past 14 days. Proceed with normal triage process as indicated. - Social history:: Smoking status: Patient denies any tobacco usage or history of. - Ebola Screening: : Patient negative for fever greater than or equal to 101.5 degrees Fahrenheit, and additional compatible Ebola Virus Disease symptoms Patient denies exposure to infectious person Patient denies travel to an Ebola-affected area in the 21 days before illness onset No symptoms or risks identified at this time. ROS: 13:29 Constitutional: Negative for fever, chills, and weight loss, Eyes: Negative for injury, snw pain, redness, and discharge, ENT: Negative for injury, pain, and discharge, Neck: Negative for injury, pain, and swelling, Cardiovascular: Negative for chest pain, palpitations, and edema, Respiratory: Negative for shortness of breath, cough, wheezing, and pleuritic chest pain, Abdomen/GI: Negative for abdominal pain, nausea, vomiting, diarrhea, and constipation, Back: Negative for injury and pain, : Negative for injury, bleeding, discharge, and swelling, MS/Extremity: Negative for injury and deformity, Skin: Negative for injury, rash, and discoloration, Neuro: Negative for headache, weakness, numbness, tingling, and seizure, Psych: Negative for depression, anxiety, suicide ideation, homicidal ideation, and hallucinations. Exam: 13:28 Constitutional: This is a well developed, well nourished patient who is awake, alert, snw and in no acute distress. Head/Face: Normocephalic, atraumatic. Eyes: Pupils equal round and reactive to light, extra-ocular motions intact. Lids and lashes normal. Conjunctiva and sclera are non-icteric and not injected. Cornea within normal limits. Periorbital areas with no swelling, redness, or edema. ENT: Nares patent. No nasal discharge, no septal abnormalities noted. Tympanic membranes are normal and external auditory canals are clear. Oropharynx with no redness, swelling, or masses, exudates, or evidence of obstruction, uvula midline. Mucous membranes moist. Neck: Trachea midline, no thyromegaly or masses palpated, and no cervical lymphadenopathy. Supple, full range of motion without nuchal rigidity, or vertebral point tenderness. No Meningismus. Chest/axilla: Normal chest wall appearance and motion. Nontender with no deformity. No lesions are appreciated. Cardiovascular: Regular rate and rhythm with a normal S1 and S2. No gallops, murmurs, or rubs. Normal PMI, no JVD. No pulse deficits. Respiratory: Lungs have equal breath sounds bilaterally, clear to auscultation and percussion. No rales, rhonchi or wheezes noted. No increased work of breathing, no retractions or nasal flaring. Abdomen/GI: Soft, non-tender, with normal bowel sounds. No distension or tympany. No guarding or rebound. No evidence of tenderness throughout. Back: No spinal tenderness. No costovertebral tenderness. Full range of motion. MS/ Extremity: Pulses equal, no cyanosis. Neurovascular intact. Full, normal range of motion. Neuro: Awake and alert, GCS 15, oriented to person, place, time, and situation. Cranial nerves II-XII grossly intact. Motor strength 5/5 in all extremities. Sensory grossly intact. Cerebellar exam normal. Normal gait. Psych: Awake, alert, with orientation to person, place and time. Behavior, mood, and affect are within normal limits. 13:28 Skin: Exam negative for acute changes. Vital Signs: 10:33 BP 134 / 66; Pulse 86; Resp 16; Temp 98.3; Pulse Ox 99% on R/A; Weight 63.5 kg; Height iw 5 ft. 7 in. (170.18 cm); Pain 0/10; 10:33 Body Mass Index 21.93 (63.50 kg, 170.18 cm) iw MDM: 11:40 Patient medically screened. snw 13:15 Data reviewed: vital signs, nurses notes. Data interpreted: Pulse oximetry: on room air snw is 99 %. Interpretation: normal. Counseling: I had a detailed discussion with the patient and/or guardian regarding: the historical points, exam findings, and any diagnostic results supporting the discharge/admit diagnosis, the presence of at least one elevated blood pressure reading (>120/80) during this emergency department visit, radiology results, the need for outpatient follow up, for definitive care, to return to the emergency department if symptoms worsen or persist or if there are any questions or concerns that arise at home. Physician consultation: Jeff Mendoza DO was called at 12:30, was contacted at 12:40, regarding admission, consult, pt refuses lab draw. Dr. Mendoza notified and had [facility] fax yesterday's lab results to ED. Potassium 5.5, BUN 101. Dr. Osmar darnelld for admission. Dr. Alonzo returned call and will call Dr. Mendoza for consult and will see pt shortly.. 11/04 14:39 Order name: CBC with Automated Diff EDMS 11/04 10:52 Order name: Chest Single View XRAY; Complete Time: 11:41 w 11/04 10:52 Order name: EKG; Complete Time: 10:54 snw 11/04 14:14 Order name: Diet Renal; Complete Time: 14:15 sg 11/04 14:39 Order name: CONS Pharmacy Consult EDMS 11/04 14:39 Order name: CONS Physician Consult EDMS 11/04 14:39 Order name: CBC with Automated Diff EDMS 11/04 14:39 Order name: Comprehensive Metabolic Panel EDMS 11/04 14:39 Order name: Comprehensive Metabolic Panel EDMS Administered Medications: No medications were administered Disposition: 18:16 Co-signature as Attending Physician, Wolf Liu MD. ma2 Disposition: 11/04/19 13:28 Hospitalization ordered by Carolann Alonzo for Observation. Preliminary diagnosis are End stage renal disease, Hyperkalemia, Uremia. - Bed requested for Telemetry/MedSurg (observation). - Status is Observation. iw - Condition is Stable. - Problem is an acute exacerbation. - Symptoms are unchanged. Signatures: Dispatcher [employer] EDMS Jennifer Miller, CARDIOVASCULAR SURGICAL TECH-C CARDIOVASCULAR SURGICAL TECH-Csnw Ilsa Preston RN RN iw Mckay Mathew RN RN ja1 Wolf Liu MD MD ma2 Corrections: (The following items were deleted from the chart) 13:27 13:15 Admission orders: after a detailed discussion of the patient's condition and snw case, the admit orders are written by me. snw 14:26 10:54 CBC+H.LAB.BRZ ordered. EDMS EDMS 14:26 10:54 BASIC METABOLIC PANEL+C.LAB.BRZ ordered. EDMS EDMS 14:26 10:54 MAGNESIUM+C.LAB.BRZ ordered. EDMS EDMS 14:26 10:54 PHOSPHORUS+C.LAB.BRZ ordered. EDMS EDMS 14:26 10:54 LACTIC DEHYDROGENASE+C.LAB.BRZ ordered. EDMS EDMS 14:52 13:28 Hospitalization Ordered by Carolann Alonzo MD for Observation. Preliminary ja1 diagnosis is End stage renal disease; Hyperkalemia; Uremia. Bed requested for Telemetry/MedSurg (observation). Status is Observation. Condition is Stable. Problem is an acute exacerbation. Symptoms are unchanged. snw 15:59 14:52 11/04/2019 13:28 Hospitalization Ordered by Carolann Alonzo MD for Observation. iw Preliminary diagnosis is End stage renal disease; Hyperkalemia; Uremia. Bed requested for Telemetry/MedSurg (observation). Status is Observation. Condition is Stable. Problem is an acute exacerbation. Symptoms are unchanged. ja1
[2019-11-04] MEDS ORDERED: ALBUTEROL 2.5 MG/3 ML NEB SOL NEB PRN (14:31)
[2019-11-04] MEDS ORDERED: ONDANSETRON 4 MG/2 ML VIAL IV PRN ×2 (14:31→14:36)
[2019-11-04] MEDS ORDERED: MORPHINE 2 MG/ML SYR IV PRN (14:31)
[2019-11-04] MEDS ORDERED: HYDRALAZINE HCL 20 MG/ML VIAL IV PRN (14:36)
[2019-11-04] MEDS ORDERED: TRAMADOL HCL 50 MG TAB PO PRN (14:37)
--- NOTE | 2019-11-04 14:50 | P.HP ---
Certification for Inpatient Patient admitted to: Observation With expected LOS: <2 Midnights Patient will require the following post-hospital care: Half-Way Practitioner: I am a practitioner with admitting privileges, knowledge of patient current condition, hospital course, and medical plan of care. Services: Services provided to patient in accordance with Admission requirements found in Title 42 Section 412.3 of the Code of Federal Regulations Patient History Date of Service: 11/04/19 Reason for admission: Need for dialysis History of Present Illness: Patient with recent prolonged hospital stay, started on dialysis during hospitalization, recently transferred to the nursing at [facility] with outpatient dialysis set up . However unable to start dialysis due to hepatitis testing . His last dialysis was 6 days ago. Repeat lab done yesterday shows potassium of 5.5 asw ell increasing body swelling . Patient was sent here for dialysis. He has been admitted for temporary inpatient dialysis today. He denies any complaint. He states his unsure why he is in the hospital. He denies any shortness of breath. He states he is tolerating p.o. well with no nausea or vomiting. He denies any chest pain or abdominal pain. Hospitalist team called for admission after ER team state they are unable to accomodate patient outpatient dialysis provision . His progressive care nurse Dr Mc discussed with . Allergies No Known Allergies Allergy (Verified 09/03/19 17:11) Home medications list reviewed: Yes Home Medications: Amlodipine [Norvasc*] 10 mg PO 1000 tab 10/21/19 Apixaban [Eliquis *] 2.5 mg PO BID tablet 10/21/19 Atorvastatin Calcium [Lipitor*] 20 mg PO BEDTIME tab 10/21/19 Calcitrol [Rocaltrol*] 0.25 mcg PO DAILY cap 10/21/19 Calcium Acetate [Phoslo*] 1,334 mg PO TIDWM cap 10/21/19 Doxazosin [Cardura*] 2 mg PO BID tab 10/21/19 Ferrous Sulfate [Ferrous Sulfate*] 325 mg PO DAILY tab 10/21/19 Heparin [Heparin 1,000 units/mL *] 1,000 unit IJ EVERY HD PRN vial 10/21/19 Insulin -Regular Human [Novolin -R*] See Protocol SQ ACHS ml 10/21/19 Iron/FA/Vit B-Com W/C [Hemocyte Plus*] 1 tab PO DAILY WITH BREAKFAST tab Mirtazapine [Remeron*] 15 mg PO BEDTIME tab 10/21/19 Nepro Shake [Nepro*] 237 ml PO BID can 10/21/19 carvediloL [Coreg*] 12.5 mg PO BID tab 10/21/19 traMADol HCL [Ultram*] 50 mg PO TID PRN tab 10/21/19 Heparin [Heparin 1,000 units/mL *] 6,000 unit IV EVERY HD PRN vial 10/28/19 Insulin -Regular Human [Novolin -R*] See Protocol SQ BID ml 10/28/19 - Past Medical/Surgical History Diabetic: Yes -: HTN -: DM -: ESRD- on HD -: HLD -: Leukocytosis -: Right Jugular DVT -: 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 -: hemodialysis catheter dysfunction- -: CHF -: Tunneled Right jugular catheter placement 10/12/19 -: Arteriovenous Fistula left arm placement 10/14/19 -: removal of right femoral quiton catheter 10/08/19 - Family History Sister -: Hypertension Mother -: Heart disease - Social History Alcohol use: No CD- Drugs: No Caffeine use: No Review of Systems 10-point ROS is otherwise unremarkable Physical Examination - Physical Exam General: Alert, Oriented x3 (uncooperative ) HEENT: Atraumatic, Normocephalic, PERRLA Neck: Supple, 2+ carotid pulse no bruit, JVD not distended Respiratory: Diminished, Crackles/rales Cardiovascular: Normal pulses, Regular rate/rhythm, Normal S1 S2 (right chest wall permacath , ), Edema (2+ LE) Gastrointestinal: Normal bowel sounds, Soft and benign, Non-distended Musculoskeletal: No clubbing, No tenderness, No warmth, Swelling Neurological: Normal speech, Sensation intact, Cranial nerves 3-12 intact Urinary: Dialysis catheter - Studies Laboratory Data (last 24 hrs) 11/04/19 10:52: Sodium Cancelled, Potassium Cancelled, BUN Cancelled, Creatinine Cancelled, Glucose Cancelled, Phosphorus Cancelled, Magnesium Cancelled 11/04/19 10:52: WBC Cancelled, Hgb Cancelled, Hct Cancelled, Plt Count Cancelled Assessment and Plan - Problems (Diagnosis) (1) Acute on chronic diastolic heart failure Current Visit: No Status: Acute (2) End stage renal disease Current Visit: No Status: Acute (3) Hypertension Current Visit: No Status: Acute - Advance Directives Does patient have a Living Will: No Does patient have a Durable POA for Healthcare: No Physician Review: Patient Assessed, Agree with Above Assessment and Plan Physician Review Additional Text: ESRD - in nephrology consulted to restart dialysis today -Patient can be discharged post dialysis - will defer dialysis dosing to renal team -patient refusing labs repeat today - does not want any blood draw, i explained risk of not getting labs to him , to include inadequate dosing of dialysis HTN - follow post dialysis ultrafiltration Presumed DM -unclear from history - do accuchecks with insulin sliding scale DVT prop- sc heparin Dispo -can dc home in am or after today . Time Spent Managing Pts Care (In Minutes): 65
[2019-11-04 16:10] VITALS: O2SAT 99
[2019-11-04] MEDS: INSULIN -REGULAR HUMAN 50 UNIT/0.5 ML ML SQ SCH ×2 (16:30→21:00)
[2019-11-04] MEDS: carvediloL 12.5 MG TAB PO SCH (17:26)
[2019-11-04] MEDS: CA ACETATE 667 MG CAP PO SCH (17:27)
[2019-11-04] MEDS ORDERED: MANNITOL 25% 12.5 GM/50 ML VIAL IV PRN (18:05)
[2019-11-04] MEDS ORDERED: NA CHLORIDE 0.9% 1,000 ML IV PRN (18:05)
[2019-11-04] MEDS ORDERED: EPOETIN ALFA-EPBX 10,000 UNIT/ML VIAL SQ ONE (19:00)
[2019-11-04] MEDS ORDERED: ALBUMIN HUMAN 25% 50 ML IV SCH (19:00)
[2019-11-04] MEDS: IPRATROPIUM BROM 0.5MG/2.5ML NEB SCH (20:00)
[2019-11-04] MEDS ORDERED: ATORVASTATIN 20 MG TAB PO SCH (21:00)
[2019-11-04] MEDS ORDERED: MIRTAZAPINE 15 MG TAB PO SCH (21:00)
[2019-11-04] MEDS ORDERED: HEPARIN 5000 UNIT/ML 1 ML VIAL SQ SCH (21:00)
[2019-11-05] MEDS: DOXAZOSIN 2 MG TAB PO SCH ×2 (00:11→09:07)
[2019-11-05] MEDS: APIXABAN 2.5 MG TABLET PO SCH ×2 (00:12→09:08)
[2019-11-05] MEDS: NEPRO SHAKE 237 ML CAN PO SCH ×2 (00:12→09:09)
[2019-11-05 00:46] LABS: Urine Appearance CLEAR; Urine Bilirubin NEGATIVE (NEG); Urine Blood TRACE (NEG); Urine Color YELLOW; Urine Glucose NEGATIVE (NEG); Urine Protein 2+ (NEG); Urine Specific Gravity <=1.005 (1.005-1.030); Urine Urobilinogen 0.2 mg/dL (0.2-1.0)
[2019-11-05 00:53] LABS: Urine Microscopic Reflex ORDER UMIC
[2019-11-05 01:17] LABS: Urine Bacteria 20-50 /HPF (NONE SEEN); Urine Culture Reflex Order REFLEXED; Urine Mucus 1+ /HPF (NONE SEEN); Urine Sperm PRESENT (NONE SEEN)
[2019-11-05] MEDS: IPRATROPIUM BROM 0.5MG/2.5ML NEB SCH ×3 (02:00→14:00)
[2019-11-05 04:33] VITALS: BMI 23.1
[2019-11-05] MEDS: carvediloL 12.5 MG TAB PO SCH ×2 (05:09→16:44)
[2019-11-05 05:56] LABS: Absolute Lymphocytes (CBC) 1.5 K/uL (0.7-4.9); Basophils % 1.6 % (0-1.3); Hematocrit 29.2 % (39.6-49.0); Lymphocytes % 21.8 % (15.3-44.8); MPV 8.8 fL (7.6-11.3); RBC Red Blood Cell Count 3.39 M/uL (4.33-5.43)
[2019-11-05 07:05] LABS: Albumin 2.6 g/dL (3.4-5.0); Bilirubin Total 0.3 mg/dL (0.2-1.0); Potassium 3.8 mmol/L (3.5-5.1); Protein, Total 6.8 g/dL (6.4-8.2)
[2019-11-05] MEDS: INSULIN -REGULAR HUMAN 50 UNIT/0.5 ML ML SQ SCH ×3 (07:30→16:30)
[2019-11-05] MEDS ORDERED: FE SULF/FA/VIT B COMP & C TAB PO SCH (08:00)
[2019-11-05] MEDS ORDERED: FERROUS SULFATE 325 MG TAB PO SCH (09:00)
[2019-11-05] MEDS ORDERED: CALCITROL 0.25 MCG CAP PO SCH (09:00)
[2019-11-05] MEDS: CA ACETATE 667 MG CAP PO SCH ×3 (09:07→16:43)
[2019-11-05] MEDS ORDERED: AMLODIPINE 10 MG TAB PO SCH (10:00)
--- NOTE | 2019-11-05 11:14 | P.CNS ---
Date of Consult: 11/05/19 Reason for Consult: ESRD Requesting Physician: Carolann Alonzo Chief Complaint: Need for dialysis History of Present Illness: 59 yo HM HTN, CKD presented to the ER with hyperkalemia and uremia due to multiple missed HD treatments. He was unable to get dialysis due to an unknown hepatitis panel. Patient with recent prolonged hospital stay, started on dialysis during hospitalization, recently transferred to the nursing at [facility] with outpatient dialysis set up . However unable to start dialysis due to hepatitis testing . His last dialysis was 6 days ago. Repeat lab done yesterday shows potassium of 5.5 asw ell increasing body swelling . Patient was sent here for dialysis. He has been admitted for temporary inpatient dialysis today. He denies any complaint. He states his unsure why he is in the hospital. He denies any shortness of breath. He states he is tolerating p.o. well with no nausea or vomiting. He denies any chest pain or abdominal pain. Hospitalist team called for admission after ER team state they are unable to accomodate patient outpatient dialysis provision . 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 Dr Mc discussed with Allergies No Known Allergies Allergy (Verified 09/03/19 17:11) Home medications list reviewed: Yes Home Medications: Amlodipine [Norvasc*] 10 mg PO 1000 tab 10/21/19 Apixaban [Eliquis *] 2.5 mg PO BID tablet 10/21/19 Atorvastatin Calcium [Lipitor*] 20 mg PO BEDTIME tab 10/21/19 Calcitrol [Rocaltrol*] 0.25 mcg PO DAILY cap 10/21/19 Doxazosin [Cardura*] 2 mg PO BID tab 10/21/19 Ferrous Sulfate [Ferrous Sulfate*] 325 mg PO DAILY tab 10/21/19 Insulin -Regular Human [Novolin -R*] See Protocol SQ ACHS ml 10/21/19 Nepro Shake [Nepro*] 237 ml PO BID can 10/21/19 carvediloL [Coreg*] 12.5 mg PO BID tab 10/21/19 Calcium Acetate 667 mg PO TID 11/04/19 Iron/FA/Vit B-Com W/C [Hemocyte Plus] 1 tab PO DAILY 11/04/19 Mirtazapine [Remeron*] 15 mg PO BEDTIME PRN 11/04/19 Protein Supplement [Promod] 946 ml PO BID 11/04/19 - Past Medical/Surgical History Diabetic: Yes -: HTN -: DM -: ESRD- on HD -: HLD -: Leukocytosis -: Right Jugular DVT -: 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 -: hemodialysis catheter dysfunction- -: CHF -: HD axcess RCW 09/2019 -: Tunneled Right jugular catheter placement 10/12/19 -: Arteriovenous Fistula left arm placement 10/14/19 -: removal of right femoral quiton catheter 10/08/19 - Family History Sister Medical History: Hypertension Mother Medical History: Heart disease - Social History Smoking Status: Never smoker Alcohol use: No CD- Drugs: No Caffeine use: No Review of Systems 10-point ROS is otherwise unremarkable General: Weakness Cardiovascular: Edema Physical Examination Temp Pulse Resp BP Pulse Ox 97.2 F 72 18 178/74 H 98 11/05/19 08:00 11/05/19 09:07 11/05/19 08:00 11/05/19 09:07 11/05/19 08:00 General: Oriented x3, Cooperative HEENT: Normocephalic, Mucous membr. moist/pink Neck: JVD not distended Respiratory: Clear to auscultation bilaterally, Normal air movement Cardiovascular: Regular rate/rhythm, Edema Gastrointestinal: Soft and benign, Non-distended Musculoskeletal: No clubbing, No contractures Integumentary: No rashes, No cyanosis Neurological: Normal speech Laboratory Data (last 24 hrs) 11/04/19 10:52: Sodium Cancelled, Potassium Cancelled, BUN Cancelled, Creatinine Cancelled, Glucose Cancelled, Phosphorus Cancelled, Magnesium Cancelled 11/04/19 10:52: WBC Cancelled, Hgb Cancelled, Hct Cancelled, Plt Count Cancelled Imagings Data: EXAM DESCRIPTION: RAD - Chest Single View - 11/04/2019 11:22 am CLINICAL HISTORY: dialysis Chest pain. COMPARISON: Chest Single View dated 10/04/2019; Chest Single View dated 10/04/2019 ; Chest Single View dated 09/29/2019; Chest Pa And Lat (2 Views) dated 09/14/2019 FINDINGS: Portable technique limits examination quality. Mildly elevated right hemidiaphragm noted, chronic. The lungs are grossly clear. The heart is normal in size. Right-sided venous catheter has tip in the SVC. IMPRESSION: No acute intrathoracic process suspected. Conclusions/Impression: A/ ESRD on HD. Hyperkalemia. HTN with CKD/ CHF. Diastolic CHF, chronic. DM II with CKD. Anemia in CKD. MEDINA/ Secondary HyperPTH. P/ Continue current POC and Medications. Arrange for acute HD today and tomorrow. Give Procrit. Increase Doxazosin 4mg BID. Draw stat Hep panel. Restart home medications as indicated. No NSAIDs. AM labs PRN. Daily weight. Thank you kindly for the consultation. Case reviewed with Dr. Alonzo.
--- NOTE | 2019-11-05 12:34 | P.DS ---
Admission Date: 11/04/19 Discharge Date: 11/05/19 Disposition: [facility] Discharge Condition: FAIR Reason for Admission: Need for dialysis - Problems (1) Acute on chronic diastolic heart failure Current Visit: No Status: Acute (2) End stage renal disease Current Visit: No Status: Acute (3) Hypertension Current Visit: No Status: Acute Brief History of Present Illness: Patient with recent prolonged hospital stay, started on dialysis during hospitalization, recently transferred to the nursing at [facility] with outpatient dialysis set up . However unable to start dialysis due to hepatitis testing . His last dialysis was 6 days ago. Repeat lab done yesterday shows potassium of 5.5 asw ell increasing body swelling . Patient was sent here for dialysis. He has been admitted for temporary inpatient dialysis today. He denies any complaint. He states his unsure why he is in the hospital. He denies any shortness of breath. He states he is tolerating p.o. well with no nausea or vomiting. He denies any chest pain or abdominal pain. Hospitalist team called for admission after ER team state they are unable to accomodate patient outpatient dialysis provision . His head pastry chef Dr Mc discussed with . Hospital Course: Patient on admission received dialysis. He feels much better. His potasisum is much improved . He had a repeat dialysis today. He is ambulating with his walker. He will be discharged home [facility] to [facility] Vital Signs/Physical Exam: Temp Pulse Resp BP Pulse Ox 97.5 F 69 18 161/70 H 100 11/05/19 12:00 11/05/19 12:00 11/05/19 12:00 11/05/19 12:11/05/19 12:00 General: In no apparent distress, Oriented x3 HEENT: Atraumatic, Normocephalic Neck: 2+ carotid pulse no bruit, JVD not distended Respiratory: Clear to auscultation bilaterally, Normal air movement Cardiovascular: Normal pulses, Regular rate/rhythm, Normal S1 S2, Other ( right Perma-Cath insitu) Gastrointestinal: Normal bowel sounds, Soft and benign, Non-distended Neurological: Normal strength at 5/5 x4 extr, Normal tone, Abnormal speech ( Slightly slowed speech follow-up) Laboratory Data at Discharge: WBC 7.1 K/uL (4.3-10.9) D 11/05/19 05:29 Hgb 9.7 g/dL (13.6-17.9) L 11/05/19 05:29 Hct 29.2 % (39.6-49.0) L D 11/05/19 05:29 Plt Count 338 K/uL (152-406) 11/05/19 05:29 Sodium 137 mmol/L (136-145) 11/05/19 05:29 Potassium 3.8 mmol/L (3.5-5.1) 11/05/19 05:29 BUN 36 mg/dL (7-18) H 11/05/19 05:29 Creatinine 3.85 mg/dL (0.55-1.3) H D 11/05/19 05:29 Glucose 89 mg/dL (74-106) 11/05/19 05:29 Phosphorus Cancelled 11/04/19 10:52 Magnesium Cancelled 11/04/19 10:52 Total Bilirubin 0.3 mg/dL (0.2-1.0) 11/05/19 05:29 AST 19 U/L (15-37) 11/05/19 05:29 ALT 18 U/L (12-78) 11/05/19 05:29 Alkaline Phosphatase 86 U/L (45-117) 11/05/19 05:29 Home Medications: Amlodipine [Norvasc*] 10 mg PO 1000 tab 10/21/19 Apixaban [Eliquis *] 2.5 mg PO BID tablet 10/21/19 Atorvastatin Calcium [Lipitor*] 20 mg PO BEDTIME tab 10/21/19 Calcitrol [Rocaltrol*] 0.25 mcg PO DAILY cap 10/21/19 Doxazosin [Cardura*] 2 mg PO BID tab 10/21/19 Ferrous Sulfate [Ferrous Sulfate*] 325 mg PO DAILY tab 10/21/19 Insulin -Regular Human [Novolin -R*] See Protocol SQ ACHS ml 10/21/19 Nepro Shake [Nepro*] 237 ml PO BID can 10/21/19 carvediloL [Coreg*] 12.5 mg PO BID tab 10/21/19 Calcium Acetate 667 mg PO TID 11/04/19 Iron/FA/Vit B-Com W/C [Hemocyte Plus*] 1 tab PO DAILY 11/04/19 Mirtazapine [Remeron*] 15 mg PO BEDTIME PRN 11/04/19 Protein Supplement [Promod] 946 ml PO BID 11/04/19 Patient Discharge Instructions: -follow up with your Renal Team Diet: Renal Activity: Ad courtney Time spent managing pt's care (in minutes): 39
[2019-11-05] MEDS ORDERED: INFLUENZA VACCINE (for 3y+) 0.5 ML DOSE IMVAC ONE (13:00)
[2019-11-05 16:29] VITALS: BP 174/73; TEMP 98.6
[2019-11-05] MEDS ORDERED: DOXAZOSIN 2 MG TAB PO SCH (21:00)
--- NOTE | 2019-11-07 09:26 | EKG ---
Test Date: 2019-11-04 Test Time: 12:08:06 Senior [employer] U[employer] Developer: DANAE MEASUREMENT RESULTS: Intervals: Rate: 62 [place]: 180 QRSD: 98 QT: 422 QTc: 428 [place]: P: 40 [place]: 180 QRS: -29 T: 30 INTERPRETIVE STATEMENTS: Normal sinus rhythm Possible Anterior infarct, age undetermined Abnormal ECG Compared to ECG 09/03/2019 08:26:12 Left-axis deviation no longer present Myocardial infarct finding still present Electronically Signed On 11-07-19 09:26:38 VETERINARY TOXICOLOGIST by Giuseppe Perry
== END 2019-11-05 06:28 ==
LOC: ER 09:23 → ERHOLD 14:33 → 4TH 15:51
PROVIDERS: ADMIT Internal Medicine; ATTEND Internal Medicine
DX: I13.2 Hypertensive heart and chronic kidney disease with heart failure and with stage 5 chronic kidney disease, or end stage renal disease (principal); E11.22 Type 2 diabetes mellitus with diabetic chronic kidney disease; N18.6 End stage renal disease; I50.32 Chronic diastolic (congestive) heart failure; Z99.2 Dependence on renal dialysis; E87.5 Hyperkalemia; D63.1 Anemia in chronic kidney disease
CPT/HCPCS: 93005; 87088; 85025; 87086; 36415; 82947 ×5; 80053; 86705; 71045; 90935; 99282; J1644; Q5106; G0257; G0378 ×3; 81003; 81015